=== PATIENT | male | born 1960 | race Caucasian/White ===

== ENCOUNTER 2017-04-27 16:38 | Inpatient (IN) | payer MEDICARE, OTHER ==
[2017-04-27] MEDS ORDERED: HYDROmorphone 1 MG/ML 1 ML SYRINGE IVP STA (17:58)
[2017-04-27] MEDS ORDERED: RX INFO: IV CONTRAST WAS GIVEN 1 EACH MISC MISCELLANE PRN (17:58)
[2017-04-27] MEDS ORDERED: ONDANSETRON 4 MG/2 ML VIAL IVP STA (17:58)
[2017-04-27] MEDS ORDERED: SODIUM CHLORIDE 0.9% 1,000 ML IV STA (17:58)
--- NOTE | 2017-04-27 18:13 | ED ---
General Adult HPI - General Source: patient, RN notes reviewed Mode of arrival: wheelchair Limitations: no limitations <Luis Miguel Mccracken - Last Filed: 04/27/17 19:49> <Praful Duron - Last Filed: 04/27/17 20:13> - General Chief complaint: Abdominal Pain Stated complaint: Abd Pain Time Seen by Provider: 04/27/17 17:41 - History of Present Illness Initial comments: Patient 57-year-old male who presents emergency room today with chief complaint of abdominal pain that started 3 days ago. He does admit to lower abdominal pain and lower abdomen. Patient admits to some nausea. Denies any diarrhea. States he was at [facility] yesterday. States that they do lab work. States was no imaging obtained other than for his right wrist. Patient states she's never had similar symptoms in the past. He denies any other complaints. Patient denies any recent fever, chills, shortness of breath, chest pain, back pain, numbness or tingling, dysuria or hematuria, constipation or diarrhea, headaches or visual changes, or any other complaints. (Luis Miguel Mccracken) - Related Data Home Medications Medication Instructions Recorded Confirmed Albuterol Inhaler [Ventolin Hfa 2 puff INHALATION RT-QID PRN 04/27/17 04/27/17 Inhaler] Budesonide-Formot 160-4.5 Mcg 1 puff INHALATION RT-DAILY 04/27/17 04/27/17 [Symbicort 160-4.5 Mcg Inhaler] Esomeprazole Magnesium [NexIUM] 20 mg PO BID 04/27/17 04/27/17 traZODone HCL 300 mg PO HS 04/27/17 04/27/17 Allergies Allergy/AdvReac Type Severity Reaction Status Date / Time No Known Allergies Allergy Verified 04/27/17 17:56 Review of Systems ROS Other: All systems not noted in ROS Statement are negative. <Luis Miguel Mccracken - Last Filed: 04/27/17 19:49> ROS Other: All systems not noted in ROS Statement are negative. <Praful Duron - Last Filed: 04/27/17 20:13> ROS Statement: Those systems with pertinent positive or pertinent negative responses have been documented in the HPI. Past Medical History Past Medical History: GERD/Reflux Additional Past Medical History / Comment(s): pinched nerve in neck History of Any Multi-Drug Resistant Organisms: None Reported Past Surgical History: Joint Replacement Past Psychological History: No Psychological Hx Reported Smoking Status: Current every day smoker Past Alcohol Use History: Occasional Past Drug Use History: None Reported <Luis Miguel Mccracken - Last Filed: 04/27/17 19:49> General Exam Limitations: no limitations <Luis Miguel Mccracken - Last Filed: 04/27/17 19:49> <Praful Duron - Last Filed: 04/27/17 20:13> - General Exam Comments Initial Comments: General: The patient is awake and alert, in no distress, and does not appear acutely ill. Eye: Pupils are equal, round and reactive to light, extra-ocular movements are intact. No nystagmus. There is normal conjunctiva bilaterally. No signs of icterus. Ears, nose, mouth and throat: There are moist mucous membranes and no oral lesions. Neck: The neck is supple, there is no tenderness or JVD. Cardiovascular: There is a regular rate and rhythm. No murmur, rub or gallop is appreciated. Respiratory: Lungs are clear to auscultation, respirations are non-labored, breath sounds are equal. No wheezes, stridor, rales, or rhonchi. Gastrointestinal: Patient does have normal appearance of the abdomen. Normal bowel sounds. Abdomen is soft on palpation. Does have increased tenderness to both right and left lower quadrants. No rebound tenderness. No guarding. No CVA tenderness. Musculoskeletal: Normal ROM, no tenderness. Strength 5/5. Sensation intact. Pulses equal bilaterally 2+. Neurological: A&O x 3. CN II-XII intact, There are no obvious motor or sensory deficits. Coordination appears grossly intact. Speech is normal. Skin: Skin is warm and dry and no rashes or lesions are noted. Psychiatric: Cooperative, appropriate mood & affect, normal judgment. (Luis Miguel Mccracken) Course <Luis Miguel Mccracken - Last Filed: 04/27/17 19:49> <Praful Duron - Last Filed: 04/27/17 20:13> Vital Signs 04/27/17 17:03 Temperature 98.6 F Pulse Rate 88 Respiratory 20 Rate Blood Pressure 136/81 O2 Sat by Pulse 97 Oximetry - Reevaluation(s) Reevaluation #1: 04/27/17 20:13 I did proceed a [id number] evaluation the patient did discuss findings with him. He did have a bowel movement pain for the past 3 days. The workup is consistent with diverticulitis. Patient will be admitted I did discuss case with hospitalist group. (Praful Duron) Medical Decision Making - Lab Data Result diagrams: 04/27/17 18:14 04/27/17 18:14 <Luis Miguel Mccracken - Last Filed: 04/27/17 19:49> - Lab Data Result diagrams: 04/27/17 18:14 04/27/17 18:14 <Praful Duron - Last Filed: 04/27/17 20:13> - Medical Decision Making Patient reexamined at this time states she is feeling better here in the emergency room still having some lower abdominal discomfort. Patient does have 12,[address] does show evidence of diverticulitis. (Luis Miguel Mccracken) - Lab Data Lab Results 04/27/17 04/27/17 04/27/17 Range/Units 18:14 18:14 18:14 WBC 12.4 H (3.8-10.6) k/uL RBC 4.99 (4.30-5.90) m/uL Hgb 15.3 (13.0-17.5) gm/dL Hct 46.8 (39.0-53.0) % MCV 93.8 (80.0-100.0) fL MCH 30.7 (25.0-35.0) pg MCHC 32.7 (31.0-37.0) g/dL RDW 14.8 (11.5-15.5) % Plt Count 286 (150-450) k/uL Neutrophils % 88 % Lymphocytes % 6 % Monocytes % 5 % Eosinophils % 1 % Basophils % 0 % Neutrophils # 10.8 H (1.3-7.7) k/uL Lymphocytes # 0.8 L (1.0-4.8) k/uL Monocytes # 0.6 (0-1.0) k/uL Eosinophils # 0.1 (0-0.7) k/uL Basophils # 0.0 (0-0.2) k/uL Sodium 144 (137-145) mmol/L Potassium 4.1 (3.5-5.1) mmol/L Chloride 107 (98-107) mmol/L Carbon Dioxide 24 (22-30) mmol/L Anion Gap 13 mmol/L BUN 14 (9-20) mg/dL Creatinine 0.90 (0.66-1.25) mg/dL Est GFR (MDRD) Af Amer >60 (>60 ml/min/1.73 sqM) Est GFR (MDRD) Non-Af >60 (>60 ml/min/1.73 sqM) Glucose 128 H (74-99) mg/dL Plasma Lactic Acid Kyle 1.3 (0.7-2.0) mmol/L Calcium 9.5 (8.4-10.2) mg/dL Total Bilirubin 0.3 (0.2-1.3) mg/dL AST 22 (17-59) U/L ALT 32 (21-72) U/L Alkaline Phosphatase 71 (38-126) U/L Total Protein 6.9 (6.3-8.2) g/dL Albumin 4.1 (3.5-5.0) g/dL Amylase 46 (30-110) U/L Lipase 62 (23-300) U/L Urine Color Urine Appearance (Clear) Urine pH (5.0-8.0) Ur Specific [place] (1.001-1.035) Urine Protein (Negative) Urine Glucose (UA) (Negative) Urine Ketones (Negative) Urine Blood (Negative) Urine Nitrite (Negative) Urine Bilirubin (Negative) Urine Urobilinogen (<2.0) mg/dL Ur Leukocyte Esterase (Negative) Urine RBC (0-5) /hpf Urine WBC (0-5) /hpf Ur Squamous Epith Cells (0-4) /hpf Urine Mucus (None) /hpf 04/27/17 Range/Units 18:25 WBC (3.8-10.6) k/uL RBC (4.30-5.90) m/uL Hgb (13.0-17.5) gm/dL Hct (39.0-53.0) % MCV (80.0-100.0) fL MCH (25.0-35.0) pg MCHC (31.0-37.0) g/dL RDW (11.5-15.5) % Plt Count (150-450) k/uL Neutrophils % % Lymphocytes % % Monocytes % % Eosinophils % % Basophils % % Neutrophils # (1.3-7.7) k/uL Lymphocytes # (1.0-4.8) k/uL Monocytes # (0-1.0) k/uL Eosinophils # (0-0.7) k/uL Basophils # (0-0.2) k/uL Sodium (137-145) mmol/L Potassium (3.5-5.1) mmol/L Chloride (98-107) mmol/L Carbon Dioxide (22-30) mmol/L Anion Gap mmol/L BUN (9-20) mg/dL Creatinine (0.66-1.25) mg/dL Est GFR (MDRD) Af Amer (>60 ml/min/1.73 sqM) Est GFR (MDRD) Non-Af (>60 ml/min/1.73 sqM) Glucose (74-99) mg/dL Plasma Lactic Acid Kyle (0.7-2.0) mmol/L Calcium (8.4-10.2) mg/dL Total Bilirubin (0.2-1.3) mg/dL AST (17-59) U/L ALT (21-72) U/L Alkaline Phosphatase (38-126) U/L Total Protein (6.3-8.2) g/dL Albumin (3.5-5.0) g/dL Amylase (30-110) U/L Lipase (23-300) U/L Urine Color Yellow Urine Appearance Cloudy (Clear) Urine pH 5.5 (5.0-8.0) Ur Specific [place] 1.028 (1.001-1.035) Urine Protein 1+ H (Negative) Urine Glucose (UA) Negative (Negative) Urine Ketones Negative (Negative) Urine Blood Negative (Negative) Urine Nitrite Negative (Negative) Urine Bilirubin Negative (Negative) Urine Urobilinogen <2.0 (<2.0) mg/dL Ur Leukocyte Esterase Negative (Negative) Urine RBC 1 (0-5) /hpf Urine WBC 2 (0-5) /hpf Ur Squamous Epith Cells <1 (0-4) /hpf Urine Mucus Many H (None) /hpf Disposition Time of Disposition: 19:51 <Luis Miguel Mccracken - Last Filed: 04/27/17 19:49> <Praful Duron - Last Filed: 04/27/17 20:13> Clinical Impression: Diverticulitis Disposition: ADMITTED IP TO THIS HOSP Condition: Good Referrals: Melina Denson MD [Primary Care Provider] - 1-2 days
[2017-04-27 18:27] LABS: Basophils % (A) 0 %; CH 31.7; Eosinophils # (A) 0.1 k/uL (0-0.7); Eosinophils % (A) 1 %; HCT 46.8 % (39.0-53.0); HDW 2.56; HGB 15.3 gm/dL (13.0-17.5); Luc # (Auto) 0.08; Luc % (Auto) 1; Lymphocytes # (A) 0.8 k/uL (1.0-4.8); Lymphocytes % (A) 6 %; MCH 30.7 pg (25.0-35.0); MCHC 32.7 g/dL (31.0-37.0); MCV 93.8 fL (80.0-100.0); Mean Platelet Volume 7.8; Monocytes # (A) 0.6 k/uL (0-1.0); Monocytes % (A) 5 %; Neutrophils # (A) 10.8 k/uL (1.3-7.7); Neutrophils % (A) 88 %; RBC 4.99 m/uL (4.30-5.90); RDW 14.8 % (11.5-15.5); WBC 12.4 k/uL (3.8-10.6); WBC (Perox) 11.41
[2017-04-27 18:34] LABS: ALT 32 U/L (21-72); AST 22 U/L (17-59); Alkaline Phosphatase 71 U/L (38-126); Amylase 46 U/L (30-110); Anion Gap 13 mmol/L; Blood Urea Nitrogen 14 mg/dL (9-20); Calcium 9.5 mg/dL (8.4-10.2); Carbon Dioxide 24 mmol/L (22-30); Chloride 107 mmol/L (98-107); Glucose 128 mg/dL (74-99); Non-African American GFR(MDRD) >60 (>60 ml/min/1.73 sqM); Potassium 4.1 mmol/L (3.5-5.1); Sodium 144 mmol/L (137-145); Total Bilirubin 0.3 mg/dL (0.2-1.3); Total Protein 6.9 g/dL (6.3-8.2)
[2017-04-27 18:49] LABS: Appearance,Urine Cloudy (Clear); Bilirubin,Urine Negative (Negative); Glucose,Urine (UA) Negative (Negative); Ketones,Urine Negative (Negative); Leukocyte Esterase,Urine Negative (Negative); Mucus,Urine Many /hpf; Nitrite,Urine Negative (Negative); PH, Urine 5.5 (5.0-8.0); Particle Count 18662; Protein,Urine 1+ (Negative); RBC,Urine 1 /hpf (0-5); Specific Gravity,Urine 1.028 (1.001-1.035); Squamous Epithelial Cell,Urine <1 /hpf (0-4); UA Billing (MACRO vs. MICRO) MICRO; Urobilinogen,Urine <2.0 mg/dL (<2.0); WBC,Urine 2 /hpf (0-5)
--- NOTE | 2017-04-27 19:24 | CT ---
EXAMINATION TYPE: CT abdomen pelvis w con DATE OF EXAM: 04/27/2017 COMPARISON: NONE HISTORY: Pelvic pain. CT DLP: 1472.00 mGycm Automated exposure control for dose reduction was used. TECHNIQUE: Helical acquisition of images was performed from the lung bases through the pelvis. CONTRAST: Performed without Oral Contrast and with IV Contrast, patient injected with 100 mL of Omnipaque 300. FINDINGS: Lung bases are clear. There is no pleural effusion. Heart size is normal. Liver spleen pancreas and gallbladder appear normal. Bile ducts are not dilated. There is no adrenal mass. Kidneys show satisfactory contrast opacification. There is no hydronephrosi s. There is no retroperitoneal adenopathy. Abdominal aorta is atheromatous. There are numerous divert icula in the sigmoid colon. Appendix appears normal. There is wall thickening and fat stranding aroun d the mid sigmoid colon. There is a loop of small bowel adjacent to the sigmoid colon with mild wall thickening and fluid level. The remainder of the small bowel appears fairly normal. I see no bony destructive process. There is narrowing at L5-S1 disc space. There is posterior disc he rniation at L1-2. IMPRESSION: SIGMOID DIVERTICULA WITH INFLAMMATORY CHANGES AROUND THE MID SIGMOID COLON CONSISTENT WITH DIVERTICUL ITIS. THERE IS LOCALIZED ILEUS INVOLVING THE ADJACENT LOOP OF DISTAL ILEUM. THIS IS PROBABLY INFLAMMA TORY REACTION. EXTENSIVE LEFT-SIDED COLONIC DIVERTICULOSIS.
[2017-04-27] MEDS ORDERED: LEVOFLOXACIN 750MG-D5W PMX 750 MG in DEXTROSE/WATER 1 150ML.BAG IVPB STA (19:50)
[2017-04-27] MEDS ORDERED: metroNIDAZOLE-NS PMX 500 MG in SALINE 1 100ML.BAG IVPB STA (19:50)
[2017-04-27] MEDS ORDERED: LEVOFLOXACIN 500MG-D5W PMX 500 MG in DEXTROSE/WATER 1 100ML.BAG IVPB STA (19:50)
[2017-04-27] MEDS ORDERED: ACETAMINOPHEN TAB 325 MG TAB PO PRN (20:22)
[2017-04-27] MEDS ORDERED: ONDANSETRON 4 MG/2 ML VIAL IVP PRN (20:22)
[2017-04-27] MEDS ORDERED: NALOXONE 0.4 MG/ML 1 ML VIAL IV PRN (20:22)
[2017-04-27] MEDS: HYDROmorphone 1 MG/ML 1 ML SYRINGE IV PRN (22:31)
[2017-04-28] MEDS: HYDROmorphone 1 MG/ML 1 ML SYRINGE IV PRN ×3 (01:58→12:56)
[2017-04-28] MEDS: metroNIDAZOLE-NS PMX 500 MG in SALINE 1 100ML.BAG IVPB SCH ×2 (03:53→12:56)
[2017-04-28 08:10] LABS: Basophils % (A) 0 %; CH 31.4; CHCM 34.1; Eosinophils % (A) 0 %; HCT 45.7 % (39.0-53.0); HDW 2.52; HGB 14.8 gm/dL (13.0-17.5); Luc % (Auto) 1; Lymphocytes # (A) 0.7 k/uL (1.0-4.8); Lymphocytes % (A) 4 %; MCHC 32.4 g/dL (31.0-37.0); MCV 92.6 fL (80.0-100.0); Mean Platelet Volume 7.6; Monocytes # (A) 0.8 k/uL (0-1.0); Monocytes % (A) 4 %; Neutrophils # (A) 17.5 k/uL (1.3-7.7); Neutrophils % (A) 92 %; RBC 4.94 m/uL (4.30-5.90); RDW 14.4 % (11.5-15.5); WBC 19.1 k/uL (3.8-10.6); WBC (Perox) 17.43
[2017-04-28 08:18] LABS: ALT 28 U/L (21-72); AST 17 U/L (17-59); Alkaline Phosphatase 64 U/L (38-126); Anion Gap 11 mmol/L; Blood Urea Nitrogen 9 mg/dL (9-20); Calcium 8.9 mg/dL (8.4-10.2); Carbon Dioxide 23 mmol/L (22-30); Chloride 103 mmol/L (98-107); Glucose 112 mg/dL (74-99); Non-African American GFR(MDRD) >60 (>60 ml/min/1.73 sqM); Potassium 3.8 mmol/L (3.5-5.1); Sodium 137 mmol/L (137-145); Total Bilirubin 0.6 mg/dL (0.2-1.3); Total Protein 6.4 g/dL (6.3-8.2)
[2017-04-28] MEDS ORDERED: HYDROcodone/APAP 5-325MG 1 EACH TAB PO PRN (14:04)
--- NOTE | 2017-04-28 14:28 | XR ---
EXAMINATION TYPE: XR chest 1V portable DATE OF EXAM: 04/28/2017 CLINICAL HISTORY: History of COPD, CHF, and asthma with difficulty in breathing. TECHNIQUE: Single AP portable frontal upright view of the chest is obtained. COMPARISON: Chest x-ray from October 27, 2011. FINDINGS: There is no focal air space opacity, pleural effusion, or pneumothorax seen. The cardiac silhouette size is within normal limits. The osseous structures are intact. IMPRESSION: No acute process identified currently.
[2017-04-28] MEDS: SODIUM CHLORIDE 0.9% 1,000 ML IV SCH (15:04)
--- NOTE | 2017-04-28 15:15 | HP ---
HISTORY AND PHYSICAL DATE OF SERVICE: 04/28/2017 This is a 57-year-old gentleman who with a past medical history of multiple medical problems of asthma, COPD, GERD, history of DJD, history of anxiety, bipolar depression, schizophrenia being followed by Dr. Denson in the outpatient setting is complaining of abdominal pain. The pain is mostly situated in the upper part of the abdomen as well as right lower quadrant and hypogastrium. The pain is off and on for the last several weeks, according to him. About 3 days ago the patient had exacerbation of pain. Patient went to [facility] and was evaluated. The patient also had right wrist pain and apparently there was no fracture. The patient came to [facility] yesterday and a CAT scan of the abdomen and pelvis was done which shows sigmoid diverticula with inflammatory changes around the mid-sigmoid colon consistent with acute diverticulitis, loculated ileus was also noted. The patient admitted for further evaluation and treatment. There is no history of fever or rigors. No history of headache, loss of consciousness. White count is elevated at 19.1. PAST MEDICAL HISTORY: History of asthma, COPD, GERD, DJD, history of pneumonia. MEDICATIONS: Prior to admission include: 1. Trazodone 300 mg q.h.s. 2. Nexium 20 mg p.o. b.i.d. 3. Symbicort 160/4.5 one puff daily. 4. Ventolin 2 puffs q.i.d. p.r.n. ALLERGIES: None. FAMILY HISTORY: History of cancer in the family. SOCIAL HISTORY: History of smoking, history of THC. REVIEW OF SYSTEMS: HEENT: No diminished hearing or vision. CARDIOVASCULAR: No angina or palpitation. RESPIRATORY: As mentioned earlier. GI: As mentioned earlier. : No dysuria. NERVOUS SYSTEM: No numbness or weakness. ALLERGY/IMMUNOLOGY: No asthma or hay fever. MUSCULOSKELETAL: As mentioned earlier. HEMATOLOGICAL: No history of anemia. ENDOCRINE: No history of diabetes or hypothyroidism. CONSTITUTIONAL: As mentioned earlier. DERMATOLOGY: Negative. RHEUMATOLOGY: Negative. PSYCHIATRY: As mentioned earlier. PHYSICAL EXAMINATION: The patient is alert and oriented x3. Pulse is 85, blood pressure 112/70, respiration 18, temperature is 98 degrees, pulse ox 96% on room air. HEENT: Conjunctivae are normal. Oral mucosa moist. Neck is no jugular venous distention. No lymph node enlargement. CARDIOVASCULAR SYSTEM: S1, S2, muffled. RESPIRATORY: Breath sounds diminished at the bases. Bilateral scattered rhonchi, no crackles. ABDOMEN: Soft, obese, diffuse distention and diffuse tenderness in the left lower quadrant and as well as the lower part of the abdomen present, bowel sounds present. Otherwise no ascites, no other mass palpable. LEGS: No edema. No swelling. NERVOUS SYSTEM: Higher functions as mentioned earlier. Moves all 4 limbs. No focal motor or sensory deficits. LYMPHATICS: No lymph node enlargement in the neck or axillae. SKIN: No ulcer, rash, bleeding. LABS: WBC is 19.1, hemoglobin is 14.8, sodium 139, potassium 3.8. ASSESSMENT: 1. Abdominal pain with possible acute diverticulitis. 2. Increased WBC. 3. Chronic obstructive pulmonary disease, asthma. 4. History of gastroesophageal reflux disease. 5. History of degenerative joint disease. 6. History pneumonia. 7. Anxiety, bipolar depression, schizophrenia. 8. History of nicotine dependence. 9. History of THC. 10.FULL CODE. RECOMMENDATION: In this 57-year-old gentleman who presented with multiple complex medical issues, will monitor the patient closely. Continue with the current management and symptomatic treatment. Otherwise at this time, I would recommend broad-spectrum IV antibiotics. I would also recommend a surgical consultation. Guarded prognosis because of multiple complex medical issues and further recommendations to follow. See orders for further details. Will optimize the bronchodilator treatments. Smoking cessation advised. DVT prophylaxis. Symptomatic treatment for the pain. See orders for further details. Further recommendations to follow. Discussed with the patient who understands and consents. MMODL / IJN: [id number] /
[2017-04-28] MEDS: LEVALBUTEROL NEB (CONC) 1.25 MG/0.5 ML AMP INHALATION SCH ×2 (15:47→19:33)
[2017-04-28] MEDS: IPRATROPIUM 0.5 MG/2.5 ML NEBU INHALATION SCH ×2 (15:47→19:33)
[2017-04-28] MEDS: PANTOPRAZOLE 40 MG/10 ML VIAL IVP SCH (15:58)
[2017-04-28] MEDS: PIPERACILLIN-TAZOBACTAM 3.375 GM in DEXTROSE/WATER 1 50ML.BAG IVPB SCH ×2 (15:58→23:57)
[2017-04-28] MEDS: HEPARIN SODIUM,PORCINE 5,000 UNIT/ML 1 ML VIAL SQ SCH ×2 (15:58→21:32)
[2017-04-28] MEDS: NICOTINE 14MG/24HR PATCH TRANSDERM SCH (15:59)
[2017-04-28] MEDS: HYDROmorphone 0.5 MG/0.5 ML SYRINGE IVP PRN ×3 (17:45→23:56)
[2017-04-28] MEDS: FORMOTEROL FUMARATE 20 MCG/2 ML NEBU INHALATION SCH (19:33)
[2017-04-28] MEDS: BUDESONIDE 1 MG/2 ML NEBU INHALATION SCH (19:34)
[2017-04-28] MEDS: LEVOFLOXACIN 500MG-D5W PMX 500 MG in DEXTROSE/WATER 1 100ML.BAG IVPB SCH (20:14)
[2017-04-29] MEDS: HYDROmorphone 0.5 MG/0.5 ML SYRINGE IVP PRN ×2 (02:51→06:09)
[2017-04-29] MEDS: FORMOTEROL FUMARATE 20 MCG/2 ML NEBU INHALATION SCH ×2 (07:28→20:01)
[2017-04-29] MEDS: IPRATROPIUM 0.5 MG/2.5 ML NEBU INHALATION SCH ×4 (07:28→20:00)
[2017-04-29] MEDS: LEVALBUTEROL NEB (CONC) 1.25 MG/0.5 ML AMP INHALATION SCH ×4 (07:28→20:01)
[2017-04-29] MEDS: BUDESONIDE 1 MG/2 ML NEBU INHALATION SCH ×2 (07:28→20:01)
[2017-04-29] MEDS: PANTOPRAZOLE 40 MG/10 ML VIAL IVP SCH (08:13)
[2017-04-29] MEDS: PIPERACILLIN-TAZOBACTAM 3.375 GM in DEXTROSE/WATER 1 50ML.BAG IVPB SCH ×3 (08:14→23:14)
[2017-04-29] MEDS: NICOTINE 14MG/24HR PATCH TRANSDERM SCH (08:14)
[2017-04-29] MEDS: HEPARIN SODIUM,PORCINE 5,000 UNIT/ML 1 ML VIAL SQ SCH ×3 (08:14→23:15)
[2017-04-29 08:18] LABS: Basophils % (A) 0 %; CH 30.9; CHCM 33.4; Eosinophils # (A) 0.1 k/uL (0-0.7); Eosinophils % (A) 1 %; HCT 44.8 % (39.0-53.0); HGB 14.6 gm/dL (13.0-17.5); Luc # (Auto) 0.23; Luc % (Auto) 1; Lymphocytes # (A) 0.8 k/uL (1.0-4.8); Lymphocytes % (A) 5 %; MCH 30.3 pg (25.0-35.0); MCHC 32.6 g/dL (31.0-37.0); MCV 93.1 fL (80.0-100.0); Mean Platelet Volume 7.2; Monocytes # (A) 0.8 k/uL (0-1.0); Monocytes % (A) 4 %; Neutrophils # (A) 15.9 k/uL (1.3-7.7); Neutrophils % (A) 89 %; RBC 4.81 m/uL (4.30-5.90); RDW 13.6 % (11.5-15.5); WBC 17.8 k/uL (3.8-10.6); WBC (Perox) 17.19
[2017-04-29] MEDS ORDERED: BENZOCAINE SPRAY 1 SPRAY CAN ONE (08:20)
[2017-04-29 08:44] LABS: Anion Gap 11 mmol/L; Blood Urea Nitrogen 9 mg/dL (9-20); Calcium 9.1 mg/dL (8.4-10.2); Carbon Dioxide 23 mmol/L (22-30); Chloride 101 mmol/L (98-107); Glucose 120 mg/dL (74-99); Non-African American GFR(MDRD) >60 (>60 ml/min/1.73 sqM); Potassium 4.1 mmol/L (3.5-5.1); Sodium 135 mmol/L (137-145)
[2017-04-29] MEDS ORDERED: RX INFO: IV CONTRAST WAS GIVEN 1 EACH MISC MISCELLANE PRN (08:58)
[2017-04-29] MEDS: IOHEXOL 350 MG/ML 25 ML BOTTLE (ORAL USE) PO PRN ×2 (09:10→10:07)
[2017-04-29] MEDS: SODIUM CHLORIDE 0.9% 1,000 ML IV SCH ×3 (09:11→16:24)
--- NOTE | 2017-04-29 09:11 | P.PN ---
Subjective 57-year-old male being seen on rounds noted to have a significant abdominal distention this morning. Patient states there's increased pain compared to yesterday. Abdomen is firm and distended few hypoactive bowel tones. Patient states sensation of nausea no active emesis. Patient states the abdominal pain is across the entire abdomen. Patient came into the emergency room the day before with a chief complaint of abdominal pain. A CAT scan of the abdomen pelvis was done at that time it did showed sigmoid diverticula with inflammatory changes around the mid sigmoid colon consistent with acute diverticulitis, loculated ileus also noted. Patient states he has not had pain like this before. According to the patient 3 days ago he did present to [facility] to be evaluated in the emergency room for abdominal pain and pain in the wrist area he stated he was seen in the emergency room discharged. He states the pain continued to persist came into the emergency room at [facility] on April 27 to be evaluated white count this morning 17.8. Admission white count 12.4. Afebrile temp 97.6. Objective - Vital Signs Vital signs: Vital Signs Temp 97.7 F 04/29/17 07:55 Pulse 64 04/29/17 07:55 Resp 18 04/29/17 07:55 BP 128/73 04/29/17 07:55 Pulse Ox 91 L 04/29/17 07:55 Intake & Output 04/28/17 04/29/17 04/29/17 18:59 06:59 18:59 Intake Total 600 590 Balance 600 590 Intake: Oral 600 590 Other: Voiding Method Toilet # Voids 3 2 - Exam GENERAL APPEARANCE: 57-year-old male patient is alert states having increased abdominal pain across the entire abdominal wall VITAL SIGNS: Reviewed afebrile HEENT: Head is normocephalic and atraumatic. Pupils are equal and reactive. The nares are patent. Oropharynx is clear without lesions. NECK: Supple without lymphadenopathy. Traches midline. HEART: S1, S2. Regular rate and rhythm. No murmur noted denying chest pain LUNGS: Posterior bilateral few scattered prolonged expiratory wheezing noted no cough noted sats on room air 91%. ABDOMEN: Soft, diffuse tenderness across the abdominal wall firm distended a few hypoactive bowel tones No peritoneal signs. No palpable organomegaly or masses. States had a bowel movement yesterday morning no stool since reports a sensation of nausea no active emesis EXTREMITIES: Normal skin color and turgor. No cyanosis, rash, ulceration, clubbing or edema. Radial pedal pulses are 2/4 bilaterally. NEUROLOGICAL: No focal deficits. Strength and sensation are grossly intact. - Labs CBC & Chem 7: 04/29/17 07:43 04/29/17 07:43 Labs: Abnormal Lab Results - Last 24 Hours (Table) 04/29/17 04/29/17 Range/Units 07:43 07:43 WBC 17.8 H (3.8-10.6) k/uL Neutrophils # 15.9 H (1.3-7.7) k/uL Lymphocytes # 0.8 L (1.0-4.8) k/uL Sodium 135 L (137-145) mmol/L Glucose 120 H (74-99) mg/dL Microbiology - Last 24 Hours (Table) 04/28/17 18:40 Urine Culture - Preliminary Urine,Clean Catch 04/27/17 18:14 Blood Culture - Preliminary Blood No Growth after 24 hours Assessment and Plan Plan: Impression Present on admission bilateral abdominal pain with a CAT scan abdomen pelvis showing sigmoid diverticula with inflammatory changes around the mid sigmoid colon consistent with acute diverticulitis, loculated ileus also noted Mood disorder bipolar schizoaffective Present on admission leukocytosis suspect due to acute diverticulitis History of right wrist pain Current every day smoker Plan Continue IV hydration Keep nothing by mouth Order urgent CAT scan abdomen and pelvis oral contrast will follow up on results Pain control DVT and GI prophylaxis IV antibiotic Levaquin and Zosyn Further surgical recommendations pending will follow clinical course closely Repeat labs in am The results of the CAT scan abdomen pelvis discuss with Dr meza finding show complicated perforated acute sigmoid diverticulitis with approximately 6.4 x 2.2 cm related fluid collection with a high-grade partial small bowel obstruction versus complete obstruction. Patient will be taken to the operating room urgently this was discussed with the patient and the patient's significant other patient her knowledge and understanding of the plan of care The above impression and plan of care have been discussed and directed by signing physician. Rosa M Swain nurse practitioner acting as scribe for signing physician.
--- NOTE | 2017-04-29 11:29 | CT ---
"EXAMINATION TYPE: CT abdomen pelvis w con DATE OF EXAM: 04/29/2017 COMPARISON: CT abdomen pelvis dated 04/27/2017 HISTORY: Abdominal pain with increased tenderness and distention CT DLP: 1762 mGycm Automated exposure control for dose reduction was used. TECHNIQUE: Helical acquisition of images was performed from the lung bases through the pelvis. CONTRAST: Performed with Oral Contrast and with IV Contrast, patient injected with 100 ml mL of Omnipaque 300. FINDINGS: LUNG BASES: Minimal subsegmental bibasilar atelectasis.. LIVER/GB: No significant abnormality is appreciated. Vicarious excretion of contrast is seen througho ut the gallbladder as this was not present on the prior examination of 04/27/2017 and therefore does n ot relate a high density sludge or stones. PANCREAS: No significant abnormality is seen. SPLEEN: No significant abnormality is seen. ADRENALS: No significant abnormality is seen. KIDNEYS: No significant abnormality is seen. FREE AIR: No free air is visualized. RETROPERITONEAL ADENOPATHY: None visualized REPRODUCTIVE ORGANS: No significant abnormality is seen URINARY BLADDER: No significant abnormality is seen. PELVIC ADENOPATHY: None visualized. OSSEOUS STRUCTURES: No significant abnormality is seen. Probable disc herniation at L1-L2 is again d emonstrated. Intervertebral disc space narrowing is present at L5-S1. BOWEL: Small bowel obstruction as developed in the interim. Dilated loops of small bowel with differ ential air-fluid levels measuring up to 3.3 cm. A single loop of abnormal small bowel with ACC config uration is seen within the right low hemipelvis with extensive mucosal hyperemia, fluid-filled lumen, and bowel wall thickening up to 8 mm. Adjacent to this, insinuating between the opposing surfaces of the small bowel loop there is an approximately 6.4 x 2.2 cm focal fluid collection with numerous foc i of free air. Extensive inflammatory fat stranding is seen around the adjacent sigmoid colon just in ferior to this with numerous sigmoid diverticula, small amount of layering free fluid within the pelv is, presacral edema, and fascial thickening. Engorgement of the vasa recta and perienteric fat stranding relate to mesenteric congestion. Small vo lume ascites is also seen within the inferior right lateral conal fascia. Trace perihepatic fluid is also present at the inferior margin of segment 6. Trace amount of left pericolonic fluid is also seen . Distal to the most inflamed loop of small bowel seen on series 3 image 78 there is decompression of t he terminal ileum with decreased caliber on series 3 image 68 through 70. No distinct transition poin t after the C-shaped loop of inflamed small bowel. IMPRESSION: 1. COMPLICATED, PERFORATED ACUTE SIGMOID DIVERTICULITIS WITH APPROXIMATELY 6.4 X 2.2 CM LOCULATED FLU ID COLLECTION CONTAINING FOCI OF FREE AIR INSINUATING BETWEEN A C-SHAPED LOOP OF SMALL BOWEL AND THER EFORE NOT AMENABLE TO PERCUTANEOUS DRAINAGE. THIS LOOP OF SMALL BOWEL DEMONSTRATE EXTENSIVE INFLAMMAT ORY CHANGE WITH MUCOSAL HYPEREMIA, MUCOSAL THICKENING, AND MUCOSAL EDEMA. 2. AT LEAST HIGH-GRADE PARTIAL SMALL BOWEL OBSTRUCTION VERSUS COMPLETE OBSTRUCTION AT THE TERMINAL IL EUM JUST DISTAL TO THE LARGELY INFLAMED RIGHT LOWER QUADRANT DISTAL ILEAL LOOP ADJACENT TO THE ABSCES S. 3. SMALL VOLUME LIKELY REACTIVE ASCITES AND MESENTERIC CONGESTION WELL PRESACRAL EDEMA. A message was left with the voicemail of the antiquer at 11:26 on as no one was able to an swer the phone. A Red message has been communicated to Keke Banks MD via the [employer] | Critical Result syst em on 04/29/2017 11:22 AM, Message ID [id number]."
--- NOTE | 2017-04-29 11:53 | P.GSCN ---
History of Present Illness Consult date: 04/28/17 Reason for Consult: Diverticulitis History of present illness: This a 57-year-old male referred from Dr. Flowers. Patient points of abdominal pain. He was worked up emergency room found evidence of diverticulitis. Review of Systems - Constitutional Reports as per HPI Past Medical History Past Medical History: Asthma, COPD, GERD/Reflux, Osteoarthritis (OA), Pneumonia Additional Past Medical History / Comment(s): pinched nerve in neck, herniated discs,bronchitis, rt arm "bone spurs" History of Any Multi-Drug Resistant Organisms: None Reported Past Surgical History: Joint Replacement Additional Past Surgical History / Comment(s): rt shoulder Past Anesthesia/Blood Transfusion Reactions: No Reported Reaction Past Psychological History: Anxiety, Bipolar, Depression, Schizophrenia Additional Psychological History / Comment(s): PT stated he has some depression but no thoughts of harming himself or anyone else. pt stopped taking his meds a year ago.pt lives with girlfriend mone and her daughter and grandson. 1 pet dog. live in 2 story home that has 5 steps. no home care services recieved. no medical equipment. Smoking Status: Current every day smoker Past Alcohol Use History: Heavy Additional Past Alcohol Use History / Comment(s): started smoking at age of 14, smokes 1.5-2 ppd. quit drinking almost 4 months ago Past Drug Use History: Marijuana - Past Family History Father Family Medical History: Cancer Mother Family Medical History: Cancer Medications and Allergies Home Medications Medication Instructions Recorded Confirmed Type Albuterol Inhaler [Ventolin Hfa 2 puff INHALATION RT-QID PRN 04/27/17 04/27/17 History Inhaler] Budesonide-Formot 160-4.5 Mcg 1 puff INHALATION RT-DAILY 04/27/17 04/27/17 History [Symbicort 160-4.5 Mcg Inhaler] Esomeprazole Magnesium [NexIUM] 20 mg PO BID 04/27/17 04/27/17 History traZODone HCL 300 mg PO HS 04/27/17 04/27/17 History Allergies Allergy/AdvReac Type Severity Reaction Status Date / Time No Known Allergies Allergy Verified 04/27/17 17:56 Surgical - Exam Vital Signs Temp Pulse Resp BP Pulse Ox 98.6 F 88 20 136/81 97 04/27/17 17:03 04/27/17 17:03 04/27/17 17:03 04/27/17 17:03 04/27/17 17:03 - General well developed, no distress - Eyes PERRL - ENT normal pinna - Neck no masses - Respiratory normal expansion - Cardiovascular Rhythm: regular - Abdomen Tender left lower quadrant. There is some minimal guarding there is no rebound tenderness Abdomen: soft Results - Labs 04/29/17 07:43 04/29/17 07:43 Abnormal Lab Results - Last 24 Hours (Table) 04/29/17 04/29/17 Range/Units 07:43 07:43 WBC 17.8 H (3.8-10.6) k/uL Neutrophils # 15.9 H (1.3-7.7) k/uL Lymphocytes # 0.8 L (1.0-4.8) k/uL Sodium 135 L (137-145) mmol/L Glucose 120 H (74-99) mg/dL Microbiology - Last 24 Hours (Table) 04/28/17 18:40 Urine Culture - Preliminary Urine,Clean Catch 04/27/17 18:14 Blood Culture - Preliminary Blood No Growth after 24 hours Diabetes panel 04/29/17 Range/Units 07:43 Sodium 135 L (137-145) mmol/L Potassium 4.1 (3.5-5.1) mmol/L Chloride 101 (98-107) mmol/L Carbon Dioxide 23 (22-30) mmol/L BUN 9 (9-20) mg/dL Creatinine 0.75 (0.66-1.25) mg/dL Glucose 120 H (74-99) mg/dL Calcium 9.1 (8.4-10.2) mg/dL Calcium panel 04/29/17 Range/Units 07:43 Calcium 9.1 (8.4-10.2) mg/dL Pituitary panel 04/29/17 Range/Units 07:43 Sodium 135 L (137-145) mmol/L Potassium 4.1 (3.5-5.1) mmol/L Chloride 101 (98-107) mmol/L Carbon Dioxide 23 (22-30) mmol/L BUN 9 (9-20) mg/dL Creatinine 0.75 (0.66-1.25) mg/dL Glucose 120 H (74-99) mg/dL Calcium 9.1 (8.4-10.2) mg/dL Adrenal panel 04/29/17 Range/Units 07:43 Sodium 135 L (137-145) mmol/L Potassium 4.1 (3.5-5.1) mmol/L Chloride 101 (98-107) mmol/L Carbon Dioxide 23 (22-30) mmol/L BUN 9 (9-20) mg/dL Creatinine 0.75 (0.66-1.25) mg/dL Glucose 120 H (74-99) mg/dL Calcium 9.1 (8.4-10.2) mg/dL Assessment and Plan Plan: Diverticulosis. Patient will continue receive IV antibiotics. He'll remain nothing by mouth.
[2017-04-29] MEDS ORDERED: IV FLUID CONTINUATION 1,000 ML IV ONE (12:29)
[2017-04-29] MEDS ORDERED: DEXAMETHASONE SOD PHOSPHATE 10 MG/ML 1 ML VIAL IV ONE (12:35)
[2017-04-29] MEDS: ONDANSETRON 4 MG/2 ML VIAL IVP PRN (12:35)
--- NOTE | 2017-04-29 12:36 | P.PN ---
Progress Note - Text The patient had increased pain this morning. His stat CAT scan shows evidence of colonic perforation with free air and fluid. The patient will undergo exposure laparotomy with sigmoid colectomy and colostomy today.
[2017-04-29] MEDS ORDERED: SUCCINYLCHOLINE CHLORIDE VIAL 200 MG/10 ML VIAL IV ONE (12:43)
[2017-04-29] MEDS ORDERED: NEOSTIGMINE 1 MG/ML 10 ML VIAL ONE (12:43)
[2017-04-29] MEDS ORDERED: ROCURONIUM BROMIDE 10 MG/ML 10 ML VIAL IV ONE (12:43)
[2017-04-29] MEDS ORDERED: GLYCOPYRROLATE 0.2 MG/ML 2 ML VIAL ONE (12:43)
[2017-04-29] MEDS ORDERED: PROPOFOL 10 MG/ML 20 ML VIAL IV ONE (12:43)
[2017-04-29] MEDS ORDERED: fentaNYL (PF) 50 MCG/ML 2 ML AMP ONE (12:43)
[2017-04-29] MEDS ORDERED: LIDOCAINE 1% INJ 10MG/ML (20 ML MDV) ONE (12:43)
[2017-04-29] MEDS ORDERED: MIDAZOLAM 2 MG/2 ML VIAL ONE (12:43)
[2017-04-29] MEDS ORDERED: ONDANSETRON 4 MG/2 ML VIAL ONE (12:43)
[2017-04-29] MEDS ORDERED: LACTATED RINGERS 1,000 ML IV ONE (13:35)
[2017-04-29] MEDS ORDERED: BENZOCAINE/MENTHOL LOZENG 1 EACH LOZENGE MUCOUS MEM PRN (14:01)
[2017-04-29] MEDS ORDERED: METOCLOPRAMIDE 5 MG/ML 2 ML VIAL IVP PRN (14:01)
--- NOTE | 2017-04-29 14:01 | P.OP ---
Date of Procedure: 04/29/17 Preoperative Diagnosis: Perforated diverticulitis with small bowel obstruction Postoperative Diagnosis: Perforated diverticulitis with abscess Small bowel obstruction Procedure(s) Performed: Sigmoid colectomy with end colostomy Drains a pelvic abscess Decompression of small bowel Anesthesia: LILO Surgeon: Sanchez Pathak Estimated Blood Loss (ml): 50 Pathology: other (Sigmoid colon) Condition: stable Disposition: PACU Description of Procedure: The patient's placed on the operative table in the supine position. He received general anesthesia. His abdomen was prepped and draped usual sterile fashion. The patient's abdomen was quite protuberant. The abdomen was entered through midline incision. There was dilated loops of small bowel noted. The bowel was very dilated. A Bookwalter tract placed a wound. And then the sigmoid colon was palpated. There appeared to be an inflammatory mass sigmoid colon. The small bowel was adherent to the sigmoid colon there was a large abscess cavity the pelvis with small bowel adherent to the abscess causing a small bowel obstruction. The distal left colon was then transected with the GI stapler and then using the LigaSure device the mesentery of the sigmoid colon was divided. The mesentery is very inflamed. There is a lot of inflammatory reaction in the pelvis. Several attempts were made to find the ureter however it could not be seen due to the inflammation. At this point the proximal rectum was transected with the contour stapler. And then the specimen was removed. The abdomen was irrigated. There is no bleeding seen. The small bowel was very dilated. An enterotomy was made in the jejunum and small bowel is decompressed with suction. The enterotomy was closed using the TX 60 stapler. The abdomen was irrigated again. A suitable spot for the colostomy was found was brought out through the left lower quadrant. The fascia is closed loop #1 PDS suture. The skin was closed with bjorn. An opening of the superior and inferior portion of the wound was left open and packed with Telfa due to the case being contaminated. The colostomy then matured with 3-0 Vicryl suture. Patient top procedure well and was sent to recovery room in stable condition.
[2017-04-29] MEDS ORDERED: HYDROmorphone 1 MG/ML 1 ML SYRINGE IVP ONE (14:30)
[2017-04-29] MEDS: HYDROmorphone 1 MG/ML 1 ML SYRINGE IVP ONE ×2 (14:42→14:47)
--- NOTE | 2017-04-29 15:03 | XR ---
EXAMINATION TYPE: XR chest 1V confirm line [facility] DATE OF EXAM: 04/29/2017 COMPARISON: 04/28/2017 HISTORY: 57-year-old male Central line insertion TECHNIQUE: Single frontal view of the chest is obtained. FINDINGS: Right CVC tip is in the lower right atrium. NG tube courses below the diaphragm. Heart is upper limit s of normal in size. Diffuse interstitial prominence. No consolidation, pneumothorax, or significant pleural effusion. IMPRESSION: 1. Right IJ CVC tip in the right atrium. 2. Borderline heart size and worsened interstitial changes. Correlate for possible pulmonary vascular congestion.
[2017-04-29] MEDS: MEPERIDINE 50 MG/ML SYRINGE IVP ONE ×2 (15:04→15:09)
[2017-04-29] MEDS ORDERED: FUROSEMIDE 10 MG/ML 4 ML VIAL IV STA (15:36)
[2017-04-29] MEDS ORDERED: PIPERACILLIN-TAZOBACTAM 3.375 GM in DEXTROSE/WATER 1 50ML.BAG IVPB SCH (16:00)
[2017-04-29] MEDS: D5-0.45% NACL WITH KCL 20MEQ/L 1,000 ML IV SCH (16:25)
[2017-04-29] MEDS: LEVOFLOXACIN 500MG-D5W PMX 500 MG in DEXTROSE/WATER 1 100ML.BAG IVPB SCH (16:26)
[2017-04-29 16:37] LABS: Basophils % (A) 0 %; CH 31.5; CHCM 33.8; Eosinophils # (A) 0.1 k/uL (0-0.7); Eosinophils % (A) 1 %; HCT 49.8 % (39.0-53.0); HDW 2.55; HGB 16.3 gm/dL (13.0-17.5); Luc # (Auto) 0.06; Luc % (Auto) 1; Lymphocytes # (A) 0.4 k/uL (1.0-4.8); Lymphocytes % (A) 3 %; MCH 30.6 pg (25.0-35.0); MCHC 32.7 g/dL (31.0-37.0); MCV 93.5 fL (80.0-100.0); Mean Platelet Volume 7.9; Monocytes # (A) 0.4 k/uL (0-1.0); Monocytes % (A) 3 %; Neutrophils % (A) 93 %; RBC 5.32 m/uL (4.30-5.90); RDW 14.5 % (11.5-15.5); WBC (Perox) 13.65
[2017-04-29 17:04] LABS: Anion Gap 12 mmol/L; Blood Urea Nitrogen 9 mg/dL (9-20); Calcium 8.8 mg/dL (8.4-10.2); Carbon Dioxide 22 mmol/L (22-30); Chloride 100 mmol/L (98-107); Glucose 165 mg/dL (74-99); Non-African American GFR(MDRD) >60 (>60 ml/min/1.73 sqM); Potassium 3.9 mmol/L (3.5-5.1); Sodium 134 mmol/L (137-145)
[2017-04-29] MEDS: HYDROmorphone 1 MG/ML 1 ML SYRINGE IVP PRN ×2 (18:00→23:14)
[2017-04-29] MEDS: KETOROLAC 30 MG/ML 1 ML VIAL IVP PRN (19:21)
--- NOTE | 2017-04-29 21:46 | PN ---
PROGRESS NOTE DATE OF SERVICE: 04/29/2017 This 57-year-old gentleman who was admitted with abdominal pain had features of acute diverticulitis. The patient developed features of perforation and after a CAT scan, patient underwent surgery with a colostomy by Dr. Pathak, who performed sigmoid colectomy with end-colostomy as well as draining of the pelvic abscess and decompression of the small-bowel. There is no history of any fever, rigors, chills at this time. Patient is sedated at this time. PAST MEDICAL HISTORY: Reviewed. REVIEW OF SYSTEM: Could not be taken as the patient is sedated. CURRENT MEDICATIONS: 1. Tylenol 650 every 6 hours p.r.n. 2. [place] 5 mg. 3. Pulmicort/Perforomist 20 mg daily. 4. Heparin 5 subcu b.i.d. 5. Dilaudid 1 mg IV q.3 p.r.n. 6. Toradol. 7. Xopenex. 8. Levaquin daily. 9. Habitrol 14 daily. 10.Zosyn 3.375 IV every 6 hours. PHYSICAL EXAM: Patient is alert, oriented x3, arousable. Pulse 100, blood pressure 134/84, respirations 20, temperature normal, pulse ox 98% on 2L. HEENT: Conjunctivae normal. Oral mucosa moist. NECK: No jugular venous distention. No carotid bruits. No lymph node enlargement. CARDIOVASCULAR: S1, S2 muffled. No S3. No S4. RESPIRATORY: Breath sounds diminished in the bases. A few scattered rhonchi and crackles. ABDOMEN: Soft, status post surgery. LEGS: No edema. No swelling. NERVOUS SYSTEM: No focal deficits. Bowel sounds absent. LABS: At this time show WBC 13 and sodium 134. ASSESSMENT: 1. Acute sigmoid diverticulitis with perforation, status post sigmoid colectomy and end-colostomy and drainage of pelvic abscess and decompression of small-bowel. 2. Increased WBC. 3. Possible sepsis secondary to above. 4. Chronic obstructive pulmonary disease, asthma history. 5. History of gastroesophageal reflux disease. 6. History of degenerative joint disease. 7. History pneumonia. 8. Bipolar depression and schizophrenia. 9. Nicotine dependence. 10.History of THC. 11.FULL CODE. RECOMMENDATIONS AND DISCUSSION: Recommend to continue current management and continue symptomatic treatment. Otherwise, I would recommend a course of a dose of Lasix. Continue with rest of the medications. I would also recommend a course of bronchodilators as well. Other than that, broad-spectrum IV antibiotics, infectious disease evaluation. surgical evaluation. Guarded prognosis because of multiple complex medical issues. Discussed with the family and discussed with Dr. Pathak, who is following the patient closely. Further recommendations to follow. MMODL / IJN: [id number] /
[2017-04-29] MEDS ORDERED: BENZOCAINE SPRAY 1 SPRAY CAN MUCOUS MEM PRN (21:54)
[2017-04-30] MEDS: D5-0.45% NACL WITH KCL 20MEQ/L 1,000 ML IV SCH ×5 (00:54→17:32)
[2017-04-30] MEDS: KETOROLAC 30 MG/ML 1 ML VIAL IVP PRN ×2 (04:42→11:26)
[2017-04-30 04:50] LABS: Basophils % (A) 0 %; CH 30.4; CHCM 32.2; Eosinophils # (A) 0.1 k/uL (0-0.7); Eosinophils % (A) 1 %; HCT 46.9 % (39.0-53.0); HDW 2.54; HGB 15.8 gm/dL (13.0-17.5); Luc # (Auto) 0.18; Luc % (Auto) 1; Lymphocytes # (A) 0.7 k/uL (1.0-4.8); Lymphocytes % (A) 6 %; MCH 31.9 pg (25.0-35.0); MCHC 33.8 g/dL (31.0-37.0); MCV 94.6 fL (80.0-100.0); Monocytes # (A) 0.7 k/uL (0-1.0); Monocytes % (A) 5 %; Neutrophils # (A) 10.7 k/uL (1.3-7.7); Neutrophils % (A) 86 %; RBC 4.96 m/uL (4.30-5.90); RDW 13.6 % (11.5-15.5); WBC 12.4 k/uL (3.8-10.6); WBC (Perox) 12.82
[2017-04-30 04:51] LABS: Anion Gap 11 mmol/L; Blood Urea Nitrogen 12 mg/dL (9-20); Calcium 8.3 mg/dL (8.4-10.2); Carbon Dioxide 22 mmol/L (22-30); Chloride 101 mmol/L (98-107); Glucose 141 mg/dL (74-99); Non-African American GFR(MDRD) >60 (>60 ml/min/1.73 sqM); Potassium 4.3 mmol/L (3.5-5.1); Sodium 134 mmol/L (137-145)
[2017-04-30] MEDS: LEVALBUTEROL NEB (CONC) 1.25 MG/0.5 ML AMP INHALATION SCH ×3 (07:58→11:34)
[2017-04-30] MEDS: IPRATROPIUM 0.5 MG/2.5 ML NEBU INHALATION SCH ×5 (07:58→19:43)
[2017-04-30] MEDS: FORMOTEROL FUMARATE 20 MCG/2 ML NEBU INHALATION SCH ×2 (07:58→19:43)
[2017-04-30] MEDS: BUDESONIDE 1 MG/2 ML NEBU INHALATION SCH ×2 (07:58→19:43)
[2017-04-30] MEDS: PIPERACILLIN-TAZOBACTAM 3.375 GM in DEXTROSE/WATER 1 50ML.BAG IVPB SCH ×2 (09:03→15:30)
[2017-04-30] MEDS: PANTOPRAZOLE 40 MG/10 ML VIAL IVP SCH (10:08)
--- NOTE | 2017-04-30 10:08 | P.PN ---
Subjective Pleasant 57-year-old gentleman being seen on rounds this morning respiratory treatment in progress. Nasal gastric tube connected to suction 150 out since 7 AM last 3 hours surgical dressing dry ostomy left lower quadrant scant amount of brown liquid drainage noted MARKO drain in the right patient states pain medication effective for pain control. Reportedly urinating no difficult Postop 29 of April sigmoid colectomy with end colostomy for perforated diverticulitis with small bowel obstruction with abscess Objective - Vital Signs Vital signs: Vital Signs Temp 97.7 F 04/30/17 07:40 Pulse 80 04/30/17 08:45 Resp 16 04/30/17 07:40 BP 121/69 04/30/17 07:40 Pulse Ox 95 04/30/17 07:40 Intake & Output 04/29/17 04/30/17 04/30/17 18:59 06:59 18:59 Intake Total 900 675 Output Total 565 475 375 Balance 335 200 -375 Intake: IV 900 675 D5-0.45% NaCl with KCl 625 20Meq/l 1,000 ml @ 125 mls/hr IV .Q8H AG Rx#: [id number] Piperacillin-Tazobactam 3 50 .375 gm In Dextrose/Water 1 50ml.bag @ 12.5 mls/hr IVPB Q8HR AG Rx#: [id number] Output: Gastric Drainage 250 Drainage 200 50 375 Abdomen 200 50 Left 375 Urine 325 175 Estimated Blood Loss 40 Other: Voiding Method Toilet Urinal # Voids 1 # Bowel Movements 1 - Exam GENERAL APPEARANCE: 57-year-old male patient is alert pleasant cooperative sitting up in bed receiving and respiratory treatment VITAL SIGNS: Reviewed afebrile HEENT: Head is normocephalic and atraumatic. Pupils are equal and reactive. The nares are patent. Oropharynx is clear without lesions. NECK: Supple without lymphadenopathy. Traches midline. HEART: S1, S2. Regular rate and rhythm. No murmur noted denying chest pain LUNGS: Posterior diminished at the bases nasal cannula 3 L no audible wheezing noted this morning ABDOMEN: Abdominal binder in place surgical dressing to surgical site dry MARKO drain left lower quadrant bloody drainage noted in bulb, nasal gastric tube connected to suction 150 over the last 3 hours urinating no difficulty soft surgical tenderness appropriate a few hypoactive bowel tones reports no nausea sensation EXTREMITIES: Normal skin color and turgor. No cyanosis, rash, ulceration, clubbing or edema. Radial pedal pulses are 2/4 bilaterally. NEUROLOGICAL: No focal deficits. Strength and sensation are grossly intact. - Labs CBC & Chem 7: 04/30/17 03:52 04/30/17 03:52 Labs: Abnormal Lab Results - Last 24 Hours (Table) 04/29/17 04/29/17 04/30/17 Range/Units 16:22 16:22 03:52 WBC 13.0 H 12.4 H (3.8-10.6) k/uL Neutrophils # 12.0 H 10.7 H (1.3-7.7) k/uL Lymphocytes # 0.4 L 0.7 L (1.0-4.8) k/uL Sodium 134 L (137-145) mmol/L Glucose 165 H (74-99) mg/dL Calcium (8.4-10.2) mg/dL 04/30/17 Range/Units 03:52 WBC (3.8-10.6) k/uL Neutrophils # (1.3-7.7) k/uL Lymphocytes # (1.0-4.8) k/uL Sodium 134 L (137-145) mmol/L Glucose 141 H (74-99) mg/dL Calcium 8.3 L (8.4-10.2) mg/dL Microbiology - Last 24 Hours (Table) 04/28/17 18:40 Urine Culture - Final Urine,Clean Catch 04/27/17 18:14 Blood Culture - Preliminary Blood No Growth after 48 hours Assessment and Plan Plan: Impression Present on admission bilateral abdominal pain with a CAT scan abdomen pelvis showing sigmoid diverticula with inflammatory changes around the mid sigmoid colon consistent with acute diverticulitis, loculated ileus also noted Mood disorder bipolar schizoaffective Present on admission leukocytosis suspect due to acute diverticulitis History of right wrist pain Current every day smoker Plan Consult dietitian We'll start TPN for nutritional support per central line Continue postop surgical care Pain control Increase activity Continue IV hydration Keep nothing by mouth DVT and GI prophylaxis Continue IV antibiotic Levaquin and Zosyn day 2 Repeat labs in am Resume home meds as appropriate The above impression and plan of care have been discussed and directed by signing physician. Rosa M Swain nurse practitioner acting as scribe for signing physician.
[2017-04-30] MEDS: HEPARIN SODIUM,PORCINE 5,000 UNIT/ML 1 ML VIAL SQ SCH ×2 (10:09→15:18)
[2017-04-30] MEDS: LORazepam 2 MG/ML INJ IV PRN (10:46)
[2017-04-30] MEDS: NICOTINE 14MG/24HR PATCH TRANSDERM SCH (10:46)
[2017-04-30] MEDS: ALBUTEROL NEBULIZED 2.5 MG/3 ML INHALATION SCH ×2 (15:50→19:43)
--- NOTE | 2017-04-30 16:17 | CONS ---
CONSULTATION DATE OF SERVICE: 04/30/2017 REASON FOR CONSULTATION: Sepsis. HISTORY OF PRESENT ILLNESS: The patient is a 57-year-old male who presented to the ER at [facility] on 04/27/2017 with the chief complaint of abdominal pain in the lower abdominal area. It was going on for about 3 days prior to presentation to the hospital. The pain was described as colicky with some dull aching, almost 6 to 7 out of 10, and no radiation. He has been nauseated, but no vomiting. No diarrhea or constipation. With these symptoms, the patient was evaluated by the ER physician. The patient did have elevated white count of 19.1. A CT of the abdomen and pelvis was suggestive of acute diverticulitis. The patient was admitted to hospital and was treated with Levaquin and Zosyn. Subsequently the patient had worsening of abdominal pain. Repeat CT scan on 04/29 in the morning showed worsening diverticulitis with perforation and development of a 6.4 x 2.2 cm localized fluid collection. Dr. Pathak was consulted, who took the patient to the OR, and the patient is status post sigmoid colectomy with end- colostomy and drainage of the pelvic abscess, decompression of small bowel for the ileus. Post surgery, ID was consulted for further recommendations regarding antibiotic therapy. The patient at the time of evaluation was sleepy, under the influence of the pain medication, though the pain is currently controlled. He did have an NG. No further nausea or vomiting and no output in the colostomy bag. Pain controlled with pain medication. He was unable to provide any further information. REVIEW OF SYSTEMS: Review of systems could not be reliably obtained. The positive points have been mentioned in the HPI. PAST MEDICAL HISTORY: 1. COPD. 2. Gastroesophageal reflux disease. 3. Osteoarthritis. 4. Pneumonia. 5. Asthma. 6. Herniated disc. 7. Bronchitis. PAST SURGICAL HISTORY: Right shoulder surgery. SOCIAL HISTORY: Positive for smoking; has been smoking since the age of 14, about 1-1/2 to 2 packs per day. Quit drinking about 4 months ago. Did have a history of marijuana use. FAMILY HISTORY: Both parents with a history of cancer, though unknown type. ALLERGIES: NO KNOWN DRUG ALLERGIES. CURRENT MEDICATIONS: Current medications include: 1. Tylenol. 2. [place]. 3. Cepacol lozenges. 4. Pulmicort. 5. Heparin. 6. Dilaudid. 7. Toradol. 8. Levofloxacin. 9. Reglan. 10.Narcan. 11.Piperacillin tazobactam 3.375 grams q.8 hours. PHYSICAL EXAMINATION: Blood pressure is 121/69 with a pulse of 80, temperature 97.7. He is 95% 3 L nasal cannula. General description is a middle-aged male lying in bed in no distress. No tachypnea or accessory muscle of respiration use. HEENT examination shows pallor. No scleral icterus. Oral mucosa membrane is dry. NECK: Trachea is central. No thyromegaly. LUNGS: Unlabored breathing. Clear to auscultation anteriorly. No wheeze or crackle. HEART: S1, S2. Regular rate and rhythm. ABDOMEN: Soft. Slightly distended. No guarding or rigidity. No organomegaly. MARKO drain with some serosanguineous secretion. EXTREMITIES: No edema of feet. SKIN EXAMINATION: No rash or mass palpable. Neurologically the patient is sleepy though did respond to his name. Mood and affect normal. LABS: Hemoglobin is 15.8, white count of 12.4. Admission white count was 19.1. BUN of 12 with a creatinine 0.91. Urine is negative. The patient did have blood cultures. Those are negative so far. CT reports as mentioned above. DIAGNOSTIC IMPRESSION AND PLAN: Patient with acute sigmoid diverticulitis with perforation and development of a pelvic abscess, status post sigmoid colectomy and diverting colostomy. The likely organism that need to be covered will enteric Gram-negative, both aerobes and anaerobes in a patient who has not been on antibiotic in the recent past. Could have been a sensitive Gram- negative such as an E coli or related nidhi. PLAN: 1. The patient be kept on Zosyn 3.375 grams IV q.8. That should provide adequate coverage for the aerobic and anaerobes. Discontinue Levaquin. 2. Will continue to monitor him closely as well as the culture and adjust antibiotic further if needed. Family was present at the bedside. Their questions were answered. MMODL / IJN: [id number] / MTDD
[2017-04-30] MEDS: HYDROmorphone 1 MG/ML 1 ML SYRINGE IVP PRN ×2 (16:54→22:02)
[2017-04-30] MEDS: LEVOFLOXACIN 500MG-D5W PMX 500 MG in DEXTROSE/WATER 1 100ML.BAG IVPB SCH (16:56)
[2017-04-30] MEDS ORDERED: MVI, ADULT NO.4 WITH VIT K 10 ML, TRACE (CONC-1ML/DOSE) 1 ML in AMINO ACID 5%-D25W+LYTE... IV ONE ×3 (17:00)
--- NOTE | 2017-04-30 17:32 | PN ---
PROGRESS NOTE DATE OF SERVICE: 04/30/2017 This 57-year-old gentleman who was admitted with acute sigmoid diverticulitis with perforation status post sigmoid colectomy and colostomy, had significant respiratory difficulty. The patient also had features of sepsis. Also Infectious Disease is following the patient closely after surgery. The patient is on IV Zosyn. Cultures are negative so far. White count 12.4. Patient has significant anxiety also. The patient also fluid overload yesterday; however, the troponins and NT proBNP are negative. PAST MEDICAL HISTORY: Reviewed. REVIEW OF SYSTEMS: CARDIOVASCULAR: No angina. RESPIRATORY: As mentioned earlier. GI: As mentioned. : No dysuria. NERVOUS SYSTEM: No numbness or weakness. MEDICATIONS: 1. Tylenol 650 q.6. 2. [place] 5 mg. 4. Lidocaine. 5. Cepacol. 6. Pulmicort 1 mg b.i.d. 7. Perforomist. 8. Heparin 5000 subcu q.8. 9. Dilaudid. 10.Ativan. 11.Toradol. 12.Levaquin 500 mg q.24h. 13.Ativan. 14.Narcan. 15.Zofran. 16.Protonix. 17.TPN. 18.Zosyn 3.375 IV q.8h. PHYSICAL EXAM: Patient is alert, oriented x3. Pulse is 80, blood pressure is 130/83, respiration 18, temperature 98 degrees, pulse ox 97% on 4 L. HEENT: Conjunctivae normal. NECK: No jugular venous distention. CARDIOVASCULAR: S1, S2 RESPIRATORY: Breath sounds diminished on the bases. A few scattered rhonchi and crackles. Expiratory wheezing also present. ABDOMEN: Soft, otherwise status post surgery. Minimal distention. LEGS: No edema. NERVOUS SYSTEM: No focal deficits. LABS: WBC 5.8, hemoglobin 15.8. ASSESSMENT: 1. Acute sigmoid diverticulitis with perforation status post sigmoid colectomy and colostomy with a drainage of pelvic abscess and decompression of small bowel with sepsis, present on admission. 2. Increased WBC. 3. Chronic obstructive pulmonary disease, asthma history. 4. History of gastroesophageal reflux disease. 5. History of degenerative joint disease. 6. History of pneumonia. 7. Bipolar, depression. 9. History of nicotine dependence. 10.History of THC. 11.FULL CODE. RECOMMENDATIONS AND DISCUSSION: I recommend to continue the current medications, continue symptomatic treatment. Otherwise at this time monitor fluid and electrolyte balance closely. Otherwise continue to monitor. Continue with incentive spirometer and bronchodilators. Otherwise we will continue to monitor. Will cutdown the IV fluids slightly and monitor lytes closely. Further recommendations to follow. Prognosis guarded. PAMELA / PATRIC: [id number] / MTDD
[2017-04-30] MEDS: FAT EMULSION 20% 250 ML in EMPTY BAG 1 BAG IV SCH (18:21)
[2017-04-30 23:42] LABS: Hemoglobin A1C 5.6 % (4.2-6.1)
[2017-05-01] MEDS: PIPERACILLIN-TAZOBACTAM 3.375 GM in DEXTROSE/WATER 1 50ML.BAG IVPB SCH ×3 (00:23→15:57)
[2017-05-01] MEDS: HEPARIN SODIUM,PORCINE 5,000 UNIT/ML 1 ML VIAL SQ SCH ×3 (00:24→15:57)
[2017-05-01] MEDS: INSULIN LISPRO (humaLOG) 300 UNIT/3 ML VIAL SQ SCH ×4 (00:25→18:27)
[2017-05-01 00:48] LABS: Glucose,Whole Blood 137 mg/dL (75-99)
[2017-05-01] MEDS: HYDROmorphone 1 MG/ML 1 ML SYRINGE IVP PRN ×5 (01:37→22:51)
[2017-05-01] MEDS ORDERED: IPRATROPIUM-ALBUTEROL 3 ML NEB INHALATION PRN (02:09)
[2017-05-01 06:10] LABS: Glucose,Whole Blood 166 mg/dL (75-99)
[2017-05-01] MEDS: D5-0.45% NACL WITH KCL 20MEQ/L 1,000 ML IV SCH ×2 (06:14→17:28)
[2017-05-01 07:26] LABS: Basophils % (A) 0 %; CH 30.2; CHCM 32.2; Eosinophils # (A) 0.3 k/uL (0-0.7); Eosinophils % (A) 3 %; HCT 41.1 % (39.0-53.0); HDW 2.52; HGB 13.3 gm/dL (13.0-17.5); Luc # (Auto) 0.15; Luc % (Auto) 1; Lymphocytes # (A) 0.8 k/uL (1.0-4.8); Lymphocytes % (A) 8 %; MCH 30.5 pg (25.0-35.0); MCHC 32.4 g/dL (31.0-37.0); MCV 94.2 fL (80.0-100.0); Mean Platelet Volume 6.8; Monocytes # (A) 0.5 k/uL (0-1.0); Monocytes % (A) 5 %; Neutrophils # (A) 8.6 k/uL (1.3-7.7); Neutrophils % (A) 83 %; RBC 4.36 m/uL (4.30-5.90); RDW 13.5 % (11.5-15.5); WBC 10.3 k/uL (3.8-10.6); WBC (Perox) 10.52
[2017-05-01 07:43] LABS: Ionized Calcium 4.7 mg/dL (4.5-5.3)
[2017-05-01] MEDS: IPRATROPIUM-ALBUTEROL 3 ML NEB INHALATION SCH ×4 (07:45→19:16)
[2017-05-01] MEDS: FORMOTEROL FUMARATE 20 MCG/2 ML NEBU INHALATION SCH ×2 (07:45→19:16)
[2017-05-01] MEDS: BUDESONIDE 1 MG/2 ML NEBU INHALATION SCH ×2 (07:45→19:16)
[2017-05-01 07:49] LABS: Anion Gap 8 mmol/L; Blood Urea Nitrogen 7 mg/dL (9-20); Calcium 8.3 mg/dL (8.4-10.2); Carbon Dioxide 25 mmol/L (22-30); Chloride 101 mmol/L (98-107); Glucose 142 mg/dL (74-99); Non-African American GFR(MDRD) >60 (>60 ml/min/1.73 sqM); Phosphorus 2.3 mg/dL (2.5-4.5); Potassium 3.9 mmol/L (3.5-5.1); Sodium 134 mmol/L (137-145)
[2017-05-01] MEDS: NICOTINE 14MG/24HR PATCH TRANSDERM SCH (09:15)
[2017-05-01] MEDS: PANTOPRAZOLE 40 MG/10 ML VIAL IVP SCH (09:16)
--- NOTE | 2017-05-01 10:35 | P.PN ---
Subjective Principal diagnosis: Status post exploratory laparotomy with Kaur's Patient seen and examined at bedside. He states that his abdomen is sore since surgery. Overall he is comfortable. He denies any fevers, chills, chest pain or shortness of breath. He denies any nausea and vomiting. NG tube is in place. MARKO drain is in place. He has not had significant output from his ostomy. Objective - Vital Signs Vital signs: Vital Signs Temp 97.8 F 05/01/17 07:00 Pulse 85 05/01/17 08:07 Resp 16 05/01/17 00:11 BP 120/75 05/01/17 07:00 Pulse Ox 98 05/01/17 07:00 Intake & Output 04/30/17 05/01/17 05/01/17 18:59 06:59 18:59 Output Total 806 1540 Balance -806 -1540 Weight 95.254 kg Output: Gastric Drainage 650 Drainage 406 20 Abdomen 20 20 Left 386 Urine 400 850 Other 20 Other: Voiding Method Urinal Urinal # Voids 1 1 - Constitutional General appearance: Present: cooperative, no acute distress - EENT Eyes: Present: EOMI, PERRLA ENT: Present: hearing grossly normal - Neck Neck: Present: normal ROM. Absent: lymphadenopathy, stridor - Respiratory Details: No difficulty with respiration - Cardiovascular Rhythm: regular Heart sounds: normal: S1, S2 - Gastrointestinal Gastrointestinal Comment(s): Soft, appropriate tenderness, nondistended, incision site clean dry and intact, MARKO drain in place with serosanguineous output, NG tube is in place with 650 mL output over the last 24 hours, ostomy pink and patent with no significant output. - Integumentary Integumentary: Present: normal turgor - Psychiatric Psychiatric: Present: A&O x's 3, appropriate affect, intact judgment & insight - Labs CBC & Chem 7: 05/01/17 07:05 05/01/17 07:05 Labs: Abnormal Lab Results - Last 24 Hours (Table) 05/01/17 05/01/17 05/01/17 Range/Units 00:24 05:58 07:05 Neutrophils # 8.6 H (1.3-7.7) k/uL Lymphocytes # 0.8 L (1.0-4.8) k/uL Sodium (137-145) mmol/L BUN (9-20) mg/dL Glucose (74-99) mg/dL POC Glucose (mg/dL) 137 H 166 H (75-99) mg/dL Calcium (8.4-10.2) mg/dL Phosphorus (2.5-4.5) mg/dL 05/01/17 Range/Units 07:05 Neutrophils # (1.3-7.7) k/uL Lymphocytes # (1.0-4.8) k/uL Sodium 134 L (137-145) mmol/L BUN 7 L (9-20) mg/dL Glucose 142 H (74-99) mg/dL POC Glucose (mg/dL) (75-99) mg/dL Calcium 8.3 L (8.4-10.2) mg/dL Phosphorus 2.3 L (2.5-4.5) mg/dL Microbiology - Last 24 Hours (Table) 04/27/17 18:14 Blood Culture - Preliminary Blood No Growth after 72 hours Assessment and Plan (1) Diverticulitis Status: Acute Plan: TPN for nutritional support per central line Continue postop surgical care Pain control Increase activity Continue IV hydration Continue to follow MARKO drain output Continue NG tube and nothing by mouth status DVT and GI prophylaxis Continue IV antibiotic Levaquin and Zosyn Repeat labs in am
[2017-05-01] MEDS ORDERED: NACL IV ONE (12:00)
[2017-05-01] MEDS ORDERED: SODIUM PHOSPH IV ONE (12:00)
[2017-05-01 12:22] LABS: Glucose,Whole Blood 145 mg/dL (75-99)
[2017-05-01] MEDS: LORazepam 2 MG/ML INJ IV PRN (12:41)
[2017-05-01] MEDS: KETOROLAC 30 MG/ML 1 ML VIAL IVP PRN (12:51)
[2017-05-01] MEDS: 1: MVI, ADULT NO.4 WITH VIT K 10 ML, TRACE (CONC-1ML/DOSE) 1 ML in AMINO ACID 5%-D25W+LY IV SCH ×3 (17:32)
[2017-05-01] MEDS: LEVOFLOXACIN 500MG-D5W PMX 500 MG in DEXTROSE/WATER 1 100ML.BAG IVPB SCH (17:32)
--- NOTE | 2017-05-01 18:03 | PN ---
PROGRESS NOTE DATE OF SERVICE: 05/01/2017 HISTORY: This 57-year-old gentleman was admitted with acute sigmoid diverticulitis with perforation, still has NG tube in situ. The patient had possibly sepsis present. Patient is on broad IV antibiotics. Patient has significant anxiety also. Multiple consultants are following the patient including Infectious Disease as well as Surgery. PAST MEDICAL HISTORY: Reviewed. REVIEW OF SYSTEMS: Cardiovascular system: No angina. GI: As mentioned. : As mentioned. NERVOUS SYSTEM: As mentioned. CURRENT MEDICATIONS: 1. Tylenol 650 every 6 hours p.r.n. 2. [place] 5 mg every 6 hours p.r.n. 3. DuoNeb q.i.d. and p.r.n. 4. Hurricaine spray. 5. Cepacol lozenges. 6. Pulmicort 1 mg b.i.d. 7. Fat emulsion TPN. 8. Perforomist. 9. Dilaudid 1 mg every 3 hours p.r.n. 10.Levaquin 500 mg every 24. 11.Ativan. 12.Reglan 10 mg every 6 hours p.r.n. 13.Habitrol 14. 14.Protonix. 15.Multivitamins. 16.Zosyn IV every 6 hours. 17.Potassium supplementation. PHYSICAL EXAMINATION: GENERAL: Alert, oriented x3. VITAL SIGNS: Pulse is 105, blood pressure 127, respirations 20, temperature 97.8, pulse ox 98% on 2 L. HEENT: Conjunctivae normal. Oral mucosa moist. NG tube. NECK: Neck is no jugular venous distention. No carotid bruit. No lymph node enlargement. CARDIOVASCULAR: S1 and S2 muffled. Scattered rhonchi. LUNGS: Breath sounds diminished. ABDOMEN: Soft, status post surgery. EXTREMITIES: Legs no edema. NERVOUS SYSTEM: No focal deficits. LABS: CBC within normal limits. Glucose 142. Phosphorus 2.3. pulse is 2.3. ASSESSMENT: 1. Acute sigmoid diverticulitis with perforation, status post hemicolectomy and colostomy with drainage of pelvic abscess decompression of small bowel with sepsis, present on admission. 2. Increased WBC. 3. Chronic obstructive pulmonary disease and asthma history. 4. History of gastroesophageal reflux disease. 5. History of degenerative joint disease. 6. History pneumonia. 7. Bipolar depression. 8. History of nicotine dependence. 9. History of THC. 10.History of anxiety. 11.FULL CODE. DISCUSSION AND RECOMMENDATIONS: Continue current medications, continue with monitoring and symptomatic treatment. Use Ativan on a p.r.n. basis. Incentive spirometry. DVT prophylaxis. Proton pump inhibitors. See orders for further details. Empiric antibiotics. Cultures are negative so far. Prognosis guarded because of multiple complex medical issues. Further recommendations to follow. MMODL / IJN: [id number] /
[2017-05-01 18:28] LABS: Glucose,Whole Blood 132 mg/dL (75-99)
--- NOTE | 2017-05-01 21:42 | PN ---
PROGRESS NOTE DATE OF SERVICE: 05/01/2017. REASON FOR FOLLOWUP VISIT: Secondary peritonitis, perforated diverticulitis. INTERVAL HISTORY: The patient is afebrile. He is hemodynamically stable. He has been breathing comfortably. No nausea, vomiting has been noticed or any bowel movement output in the colostomy bag. The patient remained to be lethargic and unable to provide any history. EXAMINATION: Blood pressure 127/77 with a pulse of 80, temperature of 98.8. He is 98% on 2.5 L nasal cannula. General description is a middle aged male, lying in bed, in no distress. RESPIRATORY SYSTEM: Unlabored breathing. Clear to auscultation anteriorly. HEART: S1, S2. Regular rate and rhythm. ABDOMEN: Soft. No guarding or rigidity. LABS: Hemoglobin 13.2, white count 10.3 with a BUN of 7, creatinine 0.76. Blood culture has been negative. DIAGNOSTIC IMPRESSION AND PLAN: Patient with a secondary peritonitis from perforated diverticulitis status post diverting colostomy. The patient responded to Zosyn. His white count has normalized. Blood culture remains to be negative. We will keep the patient on Zosyn. was present at bedside. Her questions and concerns were answered. MMODL / IJN: [id number] /
[2017-05-02 00:11] LABS: Glucose,Whole Blood 123 mg/dL (75-99)
[2017-05-02] MEDS: PIPERACILLIN-TAZOBACTAM 3.375 GM in DEXTROSE/WATER 1 50ML.BAG IVPB SCH ×3 (00:19→16:15)
[2017-05-02] MEDS: INSULIN LISPRO (humaLOG) 300 UNIT/3 ML VIAL SQ SCH ×4 (00:20→18:26)
[2017-05-02] MEDS: HEPARIN SODIUM,PORCINE 5,000 UNIT/ML 1 ML VIAL SQ SCH ×3 (00:22→16:57)
[2017-05-02] MEDS: HYDROmorphone 1 MG/ML 1 ML SYRINGE IVP PRN ×7 (01:26→22:25)
[2017-05-02 06:02] LABS: Glucose,Whole Blood 134 mg/dL (75-99)
[2017-05-02 06:32] LABS: Basophils % (A) 0 %; CH 31.4; CHCM 33.1; Eosinophils # (A) 0.4 k/uL (0-0.7); Eosinophils % (A) 4 %; HCT 40.1 % (39.0-53.0); HDW 2.49; HGB 12.8 gm/dL (13.0-17.5); Luc % (Auto) 1; Lymphocytes # (A) 0.8 k/uL (1.0-4.8); Lymphocytes % (A) 10 %; MCH 30.5 pg (25.0-35.0); MCV 95.2 fL (80.0-100.0); Mean Platelet Volume 7.3; Monocytes # (A) 0.6 k/uL (0-1.0); Monocytes % (A) 7 %; Neutrophils # (A) 6.7 k/uL (1.3-7.7); Neutrophils % (A) 78 %; RBC 4.21 m/uL (4.30-5.90); RDW 14.4 % (11.5-15.5); WBC 8.5 k/uL (3.8-10.6); WBC (Perox) 9.15
[2017-05-02 06:47] LABS: Anion Gap 10 mmol/L; Blood Urea Nitrogen 11 mg/dL (9-20); Calcium 8.4 mg/dL (8.4-10.2); Carbon Dioxide 29 mmol/L (22-30); Chloride 99 mmol/L (98-107); Glucose 121 mg/dL (74-99); Magnesium 2.1 mg/dL (1.6-2.3); Non-African American GFR(MDRD) >60 (>60 ml/min/1.73 sqM); Phosphorus 3.9 mg/dL (2.5-4.5); Potassium 3.8 mmol/L (3.5-5.1); Sodium 138 mmol/L (137-145)
[2017-05-02 06:53] LABS: Ionized Calcium 4.8 mg/dL (4.5-5.3)
[2017-05-02] MEDS: IPRATROPIUM-ALBUTEROL 3 ML NEB INHALATION SCH ×4 (07:14→21:03)
[2017-05-02] MEDS: BUDESONIDE 1 MG/2 ML NEBU INHALATION SCH ×2 (07:14→21:03)
[2017-05-02] MEDS: FORMOTEROL FUMARATE 20 MCG/2 ML NEBU INHALATION SCH ×2 (07:14→21:03)
[2017-05-02] MEDS: NICOTINE 14MG/24HR PATCH TRANSDERM SCH (08:03)
[2017-05-02] MEDS: PANTOPRAZOLE 40 MG/10 ML VIAL IVP SCH (08:03)
[2017-05-02] MEDS: 1: MVI, ADULT NO.4 WITH VIT K 10 ML, TRACE (CONC-1ML/DOSE) 1 ML in AMINO ACID 5%-D25W+LY IV SCH ×6 (08:30→09:29)
[2017-05-02] MEDS: D5-0.45% NACL WITH KCL 20MEQ/L 1,000 ML IV SCH ×3 (09:28→14:37)
--- NOTE | 2017-05-02 10:23 | P.PN ---
Subjective Principal diagnosis: Status post exploratory laparotomy with Kaur's Patient seen and examined at bedside. He states that his abdomen is sore since surgery but he is feeling better. He denies any fevers, chills, chest pain or shortness of breath. He denies any nausea and vomiting. NG tube is in place with bilious output compared to brown output from previous day. MARKO drain is in place with 10 mL serous drainage overnight. He has not had significant output from his ostomy. Objective - Vital Signs Vital signs: Vital Signs Temp 97.6 F 05/02/17 07:00 Pulse 88 05/02/17 07:38 Resp 16 05/02/17 07:05 BP 122/80 05/02/17 07:00 Pulse Ox 99 05/02/17 07:00 Intake & Output 05/01/17 05/02/17 05/02/17 18:59 06:59 18:59 Intake Total 960 Output Total 1115 805 0 Balance -1115 155 0 Weight 93 kg Intake: IV 960 D5-0.45% NaCl with KCl 350 20Meq/l 1,000 ml @ 75 mls /hr IV .[id number] AG Rx#: [id number] Mvi, Adult No.4 with Vit 560 K 10 ml Trace (Conc-1Ml/ Dose) 1 ml In Amino Acid 5%-D25w+Lytes*E* 1,000 ml @ 70 mls/hr IV .BY DURATION AG Rx#: [id number] Piperacillin-Tazobactam 3 50 .375 gm In Dextrose/Water 1 50ml.bag @ 12.5 mls/hr IVPB Q8HR AG Rx#: [id number] Output: Gastric Drainage 700 200 Drainage 15 5 0 Abdomen 0 Left 15 5 Urine 400 600 Other: Voiding Method Urinal Urinal Urinal - Constitutional General appearance: Present: cooperative, no acute distress - EENT Eyes: Present: EOMI, PERRLA ENT: Present: hearing grossly normal - Neck Neck: Present: normal ROM. Absent: lymphadenopathy, stridor - Respiratory Details: No difficulty with respiration - Cardiovascular Rhythm: regular Heart sounds: normal: S1, S2 - Gastrointestinal Gastrointestinal Comment(s): Soft, appropriate tenderness, nondistended, no rebound, no guarding, incision site clean dry and intact, ostomy pink and patent - Integumentary Integumentary: Present: normal turgor - Psychiatric Psychiatric: Present: A&O x's 3, appropriate affect, intact judgment & insight - Labs CBC & Chem 7: 05/02/17 06:25 05/02/17 06:25 Labs: Abnormal Lab Results - Last 24 Hours (Table) 05/01/17 05/01/17 05/02/17 Range/Units 12:13 18:24 00:08 RBC (4.30-5.90) m/uL Hgb (13.0-17.5) gm/dL Lymphocytes # (1.0-4.8) k/uL Glucose (74-99) mg/dL POC Glucose (mg/dL) 145 H 132 H 123 H (75-99) mg/dL 05/02/17 05/02/17 05/02/17 Range/Units 05:59 06:25 06:25 RBC 4.21 L (4.30-5.90) m/uL Hgb 12.8 L (13.0-17.5) gm/dL Lymphocytes # 0.8 L (1.0-4.8) k/uL Glucose 121 H (74-99) mg/dL POC Glucose (mg/dL) 134 H (75-99) mg/dL Microbiology - Last 24 Hours (Table) 04/27/17 18:14 Blood Culture - Preliminary Blood No Growth after 96 hours Assessment and Plan (1) Diverticulitis Status: Acute Plan: TPN for nutritional support per central line Continue postop surgical care Pain control Increase activity Continue IV hydration Continue to follow MARKO drain output Continue NG tube and nothing by mouth status DVT and GI prophylaxis Continue IV antibiotic Levaquin and Zosyn Repeat labs in am
[2017-05-02] MEDS: LORazepam 2 MG/ML INJ IV PRN ×2 (11:29→16:15)
[2017-05-02 11:42] LABS: Glucose,Whole Blood 121 mg/dL (75-99)
--- NOTE | 2017-05-02 15:27 | XR ---
EXAMINATION TYPE: XR chest 1V portable DATE OF EXAM: 05/02/2017 COMPARISON: 04/29/2017 HISTORY: Shortness of breath TECHNIQUE: Single frontal view of the chest is obtained. FINDINGS: Right internal jugular central venous catheter and enteric tube are unchanged in position from the prior exam. There is improved aeration of the lungs from the prior exam. No focal consolidat ion, pleural effusion or pneumothorax. Cardiomediastinal silhouette is within normal limits. IMPRESSION: 1. Improved aeration of the lungs with no current acute cardiopulmonary process. 2. Unchanged placement of a right internal jugular central venous catheter and enteric tube.
[2017-05-02 18:12] LABS: Glucose,Whole Blood 128 mg/dL (75-99)
[2017-05-03] MEDS: PIPERACILLIN-TAZOBACTAM 3.375 GM in DEXTROSE/WATER 1 50ML.BAG IVPB SCH ×3 (00:26→15:38)
[2017-05-03 00:27] LABS: Glucose,Whole Blood 133 mg/dL (75-99)
[2017-05-03] MEDS: INSULIN LISPRO (humaLOG) 300 UNIT/3 ML VIAL SQ SCH ×4 (00:29→18:24)
[2017-05-03] MEDS: HEPARIN SODIUM,PORCINE 5,000 UNIT/ML 1 ML VIAL SQ SCH ×3 (00:30→17:05)
[2017-05-03] MEDS: 1: MVI, ADULT NO.4 WITH VIT K 10 ML, TRACE (CONC-1ML/DOSE) 1 ML in AMINO ACID 5%-D25W+LY IV SCH ×9 (01:06→17:04)
[2017-05-03] MEDS: HYDROmorphone 1 MG/ML 1 ML SYRINGE IVP PRN ×6 (01:50→21:12)
[2017-05-03 06:16] LABS: Glucose,Whole Blood 118 mg/dL (75-99)
--- NOTE | 2017-05-03 06:38 | PN ---
PROGRESS NOTE DATE OF SERVICE: 05/02/2017 REASON FOR FOLLOWUP: Secondary peritonitis from perforated sigmoid diverticulitis. INTERVAL HISTORY: The patient is afebrile. He is more awake and alert today. He has been breathing comfortably. Abdominal pain is currently controlled. NG tube is still in. Did have minimal output in the colostomy bag. PHYSICAL EXAMINATION: On examination, blood pressure 141/83 with a pulse of 90. Temperature is 97.5. He is 98% on 3 L nasal cannula. General description is a middle-aged male, lying in bed, in no distress. RESPIRATORY SYSTEM: Unlabored breathing. Clear to auscultation anteriorly. HEART: S1, S2. Regular rate and rhythm. ABDOMEN: Soft. The incision is currently dressed, no sign of surrounding swelling or redness. LABS: Hemoglobin is 12.8 with white count of 8.5. BUN of 11, creatinine 0.76. DIAGNOSTIC IMPRESSION AND PLAN: Patient with sigmoid diverticulitis with perforation, status post colectomy and diverting colostomy. The patient will continue on Zosyn at this point. Waiting for his condition to stabilize. Continue supportive care. MMODL / IJN: [id number] / MTDD
[2017-05-03 07:07] LABS: Ionized Calcium 4.9 mg/dL (4.5-5.3)
[2017-05-03] MEDS: FORMOTEROL FUMARATE 20 MCG/2 ML NEBU INHALATION SCH ×2 (07:26→20:28)
[2017-05-03] MEDS: BUDESONIDE 1 MG/2 ML NEBU INHALATION SCH ×2 (07:26→20:28)
[2017-05-03] MEDS: IPRATROPIUM-ALBUTEROL 3 ML NEB INHALATION SCH ×4 (07:26→20:28)
[2017-05-03 07:39] LABS: Anion Gap 10 mmol/L; Blood Urea Nitrogen 13 mg/dL (9-20); Calcium 8.8 mg/dL (8.4-10.2); Carbon Dioxide 30 mmol/L (22-30); Chloride 96 mmol/L (98-107); Glucose 120 mg/dL (74-99); Magnesium 2.1 mg/dL (1.6-2.3); Non-African American GFR(MDRD) >60 (>60 ml/min/1.73 sqM); Phosphorus 4.2 mg/dL (2.5-4.5); Potassium 4.3 mmol/L (3.5-5.1); Sodium 136 mmol/L (137-145)
[2017-05-03] MEDS: PANTOPRAZOLE 40 MG/10 ML VIAL IVP SCH (08:30)
[2017-05-03] MEDS: NICOTINE 14MG/24HR PATCH TRANSDERM SCH (08:30)
--- NOTE | 2017-05-03 10:29 | P.PN ---
Subjective 57-year-old being seen and examined at bedside. Pleasant awake operative. Nasal gastric tube connected to suction TPN in progress MARKO drain in place. Left lower quadrant ostomy scant amount of liquid stool noted. Patient states pain medication effective for pain control. Denies any dizziness lightheadedness chest pain or shortness of breath Postop 29 of April sigmoid colectomy with end colostomy for perforated diverticulitis with small bowel obstruction with abscess Objective - Vital Signs Vital signs: Vital Signs Temp 97.5 F L 05/03/17 08:06 Pulse 74 05/03/17 08:06 Resp 18 05/03/17 08:06 BP 134/73 05/03/17 08:06 Pulse Ox 99 05/03/17 08:06 Intake & Output 05/02/17 05/03/17 05/03/17 18:59 06:59 18:59 Intake Total 2061 Output Total 810 1100 275 Balance -810 961 -275 Weight 94.5 kg Intake: IV 1050 D5-0.45% NaCl with KCl 160 20Meq/l 1,000 ml @ 20 mls /hr IV .Q24H AG Rx#: [id number] Mvi, Adult No.4 with Vit 840 K 10 ml Trace (Conc-1Ml/ Dose) 1 ml In Amino Acid 5%-D25w+Lytes*E* 1,000 ml @ 70 mls/hr IV .BY DURATION AG Rx#: [id number] Piperacillin-Tazobactam 3 50 .375 gm In Dextrose/Water 1 50ml.bag @ 12.5 mls/hr IVPB Q8HR AG Rx#: [id number] Intake, IV Titration 1011 Amount Mvi, Adult No.4 with Vit 1011 K 10 ml Trace (Conc-1Ml/ Dose) 1 ml In Amino Acid 5%-D25w+Lytes*E* 1,000 ml @ 70 mls/hr IV .BY DURATION AG Rx#: [id number] Oral 0 Output: Gastric Drainage 200 400 Drainage 10 0 Abdomen 10 0 Urine 600 700 275 Other: Voiding Method Urinal Urinal Urinal # Voids 1 - Exam Physical exam 57-year-old male sitting up in bed pleasant cooperative oriented 3 Lungs diminished at the bases otherwise adequate air movement bilaterally sats are 99% on room air Heart S1-S2 audible regular denying chest pain no murmur Abdomen left lower quadrant ostomy liquid scant amount stool noted in the bag. Hypoactive bowel tones bilateral lower quadrant MARKO drain in place serous drainage surgical tenderness appropriate not distended nasal gastric tube connected to suction a moderate amount out reports no nausea vomiting. Reports no difficulty in urinating surgical dressing dry Extremities Venodyne's on to the bilateral lower extremities a trace pedal edema bilaterally - Labs CBC & Chem 7: 05/02/17 06:25 05/03/17 06:18 Labs: Abnormal Lab Results - Last 24 Hours (Table) 05/02/17 05/02/17 05/03/17 Range/Units 11:40 18:09 00:25 Sodium (137-145) mmol/L Chloride (98-107) mmol/L Glucose (74-99) mg/dL POC Glucose (mg/dL) 121 H 128 H 133 H (75-99) mg/dL Albumin (3.5-5.0) g/dL 05/03/17 05/03/17 Range/Units 06:09 06:18 Sodium 136 L (137-145) mmol/L Chloride 96 L (98-107) mmol/L Glucose 120 H (74-99) mg/dL POC Glucose (mg/dL) 118 H (75-99) mg/dL Albumin 2.9 L (3.5-5.0) g/dL Microbiology - Last 24 Hours (Table) 04/27/17 18:14 Blood Culture - Preliminary Blood No Growth after 120 hours Assessment and Plan Plan: Impression Present on admission bilateral abdominal pain with a CAT scan abdomen pelvis showing sigmoid diverticula with inflammatory changes around the mid sigmoid colon consistent with acute diverticulitis, loculated ileus also noted Mood disorder bipolar schizoaffective Present on admission leukocytosis suspect due to acute diverticulitis History of right wrist pain Current every day smoker Status post April 29 sigmoid colectomy with end colostomy for perforated diverticulitis with small bowel obstruction with abscess Plan Increase activity PT OT eval Continue with TPN for nutritional support per central line Continue postop surgical care Pain control Continue IV hydration DVT and GI prophylaxis Continue IV antibiotic Levaquin and Zosyn Repeat labs in am Resume home meds as appropriate Ostomy teaching to be initiated today people managerfreelance digital project manager worker to pursue the discharge plan patient may benefit from subacute rehab versus home with home care lives with a significant other The above impression and plan of care have been discussed and directed by signing physician. Rosa M Swain nurse practitioner acting as scribe for signing physician.
[2017-05-03 12:17] LABS: Glucose,Whole Blood 131 mg/dL (75-99)
[2017-05-03] MEDS: D5-0.45% NACL WITH KCL 20MEQ/L 1,000 ML IV SCH (14:56)
[2017-05-03 18:03] LABS: Glucose,Whole Blood 142 mg/dL (75-99)
[2017-05-03] MEDS: FAT EMULSION 20% 250 ML in EMPTY BAG 1 BAG IV SCH ×2 (18:23→18:40)
--- NOTE | 2017-05-03 21:17 | PN ---
PROGRESS NOTE DATE OF SERVICE: 05/02/2017 This 57-year-old gentleman who was admitted with acute sigmoid diverticulitis, perforation had surgery. The patient had COPD also. Patient being closely monitored. Patient still has NG tube. No chest pain. No palpitations. No fever. EXAM: Alert, oriented x3. The pulse is 87, blood pressure 139/77, respiration 17, temperature 97.9, pulse ox 97% on 4 L. HEENT: Conjunctivae normal. Neck: No jugular venous distention. Cardiovascular: S1, S2 muffled. Respiratory: Breath sounds diminished at the bases. A few scattered rhonchi and crackles. ABDOMEN: Soft, status post surgery. Legs are no edema, no swelling. Central nervous system: No focal deficits. LABS: WBC 8.3, hemoglobin is 12.8, glucose 121. ASSESSMENT: 1. Acute sigmoid diverticulitis perforation status post hemicolectomy, colostomy with the drainage of pelvic abscess, decompression small bowel, sepsis present on admission. 2. Increased WBC. 3. Chronic obstructive pulmonary disease, asthma. 4. History of gastroesophageal reflux disease. 5. Degenerative joint disease. RECOMMENDATIONS AND DISCUSSION: Continue current management. Continue monitoring. Symptomatic treatment. Continue medications. Otherwise at this time I recommend close followup with surgery, DVT prophylaxis and rest of the medications. Monitor fluid and electrolytes balance closely. I would also perform a chest x-ray, to ensure normalcy. Guarded prognosis. Further recommendations to follow. MMJOSEL / BHUMIKAN: [id number] /
--- NOTE | 2017-05-03 21:23 | PN ---
PROGRESS NOTE DATE OF SERVICE: 05/03/2017 This 57-year-old gentleman was admitted with sigmoid diverticulitis, perforation, had surgery. Patient has COPD also. The patient being closely monitored. No chest pain. No palpitations. No fever. EXAM: Alert, and oriented times three. Pulse is 93, blood pressure 131/82, respiration 18, temperature 97.8, pulse ox 94% on room air. HEENT is conjunctivae normal. Neck: No jugular venous distention. CARDIOVASCULAR: S1, S2 muffled. Respiration: Breath sounds diminished in the bases. Scattered rhonchi and crackles. Abdomen is soft, nontender. Legs are no swelling. No edema. Central nervous system: No focal deficits. LABORATORY DATA: At this time shows WBC 8.6, sodium 136, potassium 4.3. ASSESSMENT: 1. Acute sigmoid diverticulitis with perforation status post hemicolectomy, colostomy with drainage of pelvic abscess, decompression small-bowel with sepsis present on admission. 2. Increased WBC. 3. Chronic obstructive pulmonary disease. 4. Gastroesophageal reflux disease. RECOMMENDATIONS AND DISCUSSION: 1. Recommend to continue current medications. 2. Continue symptomatic treatment. 3. Continue the bronchodilators. 4. Repeat chest x-ray. 5. Further recommendations to follow. 6. Closely follow with surgery. 7. Prognosis guarded. MMODL / IJN: [id number] /
[2017-05-04 00:04] LABS: Glucose,Whole Blood 131 mg/dL (75-99)
[2017-05-04] MEDS: INSULIN LISPRO (humaLOG) 300 UNIT/3 ML VIAL SQ SCH ×4 (00:10→17:54)
[2017-05-04] MEDS: HEPARIN SODIUM,PORCINE 5,000 UNIT/ML 1 ML VIAL SQ SCH ×4 (00:10→23:31)
[2017-05-04] MEDS: PIPERACILLIN-TAZOBACTAM 3.375 GM in DEXTROSE/WATER 1 50ML.BAG IVPB SCH ×4 (00:10→23:31)
[2017-05-04] MEDS: HYDROmorphone 1 MG/ML 1 ML SYRINGE IVP PRN ×7 (00:15→21:49)
--- NOTE | 2017-05-04 06:30 | PN ---
PROGRESS NOTE DATE OF SERVICE: 05/03/2017 REASON FOR FOLLOWUP: Secondary peritonitis from ruptured diverticulitis. INTERVAL HISTORY: The patient is afebrile. He is breathing comfortably. His abdominal pain has improved. No nausea, no vomiting. Still has NG. EXAMINATION: Blood pressure 131/82 with a pulse of 80. Temperature is 96.9. He is 94% on room air. General description is a middle aged male up in the room in no distress. RESPIRATORY: Unlabored breathing. Clear to auscultation. HEART: S1, S2. Regular rate and rhythm. ABDOMEN: Soft, no tenderness. LABS: BUN of 13, creatinine 0.76. Blood culture has been negative. DIAGNOSTIC IMPRESSION AND PLAN: Patient with secondary peritonitis from a perforated diverticulitis, status post laparotomy, diverting colostomy. The patient is currently covered with Zosyn and that will be continued. Once his clinical condition improves, hopefully finish therapy with oral antibiotics. Continue supportive care. MMODL / IJN: [id number] /
[2017-05-04 06:38] LABS: Glucose,Whole Blood 128 mg/dL (75-99)
[2017-05-04] MEDS: BUDESONIDE 1 MG/2 ML NEBU INHALATION SCH ×2 (07:27→19:34)
[2017-05-04] MEDS: IPRATROPIUM-ALBUTEROL 3 ML NEB INHALATION SCH ×4 (07:27→19:34)
[2017-05-04] MEDS: FORMOTEROL FUMARATE 20 MCG/2 ML NEBU INHALATION SCH ×2 (07:27→19:41)
[2017-05-04] MEDS: NICOTINE 14MG/24HR PATCH TRANSDERM SCH (07:42)
[2017-05-04 08:03] LABS: Anion Gap 9 mmol/L; Blood Urea Nitrogen 13 mg/dL (9-20); Carbon Dioxide 30 mmol/L (22-30); Chloride 98 mmol/L (98-107); Glucose 133 mg/dL (74-99); Magnesium 2.1 mg/dL (1.6-2.3); Non-African American GFR(MDRD) >60 (>60 ml/min/1.73 sqM); Phosphorus 4.7 mg/dL (2.5-4.5); Potassium 4.3 mmol/L (3.5-5.1); Sodium 137 mmol/L (137-145)
[2017-05-04 08:30] LABS: Basophils # (A) 0.1 k/uL (0-0.2); Basophils % (A) 1 %; CHCM 31.8; Eosinophils # (A) 0.5 k/uL (0-0.7); Eosinophils % (A) 5 %; HCT 43.5 % (39.0-53.0); HDW 2.41; Luc # (Auto) 0.41; Luc % (Auto) 4; Lymphocytes # (A) 1.2 k/uL (1.0-4.8); Lymphocytes % (A) 13 %; MCH 30.6 pg (25.0-35.0); MCHC 32.2 g/dL (31.0-37.0); MCV 94.8 fL (80.0-100.0); Monocytes # (A) 0.9 k/uL (0-1.0); Monocytes % (A) 9 %; Neutrophils # (A) 6.4 k/uL (1.3-7.7); Neutrophils % (A) 68 %; RBC 4.59 m/uL (4.30-5.90); RDW 13.9 % (11.5-15.5); WBC 9.5 k/uL (3.8-10.6); WBC (Perox) 8.82
[2017-05-04 08:56] LABS: Ionized Calcium 4.9 mg/dL (4.5-5.3)
[2017-05-04] MEDS: PANTOPRAZOLE 40 MG/10 ML VIAL IVP SCH (09:26)
[2017-05-04] MEDS: 1: MVI, ADULT NO.4 WITH VIT K 10 ML, TRACE (CONC-1ML/DOSE) 1 ML in AMINO ACID 5%-D25W+LY IV SCH ×6 (10:00→23:30)
--- NOTE | 2017-05-04 13:59 | P.PN ---
Subjective 57-year-old being seen and examined at the bedside. Patient states he has been up ambulating in the hallway. No stool or gas from the ostomy. Ostomy teaching has been initiated. Hemoglobin stable at 14. Has remained afebrile. PPN infusing currently NPL. Patient states pain medication effective for pain control patient currently is being followed by infectious disease as well as medicine service. Blood cultures have been negative to date. Patient currently is on IV Zosyn per infectious diseases recommendations Postop 29 of April sigmoid colectomy with end colostomy for perforated diverticulitis with small bowel obstruction with abscess Objective - Vital Signs Vital signs: Vital Signs Temp 97.7 F 05/04/17 08:06 Pulse 80 05/04/17 08:06 Resp 15 05/04/17 08:06 BP 149/62 05/04/17 08:06 Pulse Ox 94 L 05/04/17 08:06 Intake & Output 05/03/17 05/04/17 05/04/17 18:59 06:59 18:59 Intake Total 1011 0 Output Total 285 315 Balance 726 0 -315 Weight 94.5 kg 91.5 kg Intake: Intake, IV Titration 1011 Amount Mvi, Adult No.4 with Vit 1011 K 10 ml Trace (Conc-1Ml/ Dose) 1 ml In Amino Acid 5%-D25w+Lytes*E* 1,000 ml @ 70 mls/hr IV .BY DURATION AG Rx#: [id number] Oral 0 Output: Drainage 10 Abdomen 10 Urine 275 315 Other: Voiding Method Urinal Urinal # Voids 1 - Exam Physical exam 57-year-old up ambulating in the [place] states not passing gas pain medication effective for pain control no dizziness no lightheadedness Lungs essentially clear with adequate air movement on room air Heart S1-S2 audible regular denying chest pain Abdomen bjorn to the surgical incision site dry well approximated ostomy left lower quadrant stoma greenish drainage noted no stool from ostomy bag few hypoactive bowel tones states not passing any gas rectally states urinating no difficulty Extremities no edema noted - Labs CBC & Chem 7: 05/04/17 07:24 05/04/17 07:24 Labs: Abnormal Lab Results - Last 24 Hours (Table) 05/03/17 05/04/17 05/04/17 Range/Units 18:00 00:01 06:16 Glucose (74-99) mg/dL POC Glucose (mg/dL) 142 H 131 H 128 H (75-99) mg/dL Phosphorus (2.5-4.5) mg/dL 05/04/17 Range/Units 07:24 Glucose 133 H (74-99) mg/dL POC Glucose (mg/dL) (75-99) mg/dL Phosphorus 4.7 H (2.5-4.5) mg/dL Microbiology - Last 24 Hours (Table) 04/27/17 18:14 Blood Culture - Final Blood No Growth after 144 hours Assessment and Plan Plan: Impression Present on admission bilateral abdominal pain with a CAT scan abdomen pelvis showing sigmoid diverticula with inflammatory changes around the mid sigmoid colon consistent with acute diverticulitis, loculated ileus also noted Mood disorder bipolar schizoaffective Present on admission leukocytosis suspect due to acute diverticulitis History of right wrist pain Current every day smoker Status post April 29 sigmoid colectomy with end colostomy for perforated diverticulitis with small bowel obstruction with abscess Secondary peritonitis from ruptured diverticulitis Plan Increase activity PT OT eval Continue with TPN for nutritional support per central line Continue postop surgical care Pain control Continue IV hydration DVT and GI prophylaxis Continue IV antibiotic Zosyn per recommendations infectious disease Repeat labs in am Resume home meds as appropriate Continue Ostomy teaching post office managerdemand planning manager worker to pursue the discharge plan patient may benefit from subacute rehab versus home with home care lives with a significant other The above impression and plan of care have been discussed and directed by signing physician. Rosa M Swain nurse practitioner acting as scribe for signing physician.
[2017-05-04] MEDS: D5-0.45% NACL WITH KCL 20MEQ/L 1,000 ML IV SCH (15:27)
[2017-05-04 16:50] LABS: Glucose,Whole Blood 105 mg/dL (75-99)
--- NOTE | 2017-05-04 18:33 | PN ---
PROGRESS NOTE DATE OF SERVICE: 05/04/2017 INTERVAL HISTORY: This 57-year-old gentleman who was admitted with acute sigmoid diverticulitis and perforation had surgery. The patient is improving significantly. Patient is able to ambulate. NG tube is out. Surgery and infectious disease is following the patient closely. PHYSICAL EXAM: Alert, oriented times three. Pulse is 80, blood pressure 149/60, respiration 15, temperature 97.7, pulse ox 94% on 2 L. HEENT conjunctivae normal. Neck no jugular venous distention. Cardiovascular: S1, S2 muffled. Respiratory: Breath sounds diminished in the bases. A few scattered rhonchi and crackles. Expiratory wheezing also present. Abdomen is soft, nontender. Legs are no edema, no swelling. LABS: CBC within normal limits. Glucose 133. ASSESSMENT: 1. Acute sigmoid diverticulitis with perforation status post hemicolectomy and colostomy and drainage of pelvic abscess, decompression of small bowel and sepsis present on admission. 2. Increased WBC. 3. Chronic obstructive pulmonary disease. 4. Gastroesophageal reflux disease. RECOMMENDATIONS AND DISCUSSION: Continue current medications. Continue symptomatic treatment. Otherwise at this time we will monitor the patient closely. Increase ambulation. Incentive spirometry. DVT prophylaxis. Further recommendations to follow. MMODL / IJN: [id number] /
--- NOTE | 2017-05-04 22:57 | PN ---
PROGRESS NOTE DATE OF SERVICE: 05/04/2017 REASON FOR FOLLOWUP VISIT: Secondary peritonitis from ruptured diverticulitis. INTERVAL HISTORY: The patient is afebrile. He has been breathing comfortably. Abdominal pain is currently controlled. No chest pain, shortness of breath or cough. No nausea or vomiting. He did not have any output in his colostomy bag yet. EXAMINATION: Blood pressure 129/71 with a pulse of 81, temperature 98. He is 94% on room air. GENERAL DESCRIPTION: A middle-aged male lying in bed in no distress. RESPIRATORY SYSTEM: Unlabored breathing. Clear to auscultation anteriorly. HEART: S1, S2. Regular rate and rhythm. ABDOMEN: Soft. No guarding or rigidity. No output in the colostomy bag. LABS: Hemoglobin is 14, white count 9.5 with a BUN of 13, creatinine 0.90. DIAGNOSTIC IMPRESSION AND PLAN: Patient with secondary peritonitis from ruptured diverticulitis, status post diverting colostomy. Patient is currently on IV Zosyn. Will continue waiting for his oral intake to improve, decision for antibiotic. Continue supportive care. MMODL / IJN: [id number] /
[2017-05-05] MEDS: HYDROmorphone 1 MG/ML 1 ML SYRINGE IVP PRN ×4 (01:22→12:43)
[2017-05-05] MEDS: INSULIN LISPRO (humaLOG) 300 UNIT/3 ML VIAL SQ SCH ×4 (03:37→18:09)
[2017-05-05 05:59] LABS: Glucose,Whole Blood 138 mg/dL (75-99)
[2017-05-05] MEDS: IPRATROPIUM-ALBUTEROL 3 ML NEB INHALATION SCH ×4 (07:10→19:21)
[2017-05-05] MEDS: BUDESONIDE 1 MG/2 ML NEBU INHALATION SCH ×2 (07:10→19:21)
[2017-05-05] MEDS: FORMOTEROL FUMARATE 20 MCG/2 ML NEBU INHALATION SCH ×2 (07:10→19:21)
[2017-05-05 07:34] LABS: Anion Gap 10 mmol/L; Blood Urea Nitrogen 17 mg/dL (9-20); Carbon Dioxide 26 mmol/L (22-30); Chloride 101 mmol/L (98-107); Glucose 136 mg/dL (74-99); Magnesium 2.2 mg/dL (1.6-2.3); Non-African American GFR(MDRD) >60 (>60 ml/min/1.73 sqM); Phosphorus 4.4 mg/dL (2.5-4.5); Potassium 4.4 mmol/L (3.5-5.1); Sodium 137 mmol/L (137-145)
[2017-05-05 07:44] LABS: Ionized Calcium 4.8 mg/dL (4.5-5.3)
--- NOTE | 2017-05-05 08:17 | P.PN ---
Subjective Progress Note Date: 05/05/17 57-year-old being seen and examined at the bedside. Patient is teary-eyed crying this morning states that he feels depressed and overwhelmed. Patient states he has a history of a depressive disorder in the past is seen by [facility]. Did note the patient is on trazodone at home due to patient's clinical course meds have been held patient currently is nothing by mouth except for ice chips. Patient is recuperating from a sigmoid colectomy with an ostomy for perforated diverticulitis with a small bowel obstruction with an abscess. Patient has been up ambulating in the hallway yesterday. Patient states no nausea no vomiting. Patient states abdominal discomfort is improving. States is not passing any gas. No stool in the ostomy but bowel tones are present Objective - Vital Signs Vital signs: Vital Signs Temp 97.3 F L 05/05/17 07:45 Pulse 77 05/05/17 07:45 Resp 18 05/05/17 07:45 BP 113/74 05/05/17 07:45 Pulse Ox 94 L 05/05/17 07:45 Intake & Output 05/04/17 05/05/17 05/05/17 18:59 06:59 18:59 Output Total 315 510 Balance -315 -510 Weight 92 kg Output: Drainage 10 Abdomen 10 Urine 315 500 Other: Voiding Method Urinal Urinal # Voids 1 150 - Exam Physical exam 57-year-old male teary-eyed crying states he feels overwhelmed by medical issues and the recent surgery Lungs essentially clear adequate air movement on room air no cough noted heart S1-S2 audible and regular denying chest pain Abdomen stoma left lower quadrant pink no stool in ostomy bag surgical incision well approximated no redness bilateral lower quadrants hypoactive bowel tones present states urinating no difficulty no nausea currently nothing by mouth except ice chips scant amount of serous straw-colored drainage from the MARKO drain Extremities no edema noted - Labs CBC & Chem 7: 05/04/17 07:24 05/05/17 07:00 Labs: Abnormal Lab Results - Last 24 Hours (Table) 05/04/17 05/05/17 05/05/17 Range/Units 16:48 05:56 07:00 Glucose 136 H (74-99) mg/dL POC Glucose (mg/dL) 105 H 138 H (75-99) mg/dL Assessment and Plan Plan: Impression Present on admission bilateral abdominal pain with a CAT scan abdomen pelvis showing sigmoid diverticula with inflammatory changes around the mid sigmoid colon consistent with acute diverticulitis, loculated ileus also noted Mood disorder bipolar schizoaffective Present on admission leukocytosis suspect due to acute diverticulitis History of right wrist pain Current every day smoker Status post April 29 sigmoid colectomy with end colostomy for perforated diverticulitis with small bowel obstruction with abscess Secondary peritonitis from ruptured diverticulitis Depressive anxiety disorder Plan Psych consultation for recommendations depression anxiety Increase activity PT OT eval Continue with TPN for nutritional support per central line Continue postop surgical care Pain control Continue IV hydration DVT and GI prophylaxis Continue IV antibiotic Zosyn per recommendations infectious disease Repeat labs in am Resume home meds as appropriate Continue Ostomy teaching manager signmanager contracting worker to pursue the discharge plan patient may benefit from subacute rehab versus home with home care lives with a significant other The above impression and plan of care have been discussed and directed by signing physician. Rosa M Swain nurse practitioner acting as scribe for signing physician.
[2017-05-05] MEDS: PIPERACILLIN-TAZOBACTAM 3.375 GM in DEXTROSE/WATER 1 50ML.BAG IVPB SCH ×2 (08:37→15:30)
[2017-05-05] MEDS: PANTOPRAZOLE 40 MG/10 ML VIAL IVP SCH (08:38)
[2017-05-05] MEDS: NICOTINE 14MG/24HR PATCH TRANSDERM SCH (08:54)
[2017-05-05] MEDS: HEPARIN SODIUM,PORCINE 5,000 UNIT/ML 1 ML VIAL SQ SCH ×2 (08:59→15:31)
[2017-05-05 11:28] LABS: Basophils # (A) 0.1 k/uL (0-0.2); Basophils % (A) 1 %; CH 29.8; CHCM 31.2; Eosinophils # (A) 0.4 k/uL (0-0.7); Eosinophils % (A) 4 %; HCT 44.2 % (39.0-53.0); HDW 2.41; HGB 14.1 gm/dL (13.0-17.5); Hypochromasia Slight; Luc # (Auto) 0.36; Luc % (Auto) 4; Lymphocytes # (A) 1.6 k/uL (1.0-4.8); Lymphocytes % (A) 17 %; MCH 30.6 pg (25.0-35.0); MCV 95.8 fL (80.0-100.0); Mean Platelet Volume 7.7; Monocytes # (A) 0.9 k/uL (0-1.0); Monocytes % (A) 9 %; Neutrophils # (A) 6.5 k/uL (1.3-7.7); Neutrophils % (A) 66 %; RBC 4.61 m/uL (4.30-5.90); RDW 13.9 % (11.5-15.5); WBC 9.9 k/uL (3.8-10.6); WBC (Perox) 9.53
[2017-05-05 12:25] LABS: Glucose,Whole Blood 108 mg/dL (75-99)
[2017-05-05] MEDS ORDERED: MAGNESIUM CITRATE 296 ML BOTTLE PO ONE (14:23)
[2017-05-05] MEDS: 1: MVI, ADULT NO.4 WITH VIT K 10 ML, TRACE (CONC-1ML/DOSE) 1 ML in AMINO ACID 5%-D25W+LY IV SCH ×3 (15:30)
[2017-05-05] MEDS: FAT EMULSION 20% 250 ML in EMPTY BAG 1 BAG IV SCH (17:58)
[2017-05-05 18:04] LABS: Glucose,Whole Blood 132 mg/dL (75-99)
[2017-05-05] MEDS: HYDROcodone/APAP 5-325MG 1 EACH TAB PO PRN ×2 (18:08→22:52)
--- NOTE | 2017-05-05 18:43 | PN ---
PROGRESS NOTE DATE OF SERVICE: 05/05/2017 INTERVAL HISTORY: This 57-year-old gentleman who was admitted with sigmoid diverticulitis and perforation had surgery. No chest pain. No palpitations. No fever. EXAM: Alert and oriented x3. Pulse is 77, blood pressure 130/75, respirations 18, temperature 97.3, pulse ox 94% on room air. HEENT: Conjunctivae normal. NECK: No jugular venous distention. CARDIOVASCULAR: S1, S2 muffled. RESPIRATORY: Breath sounds diminished in the bases. No rhonchi. No crackles. ABDOMEN: Soft, status post surgery. LEGS: No edema. NERVOUS SYSTEM: No focal deficits. LABS: CBC within normal limits. BMP shows glucose 136. ASSESSMENT: 1. Acute sigmoid diverticulitis with perforation, status post hemicolectomy and colostomy with drainage of pelvic abscess, decompression of small-bowel as well as sepsis present on admission. 2. Increased WBC. 3. Chronic obstructive pulmonary disease. 4. Gastroesophageal reflux disease. RECOMMENDATION AND DISCUSSION: Recommend to continue current medications. Continue with monitoring and symptomatic treatment. Otherwise at this time, will monitor the patient closely. Continue incentive spirometry. Further diet advancement per Surgery. Prognosis guarded. Further recommendations to follow. MMODL / IJN: [id number] /
[2017-05-05] MEDS ORDERED: HYDROmorphone 1 MG/ML 1 ML SYRINGE IVP STA (20:24)
--- NOTE | 2017-05-05 20:40 | PN ---
PROGRESS NOTE DATE OF SERVICE: 05/05/2017 REASON FOR FOLLOWUP: Secondary peritonitis, ruptured diverticulitis. INTERVAL HISTORY: The patient is afebrile. He is breathing comfortably. Seemed to be slightly upset. Did mention he is feeling very weak and tired, no energy. Denies any chest pain , shortness of breath or cough. No significant abdominal pain. EXAMINATION: Blood pressure 119/73 with a pulse of 80, temperature of 98. He is 94% on room air. General description is a middle-aged male lying in bed, in no distress. Respiratory system unlabored breathing. Clear to auscultation anteriorly. Heart S1, S2. Regular rate and rhythm. ABDOMEN: Soft. No significant output in the colostomy bag. LABORATORY DATA: Hemoglobin is 14.1, white count 9.9 with a BUN of 17, creatinine 0.90. DIAGNOSTIC IMPRESSION AND PLAN: Patient with secondary peritonitis from ruptured diverticulitis. The patient seems to be responding to Zosyn. Which will be continued waiting for resumption of his GI activity, if continue to improve to finish therapy with oral antibiotics. Continue supportive care. MMODL / IJN: [id number] / ALEX
[2017-05-05] MEDS: D5-0.45% NACL WITH KCL 20MEQ/L 1,000 ML IV SCH (22:57)
[2017-05-06] MEDS: PIPERACILLIN-TAZOBACTAM 3.375 GM in DEXTROSE/WATER 1 50ML.BAG IVPB SCH ×3 (00:04→16:11)
[2017-05-06] MEDS: HEPARIN SODIUM,PORCINE 5,000 UNIT/ML 1 ML VIAL SQ SCH ×3 (00:08→16:12)
[2017-05-06 00:40] LABS: Glucose,Whole Blood 125 mg/dL (75-99)
[2017-05-06] MEDS: HYDROmorphone 1 MG/ML 1 ML SYRINGE IVP PRN ×4 (01:27→20:08)
[2017-05-06] MEDS: INSULIN LISPRO (humaLOG) 300 UNIT/3 ML VIAL SQ SCH ×4 (01:33→18:23)
[2017-05-06] MEDS: 1: MVI, ADULT NO.4 WITH VIT K 10 ML, TRACE (CONC-1ML/DOSE) 1 ML in AMINO ACID 5%-D25W+LY IV SCH ×6 (05:47→16:11)
[2017-05-06 06:23] LABS: Glucose,Whole Blood 136 mg/dL (75-99)
[2017-05-06] MEDS: BUDESONIDE 1 MG/2 ML NEBU INHALATION SCH ×2 (07:21→19:12)
[2017-05-06] MEDS: FORMOTEROL FUMARATE 20 MCG/2 ML NEBU INHALATION SCH ×2 (07:21→19:12)
[2017-05-06] MEDS: IPRATROPIUM-ALBUTEROL 3 ML NEB INHALATION SCH ×4 (07:21→19:12)
[2017-05-06 07:43] LABS: CH 31.1; CHCM 32.8; HCT 46.9 % (39.0-53.0); HDW 2.44; HGB 14.8 gm/dL (13.0-17.5); Immature Gran Flag Slight; MCHC 31.5 g/dL (31.0-37.0); MCV 95.3 fL (80.0-100.0); Mean Platelet Volume 7.5; RBC 4.93 m/uL (4.30-5.90); WBC 8.7 k/uL (3.8-10.6); WBC (Perox) 8.19
[2017-05-06 07:56] LABS: Anion Gap 13 mmol/L; Blood Urea Nitrogen 16 mg/dL (9-20); Calcium 9.3 mg/dL (8.4-10.2); Carbon Dioxide 24 mmol/L (22-30); Chloride 100 mmol/L (98-107); Glucose 166 mg/dL (74-99); Non-African American GFR(MDRD) >60 (>60 ml/min/1.73 sqM); Potassium 4.4 mmol/L (3.5-5.1); Sodium 137 mmol/L (137-145)
[2017-05-06 08:18] LABS: Add Differential Manual Differential
[2017-05-06 08:21] LABS: Nucleated Red Blood Cells 0 /100 WBC (0-0)
[2017-05-06 08:23] LABS: Band Neutrophils % 1 %; Metamyelocytes % 1 %; Total Cells Counted 200
[2017-05-06 08:24] LABS: Magnesium 2.1 mg/dL (1.6-2.3); Phosphorus 4.6 mg/dL (2.5-4.5); RBC Morphology Normal
[2017-05-06] MEDS: PANTOPRAZOLE 40 MG/10 ML VIAL IVP SCH (08:41)
[2017-05-06] MEDS: NICOTINE 14MG/24HR PATCH TRANSDERM SCH (08:59)
--- NOTE | 2017-05-06 09:53 | P.PN ---
Subjective Progress Note Date: 05/06/17 57-year-old seen and examined at the bedside this morning. Patient states he did ambulate in the hallway yesterday did pass gas through the stoma but no stool patient states he took a few sips of the citrat mag yesterday felt nauseated had abdominal cramping and then would not drink anymore abdomen slightly distended this morning. There is a firm palpable area noted right mid abdomen between the stoma and the dressing. A few hypoactive bowel tones. Reports no nausea no vomiting. Temp 97.5 white count 8.7 patient is less emotional this morning Postop 29 of April sigmoid colectomy with end colostomy for perforated diverticulitis with small bowel obstruction with abscess Objective - Vital Signs Vital signs: Vital Signs Temp 97.5 F L 05/06/17 07:55 Pulse 75 05/06/17 07:55 Resp 18 05/06/17 07:55 BP 129/80 05/06/17 07:55 Pulse Ox 95 05/06/17 07:55 Intake & Output 05/05/17 05/06/17 05/06/17 18:59 06:59 18:59 Intake Total 1000 500 Output Total 50 350 250 Balance 950 150 -250 Weight 92 kg 91.5 kg Intake: IV 500 D5-0.45% NaCl with KCl 100 20Meq/l 1,000 ml @ 20 mls /hr IV .Q24H AG Rx#: [id number] Mvi, Adult No.4 with Vit 350 K 10 ml Trace (Conc-1Ml/ Dose) 1 ml In Amino Acid 5%-D25w+Lytes*E* 1,000 ml @ 70 mls/hr IV .BY DURATION AG Rx#: [id number] Piperacillin-Tazobactam 3 50 .375 gm In Dextrose/Water 1 50ml.bag @ 12.5 mls/hr IVPB Q8HR AG Rx#: [id number] Intake, IV Titration 1000 Amount Amino Acid 5%-D25w+Lytes* 1000 E* 1,000 ml @ 70 mls/hr IV .BY DURATION AG Rx#: [id number] Output: Drainage 0 Abdomen 0 Urine 350 250 Stool 50 Other: Voiding Method Urinal Urinal Urinal - Exam Physical exam 57-year-old male resting in bed states no nausea no vomiting abdominal cramping persist pleasant cooperative less emotional oriented 3 appears in no acute distress Lungs essentially clear with adequate air movement on room air no cough Heart S1-S2 audible regular no murmur Abdomen stoma unchanged from prior assessment no stool noted in the ostomy bag scant amount of brown liquid firmness to the abdominal wall on the right upper abdomen dressing dry MARKO drain in place scant amount of serous drainage noted a few hypoactive bowel tones bjorn to the surgical site suture 2 open areas upper and distal packing in place scant amount of drainage noted Extremities Venodyne's on to the bilateral lower extremities no edema - Labs CBC & Chem 7: 05/06/17 07:04 05/06/17 07:04 Labs: Abnormal Lab Results - Last 24 Hours (Table) 05/05/17 05/05/17 05/06/17 Range/Units 12:23 17:52 00:32 Metamyelocytes # (Man) (0) k/uL Glucose (74-99) mg/dL POC Glucose (mg/dL) 108 H 132 H 125 H (75-99) mg/dL Phosphorus (2.5-4.5) mg/dL 05/06/17 05/06/17 05/06/17 Range/Units 06:04 07:04 07:04 Metamyelocytes # (Man) 0.09 H (0) k/uL Glucose 166 H (74-99) mg/dL POC Glucose (mg/dL) 136 H (75-99) mg/dL Phosphorus (2.5-4.5) mg/dL 05/06/17 Range/Units 07:04 Metamyelocytes # (Man) (0) k/uL Glucose (74-99) mg/dL POC Glucose (mg/dL) (75-99) mg/dL Phosphorus 4.6 H (2.5-4.5) mg/dL Assessment and Plan Plan: Impression Present on admission bilateral abdominal pain with a CAT scan abdomen pelvis showing sigmoid diverticula with inflammatory changes around the mid sigmoid colon consistent with acute diverticulitis, loculated ileus also noted Mood disorder bipolar schizoaffective Present on admission leukocytosis suspect due to acute diverticulitis History of right wrist pain Current every day smoker Status post April 29 sigmoid colectomy with end colostomy for perforated diverticulitis with small bowel obstruction with abscess Secondary peritonitis from ruptured diverticulitis Depressive anxiety disorder Plan Psych consultation for recommendations depression anxiety Increase activity PT OT eval Continue with TPN for nutritional support per central line Continue postop surgical care Pain control Continue IV hydration DVT and GI prophylaxis Continue IV antibiotic Zosyn per recommendations infectious disease Repeat labs in am Resume home meds as appropriate Continue Ostomy teaching hospital managerexhibitions and collections manager worker to pursue the discharge plan patient may benefit from subacute rehab versus home with home care lives with a significant other Start clear liquid diet monitor the response The above impression and plan of care have been discussed and directed by signing physician. Rosa M Swain nurse practitioner acting as scribe for signing physician.
--- NOTE | 2017-05-06 11:40 | P.PN ---
Progress Note - Text Progress Note Date: 05/06/17 the patient has developed some abdominal distention. He has had crampy pain overnight. The colostomy site was taken down. There is evidence of cellulitis of the abdominal wall next a colostomy. The colostomy itself is quite edematous. Digital exam of the colostomy reveals a very edematous stoma. A escamilla of air was released when the colostomy was dilated. Edema of colostomy. Patient will have daily digital dilation. If his stoma remains a problem we'll consider revision of next week
[2017-05-06 12:06] LABS: Glucose,Whole Blood 142 mg/dL (75-99)
--- NOTE | 2017-05-06 16:38 | PN ---
PROGRESS NOTE DATE OF SERVICE: 05/06/2017 This 57-year-old gentleman who was admitted with acute sigmoid diverticulitis and perforation had surgery. The patient is being closely monitored. Patient has some cellulitis around the area of colostomy. Dr. Pathak is following the patient closely. No chest pain. No palpitations. No fever. PHYSICAL EXAMINATION: Alert, oriented x3. Pulse is 75, blood pressure 129/80, respiration 18, temperature 97.4, pulse ox 94% on room air. HEENT: Conjunctivae normal. NECK: No jugular venous distention. CARDIOVASCULAR SYSTEM: S1, S2 muffled. RESPIRATORY SYSTEM: Breath sounds diminished at the bases. No rhonchi. No crackles. ABDOMEN: Soft, obese. Left-sided stoma present. NERVOUS SYSTEM: No focal deficit. LABS: CBC within normal limits. Otherwise, glucose is 166. ASSESSMENT: 1. Acute sigmoid diverticulitis with perforation, status post hemicolectomy and colostomy with drainage of pelvic abscess and decompression of small bowel as well as sepsis, present on admission. 2. Increased white count. 3. Chronic obstructive pulmonary disease. 4. Gastroesophageal reflux disease. RECOMMENDATIONS AND DISCUSSION: I recommend to continue current medication, continue symptomatic treatment. Otherwise, we will monitor the patient closely. Guarded prognosis. Further recommendations to follow. MMODL / IJN: [id number] /
--- NOTE | 2017-05-06 17:29 | PN ---
PROGRESS NOTE DATE OF SERVICE: 05/06/2017. REASON FOR FOLLOWUP: Secondary peritonitis from ruptured diverticulitis. INTERVAL HISTORY: The patient is afebrile. He is feeling slightly better, breathing comfortably, still has no output in his colostomy. Denies any chest pain, shortness of breath or cough. EXAMINATION: His blood pressure is 139/88 with a pulse of 75, temperature 97.4. He is 94% on room air. GENERAL DESCRIPTION: A middle-aged male lying in bed in no distress. RESPIRATORY SYSTEM: Unlabored breathing. Clear to auscultation anteriorly. HEART: S1, S2. Regular rate and rhythm. ABDOMEN: Soft. No tenderness. LABS: Hemoglobin is 14.8, white count of 8.7 with a BUN of 16, creatinine 0.91. DIAGNOSTIC IMPRESSION AND PLAN: Patient with secondary peritonitis from a perforated diverticulitis, status post laparotomy and diverting colostomy. Still waiting for resumption of the bowel activity. He will be continued on Zosyn and will hopefully finish therapy with oral antibiotics once his oral intake has improved. Continue supportive care. MMODL / IJN: [id number] /
[2017-05-06] MEDS: D5-0.45% NACL WITH KCL 20MEQ/L 1,000 ML IV SCH (17:33)
[2017-05-06 17:54] LABS: Glucose,Whole Blood 125 mg/dL (75-99)
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
[2017-05-07] MEDS: PIPERACILLIN-TAZOBACTAM 3.375 GM in DEXTROSE/WATER 1 50ML.BAG IVPB SCH ×3 (00:02→17:42)
[2017-05-07] MEDS: INSULIN LISPRO (humaLOG) 300 UNIT/3 ML VIAL SQ SCH ×4 (00:02→18:25)
[2017-05-07] MEDS: HEPARIN SODIUM,PORCINE 5,000 UNIT/ML 1 ML VIAL SQ SCH ×3 (00:02→17:42)
[2017-05-07] MEDS: HYDROmorphone 1 MG/ML 1 ML SYRINGE IVP PRN ×3 (00:02→22:26)
[2017-05-07 00:21] LABS: Glucose,Whole Blood 117 mg/dL (75-99)
[2017-05-07 06:01] LABS: Glucose,Whole Blood 131 mg/dL (75-99)
[2017-05-07] MEDS: 1: MVI, ADULT NO.4 WITH VIT K 10 ML, TRACE (CONC-1ML/DOSE) 1 ML in AMINO ACID 5%-D25W+LY IV SCH ×6 (06:28→18:44)
[2017-05-07] MEDS: BUDESONIDE 1 MG/2 ML NEBU INHALATION SCH ×2 (07:13→21:04)
[2017-05-07] MEDS: IPRATROPIUM-ALBUTEROL 3 ML NEB INHALATION SCH ×4 (07:13→21:04)
[2017-05-07] MEDS: FORMOTEROL FUMARATE 20 MCG/2 ML NEBU INHALATION SCH ×2 (07:13→21:04)
[2017-05-07 07:51] LABS: Basophils # (A) 0.1 k/uL (0-0.2); Basophils % (A) 1 %; CH 30.3; Eosinophils # (A) 0.4 k/uL (0-0.7); Eosinophils % (A) 4 %; HCT 43.1 % (39.0-53.0); HDW 2.42; HGB 13.7 gm/dL (13.0-17.5); Luc # (Auto) 0.35; Luc % (Auto) 4; Lymphocytes # (A) 1.6 k/uL (1.0-4.8); Lymphocytes % (A) 16 %; MCH 30.2 pg (25.0-35.0); MCHC 31.8 g/dL (31.0-37.0); MCV 94.9 fL (80.0-100.0); Monocytes # (A) 0.6 k/uL (0-1.0); Monocytes % (A) 6 %; Neutrophils % (A) 70 %; RBC 4.54 m/uL (4.30-5.90); RDW 14.1 % (11.5-15.5); WBC (Perox) 9.44
[2017-05-07 08:13] LABS: Anion Gap 12 mmol/L; Blood Urea Nitrogen 15 mg/dL (9-20); Calcium 8.9 mg/dL (8.4-10.2); Carbon Dioxide 23 mmol/L (22-30); Chloride 102 mmol/L (98-107); Glucose 148 mg/dL (74-99); Non-African American GFR(MDRD) >60 (>60 ml/min/1.73 sqM); Potassium 4.7 mmol/L (3.5-5.1); Sodium 137 mmol/L (137-145)
[2017-05-07] MEDS: NICOTINE 14MG/24HR PATCH TRANSDERM SCH (09:48)
[2017-05-07] MEDS: ESCITALOPRAM 10 MG TAB PO SCH (09:52)
[2017-05-07] MEDS: PANTOPRAZOLE 40 MG/10 ML VIAL IVP SCH (09:59)
--- NOTE | 2017-05-07 11:20 | P.PN ---
Subjective Progress Note Date: 05/07/17 57-year-old male seen and examined at bedside. Patient reports continues to have abdominal pain states it's unchanged from prior assessment states has been up ambulating has passed gas no stool urinating no difficulty patient describes this discomfort as a cramping sensation. Nursing did get the patient up and the patient did ambulate in the davis noted a moderate amount of gas in the ostomy. Patient states with activity does have cramping. Stoma remains edematous. White count this morning 10 hemoglobin 13.7. Patient is being followed by infectious disease currently on IV Zosyn. Patient is afebrile Did note psych service eval and recommendations outpatient treatment for depression follow-up with [facility] Postop 29 of April sigmoid colectomy with end colostomy for perforated diverticulitis with small bowel obstruction with abscess Objective - Vital Signs Vital signs: Vital Signs Temp 97.2 F L 05/07/17 07:51 Pulse 77 05/07/17 08:00 Resp 18 05/07/17 08:00 BP 120/84 05/07/17 07:51 Pulse Ox 95 05/07/17 07:51 Intake & Output 05/06/17 05/07/17 05/07/17 18:59 06:59 18:59 Intake Total 1000 Output Total 635 385 9 Balance -635 615 -9 Weight 92.5 kg 92.5 kg Intake: Intake, IV Titration 1000 Amount Amino Acid 5%-D25w+Lytes* 1000 E* 1,000 ml @ 70 mls/hr IV .BY DURATION [facility] Rx#: [id number] Output: Gastric Drainage 5 Drainage 10 10 4 Abdomen 10 10 4 Urine 600 375 Stool 25 Other: Voiding Method Urinal Urinal Urinal - Exam Physical exam 57-year-old male resting in bed states no nausea no vomiting abdominal cramping persist pleasant cooperative less emotional oriented 3 appears in no acute distress patient states did ambulate in the davis had a moderate amount of gas from the ostomy Lungs essentially clear with adequate air movement on room air no cough Heart S1-S2 audible regular no murmur Abdomen edematous stoma unchanged from prior assessment no stool noted in the ostomy bag scant amount of brown liquid noted less firmness to the abdominal wall on the right upper abdomen dressing dry MARKO drain in place scant amount of serous drainage noted a few hypoactive bowel tones bjorn to the surgical site suture 2 open areas upper and distal packing in place scant amount of drainage noted Extremities Venodyne's on to the bilateral lower extremities no edema - Labs CBC & Chem 7: 05/07/17 07:09 05/07/17 07:09 Labs: Abnormal Lab Results - Last 24 Hours (Table) 05/06/17 05/06/17 05/06/17 Range/Units 12:01 17:52 23:58 Glucose (74-99) mg/dL POC Glucose (mg/dL) 142 H 125 H 117 H (75-99) mg/dL 05/07/17 05/07/17 Range/Units 06:00 07:09 Glucose 148 H (74-99) mg/dL POC Glucose (mg/dL) 131 H (75-99) mg/dL Assessment and Plan Plan: Impression Present on admission bilateral abdominal pain with a CAT scan abdomen pelvis showing sigmoid diverticula with inflammatory changes around the mid sigmoid colon consistent with acute diverticulitis, loculated ileus also noted Mood disorder bipolar schizoaffective Present on admission leukocytosis suspect due to acute diverticulitis History of right wrist pain Current every day smoker Status post April 29 sigmoid colectomy with end colostomy for perforated diverticulitis with small bowel obstruction with abscess Secondary peritonitis from ruptured diverticulitis Depressive anxiety disorder Major depressive disorder recurrent severe without psychotic features Posttraumatic stress disorder Plan Per psych's recommendations start patient on Lexapro 10 mg every morning when able Increase activity PT OT eval Continue with TPN for nutritional support per central line Continue postop surgical care Pain control Continue IV hydration DVT and GI prophylaxis Continue IV antibiotic Zosyn per recommendations infectious disease Repeat labs in am Resume home meds as appropriate Continue Ostomy teaching clinical documentation managerpmp certified project manager worker to pursue the discharge plan patient may benefit from subacute rehab versus home with home care lives with a significant other Start clear liquid diet monitor the response The above impression and plan of care have been discussed and directed by signing physician. Rosa M Swain nurse practitioner acting as scribe for signing physician.
[2017-05-07] MEDS: HYDROcodone/APAP 5-325MG 1 EACH TAB PO PRN ×2 (12:04→17:13)
[2017-05-07 12:08] LABS: Glucose,Whole Blood 131 mg/dL (75-99)
[2017-05-07] MEDS ORDERED: LORazepam 0.5 MG TAB PO PRN (15:49)
--- NOTE | 2017-05-07 16:29 | P.PN ---
Progress Note - Text Progress Note Date: 05/07/17 The patient had his colostomy bag empty twice today. There was a large amount of air and some stool in the bag. The patient is sleeping currently in his room. He denies any significant pain. Patient's abdomen was soft. There is some mild cellulitis around his colostomy site. His incision site is clean and dry. The wounds at the superior portion of the incision have healthy granulation tissue within it. The abdomen was soft there is no rebound or guarding. Patient's ostomy was digitally examined. The plan is for your was placed into the ostomy. There is some edema of the ostomy with some superficial sloughing of the mucosa. Some air liquid was removed with digital exam the ostomy. The patient will require TPN. His diet will not be advanced until his stoma output increases. We have recommended a PICC line for TPN.
--- NOTE | 2017-05-07 17:12 | PN ---
PROGRESS NOTE DATE OF SERVICE: 05/07/2017 This 57-year-old gentleman who was admitted with acute sigmoid diverticulitis with perforation also had a hemicolectomy and colostomy. The patient also had drainage of a pelvic abscess and decompression of small bowel. Some erythema and cellulitis around the colostomy site is noted. White count is normal. Patient has no fever, no chest pain, no palpitations, no shortness of breath. PHYSICAL EXAMINATION: Alert and oriented x3. Pulse 77, blood pressure 129/70, respiration 18, temperature 97.7, pulse ox 93% on room air. HEENT: Conjunctivae normal. NECK: No jugular venous distention. CARDIOVASCULAR SYSTEM: S1, S2 muffled. RESPIRATORY SYSTEM: Breath sounds diminished at the bases. A few scattered rhonchi. No crackles. ABDOMEN: Soft. Mild diffuse distention present. LEGS: No edema. No swelling. NERVOUS SYSTEM: No focal deficit. LABS AT THIS TIME: WBC 10, hemoglobin 13.7, sodium 137, potassium 4.7. ASSESSMENT: 1. Acute sigmoid diverticulitis and perforation, status post hemicolectomy and colostomy with drainage of pelvic abscess and decompression of small bowel as well as sepsis, present on admission. 2. Increased white count. 3. Chronic obstructive pulmonary disease. 4. Gastroesophageal reflux disease. 5. Cellulitis, abdominal wall around colostomy. RECOMMENDATIONS AND DISCUSSION: I recommend to continue current medication, continue symptomatic treatment. Otherwise, closely follow with Surgery and Infectious Disease. Guarded prognosis. Further recommendations to follow. MMODL / IJN: [id number] /
[2017-05-07] MEDS: ONDANSETRON 4 MG/2 ML VIAL IVP PRN (17:42)
[2017-05-07] MEDS: D5-0.45% NACL WITH KCL 20MEQ/L 1,000 ML IV SCH (18:43)
[2017-05-07] MEDS: FAT EMULSION 20% 250 ML in EMPTY BAG 1 BAG IV SCH (18:45)
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
[2017-05-07] MEDS: LORazepam 2 MG/ML INJ IV PRN (19:44)
--- NOTE | 2017-05-07 23:33 | PN ---
PROGRESS NOTE DATE OF SERVICE: 05/07/2017 REASON FOR FOLLOWUP: Secondary peritonitis from ruptured colitis. INTERVAL HISTORY: The patient is afebrile, has been breathing comfortably. He denies significant chest pain or shortness of breath. No cough. No abdominal pain. He did have very minimal output in his colostomy bag. EXAMINATION: Blood pressure 129/79 with a pulse of 77, temperature 97.7, he is 93% on room air. General description is a middle-aged male lying in bed, in no distress. Respiratory system unlabored breathing. Clear to auscultation anteriorly. Heart S1, S2. Regular rate and rhythm. Abdomen soft, no tenderness. The midline incision with two wounds but the looks clean with no slough tissue. LABS: Hemoglobin is 13.6, white count of 10 with a BUN of 15, creatinine 0.86. DIAGNOSTIC IMPRESSION AND PLAN: Patient with secondary peritonitis from ruptured diverticulitis. The patient slowly clinically improving. He will continue Zosyn.and if continue to improve, hopefully finish therapy with oral antibiotics. The central line should be discontinued to decrease risk of line infection. This was communicated to the RN. We tried to get a peripheral IV. MMODL / IJN: [id number] / MTDCem
[2017-05-08 00:14] LABS: Glucose,Whole Blood 135 mg/dL (75-99)
[2017-05-08] MEDS: PIPERACILLIN-TAZOBACTAM 3.375 GM in DEXTROSE/WATER 1 50ML.BAG IVPB SCH ×4 (00:59→23:38)
[2017-05-08] MEDS: HEPARIN SODIUM,PORCINE 5,000 UNIT/ML 1 ML VIAL SQ SCH ×4 (00:59→23:26)
[2017-05-08] MEDS: INSULIN LISPRO (humaLOG) 300 UNIT/3 ML VIAL SQ SCH ×5 (01:00→23:38)
[2017-05-08 06:14] LABS: Glucose,Whole Blood 129 mg/dL (75-99)
[2017-05-08 07:01] LABS: Basophils # (A) 0.1 k/uL (0-0.2); Basophils % (A) 1 %; CH 31.4; CHCM 33.1; Eosinophils # (A) 0.4 k/uL (0-0.7); Eosinophils % (A) 3 %; HCT 44.6 % (39.0-53.0); HGB 13.8 gm/dL (13.0-17.5); Luc # (Auto) 0.27; Luc % (Auto) 2; Lymphocytes # (A) 1.8 k/uL (1.0-4.8); Lymphocytes % (A) 15 %; MCH 29.4 pg (25.0-35.0); MCHC 30.9 g/dL (31.0-37.0); MCV 95.1 fL (80.0-100.0); Mean Platelet Volume 7.3; Monocytes # (A) 0.9 k/uL (0-1.0); Monocytes % (A) 7 %; Neutrophils % (A) 72 %; RBC 4.69 m/uL (4.30-5.90); WBC 12.5 k/uL (3.8-10.6)
[2017-05-08] MEDS: HYDROmorphone 1 MG/ML 1 ML SYRINGE IVP PRN ×5 (07:32→22:25)
[2017-05-08 07:52] LABS: Anion Gap 11 mmol/L; Blood Urea Nitrogen 14 mg/dL (9-20); Calcium 9.1 mg/dL (8.4-10.2); Carbon Dioxide 26 mmol/L (22-30); Chloride 100 mmol/L (98-107); Glucose 117 mg/dL (74-99); Non-African American GFR(MDRD) >60 (>60 ml/min/1.73 sqM); Potassium 4.3 mmol/L (3.5-5.1); Sodium 137 mmol/L (137-145)
[2017-05-08] MEDS: ESCITALOPRAM 10 MG TAB PO SCH (08:19)
[2017-05-08] MEDS: NICOTINE 14MG/24HR PATCH TRANSDERM SCH ×2 (08:19→08:30)
[2017-05-08] MEDS: PANTOPRAZOLE 40 MG/10 ML VIAL IVP SCH (08:19)
[2017-05-08] MEDS: 1: MVI, ADULT NO.4 WITH VIT K 10 ML, TRACE (CONC-1ML/DOSE) 1 ML in AMINO ACID 5%-D25W+LY IV SCH ×6 (08:21→23:20)
[2017-05-08] MEDS: BUDESONIDE 1 MG/2 ML NEBU INHALATION SCH (09:02)
[2017-05-08] MEDS: IPRATROPIUM-ALBUTEROL 3 ML NEB INHALATION SCH ×3 (09:02→16:33)
[2017-05-08] MEDS: FORMOTEROL FUMARATE 20 MCG/2 ML NEBU INHALATION SCH (09:02)
[2017-05-08 12:09] LABS: Glucose,Whole Blood 102 mg/dL (75-99)
[2017-05-08] MEDS: LORazepam 2 MG/ML INJ IV PRN ×2 (14:00→23:20)
--- NOTE | 2017-05-08 14:28 | P.PN ---
Subjective Progress Note Date: 05/08/17 Principal diagnosis: Status post Kaur's Patient had 1 episode of emesis overnight. Passing gas through his ostomy but no stool. Complaining of abdominal pain and distention. He is up ambulating. Objective - Vital Signs Vital signs: Vital Signs Temp 98.3 F 05/08/17 07:00 Pulse 73 05/08/17 08:00 Resp 16 05/08/17 08:00 BP 129/85 05/08/17 07:00 Pulse Ox 95 05/08/17 07:00 Intake & Output 05/07/17 05/08/17 05/08/17 18:59 06:59 18:59 Intake Total 40 Output Total 250 40 Balance -210 -40 Weight 92.5 kg 92.5 kg Intake: Oral 40 Output: Gastric Drainage 5 Drainage 10 Abdomen 10 Urine 175 Stool 60 40 Other: Voiding Method Urinal Urinal Urinal # Voids 3 - Constitutional General appearance: Present: cooperative - Cardiovascular Rhythm: regular - Gastrointestinal Gastrointestinal Comment(s): Distended mild tenderness to palpation. Ostomy is patent swollen with mucosal sloughing. Gas in bag. - Psychiatric Psychiatric: Present: A&O x's 3 - Labs CBC & Chem 7: 05/08/17 06:20 05/08/17 06:20 Labs: Abnormal Lab Results - Last 24 Hours (Table) 05/08/17 05/08/17 05/08/17 Range/Units 00:13 06:13 06:20 WBC 12.5 H (3.8-10.6) k/uL MCHC 30.9 L (31.0-37.0) g/dL Neutrophils # 9.0 H (1.3-7.7) k/uL Glucose (74-99) mg/dL POC Glucose (mg/dL) 135 H 129 H (75-99) mg/dL Triglycerides (<150) mg/dL 05/08/17 05/08/17 Range/Units 06:20 12:06 WBC (3.8-10.6) k/uL MCHC (31.0-37.0) g/dL Neutrophils # (1.3-7.7) k/uL Glucose 117 H (74-99) mg/dL POC Glucose (mg/dL) 102 H (75-99) mg/dL Triglycerides 181 H (<150) mg/dL Assessment and Plan (1) Diverticulitis Status: Acute Plan: Continuing nothing by mouth TPN antibiotics. Patient to continue to ambulate. The patient continues to have multiple episodes of emesis we'll consider NG tube.
[2017-05-08] MEDS ORDERED: FORMOTEROL FUMARATE 20 MCG/2 ML NEBU INHALATION PRN (16:38)
[2017-05-08] MEDS ORDERED: IPRATROPIUM-ALBUTEROL 3 ML NEB INHALATION PRN (16:38)
[2017-05-08] MEDS ORDERED: BUDESONIDE 1 MG/2 ML NEBU INHALATION PRN (16:38)
[2017-05-08] MEDS: D5-0.45% NACL WITH KCL 20MEQ/L 1,000 ML IV SCH (17:33)
--- NOTE | 2017-05-08 17:37 | PN ---
PROGRESS NOTE DATE OF SERVICE: 05/08/2017 INTERVAL HISTORY: This 57-year-old gentleman who was admitted after sigmoid diverticula and colostomy, also had abdominal distention. The patient is thought to have ileus at this time. Surgery, Dr. Munoz, is following the patient closely. The patient also had apparently had vomiting also overnight. No chest pain. No palpitations. No fever. No shortness of breath. EXAM: Alert, oriented, pulse 73, blood pressure 110/85, respirations 16, temperature 98.2, pulse ox 94% room air. HEENT: Conjunctivae normal. NECK: No jugular venous distention. CARDIOVASCULAR: S1, S2 RESPIRATORY: Breath sounds diminished in the bases. A few scattered rhonchi. ABDOMEN: Soft. Mild diffuse distention. Nontender. No guarding. No rigidity. No mass. Bowel sounds diminished. EXTREMITIES: No edema. NERVOUS SYSTEM: No focal deficits. LABS: WBC 12.5. ASSESSMENT: 1. Acute right diverticulitis and perforation, status post hemicolectomy and colostomy with a drainage of pelvic abscess and decompression as well as decompression of small bowel as well as sepsis present on admission. 2. Increased WBC. 3. Chronic obstructive pulmonary disease. 4. Gastroesophageal reflux disease. 5. Cellulitis abdominal wall around colostomy. RECOMMENDATIONS AND DISCUSSION: I recommend to continue current management and symptomatic treatment, otherwise at this time I recommend to continue with broad-spectrum IV antibiotics. The patient is followed by multiple consultants including Surgery and as well as Infectious Disease. Guarded prognosis because of multiple complex medical issues. Further recommendations to follow. MMODL / IJN: [id number] /
[2017-05-08 18:23] LABS: Glucose,Whole Blood 97 mg/dL (75-99)
[2017-05-08 23:42] LABS: Glucose,Whole Blood 86 mg/dL (75-99)
[2017-05-09 05:57] LABS: Glucose,Whole Blood 138 mg/dL (75-99)
[2017-05-09] MEDS: INSULIN LISPRO (humaLOG) 300 UNIT/3 ML VIAL SQ SCH ×3 (05:58→18:01)
[2017-05-09 06:51] LABS: Basophils # (A) 0.1 k/uL (0-0.2); Basophils % (A) 1 %; CH 30.7; Eosinophils # (A) 0.3 k/uL (0-0.7); Eosinophils % (A) 3 %; HCT 39.4 % (39.0-53.0); HDW 2.42; HGB 12.8 gm/dL (13.0-17.5); Luc # (Auto) 0.17; Luc % (Auto) 2; Lymphocytes # (A) 1.6 k/uL (1.0-4.8); Lymphocytes % (A) 14 %; MCH 30.4 pg (25.0-35.0); MCHC 32.6 g/dL (31.0-37.0); MCV 93.4 fL (80.0-100.0); Mean Platelet Volume 7.5; Monocytes # (A) 0.8 k/uL (0-1.0); Monocytes % (A) 7 %; Neutrophils # (A) 8.3 k/uL (1.3-7.7); Neutrophils % (A) 73 %; RBC 4.22 m/uL (4.30-5.90); RDW 14.7 % (11.5-15.5); WBC 11.3 k/uL (3.8-10.6); WBC (Perox) 11.29
[2017-05-09 07:03] LABS: Anion Gap 9 mmol/L; Blood Urea Nitrogen 17 mg/dL (9-20); Calcium 8.9 mg/dL (8.4-10.2); Carbon Dioxide 25 mmol/L (22-30); Chloride 101 mmol/L (98-107); Glucose 160 mg/dL (74-99); Magnesium 2.1 mg/dL (1.6-2.3); Non-African American GFR(MDRD) >60 (>60 ml/min/1.73 sqM); Phosphorus 4.5 mg/dL (2.5-4.5); Potassium 4.6 mmol/L (3.5-5.1); Sodium 135 mmol/L (137-145)
[2017-05-09] MEDS: PANTOPRAZOLE 40 MG/10 ML VIAL IVP SCH ×2 (07:59→08:26)
[2017-05-09] MEDS: HEPARIN SODIUM,PORCINE 5,000 UNIT/ML 1 ML VIAL SQ SCH ×2 (07:59→18:08)
[2017-05-09] MEDS: ESCITALOPRAM 10 MG TAB PO SCH (07:59)
[2017-05-09] MEDS: NICOTINE 14MG/24HR PATCH TRANSDERM SCH (07:59)
[2017-05-09] MEDS: HYDROmorphone 1 MG/ML 1 ML SYRINGE IVP PRN ×3 (08:00→18:12)
[2017-05-09] MEDS: PIPERACILLIN-TAZOBACTAM 3.375 GM in DEXTROSE/WATER 1 50ML.BAG IVPB SCH ×2 (08:27→18:08)
[2017-05-09] MEDS: LORazepam 2 MG/ML INJ IV PRN ×4 (09:01→23:11)
[2017-05-09 12:03] LABS: Glucose,Whole Blood 134 mg/dL (75-99)
[2017-05-09] MEDS: 1: MVI, ADULT NO.4 WITH VIT K 10 ML, TRACE (CONC-1ML/DOSE) 1 ML in AMINO ACID 5%-D25W+LY IV SCH ×6 (13:00→17:59)
--- NOTE | 2017-05-09 13:37 | P.PN ---
Subjective Principal diagnosis: Status post Kaur's Patient is resting comfortably in bed today. He feels much better. He had more gas and some stool out of his ostomy. Objective - Vital Signs Vital signs: Vital Signs Temp 98.4 F 05/09/17 07:56 Pulse 72 05/09/17 08:00 Resp 14 05/09/17 08:00 BP 125/78 05/09/17 07:56 Pulse Ox 94 L 05/08/17 21:33 Intake & Output 05/08/17 05/09/17 05/09/17 18:59 06:59 18:59 Intake Total 1011 Output Total 80 30 40 Balance 931 -30 -40 Weight 92 kg Intake: Intake, IV Titration 1011 Amount Mvi, Adult No.4 with Vit 1011 K 10 ml Trace (Conc-1Ml/ Dose) 1 ml In Amino Acid 5%-D25w+Lytes*E* 1,000 ml @ 70 mls/hr IV .BY DURATION AG Rx#: [id number] Output: Drainage 40 30 Abdomen 40 30 Stool 40 40 Other: Voiding Method Urinal Urinal Urinal - Constitutional General appearance: Present: cooperative - Respiratory Details: Nonlabored breathing - Cardiovascular Rhythm: regular - Gastrointestinal Gastrointestinal Comment(s): Soft mildly distended nontender to palpation. Ostomy patent with some mucosal sloughing. Gas and liquid stool in bag - Psychiatric Psychiatric: Present: A&O x's 3 - Labs CBC & Chem 7: 05/09/17 06:29 05/09/17 06:29 Labs: Abnormal Lab Results - Last 24 Hours (Table) 05/09/17 05/09/17 05/09/17 Range/Units 05:55 06:29 06:29 WBC 11.3 H (3.8-10.6) k/uL RBC 4.22 L (4.30-5.90) m/uL Hgb 12.8 L (13.0-17.5) gm/dL Neutrophils # 8.3 H (1.3-7.7) k/uL Sodium 135 L (137-145) mmol/L Glucose 160 H (74-99) mg/dL POC Glucose (mg/dL) 138 H (75-99) mg/dL 05/09/17 Range/Units 12:01 WBC (3.8-10.6) k/uL RBC (4.30-5.90) m/uL Hgb (13.0-17.5) gm/dL Neutrophils # (1.3-7.7) k/uL Sodium (137-145) mmol/L Glucose (74-99) mg/dL POC Glucose (mg/dL) 134 H (75-99) mg/dL Assessment and Plan (1) Diverticulitis Status: Acute Plan: Continuing nothing by mouth TPN antibiotics. Patient to continue to ambulate. Overall patient is improved and appears to be opening up.
[2017-05-09] MEDS: D5-0.45% NACL WITH KCL 20MEQ/L 1,000 ML IV SCH (18:01)
[2017-05-09 18:02] LABS: Glucose,Whole Blood 89 mg/dL (75-99)
--- NOTE | 2017-05-09 19:32 | PN ---
PROGRESS NOTE DATE OF SERVICE: 05/09/2017 INTERVAL HISTORY: This 57-year-old gentleman who was admitted with acute diverticulitis and perforation had surgery. The patient is being closely monitored. No chest pain. No palpitations. No fever. PHYSICAL EXAM: Alert, oriented times three. Pulse 102, blood pressure 120/70, respiratory 14, temperature 98.4, pulse ox 94% on room air. HEENT: Conjunctivae normal. NECK: No jugular venous distention. Cardiovascular: S1, S2 muffled. Respirations: Breath sounds diminished at the bases. A few scattered rhonchi. No crackles. ABDOMEN: Soft, status post surgery. Legs no edema. No swelling. NERVOUS SYSTEM: No focal deficits. LABS: At this time WBC 11.2, hemoglobin 12.2, sodium 135. ASSESSMENT: 1. Acute diverticulitis as well as perforation status post hemicolectomy and colostomy with a drainage of pelvic abscess and decompression as well decompression of small bowel as well as with sepsis present on admission. 2. Increased WBC. 3. Cellulitis of the abdominal wall. 4. Chronic obstructive pulmonary disease. 5. Gastroesophageal reflux disease. RECOMMENDATIONS AND DISCUSSION: Recommend to continue current medications, management and symptomatic treatment, continue with empiric antibiotics. Closely monitor. Follow closely with Infectious Disease as well as surgery. Prognosis guarded. Further recommendations to follow. MMODL / IJN: [id number] /
[2017-05-10] MEDS: PIPERACILLIN-TAZOBACTAM 3.375 GM in DEXTROSE/WATER 1 50ML.BAG IVPB SCH ×3 (00:06→17:29)
[2017-05-10] MEDS: INSULIN LISPRO (humaLOG) 300 UNIT/3 ML VIAL SQ SCH ×4 (00:12→18:16)
[2017-05-10] MEDS: HEPARIN SODIUM,PORCINE 5,000 UNIT/ML 1 ML VIAL SQ SCH ×3 (00:13→17:36)
[2017-05-10 00:33] LABS: Glucose,Whole Blood 121 mg/dL (75-99)
[2017-05-10] MEDS: LORazepam 2 MG/ML INJ IV PRN (02:31)
[2017-05-10 06:05] LABS: Glucose,Whole Blood 143 mg/dL (75-99)
[2017-05-10 06:33] LABS: Basophils # (A) 0.1 k/uL (0-0.2); Basophils % (A) 1 %; CH 30.3; CHCM 31.9; Eosinophils # (A) 0.3 k/uL (0-0.7); Eosinophils % (A) 3 %; HCT 41.7 % (39.0-53.0); HDW 2.37; HGB 13.1 gm/dL (13.0-17.5); Luc # (Auto) 0.28; Luc % (Auto) 2; Lymphocytes # (A) 1.5 k/uL (1.0-4.8); Lymphocytes % (A) 13 %; MCHC 31.4 g/dL (31.0-37.0); MCV 95.4 fL (80.0-100.0); Mean Platelet Volume 6.9; Monocytes # (A) 0.8 k/uL (0-1.0); Monocytes % (A) 7 %; Neutrophils # (A) 8.8 k/uL (1.3-7.7); Neutrophils % (A) 75 %; RBC 4.37 m/uL (4.30-5.90); WBC 11.8 k/uL (3.8-10.6); WBC (Perox) 11.95
[2017-05-10 06:36] LABS: Anion Gap 9 mmol/L; Blood Urea Nitrogen 15 mg/dL (9-20); Calcium 8.9 mg/dL (8.4-10.2); Carbon Dioxide 25 mmol/L (22-30); Chloride 101 mmol/L (98-107); Glucose 221 mg/dL (74-99); Non-African American GFR(MDRD) >60 (>60 ml/min/1.73 sqM); Potassium 4.5 mmol/L (3.5-5.1); Sodium 135 mmol/L (137-145)
[2017-05-10 06:52] LABS: Glucose,Whole Blood 147 mg/dL (75-99)
--- NOTE | 2017-05-10 07:00 | PN ---
PROGRESS NOTE DATE OF SERVICE: 05/09/2017 REASON FOR FOLLOWUP: Secondary to peritonitis. INTERVAL HISTORY: The patient is afebrile. He has been on clear liquid diet: He wanted his diet to be advanced. No chest pain, shortness of breath or cough. No worsening abdominal pain. PHYSICAL EXAMINATION: On examination, blood pressure is 111/72 with a pulse of 83, temperature of 96.7. He is 94% on room air. General description is a middle-aged male, lying in bed, in no distress. RESPIRATORY SYSTEM: Unlabored breathing. Clear to auscultation anteriorly. HEART: S1, S2. Regular rate and rhythm. ABDOMEN: Soft, no tenderness. LABS: Hemoglobin is 10.8, white count 11.3. BUN of 17, creatinine 0.96. DIAGNOSTIC IMPRESSION AND PLAN: Patient with secondary peritonitis from a perforated diverticulitis, status post laparotomy and diverting colostomy with very slow resumption of his bowel activity. He is currently on Zosyn that will be continued. The central line should be discontinued to decrease risk of line infection. Continue supportive care. MMODL / IJN: [id number] /
[2017-05-10] MEDS: HYDROmorphone 1 MG/ML 1 ML SYRINGE IVP PRN ×2 (10:15→13:40)
--- NOTE | 2017-05-10 10:38 | P.PN ---
Subjective Progress Note Date: 05/10/17 57-year-old male seen and examined at bedside. Did note the patient is passing gas per the stoma air in the ostomy bag noted. Bowel tones noted this morning Patient is overly anxious this morning teary-eyed patient is making comments that he is going to leave the hospital AGAINST MEDICAL ADVICE "I'd rather be than have to go through this again. Patient has been seen by the mental health service will defer to currently patient is being followed by infectious disease TPN in progress patient's tolerating a clear liquid diet Objective - Vital Signs Vital signs: Vital Signs Temp 96.7 F L 05/09/17 22:13 Pulse 83 05/09/17 22:13 Resp 16 05/09/17 22:13 BP 111/72 05/09/17 22:13 Pulse Ox 94 L 05/09/17 22:13 Intake & Output 05/09/17 05/10/17 05/10/17 18:59 06:59 18:59 Intake Total 1011 Output Total 80 370 Balance 931 -370 Weight 92 kg Intake: Intake, IV Titration 1011 Amount Mvi, Adult No.4 with Vit 1011 K 10 ml Trace (Conc-1Ml/ Dose) 1 ml In Amino Acid 5%-D25w+Lytes*E* 1,000 ml @ 70 mls/hr IV .BY DURATION AG Rx#: [id number] Output: Drainage 70 Abdomen 70 Urine 300 Stool 80 Other: Voiding Method Urinal Urinal # Voids 1 - Exam Physical exam 57-year-old male resting in bed anxious crying reports feeling overwhelmed months to go home now Lungs essentially clear with adequate air movement on room air no shortness of breath Heart S1-S2 audible regular Abdomen stoma left lower quadrant scant amount of brown stool in the ostomy bag air noted in the ostomy bag bowel tones present MARKO drain to the right lower quadrant dressing dry slight surgical tenderness slightly distended urinating no difficulty no reports of nausea vomiting Extremities no edema noted - Labs CBC & Chem 7: 05/10/17 06:10 05/10/17 06:10 Labs: Abnormal Lab Results - Last 24 Hours (Table) 05/09/17 05/10/17 05/10/17 Range/Units 12:01 00:11 06:03 WBC (3.8-10.6) k/uL Plt Count (150-450) k/uL Neutrophils # (1.3-7.7) k/uL Sodium (137-145) mmol/L Glucose (74-99) mg/dL POC Glucose (mg/dL) 134 H 121 H 143 H (75-99) mg/dL 05/10/17 05/10/17 05/10/17 Range/Units 06:10 06:10 06:50 WBC 11.8 H (3.8-10.6) k/uL Plt Count 481 H (150-450) k/uL Neutrophils # 8.8 H (1.3-7.7) k/uL Sodium 135 L (137-145) mmol/L Glucose 221 H (74-99) mg/dL POC Glucose (mg/dL) 147 H (75-99) mg/dL Assessment and Plan Plan: Impression Present on admission bilateral abdominal pain with a CAT scan abdomen pelvis showing sigmoid diverticula with inflammatory changes around the mid sigmoid colon consistent with acute diverticulitis, loculated ileus also noted Mood disorder bipolar schizoaffective Present on admission leukocytosis suspect due to acute diverticulitis History of right wrist pain Current every day smoker Status post April 29 sigmoid colectomy with end colostomy for perforated diverticulitis with small bowel obstruction with abscess Secondary peritonitis from ruptured diverticulitis Depressive anxiety disorder Major depressive disorder recurrent severe without psychotic features Posttraumatic stress disorder Cellulitis abdominal wall Plan Per psych's recommendations start patient on Lexapro 10 mg every morning when able Increase activity PT OT eval Continue with TPN for nutritional support per central line Continue postop surgical care Pain control Continue IV hydration DVT and GI prophylaxis Continue IV antibiotic Zosyn per recommendations infectious disease Repeat labs in am Resume home meds as appropriate 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 Rosa M Swain nurse practitioner acting as scribe for signing physician.
[2017-05-10 10:55] VITALS: BMI 30.8
--- NOTE | 2017-05-10 12:51 | PN ---
PROGRESS NOTE DATE OF SERVICE: 05/10/2017 This 57-year-old gentleman admitted with acute diverticulitis, had a perforation and as well as surgery. Currently the patient has some abdominal distention and some redness around the colostomy site. The patient also had some suicidal ideations. Surgery, Dr. Pathak, is following the patient closely and as well as Infectious Disease, Dr. Frank. PAST MEDICAL HISTORY: Reviewed. PHYSICAL EXAM: Patient is alert, oriented x3. Pulse 83, blood pressure 111/72, respirations 16, temperature 96.7, pulse ox 94% on room air. HEENT: Conjunctivae normal. NECK: No jugular venous distention. CARDIOVASCULAR: S1 and S2 muffled. RESPIRATORY: Breath sounds diminished at the bases. A few scattered rhonchi. ABDOMEN: Soft. Diffuse distention present. Minimal redness around the colostomy site. Mild diffuse discomfort. No guarding. No rigidity. Bowel sounds diminished. LEGS: No edema, no swelling. NERVOUS SYSTEM: No focal deficits. LABS: WBC 11.8. ASSESSMENT: 1. Acute diverticulitis as well as perforation and hemicolectomy and colostomy with drainage of pelvic abscess and decompression with small bowel with possible sepsis present on admission. 2. Increased WBC. 3. Cellulitis of the abdominal wall possibly. 4. Chronic obstructive pulmonary disease. 5. Gastroesophageal reflux disease. RECOMMENDATIONS AND DISCUSSION: Recommend to continue current medications, continue symptomatic treatment. Patient is on broad-spectrum IV antibiotics. Discussed with surgical team, Rosa M, the nurse practitioner, who will be evaluating the patient regarding the abdominal distention and other surgical issues. Otherwise continue the rest of the medications and white count is 11.8 today and we will follow the patient closely with Infectious Disease. The prognosis guarded because of multiple complex medical issues. Further recommendations to follow. MMODL / IJN: [id number] /
[2017-05-10 12:56] LABS: Glucose,Whole Blood 125 mg/dL (75-99)
[2017-05-10] MEDS ORDERED: PANTOPRAZOLE SODIUM 40 MG GRANULE PKT PO STA (13:45)
[2017-05-10] MEDS ORDERED: HYDROmorphone 1 MG/ML 1 ML SYRINGE IVP PRN (13:46)
[2017-05-10] MEDS ORDERED: ONDANSETRON 4 MG TAB PO PRN (13:46)
[2017-05-10] MEDS: NICOTINE 14MG/24HR PATCH TRANSDERM SCH (14:16)
[2017-05-10] MEDS: ESCITALOPRAM 10 MG TAB PO SCH (14:18)
[2017-05-10] MEDS: D5-0.45% NACL WITH KCL 20MEQ/L 1,000 ML IV SCH (14:19)
[2017-05-10] MEDS: FAT EMULSION 20% 250 ML in EMPTY BAG 1 BAG IV SCH (18:14)
[2017-05-10] MEDS: 1: MVI, ADULT NO.4 WITH VIT K 10 ML, TRACE (CONC-1ML/DOSE) 1 ML in AMINO ACID 5%-D25W+LY IV SCH ×3 (20:26)
[2017-05-10] MEDS ORDERED: FAMOTIDINE 20 MG TAB PO SCH (21:00)
--- NOTE | 2017-05-10 21:49 | P.PN ---
Progress Note - Text Progress Note Date: 05/10/17 Vital Signs Temp 97.9 F 05/10/17 15:00 Pulse 82 05/10/17 16:00 Resp 16 05/10/17 16:00 BP 122/74 05/10/17 15:00 Pulse Ox 96 05/10/17 15:00 Interval History: Patient interviewed twice today, the first time patient was somewhat irritable, during second interview patient was relaxed and quite improved from previous exams. He reports his colostomy is functioning now, and he is happy. He feels a great burden has been lifted knowing he will not need to have a new surgery and his eager to get home and move on with his life. He reports that his outburst the other night was out of frustration for this whole event and the lack of progress and apologizes for his behaviors. Patient plans to follow up outpatient with [facility] for outpatient behavioral health for both psychiatry and counseling. At this time, patient denies SI/HI/AVH. Mental Status Exam: Appearance: alert, well groomed, appears stated age Behavior: no psychomotor agitation or psychomotor retardation, no abnormal movements, fair eye contact Attitude: cooperative Speech: normal rate, rhythm, fluency, articulation; volume; and prosody; primary language: Congolese Mood: "a lot better than I have been these last few days" Affect: more reactive than previous exams Thought processes: linear Thought content: patient does not appear to be responding to internal stimuli; patient denies auditory and visual hallucinations, no delusions appreciated. Insight: limited but overall fair Judgment: fair Recommendations: Discontinue suicide precautions Patient does not meet criteria for inpatient mental psychiatric admission; there are no psychiatric contraindications for discharge Discussed outpatient treatment options with patient and depression for depression and PTSD Patient was previous active in [facility] and would like to return for OP psychiatric follow up and counseling; discussed process of walk-in clinic at [facility] with patient Psychiatry will follow
[2017-05-11] MEDS: PIPERACILLIN-TAZOBACTAM 3.375 GM in DEXTROSE/WATER 1 50ML.BAG IVPB SCH ×2 (00:09→07:57)
[2017-05-11] MEDS: HEPARIN SODIUM,PORCINE 5,000 UNIT/ML 1 ML VIAL SQ SCH ×2 (00:09→07:56)
[2017-05-11 00:36] LABS: Glucose,Whole Blood 88 mg/dL (75-99)
[2017-05-11] MEDS: INSULIN LISPRO (humaLOG) 300 UNIT/3 ML VIAL SQ SCH ×3 (00:41→13:22)
--- NOTE | 2017-05-11 06:03 | PN ---
PROGRESS NOTE DATE OF SERVICE: 05/10/2017 REASON FOR FOLLOWUP: Secondary peritonitis from perforated diverticulitis. INTERVAL HISTORY: The patient is afebrile. Has been breathing comfortably. Denies significant chest pain or shortness of breath or cough. No worsening abdominal pain. Still did not have good output from his colostomy and tolerating a clear liquid diet. Still on the TPN. EXAMINATION: On examination, blood pressure 122/74 with a pulse of 82, temperature 97.9. He is 96% on room air. General description is a middle-aged male lying in bed in no distress. RESPIRATORY SYSTEM: Unlabored breathing. Clear to auscultation anteriorly. HEART: S1, S2. Regular rate and rhythm. ABDOMEN: Soft, no tenderness. Incision is currently dressed, no obvious drainage on the dressing. LABS: Hemoglobin 13.1, white count 11.8 with a BUN of 15, creatinine 1.0. DIAGNOSTIC IMPRESSION AND PLAN: Patient with secondary peritonitis from ruptured diverticulitis, status post diverting colostomy. The colostomy stoma is discolored and may need revision. Surgery is following the patient closely, yet the patient needs to be on TPN for longer time. The PICC line should be placed and the central line should be discontinued to decrease the risk of line-related infection. Keep the patient on Zosyn at this point, hopefully switch him to oral once his oral intake is improved. MMODL / IJN: [id number] / MTDD
[2017-05-11 06:43] LABS: Glucose,Whole Blood 76 mg/dL (75-99)
[2017-05-11] MEDS: ESCITALOPRAM 10 MG TAB PO SCH (07:58)
[2017-05-11 08:02] LABS: Anion Gap 11 mmol/L; Blood Urea Nitrogen 17 mg/dL (9-20); Calcium 8.5 mg/dL (8.4-10.2); Carbon Dioxide 22 mmol/L (22-30); Chloride 105 mmol/L (98-107); Glucose 82 mg/dL (74-99); Non-African American GFR(MDRD) >60 (>60 ml/min/1.73 sqM); Phosphorus 4.1 mg/dL (2.5-4.5); Potassium 4.5 mmol/L (3.5-5.1); Sodium 138 mmol/L (137-145)
[2017-05-11 08:16] VITALS: RESP 21; TEMP 97.9
[2017-05-11 08:30] VITALS: BP 131/74
--- NOTE | 2017-05-11 08:46 | P.PN ---
Subjective Progress Note Date: 05/11/17 57-year-old seen and examined at bedside currently is up to the bathroom participating in ostomy care scant amount of movement from the ostomy. Patient states less abdominal pain. Patient states passing gas rectally been up ambulating in the hallway. Patient reportedly is tolerating a diet. Did note the psychiatrist recommends patient does not qualify for inpatient psych admission there are no contraindications for not discharging patient patient can follow-up with [facility] in an outpatient setting patient has been followed by infectious disease defer to for antibiotics TPN has been weaned off and patient' s tolerating a diet. Patient is anxious to be discharged home with home care followed Postop 29 of April sigmoid colectomy with end colostomy for perforated diverticulitis with small bowel obstruction with abscess Objective - Vital Signs Vital signs: Vital Signs Temp 97.9 F 05/11/17 08:15 Pulse 69 05/11/17 08:15 Resp 21 05/11/17 08:15 BP 127/78 05/11/17 00:30 Pulse Ox 95 05/11/17 08:15 Intake & Output 05/10/17 05/11/17 05/11/17 18:59 06:59 18:59 Output Total 430 70 Balance -430 -70 Weight 92 kg 91 kg Output: Drainage 280 70 Abdomen 280 70 Stool 150 Other: Voiding Method Urinal Urinal # Voids 1 - Exam Physical exam 57-year-old male up to the bathroom emptying ostomy day scant amount liquid drainage pleasant cooperative Lungs essentially clear adequate air movement on room air Heart S1-S2 audible regular Abdomen ostomy stoma less edematous scant amount of liquid stool in ostomy bag soft not distended less tender urinating no difficulty tolerating diet no nausea no vomiting bowel tones present MARKO drain in place scant amount of drainage serous in the bulb surgical dressing dry bjorn to the surgical site Extremities no edema noted bilateral lower extremities - Labs CBC & Chem 7: 05/10/17 06:10 05/11/17 07:13 Labs: Abnormal Lab Results - Last 24 Hours (Table) 05/10/17 05/11/17 Range/Units 12:42 07:13 POC Glucose (mg/dL) 125 H (75-99) mg/dL Albumin 3.2 L (3.5-5.0) g/dL Assessment and Plan Plan: Impression Present on admission bilateral abdominal pain with a CAT scan abdomen pelvis showing sigmoid diverticula with inflammatory changes around the mid sigmoid colon consistent with acute diverticulitis, loculated ileus also noted Mood disorder bipolar schizoaffective Present on admission leukocytosis suspect due to acute diverticulitis History of right wrist pain Current every day smoker Status post April 29 sigmoid colectomy with end colostomy for perforated diverticulitis with small bowel obstruction with abscess Secondary peritonitis from ruptured diverticulitis Depressive anxiety disorder Major depressive disorder recurrent severe without psychotic features Posttraumatic stress disorder Cellulitis abdominal wall Plan Per psych's recommendations start patient on Lexapro 10 mg every morning when able Increase activity PT OT eval For probable discharge soon with home care TPN has been weaned tolerating diet central line to be pulled Continue postop surgical care Pain control Diet advanced to regular DVT and GI prophylaxis Repeat labs in am Continue Ostomy teaching The above impression and plan of care have been discussed and directed by signing physician. Rosa M Swain nurse practitioner acting as scribe for signing physician.
[2017-05-11 09:00] VITALS: PULSE 68
[2017-05-11] MEDS: NICOTINE 14MG/24HR PATCH TRANSDERM SCH (10:17)
--- NOTE | 2017-05-11 11:37 | P.DS ---
Providers Date of admission: 04/27/17 20:12 Attending physician: Keke Banks Consults: 04/28/17 10:58 Consult Physician Routine Consulting Provider: Sanchez Pathak Consult Reason/Comments: diverticulitis Do you want consulting provider notified?: Yes 04/29/17 19:55 Consult Physician Routine Consulting Provider: Stacy Frank Consult Reason/Comments: sepsis Do you want consulting provider notified?: Yes 05/05/17 08:09 Consult Physician Urgent Consulting Provider: Antonino Feng Consult Reason/Comments: depression Do you want consulting provider notified?: Yes 05/07/17 16:29 Consult Physician Routine Consulting Provider: Clifford Che Consult Reason/Comments: PICC line Do you want consulting provider notified?: Yes 05/10/17 02:36 Consult Physician Urgent Consulting Provider: Antonino Feng Consult Reason/Comments: suicidal ideation Do you want consulting provider notified?: Yes, Notify in am Primary care physician: Jarett Nicole [facility] Course: 55-year-old admitted with a for diverticulitis and perforation and the patient underwent surgical 3 and colectomy patient has a colostomy bag and a drain in place. Patient is tolerating oral diet well. Patient will be discharged today on Augmentin. PHYSICAL EXAMINATION: GENERAL: The patient is alert and oriented x3, not in any acute distress. Well developed, well nourished. HEENT: Pupils are round and equally reacting to light. EOMI. No scleral icterus. No conjunctival pallor. Normocephalic, atraumatic. No pharyngeal erythema. No thyromegaly. CARDIOVASCULAR: S1 and S2 present. No murmurs, rubs, or gallops. PULMONARY: Chest is clear to auscultation, no wheezing or crackles. ABDOMEN: Soft, nontender, nondistended, normoactive bowel sounds. No palpable organomegaly. MUSCULOSKELETAL: No joint swelling or deformity. EXTREMITIES: No cyanosis, clubbing, or pedal edema. NEUROLOGICAL: Gross neurological examination did not reveal any focal deficits. SKIN: No rashes. #1 acute aortic colitis and sepsis secondary to that and patient is status post colectomy for perforated diverticuli #2 COPD without any acute exacerbation gastroesophageal reflux disease Patient Condition at Discharge: Good Plan - Discharge Summary New Discharge Prescriptions: New Escitalopram [Lexapro] 10 mg PO DAILY #30 tab HYDROcodone/APAP 5-325MG [Savery 5-325] 1 each PO Q4H PRN #30 tab PRN Reason: Moderate Pain Continue Esomeprazole Magnesium [NexIUM] 20 mg PO BID Budesonide-Formot 160-4.5 Mcg [Symbicort 160-4.5 Mcg Inhaler] 1 puff INHALATION RT-DAILY Albuterol Inhaler [Ventolin Hfa Inhaler] 2 puff INHALATION RT-QID PRN PRN Reason: Shortness Of Breath Discontinued traZODone HCL 300 mg PO HS Discharge Medication List Albuterol Inhaler [Ventolin Hfa Inhaler] 2 puff INHALATION RT-QID PRN 04/27/17 [ History] Budesonide-Formot 160-4.5 Mcg [Symbicort 160-4.5 Mcg Inhaler] 1 puff INHALATION RT-DAILY 04/27/17 [History] Esomeprazole Magnesium [NexIUM] 20 mg PO BID 04/27/17 [History] Escitalopram [Lexapro] 10 mg PO DAILY #30 tab 05/11/17 [Rx] HYDROcodone/APAP 5-325MG [Savery 5-325] 1 each PO Q4H PRN #30 tab 05/11/17 [Rx] Follow up Appointment(s)/Referral(s): Melina Denson MD [Primary Care Provider] - 3 Days Patient Instructions/Handouts: Colostomy Care (GEN) Activity/Diet/Wound Care/Special Instructions: Colostomy Care Instructions for transition of care: Last appliance Change:05.10.2017 Home/Rehab Ostomy Supplies sent to Rehab for transition of care as follows: Mr Rosas will have three pouches for Rehab use Three pouches: [facility] #[id number] One Piece cut to fit with filter present Ostomy Powder (1) Skin prep pads (10) Mr Rosas is to empty the colostomy pouch when it is 1/2 to 1/3 full of stool. The pouch should be changes every 3 - 5 days Rehab please have Mr Rosas set up for disposable pouching system priro to discharging from service for home use. Discharge Disposition: HOME SELF-CARE
[2017-05-11] MEDS: D5-0.45% NACL WITH KCL 20MEQ/L 1,000 ML IV SCH (13:58)
[2017-05-11] MEDS: HYDROcodone/APAP 5-325MG 1 EACH TAB PO PRN (13:59)
--- NOTE | 2017-05-11 15:28 | PN ---
PROGRESS NOTE DATE OF SERVICE: 05/11/2017. REASON FOR FOLLOW UP: Secondary peritonitis from perforated diverticulitis. INTERVAL HISTORY: The patient is afebrile. The patient diet has been increased and he has been tolerating it so far. The patient denies having any nausea, vomiting. Denies any chest pain or shortness of breath or cough. EXAMINATION: Blood pressure is 131/74 with a pulse of 69, temperature 97.9. He is 95% on room air. General description is a middle aged male, lying in bed, in no distress. Respiratory system: Unlabored breathing. Clear to auscultation anteriorly. Heart S1, S2. Regular rate and rhythm. Abdomen soft, no tenderness. LABS: BUN of 17, the creatinine 1.07. DIAGNOSTIC IMPRESSION AND PLAN: Patient with secondary peritonitis from perforated diverticulitis. Patient blood culture has been negative and has received about 2 weeks of IV antibiotic therapy. He will receive a short course of oral Augmentin with close outpatient followup. Plan of care was discussed with the patient's admitting physician. ALISHAL / BHUMIKAN: [id number] /
== END 2017-05-11 15:29 | disposition home or self-care (01) | DRG 854 ==
LOC: EC 16:38 → 5MS5E 20:12
PROVIDERS: ADMIT Hospitalist; ATTEND Hospitalist
PROC: 0D1N0Z4 Bypass Sigmoid Colon to Cutaneous, Open Approach (ICD-10-PCS; 2017-04-29)
PROC: 0J9C0ZZ Drainage of Pelvic Region Subcutaneous Tissue and Fascia, Open Approach (ICD-10-PCS; 2017-04-29)
PROC: 0DTN0ZZ Resection of Sigmoid Colon, Open Approach (ICD-10-PCS; principal; 2017-04-29 07:30)
PROC: 3E0336Z Introduction of Nutritional Substance into Peripheral Vein, Percutaneous Approach (ICD-10-PCS; 2017-04-30)
DX: A41.9 Sepsis, unspecified organism (principal); F33.2 Major depressive disorder, recurrent severe without psychotic features; R45.851 Suicidal ideations; K57.20 Diverticulitis of large intestine with perforation and abscess without bleeding; E87.70 Fluid overload, unspecified; K56.7 Ileus, unspecified; L03.311 Cellulitis of abdominal wall; F25.0 Schizoaffective disorder, bipolar type; F17.200 Nicotine dependence, unspecified, uncomplicated; K52.9 Noninfective gastroenteritis and colitis, unspecified; F43.10 Post-traumatic stress disorder, unspecified; J44.9 Chronic obstructive pulmonary disease, unspecified; M19.90 Unspecified osteoarthritis, unspecified site; K21.9 Gastro-esophageal reflux disease without esophagitis; Z79.51 Long term (current) use of inhaled steroids; Z71.6 Tobacco abuse counseling; Z87.01 Personal history of pneumonia (recurrent); Z80.9 Family history of malignant neoplasm, unspecified
CPT/HCPCS: 36415; 71010; 74177; 80048; 80053; 81001; 82040; 82150; 82330; 83036; 83605; 83690; 83735; 83880; 84100; 84478; 84484; 85025; 87040; 87086; 88307; 94640; 94760; 96361; 96365; 96375; 99285

== ENCOUNTER → 2017-08-03 | Outpatient (CLI) | payer MEDICARE, OTHER ==
[2017-08-03 16:30] LABS: HCT 47.6 % (39.0-53.0); HGB 15.3 gm/dL (13.0-17.5); MCH 29.2 pg (25.0-35.0); MCHC 32.1 g/dL (31.0-37.0); MCV 90.7 fL (80.0-100.0); Mean Platelet Volume 7.2; Platelet Count 260 k/uL (150-450); RBC 5.25 m/uL (4.30-5.90); RDW 15.7 % (11.5-15.5); WBC 7.9 k/uL (3.8-10.6)
[2017-08-03 16:42] LABS: Potassium 4.8 mmol/L (3.5-5.1)
== END | disposition home or self-care (01) ==
LOC: LABPAT 15:24
PROVIDERS: ATTEND Surgery
DX: Z01.812 Encounter for preprocedural laboratory examination (principal); K57.32 Diverticulitis of large intestine without perforation or abscess without bleeding
CPT/HCPCS: 36415; 80051; 85027; 86850; 86900; 86901; 93005

== ENCOUNTER 2017-08-11 09:32 | Day surgery (SDC) | payer MEDICARE, OTHER ==
[2017-08-05 16:38] VITALS: BMI 31.9
[~2017-08-11 09:32] MED LIST: LACTATED RINGERS 1,000 ML IV SCH
[2017-08-11 10:00] VITALS: RESP 16; TEMP 97.5
[2017-08-11] MEDS ORDERED: LIDOCAINE 1% 20 ML VIAL (10MG/ML) FOR IV START INTRADERMA ONE (10:00)
[2017-08-11] MEDS ORDERED: PROPOFOL 10 MG/ML 20 ML VIAL IV ONE (10:04)
[2017-08-11] MEDS ORDERED: LIDOCAINE 1% INJ 10MG/ML (20 ML MDV) ONE (10:04)
--- NOTE | 2017-08-11 10:10 | P.GSHP ---
History of Present Illness H&P Date: 08/11/17 Chief Complaint: Perforated diverticulitis 's is a 57-year-old male who presents today for colonoscopy. Patient history of perforated diverticulitis with Arias procedure. Patient is being worked up for reversal of colostomy. Past Medical History Past Medical History: Asthma, COPD, GERD/Reflux, Osteoarthritis (OA), Pneumonia Additional Past Medical History / Comment(s): pinched nerve in neck, herniated discs,bronchitis, rt arm "bone spurs" History of Any Multi-Drug Resistant Organisms: None Reported Past Surgical History: Bowel Resection, Joint Replacement Additional Past Surgical History / Comment(s): rt shoulder, 04/29/17 sigmoid resection with colostomy by Dr. Pathak Past Anesthesia/Blood Transfusion Reactions: No Reported Reaction Additional Past Alcohol Use History / Comment(s): started smoking at age of 14, smokes 1.5-2 ppd. quit drinking almost 4 months ago - Past Family History Father Family Medical History: Cancer Mother Family Medical History: Cancer Medications and Allergies Home Medications Medication Instructions Recorded Confirmed Type Albuterol Inhaler [Ventolin Hfa 2 puff INHALATION QID 04/27/17 08/05/17 History Inhaler] Budesonide-Formot 160-4.5 Mcg 1 puff INHALATION DAILY PRN 04/27/17 08/05/17 History [Symbicort 160-4.5 Mcg Inhaler] Dayquil 1 tab PO BID PRN 08/05/17 08/11/17 History Omeprazole [PriLOSEC] 20 mg PO AC-BID 08/05/17 08/05/17 History Sertraline [Zoloft] 100 mg PO DAILY 08/05/17 08/05/17 History traZODone HCL 150 mg PO HS 08/05/17 08/05/17 History Allergies Allergy/AdvReac Type Severity Reaction Status Date / Time No Known Allergies Allergy Verified 08/11/17 09:45 Surgical - Exam Vital Signs Temp Pulse Resp BP Pulse Ox 97.5 F L 66 16 115/71 97 08/11/17 09:58 08/11/17 09:58 08/11/17 09:58 08/11/17 09:58 08/11/17 09:58 - General well developed, no distress - Eyes PERRL - ENT normal pinna, normal nares - Neck no masses - Respiratory normal expansion - Cardiovascular Rhythm: regular - Abdomen Abdomen: soft, non tender Assessment and Plan Assessment: History of perforated diverticulitis with colostomy. Patient will undergo colonoscopy.
--- NOTE | 2017-08-11 10:35 | P.OP ---
Date of Procedure: 08/11/17 Preoperative Diagnosis: History of perforated diverticulitis Postoperative Diagnosis: Perforated diverticula Procedure(s) Performed: Colonoscopy Anesthesia: LILO Surgeon: Sanchez Pathak Pathology: none sent Condition: stable Disposition: PACU Description of Procedure: Patient's placed on the endoscopy table in the lateral position. Received IV sedation. Digital rectal exam was performed which revealed a few external hemorrhoids. The prostate was symmetric without nodules. The colonoscope was then placed patient anus and passed into the rectal. Rectal stump measured 1417 years. There is known to any inflammation rectal stump. The scope was then withdrawn. The patient then placed supine in bed. And then the colonoscope was placed in patient's colostomy. The scope was placed in the colon passed throughout the entire colon. The ileocecal valve was visualized. Cecum, ascending and transverse colon appeared normal. In the descending colon was a few scattered diverticula. There is no is diverticulitis. Scope was then withdrawn through the colostomy and withdrawn for patient.
[2017-08-11 10:55] VITALS: BP 104/64; PULSE 61
== END 2017-08-11 11:17 | disposition home or self-care (01) ==
LOC: ORWHC2ENDO 09:32
PROVIDERS: ATTEND Surgery
DX: K57.30 Diverticulosis of large intestine without perforation or abscess without bleeding (principal); K64.4 Residual hemorrhoidal skin tags; Z93.3 Colostomy status; Z90.49 Acquired absence of other specified parts of digestive tract; K21.9 Gastro-esophageal reflux disease without esophagitis; J44.9 Chronic obstructive pulmonary disease, unspecified; M19.90 Unspecified osteoarthritis, unspecified site; Z79.51 Long term (current) use of inhaled steroids; Z79.899 Other long term (current) drug therapy; Z87.891 Personal history of nicotine dependence
CPT/HCPCS: 44388; 46600; J2001; J2704

== ENCOUNTER 2017-08-12 09:30 | Inpatient (IN) | payer MEDICARE, OTHER ==
[2017-08-05 16:37] VITALS: BMI 31.9
[~2017-08-12 09:30] MED LIST changes: +DEXAMETHASONE SOD PHOSPHATE 10 MG/ML 1 ML VIAL IV ONE; +HEPARIN SODIUM,PORCINE 5,000 UNIT/ML 1 ML VIAL SQ ONE; +HYDROmorphone 0.5 MG/0.5 ML SYRINGE IVP PRN; +LIDOCAINE 1% 20 ML VIAL (10MG/ML) FOR IV START INTRADERMA PRN; +ONDANSETRON 4 MG/2 ML VIAL IVP ONE; +SCOPOLAMINE 1.5MG/72HR PATCH TRANSDERM ONE; +ceFAZolin IN SWFI 2 GM/20 ML SYRINGE IVP ONE; +metroNIDAZOLE-NS PMX 500 MG in SALINE 1 100ML.BAG IVPB ONE
[2017-08-12] MEDS: MIDAZOLAM 2 MG/2 ML VIAL IV PRN ×2 (11:05→11:10)
--- NOTE | 2017-08-12 11:29 | P.GSHP ---
History of Present Illness H&P Date: 08/12/17 Chief Complaint: History of perforated diverticulitis This a 57-year-old male referred from Dr. Moreno. Patient presents today for reversal colostomy. He has a previous history of perforated diverticulitis with Arias procedure. Past Medical History Past Medical History: Asthma, COPD, GERD/Reflux, Osteoarthritis (OA), Pneumonia Additional Past Medical History / Comment(s): pinched nerve in neck, herniated discs,bronchitis, rt arm "bone spurs" History of Any Multi-Drug Resistant Organisms: None Reported Past Surgical History: Bowel Resection, Joint Replacement Additional Past Surgical History / Comment(s): rt shoulder, 04/29/17 sigmoid resection with colostomy by Dr. Pathak Past Anesthesia/Blood Transfusion Reactions: No Reported Reaction Additional Past Alcohol Use History / Comment(s): started smoking at age of 14, smokes 1.5-2 ppd. quit drinking almost 4 months ago - Past Family History Father Family Medical History: Cancer Mother Family Medical History: Cancer Medications and Allergies Home Medications Medication Instructions Recorded Confirmed Type Albuterol Inhaler [Ventolin Hfa 2 puff INHALATION QID 04/27/17 08/12/17 History Inhaler] Budesonide-Formot 160-4.5 Mcg 1 puff INHALATION DAILY PRN 04/27/17 08/12/17 History [Symbicort 160-4.5 Mcg Inhaler] Dayquil 1 tab PO BID PRN 08/05/17 08/12/17 History Omeprazole [PriLOSEC] 20 mg PO AC-BID 08/05/17 08/12/17 History Sertraline [Zoloft] 100 mg PO DAILY 08/05/17 08/12/17 History traZODone HCL 150 mg PO HS 08/05/17 08/12/17 History Allergies Allergy/AdvReac Type Severity Reaction Status Date / Time No Known Allergies Allergy Verified 08/12/17 10:39 Surgical - Exam Vital Signs Temp Pulse Resp BP Pulse Ox 97.8 F 63 16 122/69 96 08/12/17 10:52 08/12/17 10:52 08/12/17 10:52 08/12/17 10:52 08/12/17 10:52 - General well developed, no distress - Eyes PERRL - ENT normal pinna - Neck no masses - Respiratory normal expansion - Cardiovascular Rhythm: regular - Abdomen Colostomy left lower quadrant Abdomen: soft, non tender Results - Labs 08/12/17 10:49 Diabetes panel 08/12/17 Range/Units 10:49 Potassium 3.7 (3.5-5.1) mmol/L Pituitary panel 08/12/17 Range/Units 10:49 Potassium 3.7 (3.5-5.1) mmol/L Adrenal panel 08/12/17 Range/Units 10:49 Potassium 3.7 (3.5-5.1) mmol/L Assessment and Plan Assessment: History of perforated diverticulitis. Patient will undergo reversal clots. Patient's rhythm risks of surgery including bleeding, infection and possible inability to reverse the colostomy.
[2017-08-12] MEDS ORDERED: SUCCINYLCHOLINE CHLORIDE 100 MG/5 ML SYR IV ONE (11:57)
[2017-08-12] MEDS ORDERED: GLYCOPYRROLATE 0.2 MG/ML 2 ML VIAL ONE (11:57)
[2017-08-12] MEDS ORDERED: LIDOCAINE 1% INJ 10MG/ML (20 ML MDV) ONE (11:57)
[2017-08-12] MEDS ORDERED: MIDAZOLAM 2 MG/2 ML VIAL ONE (11:57)
[2017-08-12] MEDS ORDERED: ROCURONIUM BROMIDE 10 MG/ML 10 ML VIAL IV ONE (11:57)
[2017-08-12] MEDS ORDERED: PROPOFOL 10 MG/ML 20 ML VIAL IV ONE (11:57)
[2017-08-12] MEDS ORDERED: NEOSTIGMINE 1 MG/ML 10 ML VIAL ONE (11:57)
[2017-08-12] MEDS ORDERED: fentaNYL (PF) 50 MCG/ML 2 ML AMP ONE (11:57)
[2017-08-12] MEDS ORDERED: HYDROmorphone (PF) 1 MG/ML ONE (11:57)
[2017-08-12] MEDS ORDERED: KETAMINE 10 MG/ML 20 ML VIAL ONE (11:57)
[2017-08-12] MEDS ORDERED: NALOXONE 0.4 MG/ML 1 ML VIAL IV PRN (12:07)
[2017-08-12] MEDS ORDERED: ONDANSETRON 4 MG/2 ML VIAL IVP PRN (13:41)
[2017-08-12] MEDS ORDERED: BENZOCAINE/MENTHOL LOZENG 1 EACH LOZENGE MUCOUS MEM PRN (13:41)
[2017-08-12] MEDS ORDERED: HYDROmorphone 2 MG/ML 1 ML SYRINGE IVP PRN (13:41)
[2017-08-12] MEDS ORDERED: KETOROLAC 30 MG/ML 1 ML VIAL IVP ONE (14:05)
[2017-08-12] MEDS ORDERED: diphenhydrAMINE 50 MG/ML 1 ML VIAL IVP ONE (14:05)
[2017-08-12] MEDS ORDERED: fentaNYL (PF) 50 MCG/ML 2 ML AMP INTRATHECA ONE (14:10)
[2017-08-12] MEDS ORDERED: LACTATED RINGERS 1,000 ML IV ONE (14:56)
[2017-08-12 16:12] LABS: Basophils % (A) 0 %; Eosinophils % (A) 0 %; HCT 40.3 % (39.0-53.0); HGB 13.4 gm/dL (13.0-17.5); Lymphocytes # (A) 0.6 k/uL (1.0-4.8); Lymphocytes % (A) 5 %; MCH 29.4 pg (25.0-35.0); MCHC 33.3 g/dL (31.0-37.0); MCV 88.3 fL (80.0-100.0); Mean Platelet Volume 6.8; Monocytes # (A) 0.3 k/uL (0-1.0); Monocytes % (A) 3 %; Neutrophils # (A) 11.3 k/uL (1.3-7.7); Neutrophils % (A) 92 %; Platelet Count 238 k/uL (150-450); RBC 4.56 m/uL (4.30-5.90); RDW 14.2 % (11.5-15.5); WBC 12.3 k/uL (3.8-10.6)
[2017-08-12 16:17] LABS: Anion Gap 9 mmol/L; Blood Urea Nitrogen 9 mg/dL (9-20); Calcium 8.7 mg/dL (8.4-10.2); Carbon Dioxide 25 mmol/L (22-30); Chloride 107 mmol/L (98-107); Glucose 123 mg/dL (74-99); Potassium 3.8 mmol/L (3.5-5.1); Sodium 141 mmol/L (137-145)
[2017-08-12] MEDS: HEPARIN SODIUM,PORCINE 5,000 UNIT/ML 1 ML VIAL SQ SCH (18:01)
[2017-08-12] MEDS: FAMOTIDINE 20 MG/2 ML VIAL IV SCH (20:14)
[2017-08-12] MEDS: D5-0.45% NACL WITH KCL 20MEQ/L 1,000 ML IV SCH ×2 (20:17)
[2017-08-13] MEDS: HEPARIN SODIUM,PORCINE 5,000 UNIT/ML 1 ML VIAL SQ SCH ×4 (03:21→23:18)
[2017-08-13] MEDS: D5-0.45% NACL WITH KCL 20MEQ/L 1,000 ML IV SCH ×3 (03:21→20:21)
[2017-08-13] MEDS: FAMOTIDINE 20 MG/2 ML VIAL IV SCH ×3 (07:54→20:21)
[2017-08-13] MEDS: ALVIMOPAN 12 MG CAPSULE PO SCH ×2 (07:54→20:21)
--- NOTE | 2017-08-13 08:27 | P.PN ---
Progress Note - Text 08/13 654am 57-year-old male status post colostomy reversal. Patient seen and evaluated for pain control today, solution running at 8 mL an hour. VAS of 0, no motor or sensory deficits. Plan to continue epidural infusion
--- NOTE | 2017-08-13 08:56 | P.PN ---
<Rosa M Swain - Last Filed: 08/13/17 08:44> Subjective Progress Note Date: 08/13/17 57-year-old male seen and examined resting in bed no new events. Patient states pain medication has been effective for pain control. Denies any nausea vomiting dizziness or lightheadedness afebrile epidural in place per anesthesia for pain control abdominal binder in place dressings surgically dry patient has a history of a perforated diverticulum with abscess underwent on sigmoid colectomy with end colostomy Patient is status post reversal of colostomy Objective - Vital Signs Vital signs: Vital Signs Temp 97.3 F L 08/13/17 01:30 Pulse 69 08/13/17 01:30 Resp 16 08/13/17 01:30 BP 117/74 08/13/17 01:30 Pulse Ox 95 08/13/17 01:30 Intake & Output 08/12/17 08/13/17 08/13/17 18:59 06:59 18:59 Intake Total 1100 1500 100 Output Total 550 450 Balance 550 1050 100 Intake: IV 1100 Intake, IV Titration 1500 Amount D5-0.45% NaCl with KCl 1500 20Meq/l 1,000 ml @ 125 mls/hr IV .Q8H [facility] Rx#: [id number] Oral 100 Output: Urine 400 450 Estimated Blood Loss 150 Other: Voiding Method Indwelling Catheter Indwelling Catheter - Exam Physical exam 57-year-old male sitting up in bed talkative oriented 3 Lungs adequate air movement bilaterally on room air Heart S1-S2 audible regular denying chest pain Abdomen abdominal binder in place few hypoactive bowel tones no nausea and surgical dressing dry indwelling Mathews catheter in place soft surgical tenderness appropriate Extremities Venodyne's on to the bilateral lower extremities - Labs CBC & Chem 7: 08/12/17 15:47 08/12/17 15:47 Labs: Abnormal Lab Results - Last 24 Hours (Table) 08/12/17 08/12/17 Range/Units 15:47 15:47 WBC 12.3 H (3.8-10.6) k/uL Neutrophils # 11.3 H (1.3-7.7) k/uL Lymphocytes # 0.6 L (1.0-4.8) k/uL Glucose 123 H (74-99) mg/dL Assessment and Plan Assessment: Impression History of a perforated diverticulitis with small bowel obstruction with pelvic abscess April 2017 Sigmoid colectomy with end colostomy done April 2017 Postop August 12 reversal colostomy Status post August 11 colonoscopy no evidence of diverticulitis Plan Continue postop surgical care pain management per anesthesia Encourage use of the incentive spirometer DVT and GI prophylaxis Keep indwelling Mathews catheter in until epidural removed Clear liquid diet The above impression and plan of care have been discussed and directed by signing physician. Rosa M Swain nurse practitioner acting as scribe for signing physician. <Sanchez Pathak - Last Filed: 08/13/17 14:39> Objective - Vital Signs Vital signs: Vital Signs Temp 97.7 F 08/13/17 14:28 Pulse 73 08/13/17 14:28 Resp 16 08/13/17 14:28 BP 125/66 08/13/17 14:28 Pulse Ox 95 08/13/17 14:28 Intake & Output 08/12/17 08/13/17 08/13/17 18:59 06:59 18:59 Intake Total 1100 1500 600 Output Total 550 450 Balance 550 1050 600 Intake: IV 1100 Intake, IV Titration 1500 Amount D5-0.45% NaCl with KCl 1500 20Meq/l 1,000 ml @ 125 mls/hr IV .Q8H [facility] Rx#: [id number] Oral 600 Output: Urine 400 450 Estimated Blood Loss 150 Other: Voiding Method Indwelling Catheter Indwelling Catheter - Labs CBC & Chem 7: 08/12/17 15:47 08/12/17 15:47 Labs: Abnormal Lab Results - Last 24 Hours (Table) 08/12/17 08/12/17 Range/Units 15:47 15:47 WBC 12.3 H (3.8-10.6) k/uL Neutrophils # 11.3 H (1.3-7.7) k/uL Lymphocytes # 0.6 L (1.0-4.8) k/uL Glucose 123 H (74-99) mg/dL
[2017-08-13] MEDS ORDERED: NON-FORMULARY DRUG (D-Methorphan/Pe/Acetaminophen [Vicks Dayquil Liquicaps] 1 CAP) PO PRN (12:41)
--- NOTE | 2017-08-13 14:06 | P.CONS ---
History of Present Illness - Reason for Consult Management of COPD - History of Present Illness 57-year-old gentleman was admitted for reversal of colostomy patient had colectomy with colostomy in month of April 2017. Patient is clinically doing well did pass gas denied any shortness of breath is comparing of cough without any sputum production is decreasing on exam denied any fever chills denied abdominal pain was well-controlled. Review of Systems REVIEW OF SYSTEMS: CONSTITUTIONAL: No fever, no malaise, no fatigue. HEENT: No recent visual problems or hearing problems. Denied any sore throat. CARDIOVASCULAR: No chest pain, orthopnea, PND, no palpitations, no syncope. PULMONARY: No shortness of breath, no cough, no hemoptysis. GASTROINTESTINAL: No diarrhea, no nausea, no vomiting, no abdominal pain. Normoactive bowel sounds. NEUROLOGICAL: No headaches, no weakness, no numbness. HEMATOLOGICAL: Denies any bleeding or petechiae. GENITOURINARY: Denies any burning micturition, frequency, or urgency. MUSCULOSKELETAL/RHEUMATOLOGICAL: Denies any joint pain, swelling, or any muscle pain. ENDOCRINE: Denies any polyuria or polydipsia. The rest of the 14-point review of systems is negative. Past Medical History Past Medical History: Asthma, COPD, GERD/Reflux, Osteoarthritis (OA), Pneumonia Additional Past Medical History / Comment(s): pinched nerve in neck, herniated discs,bronchitis, rt arm "bone spurs" History of Any Multi-Drug Resistant Organisms: None Reported Past Surgical History: Bowel Resection, Joint Replacement Additional Past Surgical History / Comment(s): rt shoulder, 04/29/17 sigmoid resection with colostomy by Dr. Pathak Past Anesthesia/Blood Transfusion Reactions: No Reported Reaction Past Psychological History: Anxiety, Bipolar, Depression, Schizophrenia Additional Psychological History / Comment(s): PT stated he has some depression but no thoughts of harming himself or anyone else. pt stopped taking his meds a year ago.pt lives with girlfriend Jena and her daughter and grandson. 1 pet dog. live in 2 story home that has 5 steps. no home care services recieved. no medical equipment. Smoking Status: Current every day smoker Past Alcohol Use History: Heavy Additional Past Alcohol Use History / Comment(s): started smoking at age of 14, smokes 1.5-2 ppd. quit drinking almost 4 months ago Past Drug Use History: Marijuana Additional Drug Use History / Comment(s): daily use - Past Family History Father Family Medical History: Cancer Mother Family Medical History: Cancer Medications and Allergies Home Medications Medication Instructions Recorded Confirmed Type Albuterol Inhaler [Ventolin Hfa 2 puff INHALATION RT-QID 04/27/17 08/12/17 History Inhaler] Budesonide-Formot 160-4.5 Mcg 1 puff INHALATION RT-DAILY PRN 04/27/17 08/12/17 History [Symbicort 160-4.5 Mcg Inhaler] Omeprazole [PriLOSEC] 20 mg PO AC-BID 08/05/17 08/12/17 History Sertraline [Zoloft] 100 mg PO DAILY 08/05/17 08/12/17 History traZODone HCL 150 mg PO HS 08/05/17 08/12/17 History D-Methorphan/PE/Acetaminophen 1 cap PO BID PRN 08/12/17 08/12/17 History [Vicks Dayquil Liquicaps] Allergies Allergy/AdvReac Type Severity Reaction Status Date / Time No Known Allergies Allergy Verified 08/12/17 14:29 Physical Exam Vitals: Vital Signs Temp Pulse Pulse Resp BP Pulse Ox 08/13/17 07:00 97.8 F 73 17 114/71 94 L 08/13/17 01:30 97.3 F L 69 16 117/74 95 08/12/17 20:13 16 08/12/17 20:00 98 F 73 116/74 95 08/12/17 17:21 72 135/85 08/12/17 17:00 62 123/81 08/12/17 16:00 53 L 120/71 08/12/17 15:45 62 123/81 08/12/17 15:30 61 118/79 08/12/17 15:15 98.2 F 72 16 118/78 93 L 08/12/17 14:45 53 L 18 124/70 95 08/12/17 14:31 79 18 123/65 96 08/12/17 14:16 68 18 127/74 96 Intake and Output 08/12/17 08/13/17 08/13/17 22:59 06:59 14:59 Intake Total 1500 600 Output Total 450 Balance -450 1500 600 Intake: Intake, IV Titration 1500 Amount D5-0.45% NaCl with KCl 1500 20Meq/l 1,000 ml @ 125 mls/hr IV .Q8H [facility] Rx#: [id number] Oral 600 Output: Urine 450 Other: Voiding Method Indwelling Catheter Indwelling Catheter PHYSICAL EXAMINATION: GENERAL: The patient is alert and oriented x3, not in any acute distress. Well developed, well nourished. HEENT: Pupils are round and equally reacting to light. EOMI. No scleral icterus. No conjunctival pallor. Normocephalic, atraumatic. No pharyngeal erythema. No thyromegaly. CARDIOVASCULAR: S1 and S2 present. No murmurs, rubs, or gallops. PULMONARY: Minimal expiratory wheezing was appreciated rhonchus breath sounds fairly good air entry into lung moody ABDOMEN: Soft, nontender, nondistended, normoactive bowel sounds. No palpable organomegaly. MUSCULOSKELETAL: No joint swelling or deformity. EXTREMITIES: No cyanosis, clubbing, or pedal edema. NEUROLOGICAL: Gross neurological examination did not reveal any focal deficits. SKIN: No rashes. Results CBC & Chem 7: 08/12/17 15:47 08/12/17 15:47 Labs: Abnormal Lab Results - Last 24 Hours (Table) 08/12/17 08/12/17 Range/Units 15:47 15:47 WBC 12.3 H (3.8-10.6) k/uL Neutrophils # 11.3 H (1.3-7.7) k/uL Lymphocytes # 0.6 L (1.0-4.8) k/uL Glucose 123 H (74-99) mg/dL Assessment and Plan Plan: -Postoperative day 1 reversal of colostomy: Pain management and due to prophylaxis as per primary service -COPD minimally acute exacerbation because of which patient will be restarted back on Symbicort and continue with his inhalers reassess tomorrow this point of time for not to give him oral steroids. -Gastroesophageal reflux disease: Continue with Pepcid or Prilosec -Obesity: Counseling was provided -Osteoarthritis
[2017-08-13] MEDS: BUPIVACAINE (PF) 0.5% 37.5 ML, HYDROMORPHONE (PF) 5 MG in SODIUM CHLORIDE 0.9% 212 ML EPIDURAL PRN (14:12)
[2017-08-13] MEDS: ALBUTEROL NEBULIZED 2.5 MG/3 ML INHALATION SCH ×2 (17:28→21:03)
[2017-08-13] MEDS: SYMBICORT 160-4.5 MCG INHALER INHALATION SCH (21:03)
[2017-08-14] MEDS: D5-0.45% NACL WITH KCL 20MEQ/L 1,000 ML IV SCH ×3 (03:52→19:33)
[2017-08-14] MEDS: HEPARIN SODIUM,PORCINE 5,000 UNIT/ML 1 ML VIAL SQ SCH ×2 (07:42→15:59)
[2017-08-14] MEDS: SERTRALINE 100 MG TAB PO SCH (07:42)
[2017-08-14] MEDS: FAMOTIDINE 20 MG/2 ML VIAL IV SCH ×2 (07:42→22:38)
[2017-08-14] MEDS: ALVIMOPAN 12 MG CAPSULE PO SCH ×2 (07:42→22:38)
[2017-08-14] MEDS: SYMBICORT 160-4.5 MCG INHALER INHALATION SCH ×2 (08:48→21:07)
[2017-08-14] MEDS: ALBUTEROL NEBULIZED 2.5 MG/3 ML INHALATION SCH ×4 (08:48→21:06)
[2017-08-14] MEDS ORDERED: diphenhydrAMINE 50 MG/ML 1 ML VIAL IVP PRN (11:57)
--- NOTE | 2017-08-14 11:58 | P.PN ---
Subjective Progress Note Date: 08/14/17 Principal diagnosis: Colostomy reversal Patient doing well today. Complaining of some itching. Pain is well controlled with epidural. Small amount of flatus. Asking for more to eat. No labs from this morning. Objective - Vital Signs Vital signs: Vital Signs Temp 97.8 F 08/14/17 08:00 Pulse 60 08/14/17 09:00 Resp 17 08/14/17 08:00 BP 151/87 08/14/17 08:00 Pulse Ox 95 08/14/17 08:51 Intake & Output 08/13/17 08/14/17 08/14/17 18:59 06:59 18:59 Intake Total 700 1000 Output Total 1400 Balance 700 -400 Intake: Intake, IV Titration 1000 Amount D5-0.45% NaCl with KCl 1000 20Meq/l 1,000 ml @ 125 mls/hr IV .Q8H [facility] Rx#: [id number] Oral 700 Output: Urine 1400 Uretheral (Mathews) 400 Other: Voiding Method Indwelling Catheter - Exam Abdomen: Soft, nondistended, incision clean with minimal serosanguineous drainage, mild tenderness - Labs CBC & Chem 7: 08/12/17 15:47 08/12/17 15:47 Assessment and Plan (1) Diverticulitis Narrative/Plan: Advance diet to full liquids. Add Benadryl for itching. Recheck labs tomorrow. Ambulate Current Visit: No Status: Acute Code(s): K57.92 - DVTRCLI OF INTEST, PART UNSP, W/O PERF OR ABSCESS W/O BLEED SNOMED Code(s): 272388594
--- NOTE | 2017-08-14 12:11 | P.PN ---
Progress Note - Text Date: 08/14/2017 Time: 1154 The patient is status post colostomy reversal, postoperative day number 2 The patient has no complaints of nausea vomiting or headache. The patient does not complain of any lower extremity numbness or weakness. The epidural is running at 8 mL per hour. The epidural will be maintained and adjusted as needed.
--- NOTE | 2017-08-14 14:11 | P.PN ---
Subjective Patient is later doing well is passing gas wheezing completely resolved today. Constitutional: Denied any fatigue denied any fever. Cardio vascular: denied any chest pain, palpitations Gastrointestinal denied any nausea vomiting Pulmonary: Denied any shortness of breath cough Neurologic denied any new focal deficits Objective - Vital Signs Vital signs: Vital Signs Temp 97.8 F 08/14/17 08:00 Pulse 52 L 08/14/17 12:40 Resp 17 08/14/17 08:00 BP 151/87 08/14/17 08:00 Pulse Ox 95 08/14/17 08:51 Intake & Output 08/13/17 08/14/17 08/14/17 18:59 06:59 18:59 Intake Total 700 1000 Output Total 1400 Balance 700 -400 Intake: Intake, IV Titration 1000 Amount D5-0.45% NaCl with KCl 1000 20Meq/l 1,000 ml @ 125 mls/hr IV .Q8H [facility] Rx#: [id number] Oral 700 Output: Urine 1400 Uretheral (Mathews) 400 Other: Voiding Method Indwelling Catheter - Exam PHYSICAL EXAMINATION: GENERAL: The patient is alert and oriented x3, not in any acute distress. Well developed, well nourished. HEENT: Pupils are round and equally reacting to light. EOMI. No scleral icterus. No conjunctival pallor. Normocephalic, atraumatic. No pharyngeal erythema. No thyromegaly. CARDIOVASCULAR: S1 and S2 present. No murmurs, rubs, or gallops. PULMONARY: Chest is clear to auscultation, no wheezing or crackles. ABDOMEN: Soft, nontender, nondistended, normoactive bowel sounds. No palpable organomegaly. MUSCULOSKELETAL: No joint swelling or deformity. EXTREMITIES: No cyanosis, clubbing, or pedal edema. NEUROLOGICAL: Gross neurological examination did not reveal any focal deficits. SKIN: No rashes. - Labs CBC & Chem 7: 08/12/17 15:47 08/12/17 15:47 Assessment and Plan Plan: -Postoperative day 1 reversal of colostomy: Pain management and due to prophylaxis as per primary service -COPD minimally acute exacerbation improved now after he was started on Symbicort continue with inhalational treatments as well no need for systemic steroids at this time. -Gastroesophageal reflux disease: Continue with Pepcid or Prilosec -Obesity: Counseling was provided -Osteoarthritis
[2017-08-14] MEDS: BUPIVACAINE (PF) 0.5% 37.5 ML, HYDROMORPHONE (PF) 5 MG in SODIUM CHLORIDE 0.9% 212 ML EPIDURAL PRN (15:45)
[2017-08-14] MEDS: PANTOPRAZOLE 40 MG TABLET PO SCH (22:38)
[2017-08-15] MEDS: HEPARIN SODIUM,PORCINE 5,000 UNIT/ML 1 ML VIAL SQ SCH ×4 (02:32→23:19)
[2017-08-15] MEDS: D5-0.45% NACL WITH KCL 20MEQ/L 1,000 ML IV SCH ×4 (04:59→23:24)
[2017-08-15] MEDS: SYMBICORT 160-4.5 MCG INHALER INHALATION SCH ×2 (07:20→19:55)
[2017-08-15] MEDS: ALBUTEROL NEBULIZED 2.5 MG/3 ML INHALATION SCH ×4 (07:20→19:55)
[2017-08-15] MEDS: PANTOPRAZOLE 40 MG TABLET PO SCH (07:36)
[2017-08-15] MEDS: FAMOTIDINE 20 MG/2 ML VIAL IV SCH ×2 (07:36→20:54)
[2017-08-15] MEDS: SERTRALINE 100 MG TAB PO SCH (07:37)
[2017-08-15] MEDS: ALVIMOPAN 12 MG CAPSULE PO SCH ×2 (07:37→21:07)
[2017-08-15 07:57] LABS: ALT 34 U/L (21-72); AST 38 U/L (17-59); Albumin 3.5 g/dL (3.5-5.0); Alkaline Phosphatase 66 U/L (38-126); Anion Gap 10 mmol/L; Blood Urea Nitrogen 6 mg/dL (9-20); Calcium 9.5 mg/dL (8.4-10.2); Carbon Dioxide 31 mmol/L (22-30); Chloride 96 mmol/L (98-107); Glucose 106 mg/dL (74-99); Potassium 4.3 mmol/L (3.5-5.1); Sodium 137 mmol/L (137-145); Total Bilirubin 0.5 mg/dL (0.2-1.3); Total Protein 6.1 g/dL (6.3-8.2)
[2017-08-15 07:59] LABS: Basophils % (A) 0 %; Eosinophils # (A) 0.1 k/uL (0-0.7); Eosinophils % (A) 1 %; HCT 37.6 % (39.0-53.0); HGB 12.7 gm/dL (13.0-17.5); Lymphocytes # (A) 0.8 k/uL (1.0-4.8); Lymphocytes % (A) 8 %; MCH 29.8 pg (25.0-35.0); MCHC 33.7 g/dL (31.0-37.0); MCV 88.4 fL (80.0-100.0); Mean Platelet Volume 7.2; Monocytes # (A) 0.7 k/uL (0-1.0); Monocytes % (A) 7 %; Neutrophils # (A) 8.4 k/uL (1.3-7.7); Neutrophils % (A) 83 %; Platelet Count 251 k/uL (150-450); RBC 4.26 m/uL (4.30-5.90); RDW 14.1 % (11.5-15.5); WBC 10.2 k/uL (3.8-10.6)
--- NOTE | 2017-08-15 09:03 | P.PN ---
Progress Note - Text Date: 08/15/2017 Time: 0758 The patient is status post, colostomy reversal, postoperative day number[ 3 ] The patient has no complaints of nausea vomiting or headache. The patient does not complain of any lower extremity numbness or weakness. The epidural is running at[6] mL per hour. The epidural will be discontinued this morning. Pain medicines will be provided to the patient by the service.
--- NOTE | 2017-08-15 12:20 | P.PN ---
Subjective Progress Note Date: 08/15/17 Principal diagnosis: Colostomy reversal Patient complaining of some heartburn and belching this morning. Mild nausea. No further bowel function. Denies abdominal pain. White blood cell count 10.2. Hemoglobin 12.7. Objective - Vital Signs Vital signs: Vital Signs Temp 97.6 F 08/15/17 00:22 Pulse 60 08/15/17 11:38 Resp 16 08/15/17 11:28 BP 155/91 08/15/17 00:22 Pulse Ox 93 L 08/15/17 00:22 Intake & Output 08/14/17 08/15/17 08/15/17 18:59 06:59 18:59 Intake Total 204.4 Output Total 600 1600 Balance -395.6 -1600 Intake: Intake, IV Titration 204.4 Amount Bupivacaine (Pf) 0.5% 37. 204.4 5 ml Hydromorphone (Pf) 5 mg In Sodium Chloride 0. 9% 212 ml @ Per Protocol EPIDURAL .Q0M PRN Rx#: [id number] Output: Urine 600 1600 Uretheral (Mathews) 400 Other: Voiding Method Indwelling Catheter - Exam Abdomen: Soft, mild distention, incision clean and dry, minimal tenderness - Labs CBC & Chem 7: 08/15/17 06:23 08/15/17 06:23 Labs: Abnormal Lab Results - Last 24 Hours (Table) 08/15/17 08/15/17 Range/Units 06:23 06:23 RBC 4.26 L (4.30-5.90) m/uL Hgb 12.7 L (13.0-17.5) gm/dL Hct 37.6 L (39.0-53.0) % Neutrophils # 8.4 H (1.3-7.7) k/uL Lymphocytes # 0.8 L (1.0-4.8) k/uL Chloride 96 L (98-107) mmol/L Carbon Dioxide 31 H (22-30) mmol/L BUN 6 L (9-20) mg/dL Glucose 106 H (74-99) mg/dL Total Protein 6.1 L (6.3-8.2) g/dL Assessment and Plan (1) Diverticulitis Narrative/Plan: Continue full liquids only. Ambulate. Remove epidural and Mathews catheter today. Current Visit: No Status: Acute Code(s): K57.92 - DVTRCLI OF INTEST, PART UNSP, W/O PERF OR ABSCESS W/O BLEED SNOMED Code(s): 567007053
[2017-08-15] MEDS ORDERED: FUROSEMIDE 10 MG/ML 2 ML VIAL IV ONE (18:39)
[2017-08-15] MEDS ORDERED: ALBUTEROL NEBULIZED 2.5 MG/3 ML INHALATION PRN (18:41)
[2017-08-15] MEDS: LORazepam 2 MG/ML INJ IV PRN (19:24)
[2017-08-15] MEDS: ONDANSETRON 4 MG/2 ML VIAL IVP PRN (22:53)
[2017-08-16] MEDS: ONDANSETRON 4 MG/2 ML VIAL IVP PRN (01:45)
[2017-08-16] MEDS: ALBUTEROL NEBULIZED 2.5 MG/3 ML INHALATION SCH ×4 (07:17→19:57)
[2017-08-16] MEDS: SYMBICORT 160-4.5 MCG INHALER INHALATION SCH ×2 (07:17→19:57)
[2017-08-16] MEDS: METOCLOPRAMIDE 5 MG/ML 2 ML VIAL IVP PRN ×3 (08:16→22:01)
[2017-08-16] MEDS: HEPARIN SODIUM,PORCINE 5,000 UNIT/ML 1 ML VIAL SQ SCH ×2 (08:19→15:25)
[2017-08-16] MEDS: SERTRALINE 100 MG TAB PO SCH (08:19)
[2017-08-16] MEDS: FAMOTIDINE 20 MG/2 ML VIAL IV SCH ×2 (08:19→19:57)
[2017-08-16] MEDS: PANTOPRAZOLE 40 MG TABLET PO SCH (08:19)
[2017-08-16] MEDS: ALVIMOPAN 12 MG CAPSULE PO SCH ×2 (08:19→19:57)
--- NOTE | 2017-08-16 09:49 | XR ---
EXAMINATION TYPE: XR chest 2V DATE OF EXAM: 08/16/2017 COMPARISON: 08/05/2017 HISTORY: 57 year-old male shortness of breath TECHNIQUE: Frontal and lateral views FINDINGS: Heart is normal size. Aorta and pulmonary vasculature are within normal limits. Strandy atelectasis a t the lung bases with low lung volumes. A significant pleural effusion. There is a nodular density at the peripheral right base which may relate to nipple shadow. No consolidation or pleural effusion. IMPRESSION: 1. Low lung volumes and bibasilar atelectasis. No acute process seen. 2. Nodular density at the peripheral right base may relate to nipple shadow. Short interval follow-up in 4-6 weeks with the use of nipple markers is recommended to reassess.
--- NOTE | 2017-08-16 10:49 | P.PN ---
<Anuradha Swainkristian Barron - Last Filed: 08/16/17 10:44> Subjective Progress Note Date: 08/16/17 Pleasant 57-year-old male seen and examined at bedside just returned from having an x-ray of the chest no acute process noted no labs pending this morning. Patient reports having developed an episode of nausea vomiting and inability to keep fluids down states passing gas and belching but no stool. Patient states no abdominal pain is taking nothing for pain medication. Patient states feeling frustrated not getting better " status post reversal of colostomy August 12 Objective - Vital Signs Vital signs: Vital Signs Temp 98.7 F 08/16/17 07:00 Pulse 88 08/16/17 07:27 Resp 15 08/16/17 07:00 BP 150/76 08/16/17 07:00 Pulse Ox 93 L 08/16/17 07:00 Intake & Output 08/15/17 08/16/17 08/16/17 18:59 06:59 18:59 Intake Total 600 Output Total 1500 800 Balance -1500 -200 Intake: Intake, IV Titration 600 Amount D5-0.45% NaCl with KCl 200 20Meq/l 1,000 ml @ 125 mls/hr IV .Q8H [facility] Rx#: [id number] D5-0.45% NaCl with KCl 400 20Meq/l 1,000 ml @ 50 mls /hr IV .Q20H [facility] Rx#: [id number] Output: Urine 1250 800 Uretheral (Mathews) 1250 Emesis 250 Other: Voiding Method Urinal # Voids 1 3 - Exam Physical exam 57-year-old sitting up in bed reports a nausea sensation no emesis Lungs adequate air movement bilaterally clear on room air Heart S1-S2 audible regular Abdomen abdominal binder removed slight tenderness slightly distended few hypoactive bowel tones surgical dressing dry reports a nausea sensation no active emesis states feels bloated Extremities no edema noted - Labs CBC & Chem 7: 08/15/17 06:23 08/15/17 06:23 Assessment and Plan Assessment: Impression History of a perforated diverticulitis with small bowel obstruction with pelvic abscess April 2017 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 Rosa M Swain nurse practitioner acting as scribe for signing physician. <Sanchez Pathak - Last Filed: 08/16/17 15:33> Objective - Vital Signs Vital signs: Vital Signs Temp 98.7 F 08/16/17 07:00 Pulse 88 08/16/17 07:27 Resp 15 08/16/17 07:00 BP 150/76 08/16/17 07:00 Pulse Ox 93 L 08/16/17 07:00 Intake & Output 08/15/17 08/16/17 08/16/17 18:59 06:59 18:59 Intake Total 600 Output Total 1500 800 Balance -1500 -200 Intake: Intake, IV Titration 600 Amount D5-0.45% NaCl with KCl 200 20Meq/l 1,000 ml @ 125 mls/hr IV .Q8H [facility] Rx#: [id number] D5-0.45% NaCl with KCl 400 20Meq/l 1,000 ml @ 50 mls /hr IV .Q20H [facility] Rx#: [id number] Output: Urine 1250 800 Uretheral (Mathews) 1250 Emesis 250 Other: Voiding Method Urinal # Voids 1 3 1 - Labs CBC & Chem 7: 08/15/17 06:23 08/15/17 06:23 Assessment and Plan Plan: Patient's x-ray was examined. He has a postoperative ileus. There is multiple air-fluid levels in the small bowel. Patient will have a nasogastric tube attempted today. He'll remain nothing by mouth.
[2017-08-16] MEDS ORDERED: BISACODYL 10 MG SUPP RECTAL STA (10:50)
[2017-08-16] MEDS ORDERED: traMADol 50 MG TAB PO PRN (10:51)
--- NOTE | 2017-08-16 11:08 | P.PN ---
Subjective Patient is later doing well is passing gas wheezing completely resolved today. 08/16/2017 Patient was nauseous was vomiting yesterday, better today still with nauseous does have bowel sounds did not move his bowels did pass gas Constitutional: Denied any fatigue denied any fever. Cardio vascular: denied any chest pain, palpitations Gastrointestinal mentioned in HPI Pulmonary: Denied any shortness of breath cough Neurologic denied any new focal deficits Objective - Vital Signs Vital signs: Vital Signs Temp 98.7 F 08/16/17 07:00 Pulse 88 08/16/17 07:27 Resp 15 08/16/17 07:00 BP 150/76 08/16/17 07:00 Pulse Ox 93 L 08/16/17 07:00 Intake & Output 08/15/17 08/16/17 08/16/17 18:59 06:59 18:59 Intake Total 600 Output Total 1500 800 Balance -1500 -200 Intake: Intake, IV Titration 600 Amount D5-0.45% NaCl with KCl 200 20Meq/l 1,000 ml @ 125 mls/hr IV .Q8H [facility] Rx#: [id number] D5-0.45% NaCl with KCl 400 20Meq/l 1,000 ml @ 50 mls /hr IV .Q20H [facility] Rx#: [id number] Output: Urine 1250 800 Uretheral (Mathews) 1250 Emesis 250 Other: Voiding Method Urinal # Voids 1 3 - Exam PHYSICAL EXAMINATION: GENERAL: The patient is alert and oriented x3, not in any acute distress. Well developed, well nourished. HEENT: Pupils are round and equally reacting to light. EOMI. No scleral icterus. No conjunctival pallor. Normocephalic, atraumatic. No pharyngeal erythema. No thyromegaly. CARDIOVASCULAR: S1 and S2 present. No murmurs, rubs, or gallops. PULMONARY: Chest is clear to auscultation, no wheezing or crackles. ABDOMEN: Soft, nontender, nondistended, normoactive bowel sounds. No palpable organomegaly. MUSCULOSKELETAL: No joint swelling or deformity. EXTREMITIES: No cyanosis, clubbing, or pedal edema. NEUROLOGICAL: Gross neurological examination did not reveal any focal deficits. SKIN: No rashes. - Labs CBC & Chem 7: 08/15/17 06:23 08/15/17 06:23 Assessment and Plan Plan: -Postoperative reversal of colostomy: Pain management and due to prophylaxis as per primary service -COPD minimally acute exacerbation improved now after he was started on Symbicort continue with inhalational treatments as well no need for systemic steroids at this time. Patient lungs are clear to auscultation chest x-ray did not show any pneumonic process -Gastroesophageal reflux disease: Continue with Pepcid or Prilosec -Obesity: Counseling was provided -Osteoarthritis
--- NOTE | 2017-08-16 14:08 | XR ---
EXAMINATION TYPE: XR abdomen 2V DATE OF EXAM: 08/16/2017 CLINICAL DATA: 57-year-old male with abdominal bloating and pain, PHH COMPARISON: None FINDINGS: Lung bases are clear. No evidence for free intraperitoneal air. Small bowel loops are dilated up to 4.4 cm. There are air-fluid levels throughout both small bowel an d colonic air. Skin bjorn vertically down the midabdomen and also along the left lower quadrant. A staple line is present in the pelvis. IMPRESSION: Small bowel dilatation with air-fluid levels throughout both the small and large bowel. A generalized ileus is favored over a mechanical obstruction, especially if there has been recent surgery.
[2017-08-16] MEDS: D5-0.45% NACL WITH KCL 20MEQ/L 1,000 ML IV SCH (19:55)
[2017-08-17] MEDS: HEPARIN SODIUM,PORCINE 5,000 UNIT/ML 1 ML VIAL SQ SCH ×4 (01:21→23:24)
[2017-08-17] MEDS: METOCLOPRAMIDE 5 MG/ML 2 ML VIAL IVP PRN ×2 (04:29→16:39)
[2017-08-17 06:36] LABS: Basophils % (A) 0 %; Eosinophils # (A) 0.1 k/uL (0-0.7); Eosinophils % (A) 2 %; HCT 39.5 % (39.0-53.0); HGB 12.8 gm/dL (13.0-17.5); Lymphocytes # (A) 1.5 k/uL (1.0-4.8); Lymphocytes % (A) 17 %; MCH 28.4 pg (25.0-35.0); MCHC 32.4 g/dL (31.0-37.0); MCV 87.8 fL (80.0-100.0); Mean Platelet Volume 7.6; Monocytes # (A) 0.9 k/uL (0-1.0); Monocytes % (A) 10 %; Neutrophils # (A) 5.8 k/uL (1.3-7.7); Neutrophils % (A) 68 %; Platelet Count 325 k/uL (150-450); RDW 15.6 % (11.5-15.5); WBC 8.5 k/uL (3.8-10.6)
[2017-08-17 06:47] LABS: ALT 41 U/L (21-72); AST 26 U/L (17-59); Albumin 3.5 g/dL (3.5-5.0); Alkaline Phosphatase 71 U/L (38-126); Anion Gap 9 mmol/L; Blood Urea Nitrogen 8 mg/dL (9-20); Calcium 9.6 mg/dL (8.4-10.2); Carbon Dioxide 29 mmol/L (22-30); Chloride 99 mmol/L (98-107); Glucose 115 mg/dL (74-99); Potassium 3.9 mmol/L (3.5-5.1); Sodium 137 mmol/L (137-145); Total Bilirubin 0.5 mg/dL (0.2-1.3); Total Protein 6.2 g/dL (6.3-8.2)
[2017-08-17] MEDS: ALBUTEROL NEBULIZED 2.5 MG/3 ML INHALATION SCH ×4 (07:15→19:56)
[2017-08-17] MEDS: SYMBICORT 160-4.5 MCG INHALER INHALATION SCH ×2 (07:16→19:55)
[2017-08-17] MEDS: SERTRALINE 100 MG TAB PO SCH (08:42)
[2017-08-17] MEDS: ALVIMOPAN 12 MG CAPSULE PO SCH ×2 (08:42→20:53)
[2017-08-17] MEDS: PANTOPRAZOLE 40 MG TABLET PO SCH (08:42)
[2017-08-17] MEDS: FAMOTIDINE 20 MG/2 ML VIAL IV SCH (08:42)
--- NOTE | 2017-08-17 08:49 | P.PN ---
Subjective Progress Note Date: 08/17/17 57-year-old seen and examined. Patient states he woke up at 4 AM this morning had a small stool blood noted. Patient reports passing gas. Abdomen remains distended with a few hypoactive bowel tones. Nursing attempted to put a nasal gastric tube and yesterday unsuccessful reports no nausea vomiting. Labs reviewed. Afebrile Status post reversal of colostomy. Objective - Vital Signs Vital signs: Vital Signs Temp 98.2 F 08/17/17 07:00 Pulse 76 08/17/17 07:31 Resp 16 08/17/17 07:00 BP 123/65 08/17/17 07:00 Pulse Ox 95 08/17/17 07:16 Intake & Output 08/16/17 08/17/17 08/17/17 18:59 06:59 18:59 Intake Total 400 Balance 400 Intake: Intake, IV Titration 400 Amount D5-0.45% NaCl with KCl 400 20Meq/l 1,000 ml @ 50 mls /hr IV .Q20H [facility] Rx#: [id number] Other: Voiding Method Urinal # Voids 1 3 # Bowel Movements 1 - Labs CBC & Chem 7: 08/17/17 06:08 08/17/17 06:08 Labs: Abnormal Lab Results - Last 24 Hours (Table) 08/17/17 08/17/17 Range/Units 06:08 06:08 Hgb 12.8 L (13.0-17.5) gm/dL RDW 15.6 H (11.5-15.5) % BUN 8 L (9-20) mg/dL Glucose 115 H (74-99) mg/dL Total Protein 6.2 L (6.3-8.2) g/dL Assessment and Plan Assessment: Impression History of a perforated diverticulitis with small bowel obstruction with pelvic abscess April 2017 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 Rosa M Swain nurse practitioner acting as scribe for signing physician.
--- NOTE | 2017-08-17 12:16 | P.PN ---
Subjective Patient is later doing well is passing gas wheezing completely resolved today. 08/16/2017 Patient was nauseous was vomiting yesterday, better today still with nauseous does have bowel sounds did not move his bowels did pass gas 08/17/2017 Patient did move his bowel feeling much better today. Constitutional: Denied any fatigue denied any fever. Cardio vascular: denied any chest pain, palpitations Gastrointestinal mentioned in HPI Pulmonary: Denied any shortness of breath cough Neurologic denied any new focal deficits Objective - Vital Signs Vital signs: Vital Signs Temp 98.2 F 08/17/17 07:00 Pulse 80 08/17/17 11:14 Resp 16 08/17/17 07:00 BP 123/65 08/17/17 07:00 Pulse Ox 95 08/17/17 07:16 Intake & Output 08/16/17 08/17/17 08/17/17 18:59 06:59 18:59 Intake Total 400 Balance 400 Intake: Intake, IV Titration 400 Amount D5-0.45% NaCl with KCl 400 20Meq/l 1,000 ml @ 50 mls /hr IV .Q20H [facility] Rx#: [id number] Other: Voiding Method Urinal Toilet Urinal # Voids 1 3 # Bowel Movements 1 - Exam PHYSICAL EXAMINATION: GENERAL: The patient is alert and oriented x3, not in any acute distress. Well developed, well nourished. HEENT: Pupils are round and equally reacting to light. EOMI. No scleral icterus. No conjunctival pallor. Normocephalic, atraumatic. No pharyngeal erythema. No thyromegaly. CARDIOVASCULAR: S1 and S2 present. No murmurs, rubs, or gallops. PULMONARY: Chest is clear to auscultation, no wheezing or crackles. ABDOMEN: Soft, nontender, nondistended, normoactive bowel sounds. No palpable organomegaly. MUSCULOSKELETAL: No joint swelling or deformity. EXTREMITIES: No cyanosis, clubbing, or pedal edema. NEUROLOGICAL: Gross neurological examination did not reveal any focal deficits. SKIN: No rashes. - Labs CBC & Chem 7: 08/17/17 06:08 08/17/17 06:08 Labs: Abnormal Lab Results - Last 24 Hours (Table) 08/17/17 08/17/17 Range/Units 06:08 06:08 Hgb 12.8 L (13.0-17.5) gm/dL RDW 15.6 H (11.5-15.5) % BUN 8 L (9-20) mg/dL Glucose 115 H (74-99) mg/dL Total Protein 6.2 L (6.3-8.2) g/dL Assessment and Plan Plan: -Postoperative reversal of colostomy: Pain management and due to prophylaxis as per primary service -COPD minimally acute exacerbation improved now after he was started on Symbicort continue with inhalational treatments as well no need for systemic steroids at this time. Patient lungs are clear to auscultation chest x-ray did not show any pneumonic process -Gastroesophageal reflux disease: Continue with Pepcid or Prilosec -Obesity: Counseling was provided -Osteoarthritis
[2017-08-17] MEDS: D5-0.45% NACL WITH KCL 20MEQ/L 1,000 ML IV SCH ×2 (16:35→23:44)
[2017-08-17] MEDS: LORazepam 2 MG/ML INJ IV PRN (23:53)
[2017-08-18] MEDS: ALBUTEROL NEBULIZED 2.5 MG/3 ML INHALATION SCH ×4 (08:03→19:16)
[2017-08-18] MEDS: SYMBICORT 160-4.5 MCG INHALER INHALATION SCH ×2 (08:03→19:16)
[2017-08-18] MEDS: PANTOPRAZOLE 40 MG TABLET PO SCH (08:38)
[2017-08-18] MEDS: HEPARIN SODIUM,PORCINE 5,000 UNIT/ML 1 ML VIAL SQ SCH ×4 (08:38→23:52)
[2017-08-18] MEDS: SERTRALINE 100 MG TAB PO SCH (08:38)
[2017-08-18] MEDS: ALVIMOPAN 12 MG CAPSULE PO SCH ×2 (08:39→19:42)
--- NOTE | 2017-08-18 11:47 | P.PN ---
Subjective Patient is later doing well is passing gas wheezing completely resolved today. 08/16/2017 Patient was nauseous was vomiting yesterday, better today still with nauseous does have bowel sounds did not move his bowels did pass gas 08/17/2017 Patient did move his bowel feeling much better today. 08/18/2017 Patient had diarrhea will obtain C. diff testing patient is being started on clear liquid diet. Constitutional: Denied any fatigue denied any fever. Cardio vascular: denied any chest pain, palpitations Gastrointestinal mentioned in HPI Pulmonary: Denied any shortness of breath cough Neurologic denied any new focal deficits Objective - Vital Signs Vital signs: Vital Signs Temp 98.6 F 08/18/17 11:21 Pulse 68 08/18/17 11:27 Resp 20 08/18/17 08:09 BP 162/90 08/18/17 08:11 Pulse Ox 95 08/18/17 08:09 Intake & Output 08/17/17 08/18/17 08/18/17 18:59 06:59 18:59 Intake Total 550 Output Total 200 Balance 350 Intake: Intake, IV Titration 550 Amount D5-0.45% NaCl with KCl 550 20Meq/l 1,000 ml @ 50 mls /hr IV .Q20H [facility] Rx#: [id number] Output: Urine 200 Other: Voiding Method Toilet Toilet Toilet Urinal Urinal Urinal # Voids 3 1 # Bowel Movements 1 2 - Labs CBC & Chem 7: 08/17/17 06:08 08/17/17 06:08
--- NOTE | 2017-08-18 11:52 | P.PN ---
Subjective Patient is later doing well is passing gas wheezing completely resolved today. 08/16/2017 Patient was nauseous was vomiting yesterday, better today still with nauseous does have bowel sounds did not move his bowels did pass gas 08/17/2017 Patient did move his bowel feeling much better today. 08/18/2017 Patient had diarrhea will obtain C. diff testing patient is being started on clear liquid diet. Constitutional: Denied any fatigue denied any fever. Cardio vascular: denied any chest pain, palpitations Gastrointestinal mentioned in HPI Pulmonary: Denied any shortness of breath cough Neurologic denied any new focal deficits Objective - Vital Signs Vital signs: Vital Signs Temp 98.6 F 08/18/17 11:21 Pulse 68 08/18/17 11:27 Resp 20 08/18/17 08:09 BP 162/90 08/18/17 08:11 Pulse Ox 95 08/18/17 08:09 Intake & Output 08/17/17 08/18/17 08/18/17 18:59 06:59 18:59 Intake Total 550 Output Total 200 Balance 350 Intake: Intake, IV Titration 550 Amount D5-0.45% NaCl with KCl 550 20Meq/l 1,000 ml @ 50 mls /hr IV .Q20H [facility] Rx#: [id number] Output: Urine 200 Other: Voiding Method Toilet Toilet Toilet Urinal Urinal Urinal # Voids 3 1 # Bowel Movements 1 2 - Exam PHYSICAL EXAMINATION: GENERAL: The patient is alert and oriented x3, not in any acute distress. Well developed, well nourished. HEENT: Pupils are round and equally reacting to light. EOMI. No scleral icterus. No conjunctival pallor. Normocephalic, atraumatic. No pharyngeal erythema. No thyromegaly. CARDIOVASCULAR: S1 and S2 present. No murmurs, rubs, or gallops. PULMONARY: Chest is clear to auscultation, no wheezing or crackles. ABDOMEN: Soft, nontender, nondistended, normoactive bowel sounds. No palpable organomegaly. MUSCULOSKELETAL: No joint swelling or deformity. EXTREMITIES: No cyanosis, clubbing, or pedal edema. NEUROLOGICAL: Gross neurological examination did not reveal any focal deficits. SKIN: No rashes. - Labs CBC & Chem 7: 08/17/17 06:08 08/17/17 06:08 Assessment and Plan Plan: -Postoperative reversal of colostomy: Pain management and due to prophylaxis as per primary service -COPD minimally acute exacerbation improved now after he was started on Symbicort continue with inhalational treatments as well no need for systemic steroids at this time. Patient lungs are clear to auscultation chest x-ray did not show any pneumonic process -Gastroesophageal reflux disease: Continue with Pepcid or Prilosec -Obesity: Counseling was provided -Osteoarthritis - diarrhea rule out C. diff
--- NOTE | 2017-08-18 12:38 | P.PN ---
Subjective Progress Note Date: 08/18/17 57-year-old male seen and examined. Patient states had 2 loose incontinent stools this morning. Less abdominal distention noted. Patient's tolerating ice chips and popsicles with no nausea no vomiting. Patient states passing gas rectally. Status post August 12 reversal of colostomy Objective - Vital Signs Vital signs: Vital Signs Temp 98.6 F 08/18/17 11:21 Pulse 68 08/18/17 11:27 Resp 20 08/18/17 08:09 BP 162/90 08/18/17 08:11 Pulse Ox 95 08/18/17 08:09 Intake & Output 08/17/17 08/18/17 08/18/17 18:59 06:59 18:59 Intake Total 550 Output Total 200 Balance 350 Intake: Intake, IV Titration 550 Amount D5-0.45% NaCl with KCl 550 20Meq/l 1,000 ml @ 50 mls /hr IV .Q20H [facility] Rx#: [id number] Output: Urine 200 Other: Voiding Method Toilet Toilet Toilet Urinal Urinal Urinal # Voids 3 1 # Bowel Movements 1 2 - Exam Physical exam 57-year-old sitting up in bed states he was incontinent a 2 large liquid stools this morning Lungs adequate air movement bilaterally clear on room air denies a cough Heart S1-S2 audible regular denying chest pain Abdomen abdominal binder removed slight tenderness few hypoactive bowel tones surgical dressing removed inspected surgical site no redness bjorn in place well approximated reports no nausea vomiting tolerating popsicles and ice chips asking for diet to be advanced Extremities no edema noted - Labs CBC & Chem 7: 08/17/17 06:08 08/17/17 06:08 Assessment and Plan Assessment: Impression History of a perforated diverticulitis with small bowel obstruction with pelvic abscess April 2017 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 diff Start clear liquid diet advanced as tolerated Prepped for probable discharge in the next 24-48 hours Continue postop surgical care pain control Encourage use of the incentive spirometer DVT and GI prophylaxis Nothing by mouth Increase activity Repeat labs in am Progress note being dictated for Dr. meza The above impression and plan of care have been discussed and directed by signing physician. Rosa M Swain nurse practitioner acting as scribe for signing physician.
[2017-08-18] MEDS: D5-0.45% NACL WITH KCL 20MEQ/L 1,000 ML IV SCH ×2 (15:39→22:31)
[2017-08-19 06:45] LABS: Basophils # (A) 0.1 k/uL (0-0.2); Basophils % (A) 1 %; Eosinophils # (A) 0.4 k/uL (0-0.7); Eosinophils % (A) 4 %; HCT 40.4 % (39.0-53.0); HGB 13.6 gm/dL (13.0-17.5); Lymphocytes # (A) 1.8 k/uL (1.0-4.8); Lymphocytes % (A) 19 %; MCH 29.6 pg (25.0-35.0); MCHC 33.7 g/dL (31.0-37.0); MCV 87.7 fL (80.0-100.0); Mean Platelet Volume 6.9; Monocytes # (A) 0.8 k/uL (0-1.0); Monocytes % (A) 9 %; Neutrophils % (A) 64 %; Platelet Count 353 k/uL (150-450); RDW 14.4 % (11.5-15.5); WBC 9.3 k/uL (3.8-10.6)
[2017-08-19 06:55] LABS: ALT 38 U/L (21-72); AST 25 U/L (17-59); Albumin 3.6 g/dL (3.5-5.0); Alkaline Phosphatase 73 U/L (38-126); Anion Gap 12 mmol/L; Blood Urea Nitrogen 12 mg/dL (9-20); Calcium 9.4 mg/dL (8.4-10.2); Carbon Dioxide 24 mmol/L (22-30); Chloride 101 mmol/L (98-107); Glucose 97 mg/dL (74-99); Sodium 137 mmol/L (137-145); Total Bilirubin 0.4 mg/dL (0.2-1.3); Total Protein 6.6 g/dL (6.3-8.2)
[2017-08-19 07:22] VITALS: BP 145/83; RESP 14; TEMP 97.5
[2017-08-19] MEDS: HEPARIN SODIUM,PORCINE 5,000 UNIT/ML 1 ML VIAL SQ SCH (07:24)
[2017-08-19] MEDS: SERTRALINE 100 MG TAB PO SCH (07:25)
[2017-08-19] MEDS: D5-0.45% NACL WITH KCL 20MEQ/L 1,000 ML IV SCH (07:25)
[2017-08-19] MEDS: ALBUTEROL NEBULIZED 2.5 MG/3 ML INHALATION SCH (07:25)
[2017-08-19] MEDS: ALVIMOPAN 12 MG CAPSULE PO SCH (07:25)
[2017-08-19] MEDS: PANTOPRAZOLE 40 MG TABLET PO SCH (07:25)
[2017-08-19] MEDS: SYMBICORT 160-4.5 MCG INHALER INHALATION SCH (07:26)
[2017-08-19 08:10] VITALS: PULSE 74
--- NOTE | 2017-08-19 09:42 | P.DS ---
Providers Date of admission: 08/12/17 10:32 Expected date of discharge: 08/19/17 Attending physician: Sanchez Pathak Consults: 08/12/17 13:41 Consult Physician Routine Consulting Provider: Keke Banks Consult Reason/Comments: med manage Do you want consulting provider notified?: Yes Primary care physician: Jarett Nicole [facility] Course: 57-year-old who presented on the day of admission to undergo a reversal of colostomy. Patient has a previous history of a perforated diverticulitis with a Arias procedure with abscess done on 04/27/2017. Patient underwent procedure on August 12 reversal of colostomy postop developed an ileus placed on bowel rest. The ileus resolved on the day of discharge patient was tolerating a full liquid diet having bowel movements stool was negative for C. diff urinating no difficulty surgical sites no redness was felt to be appropriate to be discharged home Impression discharge diagnosis History of a perforated diverticulitis with small bowel obstruction with pelvic abscess April 2017 Sigmoid colectomy with end colostomy done April 2017 Postop August 12 reversal colostomy Status post August 11 colonoscopy no evidence of diverticulitis Postop ileus resolved The above impression and plan of care have been discussed and directed by signing physician. Rosa M Swain nurse practitioner acting as scribe for signing physician. Plan - Discharge Summary Discharge Rx Participant: Yes New Discharge Prescriptions: Continue Budesonide-Formot 160-4.5 Mcg [Symbicort 160-4.5 Mcg Inhaler] 1 puff INHALATION RT-DAILY PRN PRN Reason: Dyspnea Albuterol Inhaler [Ventolin Hfa Inhaler] 2 puff INHALATION RT-QID Sertraline [Zoloft] 100 mg PO DAILY Omeprazole [PriLOSEC] 20 mg PO AC-BID traZODone HCL 150 mg PO HS D-Methorphan/PE/Acetaminophen [Vicks Dayquil Liquicaps] 1 cap PO BID PRN PRN Reason: Cold Symptoms Discharge Medication List Albuterol Inhaler [Ventolin Hfa Inhaler] 2 puff INHALATION RT-QID 04/27/17 [ History] Budesonide-Formot 160-4.5 Mcg [Symbicort 160-4.5 Mcg Inhaler] 1 puff INHALATION RT-DAILY PRN 04/27/17 [History] Omeprazole [PriLOSEC] 20 mg PO AC-BID 08/05/17 [History] Sertraline [Zoloft] 100 mg PO DAILY 08/05/17 [History] traZODone HCL 150 mg PO HS 08/05/17 [History] D-Methorphan/PE/Acetaminophen [Vicks Dayquil Liquicaps] 1 cap PO BID PRN [History] Follow up Appointment(s)/Referral(s): [facility] [Outside] - As Needed (Follow up with therapist Caryl Zuleta) [facility], [NON-STAFF] - Sanchez Pathak MD [STAFF PHYSICIAN] - 08/26/17 1:40 pm Patient Instructions/Handouts: Open Colostomy Reversal (DC) Activity/Diet/Wound Care/Special Instructions: No tub bath for six weeks. Shower daily. No lifting over 4 pounds for the next 6 weeks.. May use ice packs to surgical site. No driving while taking narcotic for pain. Full liquid diet until seen in follow-up visit To wear Abdominal binder when up with activity Discharge Disposition: HOME WITH HOME HEALTH SERVICES
--- NOTE | 2017-08-20 11:41 | P.PN ---
Subjective Progress Note Date: 08/19/17 Progress note being dictated for Dr. Farris Interval history: This is a 57-year-old gentleman status post reversal of colostomy. Continues to do well. Pain controlled. Tolerating diet with no nausea vomiting. Negative for C. difficile colitis. Positive flatus, positive bowel movement. Ambulating, tolerating increase in exertion well. Denies any lightheadedness dizziness, focal deficits. Denies chest pain, palpitations or shortness of breath. Afebrile. Scheduled for discharge home today as per surgery. Objective - Vital Signs Vital signs: Vital Signs Temp 97.5 F L 08/19/17 07:00 Pulse 74 08/19/17 07:36 Resp 14 08/19/17 08:00 BP 145/83 08/19/17 07:00 Pulse Ox 95 08/19/17 07:00 Intake & Output 08/18/17 08/19/17 08/19/17 18:59 06:59 18:59 Intake Total 1250 Output Total 450 Balance 1250 -450 Weight 95.254 kg Intake: IV 400 D5-0.45% NaCl with KCl 400 20Meq/l 1,000 ml @ 50 mls /hr IV .Q20H AG Rx#: [id number] Oral 850 Output: Urine 450 Other: Voiding Method Toilet Toilet Urinal Urinal # Voids 1 2 # Bowel Movements 2 - Exam GENERAL: The patient is alert and oriented x3, not in any acute distress. Well developed, well nourished. HEENT: Pupils are round and equally reacting to light. EOMI. No scleral icterus. No conjunctival pallor. Normocephalic, atraumatic. No pharyngeal erythema. No thyromegaly. CARDIOVASCULAR: S1 and S2 present. No murmurs, rubs, or gallops. PULMONARY: Chest is clear to auscultation, no wheezing or crackles. ABDOMEN: Soft,s/p surgery, nondistended, normoactive bowel sounds. MUSCULOSKELETAL: No joint swelling or deformity. EXTREMITIES: No cyanosis, clubbing, or pedal edema. NEUROLOGICAL: Gross neurological examination did not reveal any focal deficits. SKIN: No rashes. - Labs CBC & Chem 7: 08/19/17 06:08 08/19/17 06:08 Assessment and Plan Assessment: -Postoperative reversal of colostomy: Pain management and due to prophylaxis as per primary service -COPD minimally acute exacerbation. chest x-ray did not show any pneumonic process -Gastroesophageal reflux disease -Obesity: Counseling was provided -Osteoarthritis - diarrhea rule out C. diff Plan: Continue on current medication regime ,monitoring and symptomatic treatment. Discharge planning in progress as per surgery for today. Follow-up with PCP in 1 week. Aggressive pulmonary toileting. Further recommendations to follow. The impression and plan of care has been dictated as directed. : I performed a history and examination of this patient, discussed the same with the dictator. I agree with the dictator's note ,documented as a scribe. Any additional findings or plans will be noted.
--- NOTE | 2017-08-23 16:51 | P.OP ---
Date of Procedure: 08/12/17 Preoperative Diagnosis: History of perforated diverticulitis Postoperative Diagnosis: History of perforated diverticulitis Adhesions Procedure(s) Performed: Reversal of colostomy Lysis of adhesions Colectomy Anesthesia: LILO Surgeon: Sanchez Pathak Estimated Blood Loss (ml): 100 Pathology: other (colon) Disposition: PACU Description of Procedure: The patient's placed in the operative table in the supine position. He received general anesthesia. He was then placed in dorsal lithotomy position. His abdomen was prepped and draped in usual sterile fashion. The patient a colostomy in the left lower quadrant. The abdomen was entered through midline incision. There were adhesions on its anterior abdominal wall. An Richard wound retractor was used. Approximately 20 minutes of operative time used to lyse adhesions. At this point the area of the colostomy was visualized. And then the colon was transected at the level of fascia using a ANTON stapler. At this point more adhesions were lysed. And then the colon was mobilized by dividing the white line of Toldt. The pursestring device was placed onto the colon. The colon was then opened and then the anvil for the 25 mm EEA stapler was placed in the colon and then the pursestring was secured. The EEA stapler was then placed the patient's anus and then the spike was driven through the anterior rectal wall. The anvil was connected to the EEA stapler and then the stapler was closed and fired. The stapler was then withdrawn into intact tissue rings were withdrawn from stapler. Next a hydro-x ray service technician was placed on the colon proximal to the anastomosis. Using the rigid sigmoidoscope the rectum was insufflated. There is no evidence of any extravasation of air from the staple line. There is known to any leak. At this point the abdomen was irrigated. The fascia was closed with looped #1 PDS suture. The skin was closed bjorn. The colostomy site was excised by dividing the cutaneous junction with electrocautery. The colostomy was freed and sent to pathology. The fascial defect was closed with 0 Ethibond suture. A MARKO drain was placed in the colostomy site and brought out through separate stab incision. The patient was sent to recovery room stable condition.
--- NOTE | 2017-08-30 09:44 | CDI ---
Last Revision, July 2017 Documentation Clarification Form Date: 08/30/2017 9:03:00 AM From: SANTOSH Caballero-Labor And Delivery Nurse Phone: Please contact Arianna Ferrer Client Leader at [phone] if you have any questions. Patient Name: Go Rosas Visit Number: [id number] Admit Date: 08/12/2017 Discharge Date: 08/19/2017 ATTENTION: The Clinical Documentation Specialists (CDI) and [facility] Coding Staff appreciate your assistance in clarifying documentation. Please respond to the clarification below the line at the bottom and electronically sign. The CDI & [facility] Coding staff will review the response and follow-up if needed. Please note: Queries are made part of the Legal Health Record. If you have any questions, please contact the author of this message at phone number above. Dr. Sanchez Pathak Clarification is needed related to the lysis of adhesions & colectomy that were performed during the reversal of colostomy procedure performed on 08/12/2017 in order to assign the appropriate procedure codes Can you please clarify which of the following involved the lysis of adhesion portion of procedure? Greater omentum Mesentery Peritoneum small intestine duodenum jejunum ileum large intestine cecum appendix Please clarify which of the following was involved in the colectomy portion of the procedure: Ascending colon cecum Descending colon Ileocecal valve Ileum Rectum Sigmoid colon Transverse colon Large intestine _ MTDD
--- NOTE | 2017-09-28 09:35 | CDI ---
Documentation Clarification Form Date: 08/30/2017 9:03:00 AM From: SANTOSH Caballero; Arianna Ferrer, Blast Furnace Supervisor Admit Date: 08/12/2017 10:32:00 AM Patient Name: Go Rosas Visit Number: [id number] Discharge Date: ATTENTION: The Clinical Documentation Specialists (CDI) and [facility] Coding Staff appreciate your assistance in clarifying documentation. Please respond to the clarification below the line at the bottom and electronically sign. The CDI & [facility] Coding staff will review the response and follow-up if needed. Please note: Queries are made part of the Legal Health Record. If you have any questions, please contact the author of this message via ITS. Dr. Sanchez Pathak Clarification is needed in order to assign the appropriate procedure codes for reversal of colostomy performed on 08/12/2017. Lysis of adhesions was performed , along with colectomy. In your professional opinion, can you please clarify the lysis of adhesion portion of procedure? Greater omentum Mesentery Peritoneum small intestine duodenum jejunum ileum large intestine cecum appendix Please clarify the colectomy portion of the procedure: Ascending colon Cecum Descending colon Ileocecal valve Ileum Rectum Sigmoid colon Transverse colon Large intenstine Other, please specify Unable to determine Please document below or addend the operative note The lysis of adhesions were the small bowel. The colectomy was the descending colon. If you have a question about this query, please contact Arianna Ferrer Blast Furnace Supervisor at [phone] between 8am and 5pm. ALEX
== END 2017-08-19 11:30 | disposition home health service (06) | DRG 330 ==
LOC: 2ORWHC 10:32 → 3SUR 13:58
PROVIDERS: ADMIT Surgery; ATTEND Surgery
PROC: 0DN80ZZ Release Small Intestine, Open Approach (ICD-10-PCS; principal; 2017-08-12 11:55)
PROC: 0DBM0ZZ Excision of Descending Colon, Open Approach (ICD-10-PCS; principal; 2017-08-12 11:55)
DX: Z43.3 Encounter for attention to colostomy (principal); J44.1 Chronic obstructive pulmonary disease with (acute) exacerbation; F20.9 Schizophrenia, unspecified; K56.7 Ileus, unspecified; E66.9 Obesity, unspecified; Z71.3 Dietary counseling and surveillance; F17.200 Nicotine dependence, unspecified, uncomplicated; K21.9 Gastro-esophageal reflux disease without esophagitis; M19.90 Unspecified osteoarthritis, unspecified site; Z79.51 Long term (current) use of inhaled steroids; Z79.899 Other long term (current) drug therapy
CPT/HCPCS: 44388; 71046; 74019; 80048; 80053; 84132; 85025; 86850; 86900; 86901; 87324; 88304; 88305; 94640; 94760

== ENCOUNTER → 2017-09-22 | Outpatient (CLI) | payer MEDICARE, OTHER ==
[2017-09-22 14:31] LABS: Blood Urea Nitrogen 20 mg/dL (9-20); Lithium 0.2 mmol/L
[2017-09-22 14:48] LABS: T4, Free (Free Thyroxine) 0.79 ng/dL (0.78-2.19)
== END | disposition home or self-care (01) ==
LOC: LABWHC1 13:44
PROVIDERS: ATTEND Psychiatry & Neurology Psychiatry
DX: Z51.81 Encounter for therapeutic drug level monitoring (principal); Z79.899 Other long term (current) drug therapy
CPT/HCPCS: 36415; 80178; 82565; 84439; 84443; 84520

== ENCOUNTER → 2017-10-21 | Outpatient (CLI) | payer MEDICARE, OTHER ==
--- NOTE | 2017-10-21 18:54 | MR ---
EXAMINATION TYPE: MR dodd/valentin wo con DATE OF EXAM: 10/21/2017 6:40 PM COMPARISON: 10/21/2017 HISTORY: Neck/lower back pain, LUE weakness Multiplanar MultiSpin echo imaging of the cervical spine was performed. C2-C3: No evidence for degenerative disc disease. No disc bulge/herniation or protrusion. No Canal stenosis. Foramina are patent bilaterally. C3-C4: Mild disc desiccation. Mild posterior disc bulge. Uncovertebral hypertrophy resulting in left foraminal encroachment. C4-C5: Moderate disc desiccation noted. Broad-based posterior disc bulge with small protrusion. Mild effacement ventral thecal sac. Constriction of the thecal sac felt to reflect borderline to mild cent ral stenosis. Mild right foraminal encroachment. C5-C6: Moderate disc desiccation. Circumferential disc bulge greatest posteriorly. Effacement of the ventral thecal sac with mild central stenosis. Patient motion limits evaluation of the cervical spina l cord. Bilateral foraminal encroachment. C6-C7: Mild disc desiccation. Mild posterior disc bulge. Uncovertebral hypertrophy resulting in mild foraminal encroachment. C7-T1: No evidence for degenerative disc disease. No disc bulge/herniation or protrusion. No Canal stenosis. Foramina are patent bilaterally. Cervical segments are intact. There is normal alignment. Cervical spinal cord is of normal signal. Craniovertebral junction relationships are within normal limits. IMPRESSION: 1. Degenerative disc disease. 2. Borderline to mild central stenosis unchanged from prior study at C4-5 and C5-6. 3. Foraminal encroachment as noted. EXAMINATION TYPE: MR borjas wo con DATE OF EXAM: 10/21/2017 6:40 PM COMPARISON: NONE HISTORY: Neck/lower back pain, LUE weakness Multiplanar, MultiSpin echo imaging of the lumbar spine was performed. L1-L2: Moderate to severe disc desiccation. Left paracentral subligamentous disc herniation. Small am ount of disc material is noted posterior to the L2 segment. There is resultant moderate central steno sis. L2-L3: Normal disc appearance without desiccation. No herniation, protrusion or disc bulging. No ca nal stenosis is present. Foramina are patent bilaterally. L3-L4: Normal disc appearance without desiccation. No herniation, protrusion or disc bulging. No ca nal stenosis is present. Foramina are patent bilaterally. L4-L5: Normal disc appearance without desiccation. No herniation, protrusion or disc bulging. No ca nal stenosis is present. Foramina are patent bilaterally. L5-S1: Grade 1 retrolisthesis measuring 5.6 mm. Severe disc desiccation. Posterior disc bulge. Left l ateral recess stenosis. No evidence for central stenosis. Bilateral foraminal encroachment. Lumbar segments are intact. No paraspinal masses are identified. Conus medullaris has a normal appe arance. IMPRESSION: 1. Disc disease as noted. 2. Disc herniation at L1-2 as discussed above with moderate central stenosis. 3. Retrolisthesis L5 on S1 with associated degenerative disc disease as noted.
== END | disposition home or self-care (01) ==
LOC: RADMRIMAIN 17:37
PROVIDERS: ATTEND Nurse Practitioner Acute Care
DX: M48.02 Spinal stenosis, cervical region (principal); M48.07 Spinal stenosis, lumbosacral region; M51.26 Other intervertebral disc displacement, lumbar region; M43.17 Spondylolisthesis, lumbosacral region; M50.30 Other cervical disc degeneration, unspecified cervical region
CPT/HCPCS: 72141; 72148

== ENCOUNTER → 2018-06-27 | Outpatient (CLI) | payer MEDICARE, OTHER ==
[2018-06-27 17:20] LABS: Cholesterol 219 mg/dL (0-200); Glucose 119 mg/dL (70-110); LDL Cholesterol,Calculated 118.8 mg/dL (0.0-131.0); Lithium <0.1 mmol/L (1.0-1.2)
== END | disposition home or self-care (01) ==
LOC: LABWHC1 10:54
PROVIDERS: ATTEND Psychiatry & Neurology Psychiatry
DX: Z51.81 Encounter for therapeutic drug level monitoring (principal); Z79.899 Other long term (current) drug therapy
CPT/HCPCS: 36415; 80061; 80178; 82565; 82947; 83036; 84439; 84443; 84520

== ENCOUNTER 2018-07-17 13:35 | Emergency (ER) | payer MEDICARE, OTHER ==
[2018-07-17 13:45] VITALS: RESP 18; TEMP 97.4
[2018-07-17] MEDS ORDERED: SODIUM CHLORIDE 0.9% 1,000 ML IV STA (14:41)
[2018-07-17] MEDS ORDERED: IPRATROPIUM-ALBUTEROL 3 ML NEB INHALATION STA (14:41)
[2018-07-17] MEDS ORDERED: MORPHINE SULFATE 2 MG/ML SYRINGE IVP STA (14:42)
--- NOTE | 2018-07-17 14:45 | ED ---
General Adult HPI - General Chief complaint: Back Pain/Injury Stated complaint: Back pain Time Seen by Provider: 07/17/18 14:31 Source: patient, RN notes reviewed Mode of arrival: ambulatory Limitations: no limitations - History of Present Illness Initial comments: Patient is a pleasant 58-year-old male presenting to the emergency Department with complaints of left thoracic back discomfort. Onset of symptoms was when he woke yesterday morning. Symptoms were mild at that point. Symptoms were much worse today. Discomfort is worse with deep breaths and movements. Patient denies any dyspnea however states it does hurt to take a deep breath. No cough. Patient does have history of wheezing associated with smoking history. Patient denies any chest pain. No fevers. No history of similar symptoms previously. No leg pain or leg swelling. - Related Data Home Medications Medication Instructions Recorded Confirmed Albuterol Inhaler [Ventolin Hfa 2 puff INHALATION RT-QID 04/27/17 07/17/18 Inhaler] Budesonide-Formot 160-4.5 Mcg 1 puff INHALATION RT-DAILY PRN 04/27/17 07/17/18 [Symbicort 160-4.5 Mcg Inhaler] Omeprazole [PriLOSEC] 20 mg PO AC-BID 08/05/17 07/17/18 traZODone HCL 150 mg PO HS 08/05/17 07/17/18 Albuterol Nebulized [Ventolin 2.5 mg INHALATION RT-Q6H PRN 07/17/18 07/17/18 Nebulized] Ranitidine HCl 150 mg PO HS 07/17/18 07/17/18 Previous Rx's Medication Instructions Recorded Cyclobenzaprine [Flexeril] 10 mg PO TID PRN #12 tablet 07/17/18 Allergies Allergy/AdvReac Type Severity Reaction Status Date / Time No Known Allergies Allergy Verified 07/17/18 14:28 Review of Systems ROS Statement: Those systems with pertinent positive or pertinent negative responses have been documented in the HPI. ROS Other: All systems not noted in ROS Statement are negative. Constitutional: Denies: fever Eyes: Denies: eye pain ENT: Denies: ear pain Respiratory: Denies: dyspnea Cardiovascular: Denies: chest pain Endocrine: Denies: fatigue Gastrointestinal: Denies: abdominal pain Genitourinary: Denies: dysuria Musculoskeletal: Reports: as per HPI, back pain Skin: Denies: rash Neurological: Denies: weakness Past Medical History Past Medical History: Asthma, COPD, GERD/Reflux, Osteoarthritis (OA), Pneumonia Additional Past Medical History / Comment(s): pinched nerve in neck, herniated discs,bronchitis, rt arm "bone spurs" History of Any Multi-Drug Resistant Organisms: None Reported Past Surgical History: Bowel Resection, Joint Replacement Additional Past Surgical History / Comment(s): rt shoulder, 04/29/17 sigmoid resection with colostomy by Dr. Pathak Past Anesthesia/Blood Transfusion Reactions: No Reported Reaction Past Psychological History: Anxiety, Bipolar, Depression, Schizophrenia Smoking Status: Current every day smoker Past Alcohol Use History: Heavy Past Drug Use History: Marijuana - Past Family History Father Family Medical History: Cancer Mother Family Medical History: Cancer General Exam Limitations: no limitations General appearance: alert, in no apparent distress Head exam: Present: atraumatic Eye exam: Present: normal appearance, PERRL ENT exam: Present: normal oropharynx Neck exam: Present: normal inspection Respiratory exam: Present: normal lung sounds bilaterally. Absent: chest wall tenderness Cardiovascular Exam: Present: regular rate, normal rhythm Expanded Peripheral pulses: 2+: Radial (R), Radial (L), Posterior Tibialis (R), Posterior Tibialis (L) GI/Abdominal exam: Present: soft. Absent: distended, tenderness Extremities exam: Present: normal inspection. Absent: pedal edema, calf tenderness Back exam: Present: tenderness (Patient does have tenderness to palpation left paraspinal region below the scapula.) Neurological exam: Present: alert Psychiatric exam: Present: normal affect, normal mood Skin exam: Present: normal color Course Vital Signs 07/17/18 07/17/18 07/17/18 13:42 15:04 15:14 Temperature 97.4 F L Pulse Rate 92 74 77 Respiratory 18 Rate Blood Pressure 138/82 O2 Sat by Pulse 96 Oximetry 07/17/18 07/17/18 15:32 16:14 Temperature Pulse Rate 75 70 Respiratory 18 18 Rate Blood Pressure 110/71 119/62 O2 Sat by Pulse 97 98 Oximetry EKG Findings - EKG Comments: EKG Findings:: Normal sinus rhythm 75. CO 162. QRS 100. QT 404. QTC 451. Normal axis. Normal QRS. No acute ST change. Medical Decision Making - Medical Decision Making Patient reevaluated and significantly improved. Patient updated on results. Patient feels much better at this time does not feel he needs any further medication. Patient is comfortable with discharge home and receptive to prescription for muscle relaxers. - Lab Data Result diagrams: 07/17/18 14:45 07/17/18 14:45 Lab Results 07/17/18 07/17/18 07/17/18 Range/Units 14:45 14:45 14:45 WBC 6.8 (3.8-10.6) k/uL RBC 4.91 (4.30-5.90) m/uL Hgb 15.2 (13.0-17.5) gm/dL Hct 44.3 (39.0-53.0) % MCV 90.2 (80.0-100.0) fL MCH 30.9 (25.0-35.0) pg MCHC 34.3 (31.0-37.0) g/dL RDW 14.0 (11.5-15.5) % Plt Count 212 (150-450) k/uL Neutrophils % 62 % Lymphocytes % 26 % Monocytes % 6 % Eosinophils % 3 % Basophils % 1 % Neutrophils # 4.2 (1.3-7.7) k/uL Lymphocytes # 1.8 (1.0-4.8) k/uL Monocytes # 0.4 (0-1.0) k/uL Eosinophils # 0.2 (0-0.7) k/uL Basophils # 0.1 (0-0.2) k/uL PT (9.0-12.0) sec INR (<1.2) APTT (22.0-30.0) sec D-Dimer (<0.60) mg/L FEU Sodium 141 (137-145) mmol/L Potassium 4.7 (3.5-5.1) mmol/L Chloride 109 H (98-107) mmol/L Carbon Dioxide 22 (22-30) mmol/L Anion Gap 10 mmol/L BUN 17 (9-20) mg/dL Creatinine 0.97 (0.66-1.25) mg/dL Est GFR (CKD-EPI)AfAm >90 (>60 ml/min/1.73 sqM) Est GFR (CKD-EPI)NonAf 88 (>60 ml/min/1.73 sqM) Glucose 131 H (74-99) mg/dL Calcium 9.4 (8.4-10.2) mg/dL Total Bilirubin 0.5 (0.2-1.3) mg/dL AST 36 (17-59) U/L ALT 45 (21-72) U/L Alkaline Phosphatase 64 (38-126) U/L Total Creatine Kinase 251 H (55-170) U/L CK-MB (CK-2) 1.6 (0.0-2.4) ng/mL CK-MB (CK-2) Rel Index 0.6 Troponin I <0.012 (0.000-0.034) ng/mL Total Protein 7.2 (6.3-8.2) g/dL Albumin 4.1 (3.5-5.0) g/dL 07/17/18 Range/Units 14:45 WBC (3.8-10.6) k/uL RBC (4.30-5.90) m/uL Hgb (13.0-17.5) gm/dL Hct (39.0-53.0) % MCV (80.0-100.0) fL MCH (25.0-35.0) pg MCHC (31.0-37.0) g/dL RDW (11.5-15.5) % Plt Count (150-450) k/uL Neutrophils % % Lymphocytes % % Monocytes % % Eosinophils % % Basophils % % Neutrophils # (1.3-7.7) k/uL Lymphocytes # (1.0-4.8) k/uL Monocytes # (0-1.0) k/uL Eosinophils # (0-0.7) k/uL Basophils # (0-0.2) k/uL PT 10.3 (9.0-12.0) sec INR 1.0 (<1.2) APTT 25.4 (22.0-30.0) sec D-Dimer 0.44 (<0.60) mg/L FEU Sodium (137-145) mmol/L Potassium (3.5-5.1) mmol/L Chloride (98-107) mmol/L Carbon Dioxide (22-30) mmol/L Anion Gap mmol/L BUN (9-20) mg/dL Creatinine (0.66-1.25) mg/dL Est GFR (CKD-EPI)AfAm (>60 ml/min/1.73 sqM) Est GFR (CKD-EPI)NonAf (>60 ml/min/1.73 sqM) Glucose (74-99) mg/dL Calcium (8.4-10.2) mg/dL Total Bilirubin (0.2-1.3) mg/dL AST (17-59) U/L ALT (21-72) U/L Alkaline Phosphatase (38-126) U/L Total Creatine Kinase (55-170) U/L CK-MB (CK-2) (0.0-2.4) ng/mL CK-MB (CK-2) Rel Index Troponin I (0.000-0.034) ng/mL Total Protein (6.3-8.2) g/dL Albumin (3.5-5.0) g/dL - Radiology Data Radiology results: image reviewed (Chest x-ray shows no acute process) Disposition Clinical Impression: Thoracic back pain Disposition: HOME SELF-CARE Condition: Stable Instructions: Back Pain (ED) Additional Instructions: Please follow-up with primary care physician in the next day or 2 for recheck. [id number] Motrin as needed. Return for increased pain, difficulty breathing, fevers, chest pain, worsening symptoms or other concerns. Prescriptions: Cyclobenzaprine [Flexeril] 10 mg PO TID PRN #12 tablet PRN Reason: Pain Is patient prescribed a controlled substance at d/c from ED?: No Referrals: Melina Denson MD [Primary Care Provider] - 1-2 days Time of Disposition: 16:30
[2018-07-17 14:56] LABS: Basophils # (A) 0.1 k/uL (0-0.2); Basophils % (A) 1 %; Eosinophils # (A) 0.2 k/uL (0-0.7); Eosinophils % (A) 3 %; HCT 44.3 % (39.0-53.0); HGB 15.2 gm/dL (13.0-17.5); Lymphocytes # (A) 1.8 k/uL (1.0-4.8); Lymphocytes % (A) 26 %; MCH 30.9 pg (25.0-35.0); MCHC 34.3 g/dL (31.0-37.0); MCV 90.2 fL (80.0-100.0); Monocytes # (A) 0.4 k/uL (0-1.0); Monocytes % (A) 6 %; Neutrophils # (A) 4.2 k/uL (1.3-7.7); Neutrophils % (A) 62 %; Platelet Count 212 k/uL (150-450); RBC 4.91 m/uL (4.30-5.90); WBC 6.8 k/uL (3.8-10.6)
[2018-07-17 15:07] LABS: ALT 45 U/L (21-72); AST 36 U/L (17-59); Albumin 4.1 g/dL (3.5-5.0); Alkaline Phosphatase 64 U/L (38-126); Anion Gap 10 mmol/L; Blood Urea Nitrogen 17 mg/dL (9-20); Calcium 9.4 mg/dL (8.4-10.2); Carbon Dioxide 22 mmol/L (22-30); Chloride 109 mmol/L (98-107); Glucose 131 mg/dL (74-99); Potassium 4.7 mmol/L (3.5-5.1); Sodium 141 mmol/L (137-145); Total Bilirubin 0.5 mg/dL (0.2-1.3); Total Protein 7.2 g/dL (6.3-8.2)
[2018-07-17 15:12] LABS: D-Dimer 0.44 mg/L FEU (<0.60); Partial Thromboplastin Time 25.4 sec (22.0-30.0); Prothrombin Time 10.3 sec (9.0-12.0)
[2018-07-17 15:16] LABS: Creatine Kinase 251 U/L (55-170)
--- NOTE | 2018-07-17 15:18 | XR ---
EXAMINATION TYPE: XR chest 2V DATE OF EXAM: 07/17/2018 COMPARISON: Chest x-ray August 16, 2017 HISTORY: Congestion with left-sided pain. TECHNIQUE: Frontal and lateral views of the chest are obtained. FINDINGS: There is chronic parenchymal change without suspicious focal air space opacity, pleural ef fusion, or pneumothorax seen. The cardiac silhouette size remains within normal limits. The osseou s structures are intact. IMPRESSION: Chronic changes without acute pulmonary process.
[2018-07-17] MEDS ORDERED: MORPHINE SULFATE 4 MG/ML SYRINGE IV STA (15:24)
[2018-07-17] MEDS ORDERED: ORPHENADRINE 30 MG/ML 2 ML VIAL IVP STA (15:24)
[2018-07-17 15:30] LABS: Creatine Kinase MB 1.6 ng/mL (0.0-2.4); Troponin I <0.012 ng/mL (0.000-0.034)
[2018-07-17 16:15] VITALS: BP 119/62; PULSE 70
== END 2018-07-17 16:37 | disposition home or self-care (01) ==
LOC: EC 13:35
DX: M54.6 Pain in thoracic spine (principal); J44.9 Chronic obstructive pulmonary disease, unspecified; K21.9 Gastro-esophageal reflux disease without esophagitis; F41.9 Anxiety disorder, unspecified; F32.9 Major depressive disorder, single episode, unspecified; M19.90 Unspecified osteoarthritis, unspecified site; F17.200 Nicotine dependence, unspecified, uncomplicated; Z79.899 Other long term (current) drug therapy; Z98.890 Other specified postprocedural states
CPT/HCPCS: 99284; 96374; 96375; 96376; 96361 ×2; 36415; 94640; 93005; 85379; 80053; 82550; 82553; 84484; 85025; 85610; 85730; 71046; J2270 ×2; J2360

== ENCOUNTER 2019-03-08 09:51 | Observation (INO) | payer MEDICARE, OTHER ==
[2019-03-08] MEDS ORDERED: SODIUM CHLORIDE 0.9% 500 ML 500 ML IV STA (10:34)
--- NOTE | 2019-03-08 10:34 | ED ---
General Adult HPI - General Chief complaint: Shortness of Breath Stated complaint: back pain Time Seen by Provider: 03/08/19 09:55 Source: patient, family, RN notes reviewed Mode of arrival: wheelchair Limitations: no limitations - History of Present Illness Initial comments: This is a 58-year-old male who presents emergency Department with in bed cough ing or when he gets up out of bed in the middle the night to go to the bathroom and he starts coughing. Patient states he coughs so hard the next thing he knows he passes out wakes up on the floor. Patient states he's every time incontinent of urine and occasionally incontinent of stool. Patient states the last time he passed out was couple days ago. Patient decided today with the lower back pain it was time to come in and be evaluated. Patient states after he wakes up on the ground he has no symptoms whatsoever. Patient denies any palpitations at any time patient denies any chest pain. Patient states he is short of breath but is secondary to the significant coughing. Patient denies feeling lightheaded prior to passing out he just passes out. Patient denies any headache patient denies numbness weakness. Patient states she's been having syncopal episodes for the last 4-5 months. Patient states it always occurs at night he wakes up. Patient states she's never had a syncopal episode during the day. Patient states he has no symptoms today. Patient does state he has a smoker. - Related Data Home Medications Medication Instructions Recorded Confirmed Albuterol Inhaler [Ventolin Hfa 2 puff INHALATION RT-QID 04/27/17 03/08/19 Inhaler] Budesonide-Formot 160-4.5 Mcg 1 puff INHALATION RT-DAILY PRN 04/27/17 03/08/19 [Symbicort 160-4.5 Mcg Inhaler] Omeprazole [PriLOSEC] 20 mg PO AC-BID 08/05/17 03/08/19 traZODone HCL 150 mg PO HS 08/05/17 03/08/19 Albuterol Nebulized [Ventolin 2.5 mg INHALATION RT-Q6H PRN 07/17/18 03/08/19 Nebulized] [place] Carbonate 900 mg PO HS 10/23/18 03/08/19 risperiDONE [RisperDAL] 2 mg PO HS 10/23/18 03/08/19 Allergies Allergy/AdvReac Type Severity Reaction Status Date / Time No Known Allergies Allergy Verified 03/08/19 10:09 Review of Systems ROS Statement: Those systems with pertinent positive or pertinent negative responses have been documented in the HPI. ROS Other: All systems not noted in ROS Statement are negative. Past Medical History Past Medical History: Asthma, COPD, GERD/Reflux, Osteoarthritis (OA), Pneumonia Additional Past Medical History / Comment(s): pinched nerve in neck, herniated discs,bronchitis, rt arm "bone spurs" History of Any Multi-Drug Resistant Organisms: None Reported Past Surgical History: Bowel Resection, Joint Replacement Additional Past Surgical History / Comment(s): rt shoulder, 04/29/17 sigmoid resection with colostomy with reversal in 08/[address] Pathak Past Anesthesia/Blood Transfusion Reactions: No Reported Reaction Past Psychological History: Anxiety, Bipolar, Depression, Schizophrenia Smoking Status: Current every day smoker Past Alcohol Use History: Heavy Past Drug Use History: Marijuana - Past Family History Father Family Medical History: Cancer Mother Family Medical History: Cancer General Exam - General Exam Comments Initial Comments: GENERAL: Patient is well-developed and well-nourished. Patient is nontoxic and well- hydrated and is in no acute distress. ENT: Neck is soft and supple. No significant lymphadenopathy is noted. Oropharynx is clear. Moist mucous membranes. Neck has full range of motion without eliciting any pain. EYES: The sclera were anicteric and conjunctiva were pink and moist. Extraocular movements were intact and pupils were equal round and reactive to light. Eyelids were unremarkable. PULMONARY: Unlabored respirations. Good breath sounds bilaterally. No audible rales rhonchi or wheezing was noted. CARDIOVASCULAR: There is a regular rate and rhythm without any murmurs gallops or rubs. ABDOMEN: Soft and nontender with normal bowel sounds. No palpable organomegaly was noted. There is no palpable pulsatile mass. SKIN: Skin is clear with no lesions or rashes and otherwise unremarkable. NEUROLOGIC: Patient is alert and oriented x3. Cranial nerves II through XII are grossly intact. Motor and sensory are also intact. Normal speech, volume and content. Symmetrical smile. MUSCULOSKELETAL: Normal extremities with adequate strength and full range of motion. No lower extremity swelling or edema. No calf tenderness. Patient has some lumbar tenderness paraspinous muscles. LYMPHATICS: No significant lymphadenopathy is noted PSYCHIATRIC: Normal psychiatric evaluation. Limitations: no limitations Course Vital Signs 03/08/19 03/08/19 09:52 12:52 Temperature 97.8 F 98.7 F Pulse Rate 71 76 Respiratory 22 19 Rate Blood Pressure 143/87 124/80 O2 Sat by Pulse 96 98 Oximetry Medical Decision Making - Medical Decision Making EKG shows a normal sinus rhythm at 69 bpm IA interval 288 QRSs 86 QT interval 426 QTC is 456. Patient's EKG shows no ST segment elevation or depression or T wave abnormalities are seen CT of the chest showed no acute abnormality. - Lab Data Result diagrams: 03/08/19 10:52 03/08/19 10:52 Lab Results 03/08/19 03/08/19 03/08/19 Range/Units 10:52 10:52 10:52 WBC 7.2 (3.8-10.6) k/uL RBC 5.29 (4.30-5.90) m/uL Hgb 16.4 (13.0-17.5) gm/dL Hct 48.3 (39.0-53.0) % MCV 91.2 (80.0-100.0) fL MCH 31.0 (25.0-35.0) pg MCHC 34.0 (31.0-37.0) g/dL RDW 13.9 (11.5-15.5) % Plt Count 259 (150-450) k/uL Neutrophils % 68 % Lymphocytes % 21 % Monocytes % 6 % Eosinophils % 3 % Basophils % 1 % Neutrophils # 4.9 (1.3-7.7) k/uL Lymphocytes # 1.5 (1.0-4.8) k/uL Monocytes # 0.5 (0-1.0) k/uL Eosinophils # 0.2 (0-0.7) k/uL Basophils # 0.0 (0-0.2) k/uL PT 10.3 (9.0-12.0) sec INR 1.0 (<1.2) APTT 23.4 (22.0-30.0) sec D-Dimer 0.98 H (<0.60) mg/L FEU Sodium 141 (137-145) mmol/L Potassium 4.6 (3.5-5.1) mmol/L Chloride 106 (98-107) mmol/L Carbon Dioxide 28 (22-30) mmol/L Anion Gap 7 mmol/L BUN 13 (9-20) mg/dL Creatinine 0.93 (0.66-1.25) mg/dL Est GFR (CKD-EPI)AfAm >90 (>60 ml/min/1.73 sqM) Est GFR (CKD-EPI)NonAf >90 (>60 ml/min/1.73 sqM) Glucose 109 H (74-99) mg/dL Calcium 8.9 (8.4-10.2) mg/dL Magnesium 2.2 (1.6-2.3) mg/dL Total Bilirubin 0.3 (0.2-1.3) mg/dL AST 44 (17-59) U/L ALT 51 (21-72) U/L Alkaline Phosphatase 76 (38-126) U/L Troponin I (0.000-0.034) ng/mL NT-Pro-B Natriuret Pep pg/mL Total Protein 6.9 (6.3-8.2) g/dL Albumin 4.0 (3.5-5.0) g/dL 03/08/19 03/08/19 Range/Units 10:52 10:52 WBC (3.8-10.6) k/uL RBC (4.30-5.90) m/uL Hgb (13.0-17.5) gm/dL Hct (39.0-53.0) % MCV (80.0-100.0) fL MCH (25.0-35.0) pg MCHC (31.0-37.0) g/dL RDW (11.5-15.5) % Plt Count (150-450) k/uL Neutrophils % % Lymphocytes % % Monocytes % % Eosinophils % % Basophils % % Neutrophils # (1.3-7.7) k/uL Lymphocytes # (1.0-4.8) k/uL Monocytes # (0-1.0) k/uL Eosinophils # (0-0.7) k/uL Basophils # (0-0.2) k/uL PT (9.0-12.0) sec INR (<1.2) APTT (22.0-30.0) sec D-Dimer (<0.60) mg/L FEU Sodium (137-145) mmol/L Potassium (3.5-5.1) mmol/L Chloride (98-107) mmol/L Carbon Dioxide (22-30) mmol/L Anion Gap mmol/L BUN (9-20) mg/dL Creatinine (0.66-1.25) mg/dL Est GFR (CKD-EPI)AfAm (>60 ml/min/1.73 sqM) Est GFR (CKD-EPI)NonAf (>60 ml/min/1.73 sqM) Glucose (74-99) mg/dL Calcium (8.4-10.2) mg/dL Magnesium (1.6-2.3) mg/dL Total Bilirubin (0.2-1.3) mg/dL AST (17-59) U/L ALT (21-72) U/L Alkaline Phosphatase (38-126) U/L Troponin I <0.012 (0.000-0.034) ng/mL NT-Pro-B Natriuret Pep 46 pg/mL Total Protein (6.3-8.2) g/dL Albumin (3.5-5.0) g/dL Disposition Clinical Impression: Cough syncope, Lower back pain Disposition: ADMITTED IP TO THIS HOSP Referrals: Melina Denson MD [Primary Care Provider] - 1-2 days Time of Disposition: 14:07
[2019-03-08 11:16] LABS: Basophils % (A) 1 %; Eosinophils # (A) 0.2 k/uL (0-0.7); Eosinophils % (A) 3 %; HCT 48.3 % (39.0-53.0); HGB 16.4 gm/dL (13.0-17.5); Lymphocytes # (A) 1.5 k/uL (1.0-4.8); Lymphocytes % (A) 21 %; MCV 91.2 fL (80.0-100.0); Mean Platelet Volume 6.9; Monocytes # (A) 0.5 k/uL (0-1.0); Monocytes % (A) 6 %; Neutrophils # (A) 4.9 k/uL (1.3-7.7); Neutrophils % (A) 68 %; Platelet Count 259 k/uL (150-450); RBC 5.29 m/uL (4.30-5.90); RDW 13.9 % (11.5-15.5); WBC 7.2 k/uL (3.8-10.6)
[2019-03-08 11:28] LABS: ALT 51 U/L (21-72); AST 44 U/L (17-59); African American GFR (CKD) >90 (>60 ml/min/1.73 sqM); Alkaline Phosphatase 76 U/L (38-126); Anion Gap 7 mmol/L; Blood Urea Nitrogen 13 mg/dL (9-20); Calcium 8.9 mg/dL (8.4-10.2); Carbon Dioxide 28 mmol/L (22-30); Chloride 106 mmol/L (98-107); Glucose 109 mg/dL (74-99); Magnesium 2.2 mg/dL (1.6-2.3); Non-African American GFR(CKD) >90 (>60 ml/min/1.73 sqM); Potassium 4.6 mmol/L (3.5-5.1); Sodium 141 mmol/L (137-145); Total Bilirubin 0.3 mg/dL (0.2-1.3); Total Protein 6.9 g/dL (6.3-8.2)
--- NOTE | 2019-03-08 11:30 | XR ---
EXAMINATION TYPE: XR lumbosacral spine min 4V DATE OF EXAM: 03/08/2019 CLINICAL HISTORY: Low back pain today with no stated injury. TECHNIQUE: Frontal, lateral, and oblique images of the lumbar spine are obtained. COMPARISON: Lumbar spine MRI dated 10/21/2017 FINDINGS: There are 5 lumbar type vertebral bodies identified. The lumbar spine shows satisfactory vertebral body heights without acute fracture. Multilevel vertebral body disc space narrowing is seen with endplate sclerosis suggestive of L4-L5 and L5-S1. Very minimal retrolisthesis of L4 on L5 and L 5 on S1. Multilevel anterior osteophytes and facet arthropathy. The oblique images appear within no rmal limits. The overlying soft tissue appears unremarkable. IMPRESSION: No acute fracture in the lumbar spine. Minimal retrolisthesis of L4 on L5 and L5 on S1, likely on a degenerative basis. [id number] multilevel degenerative disc disease of the lumbar s pine. The known herniation known at L1-L2 seen on the prior MRI cannot be seen on x-ray.
[2019-03-08 11:37] LABS: Partial Thromboplastin Time 23.4 sec (22.0-30.0); Prothrombin Time 10.3 sec (9.0-12.0)
--- NOTE | 2019-03-08 11:43 | XR ---
EXAMINATION TYPE: XR chest 2V DATE OF EXAM: 03/08/2019 COMPARISON: Prior chest x-ray 10/23/2018 HISTORY: Difficulty breathing and shortness of breath TECHNIQUE: Frontal and lateral views of the chest are obtained. FINDINGS: There is no focal air space opacity, pleural effusion, or pneumothorax seen. The cardiac silhouette size is within normal limits. The osseous structures are remarkable for postop change to the distal right clavicle, anchor suture present within the right humerus head. There are overlying cardiac leads. IMPRESSION: No acute cardiopulmonary process. Postop changes.
[2019-03-08 11:49] LABS: D-Dimer 0.98 mg/L FEU (<0.60)
--- NOTE | 2019-03-08 13:20 | CT ---
EXAMINATION TYPE: CT chest angio for PE DATE OF EXAM: 03/08/2019 COMPARISON: Chest x-ray same date HISTORY: Low back pain CT DLP: 455.3 mGycm Automated exposure control for dose reduction was used. CONTRAST: CT Chest for pulmonary embolism performed with with IV Contrast, patient injected with 100 mL of Isov ue 370. FINDINGS: LUNGS: The lungs are grossly clear, there is no concerning parenchymal mass or nodule identified. Di ffuse paraseptal emphysematous changes are present especially at the lung apices. Calcified nodule ad jacent to the aorta on axial image 71 measures 12 mm in size, calcified granuloma right upper lobe ax ial image 29 posteriorly, left upper lobe axial image 42 posteriorly right upper lobe axial image 40 posteriorly. There is no pleural effusion or pneumothorax seen. The tracheobronchial tree is patent. MEDIASTINUM: There is satisfactory enhancement of the pulmonary artery and its branches, there is no CT evidence for pulmonary embolism. There are no greater than 1 cm hilar or mediastinal lymph nodes. There are calcified mediastinal and left hilar nodes. No pericardial effusion is seen. AORTA: No additional significant abnormality is seen. OTHER: Liver shows low attenuation likely due to hepatic steatosis. IMPRESSION: No pulmonary embolism. Old granulomatous disease. Emphysema. Hepatic steatosis.
[2019-03-08] MEDS ORDERED: SODIUM CHLORIDE 0.9% 1,000 ML IV ONE (14:07)
[2019-03-08] MEDS ORDERED: SYMBICORT 160-4.5 MCG INHALER INHALATION PRN (18:14)
[2019-03-08] MEDS ORDERED: ALBUTEROL NEBULIZED 2.5 MG/3 ML INHALATION PRN (18:14)
[2019-03-08] MEDS ORDERED: ALPRAZolam 0.25 MG TAB PO PRN (18:15)
[2019-03-08] MEDS ORDERED: HYDROcodone/APAP 5-325MG 1 EACH TAB PO PRN (18:15)
[2019-03-08] MEDS ORDERED: TEMAZEPAM 15 MG CAP PO PRN (18:15)
[2019-03-08] MEDS: ALBUTEROL NEBULIZED 2.5 MG/3 ML INHALATION SCH (19:40)
[2019-03-08] MEDS: HEPARIN SODIUM,PORCINE 5,000 UNIT/ML 1 ML VIAL SQ SCH (20:21)
[2019-03-08] MEDS ORDERED: risperiDONE 2 MG TAB PO SCH (21:00)
[2019-03-08] MEDS ORDERED: LITHIUM CARBONATE 300 MG CAP PO SCH (21:00)
[2019-03-08] MEDS ORDERED: traZODone HCL 50 MG TAB PO SCH (21:00)
--- NOTE | 2019-03-08 23:38 | HP ---
HISTORY AND PHYSICAL CHIEF COMPLAINTS: Syncope history. HISTORY OF PRESENT ILLNESS: This 58-year-old gentleman with a past medical history of multiple medical problems including history of recent pneumonia, history of asthma, COPD, GERD, DJD being followed by Dr. Denson in the outpatient setting, was complaining of multiple episodes of syncope. Mostly the syncope occurs when the patient coughs so 10-12 times continuously, especially on waking at night and patient apparently fell down and month. After the pneumonia, the patient continues to smoke at least a pack of cigarettes per day. There is no history of fever, rigors or chills. No history of headache, loss of consciousness or seizures. PAST MEDICAL HISTORY: History of asthma, COPD, GERD, DJD, pneumonia, history of bowel resection, anxiety, bipolar depression, schizophrenia. MEDICATIONS: 1. Trazodone 50 mg q.h.s. 2. Risperdal 2 mg q.h.s. 3. Prilosec 20 mg a.c. b.i.d. 4. [place] 900 mg q.h.s. 5. Symbicort 160/4.5 two puffs b.i.d. 6. Ventolin 2.5 q.6h p.r.n. 7. Ventolin inhaler 2 puffs q.i.d. ALLERGIES: None. FAMILY HISTORY: History of cancer in the family. SOCIAL HISTORY: History of alcohol, THC, history of nicotine dependence. REVIEW OF SYSTEMS: ENT: No diminished vision. No diminished hearing. CARDIOVASCULAR as mentioned earlier. RESPIRATION as mentioned earlier. GI no nausea and vomiting. no dysuria. CENTRAL NERVOUS SYSTEM: No numbness or weakness. ALLERGY/IMMUNOLOGY: As mentioned earlier. HEMATOLOGY/ONCOLOGY: No history of anemia. ENDOCRINE: No history of diabetes hypertension conscious mentioned earlier. DERMATOLOGY: Negative. RHEUMATOLOGY negative. PSYCHIATRY as mentioned earlier. PHYSICAL EXAMINATION: Alert and oriented times three. Pulse is 66. Blood pressure 149/81, respirations 16, temperature 97.2, pulse ox 98% on room air. HEENT: Conjunctivae normal. Oral mucosa moist. NECK is no jugular venous distention. No carotid bruit. No lymph node enlargement. CARDIOVASCULAR: S1, S2 muffled. No S3, no S4. RESPIRATORY: Breath sounds diminished in the bases. Bilateral scattered rhonchi and crackles. Expiratory wheezing also present. Few crackles also heard. ABDOMEN: Soft, nontender. No mass palpable. LEGS: No edema. No swelling. NERVOUS SYSTEM: Higher functions as mentioned earlier. Moves all 4 limbs. No focal motor or sensory deficits. LYMPHATICS: No lymph nodes palpable in the neck, axillae or groin. cancer joints no active arthropathy skin no ulcer rash. LAB STUDIES: And CBC within normal size. INR is and PT is 10.3 sodium 141, potassium 4.6. Glucose 109. ASSESSMENT: 1. Syncope, possibly related to cough/syncope. 2. COPD asthma. 3. History of pneumonia. 4. History of gastroesophageal reflux disease. 5. Continued ongoing nicotine dependence. 6. History of degenerative joint disease. 7. History of bowel resection. 8. History of joint replacement. 9. Anxiety bipolar depression schizophrenia. RECOMMENDATIONS AND DISCUSSION: 1. This 58-year-old gentleman who presented with multiple complex medical issues, we will monitor the patient closely continue the current management and will continue the telemetry. We will order a 2D echo with Doppler to complete the workup. Otherwise pulmonary evaluation the patient was seen by seen by Dr. Miller in the outpatient setting and we will continue to monitor. Further recommendations to follow. Possibility of cough/syncope is considered at this time. We will continue to monitor. Prognosis guarded. Further recommendations were copied for Dr. Denson who is the primary. MMODL / IJN: [id number] / MTDD
[2019-03-09 07:15] LABS: Basophils % (A) 1 %; Eosinophils # (A) 0.3 k/uL (0-0.7); Eosinophils % (A) 4 %; HCT 43.7 % (39.0-53.0); HGB 14.8 gm/dL (13.0-17.5); Lymphocytes # (A) 1.7 k/uL (1.0-4.8); Lymphocytes % (A) 24 %; MCH 31.1 pg (25.0-35.0); MCHC 33.8 g/dL (31.0-37.0); MCV 91.9 fL (80.0-100.0); Mean Platelet Volume 7.3; Monocytes # (A) 0.5 k/uL (0-1.0); Monocytes % (A) 7 %; Neutrophils # (A) 4.4 k/uL (1.3-7.7); Neutrophils % (A) 62 %; Platelet Count 211 k/uL (150-450); RBC 4.76 m/uL (4.30-5.90); RDW 13.9 % (11.5-15.5); WBC 7.1 k/uL (3.8-10.6)
[2019-03-09] MEDS: ALBUTEROL NEBULIZED 2.5 MG/3 ML INHALATION SCH ×2 (07:17→11:45)
[2019-03-09 07:24] LABS: African American GFR (CKD) >90 (>60 ml/min/1.73 sqM); Anion Gap 5 mmol/L; Blood Urea Nitrogen 13 mg/dL (9-20); Calcium 8.9 mg/dL (8.4-10.2); Carbon Dioxide 27 mmol/L (22-30); Chloride 108 mmol/L (98-107); Glucose 102 mg/dL (74-99); Non-African American GFR(CKD) 88 (>60 ml/min/1.73 sqM); Potassium 4.3 mmol/L (3.5-5.1); Sodium 140 mmol/L (137-145)
[2019-03-09] MEDS ORDERED: PANTOPRAZOLE 40 MG TABLET PO SCH (07:30)
[2019-03-09 12:46] VITALS: RESP 18
[2019-03-09] MEDS: HEPARIN SODIUM,PORCINE 5,000 UNIT/ML 1 ML VIAL SQ SCH (12:59)
--- NOTE | 2019-03-09 13:24 | ECHOF ---
Referral Reason:syncope MEASUREMENTS -------- HEIGHT: 172.7 cm WEIGHT: 117.9 kg BP: IVSd: 1.0 cm (0.6 - 1.1) LVIDd: 4.9 cm (3.9 - 5.3) LVPWd: 1.2 cm (0.6 - 1.1) IVSs: 1.3 cm LVIDs: 3.7 cm LVPWs: 1.6 cm LA Diam: 4.3 cm (2.7 - 3.8) LAESV Index (A-L): 25.94 ml/m Ao Diam: 3.1 cm (2.0 - 3.7) LA Diam: 3.9 cm (2.7 - 3.8) AV Cusp: 2.3 cm (1.5 - 2.6) EPSS: 1.1 cm MV E Natan: 0.76 m/s MV DecT: 167 ms MV A Natan: 0.70 m/s MV E/A Ratio: 1.08 RAP: 5.00 mmHg RVSP: 10.17 mmHg MV EF SLOPE: 68.39 mm/s (70 - 150) MV EXCURSION: 11.80 mm (> 18.000) FINDINGS -------- Sinus rhythm. This was a techncally difficult study with suboptimal views, , [place] utilized for enhancement of im ages. LV size, wall thickness and systolic function are normal, with an EF greater than 55%. The right ventricle is normal in size and function. The left atrium is mildly dilated. Normal LA size by volume 22+/-6 ml/m2. The right atrial size is normal. 5.0mg OF [place] UTLIZED: 2 OR MORE WALL SEGMENTS NOT VISUALIZED. The aortic valve is trileaflet, and appears structurally normal. No aortic stenosis or regurgitation. Mild mitral regurgitation is present. Mild tricuspid regurgitation present. There is no evidence of pulmonary hypertension. The right v entricular systolic pressure, as measured by Doppler, is 10.17mmHg. The pulmonic valve was not well visualized. The aortic root size is normal. There is no pericardial effusion. CONCLUSIONS -------- 1. Sinus rhythm. 2. This was a techncally difficult study with suboptimal views, , Lumason utilized for enhancement of images. 3. LV size, wall thickness and systolic function are normal, with an EF greater than 55%. 4. The right ventricle is normal in size and function. 5. The left atrium is mildly dilated. 6. Normal LA size by volume 22+/-6 ml/m2. 7. The right atrial size is normal. 8. 5.0mg OF [place] UTLIZED: 2 OR MORE WALL SEGMENTS NOT VISUALIZED. 9. The aortic valve is trileaflet, and appears structurally normal. No aortic stenosis or regurgitati on. 10. Mild mitral regurgitation is present. 11. Mild tricuspid regurgitation present. 12. There is no evidence of pulmonary hypertension. 13. The right ventricular systolic pressure, as measured by Doppler, is 10.17mmHg. 14. The pulmonic valve was not well visualized. 15. The aortic root size is normal. 16. There is no pericardial effusion. PIPE LINE GAUGER: Kathya Goldstein RDCS
[2019-03-09 16:37] VITALS: BP 145/80; PULSE 70; TEMP 97.3
--- NOTE | 2019-03-10 00:48 | DS ---
DISCHARGE SUMMARY DATE OF SERVICE: 03/09/2019. FINAL DIAGNOSES: 1. Syncope, possibly cough syncope. 2. Chronic obstructive pulmonary disease/asthma history. 3. History of pneumonia. 4. History of gastroesophageal reflux disease. 5. Continued ongoing nicotine dependence. 6. History of degenerative joint disease. 7. History of bowel resection. 8. History of joint replacement. 9. Anxiety/bipolar depression/schizophrenia. DISCHARGE DISPOSITION: The patient discharged in stable condition with guarded prognosis. HISTORY OF PRESENT ILLNESS: This 58-year-old gentleman with a past medical history of multiple medical problems, had syncope. After repeated coughing the patient has history of COPD, asthma, treated symptomatically. Neurology was consulted. The patient being followed by Dr. Denson in the outpatient setting. The patient improved significantly. The patient was discharged in stable condition. Guarded prognosis. CTA of the chest was also done which showed no pulmonary embolism. Old granulomatous disease was noted. PHYSICAL EXAMINATION: On exam, vitals are stable. Cardiovascular: S1, S2. RESPIRATION: Breath sounds diminished in the bases. A few scattered rhonchi and crackles. ABDOMEN is soft. NERVOUS SYSTEM: No focal deficits. DISCHARGE ADVICE AND MEDICATIONS: 1. Patient is recommended to stop smoking also. 2. Follow up with Dr. Denson in 1-2 days. 3. Follow with Neurology as recommended. 4. Outpatient evaluation per Neurology. 5. [place] carbonate 900 mg p.o. q.h.s. 6. Prilosec 20 mg a.c. b.i.d. 7. Risperdal 2 mg p.o. q.h.s. 8. Symbicort 160/4.5 one puff daily p.r.n. 9. Trazodone 50 mg q.h.s. 10.Ventolin 2 puffs q.i.d. 11.Ventolin 2.5 q.6h p.r.n. 12.Habitrol 14 daily. The patient will be discharged in stable condition with guarded prognosis. MMODL / IJN: [id number] /
== END 2019-03-09 16:56 | disposition home or self-care (01) ==
LOC: EC 09:51 → 1SOBS 14:08
PROVIDERS: ADMIT Hospitalist; ATTEND Hospitalist
DX: R55 Syncope and collapse (principal); J43.9 Emphysema, unspecified; K21.9 Gastro-esophageal reflux disease without esophagitis; M19.90 Unspecified osteoarthritis, unspecified site; M51.36 Other intervertebral disc degeneration, lumbar region; M51.26 Other intervertebral disc displacement, lumbar region; F17.210 Nicotine dependence, cigarettes, uncomplicated; F41.9 Anxiety disorder, unspecified; F20.9 Schizophrenia, unspecified; F31.30 Bipolar disorder, current episode depressed, mild or moderate severity, unspecified; G58.9 Mononeuropathy, unspecified; R32 Unspecified urinary incontinence; R15.9 Full incontinence of feces; Z79.51 Long term (current) use of inhaled steroids; Z79.899 Other long term (current) drug therapy; Z87.01 Personal history of pneumonia (recurrent); Z90.49 Acquired absence of other specified parts of digestive tract; Z96.611 Presence of right artificial shoulder joint; Z80.9 Family history of malignant neoplasm, unspecified
CPT/HCPCS: 96372 ×2; 96360; 99285; 36415; 94640 ×3; 93005; 85379; 83880; 80053; 80048; 83735; 84484; 85025 ×2; 85610; 85730; 72110; 71046; 71275; G0378 ×2; C8929; J1644 ×2; Q9950; Q9967; 93306

== ENCOUNTER 2019-04-20 08:18 | Emergency (ER) | payer MEDICARE, OTHER ==
[2019-04-20 08:22] VITALS: TEMP 97.9
[2019-04-20] MEDS ORDERED: MORPHINE SULFATE 4 MG/ML SYRINGE IV STA (08:58)
[2019-04-20] MEDS ORDERED: ONDANSETRON ODT 4 MG TAB PO STA (08:58)
[2019-04-20] MEDS ORDERED: SODIUM CHLORIDE 0.9% 1,000 ML IV STA ×2 (08:58)
[2019-04-20] MEDS ORDERED: IPRATROPIUM-ALBUTEROL 3 ML NEB INHALATION STA (08:59)
[2019-04-20] MEDS ORDERED: methylPREDNISolone SOD SUCCI 125 MG/2 ML VIAL IV STA (09:00)
[2019-04-20] MEDS ORDERED: PANTOPRAZOLE 40 MG/10 ML VIAL IVP STA (09:00)
--- NOTE | 2019-04-20 09:05 | ED ---
General Adult HPI - General Chief complaint: Back Pain/Injury Stated complaint: back pain Time Seen by Provider: 04/20/19 08:43 Source: patient, RN notes reviewed, old records reviewed Mode of arrival: ambulatory Limitations: no limitations - History of Present Illness Initial comments: Patient is a 38-year-old male presents emergency room today with chief of lower thoracic back pain. Patient reports that he started to have this pain this morning. He also had symptoms of emesis, that was bloody. Patient reports she's had history of bowel resection from diverticulitis. Patient has a have a history history of all use and is a smoker marijuana. Patient is a daily smoker. Patient reports that he has had no recent fevers or chills. Denies any changes in urination or bowel habits. - Related Data Home Medications Medication Instructions Recorded Confirmed Albuterol Inhaler [Ventolin Hfa 2 puff INHALATION RT-QID 04/27/17 04/20/19 Inhaler] Budesonide-Formot 160-4.5 Mcg 1 puff INHALATION RT-DAILY PRN 04/27/17 04/20/19 [Symbicort 160-4.5 Mcg Inhaler] Omeprazole [PriLOSEC] 20 mg PO AC-BID 08/05/17 04/20/19 traZODone HCL 150 mg PO HS 08/05/17 04/20/19 Albuterol Nebulized [Ventolin 2.5 mg INHALATION RT-Q6H PRN 07/17/18 04/20/19 Nebulized] [place] Carbonate 900 mg PO HS 10/23/18 04/20/19 risperiDONE [RisperDAL] 2 mg PO HS 10/23/18 04/20/19 Previous Rx's Medication Instructions Recorded Acetaminophen with Codeine 1 tab PO Q6H PRN 3 Days #12 tab 04/20/19 [Tylenol w/codeine #3] Cyclobenzaprine [Flexeril] 10 mg PO TID #15 tab 04/20/19 Lidocaine 5% Patch [Lidoderm] 1 patch TOPICAL DAILY #30 patch 04/20/19 Pantoprazole [Protonix] 40 mg PO DAILY #30 tablet. 04/20/19 Allergies Allergy/AdvReac Type Severity Reaction Status Date / Time No Known Allergies Allergy Verified 04/20/19 08:29 Review of Systems ROS Statement: Those systems with pertinent positive or pertinent negative responses have been documented in the HPI. ROS Other: All systems not noted in ROS Statement are negative. Past Medical History Past Medical History: Asthma, COPD, GERD/Reflux, Osteoarthritis (OA), Pneumonia Additional Past Medical History / Comment(s): pinched nerve in neck, herniated discs,bronchitis, rt arm "bone spurs" History of Any Multi-Drug Resistant Organisms: None Reported Past Surgical History: Bowel Resection, Joint Replacement Additional Past Surgical History / Comment(s): rt shoulder, 04/29/17 sigmoid resection with colostomy with reversal in 08/[address] Pathak Past Anesthesia/Blood Transfusion Reactions: No Reported Reaction Past Psychological History: Anxiety, Bipolar, Depression, Schizophrenia Smoking Status: Current every day smoker Past Alcohol Use History: Heavy Past Drug Use History: Marijuana - Past Family History Father Family Medical History: Cancer Mother Family Medical History: Cancer General Exam - General Exam Comments Initial Comments: 58-year-old male. Alert and oriented 3. Limitations: no limitations General appearance: alert, in no apparent distress Head exam: Present: atraumatic Eye exam: Present: normal appearance, PERRL, EOMI. Absent: scleral icterus, conjunctival injection, periorbital swelling ENT exam: Present: normal exam, mucous membranes moist Neck exam: Present: normal inspection. Absent: tenderness, meningismus, lymphadenopathy Respiratory exam: Present: wheezes. Absent: normal lung sounds bilaterally, respiratory distress, rales, rhonchi, stridor Cardiovascular Exam: Present: regular rate, normal rhythm, normal heart sounds. Absent: systolic murmur, diastolic murmur, rubs, gallop, clicks GI/Abdominal exam: Present: soft, normal bowel sounds. Absent: distended, tenderness, guarding, rebound, rigid Extremities exam: Present: normal inspection, full ROM, normal capillary refill. Absent: tenderness, pedal edema, joint swelling, calf tenderness Back exam: Present: normal inspection, tenderness (Has tenderness over the thoracic and lumbar spine.) Neurological exam: Present: alert, oriented X3, CN II-XII intact Psychiatric exam: Present: normal affect Skin exam: Present: warm, dry, intact, normal color. Absent: rash Course Vital Signs 04/20/19 04/20/19 04/20/19 08:19 09:30 09:37 Temperature 97.9 F Pulse Rate 101 H 70 76 Respiratory 18 Rate Blood Pressure 164/80 O2 Sat by Pulse 96 Oximetry Medical Decision Making - Lab Data Result diagrams: 04/20/19 09:18 04/20/19 09:18 Lab Results 04/20/19 04/20/19 04/20/19 Range/Units 09:18 09:18 09:18 WBC 6.4 (3.8-10.6) k/uL RBC 5.24 (4.30-5.90) m/uL Hgb 16.0 (13.0-17.5) gm/dL Hct 47.0 (39.0-53.0) % MCV 89.8 (80.0-100.0) fL MCH 30.6 (25.0-35.0) pg MCHC 34.1 (31.0-37.0) g/dL RDW 13.9 (11.5-15.5) % Plt Count 259 (150-450) k/uL Neutrophils % 61 % Lymphocytes % 24 % Monocytes % 7 % Eosinophils % 3 % Basophils % 1 % Neutrophils # 4.0 (1.3-7.7) k/uL Lymphocytes # 1.6 (1.0-4.8) k/uL Monocytes # 0.5 (0-1.0) k/uL Eosinophils # 0.2 (0-0.7) k/uL Basophils # 0.1 (0-0.2) k/uL PT 10.3 (9.0-12.0) sec INR 1.0 (<1.2) APTT 25.8 (22.0-30.0) sec Sodium 139 (137-145) mmol/L Potassium 4.6 (3.5-5.1) mmol/L Chloride 104 (98-107) mmol/L Carbon Dioxide 25 (22-30) mmol/L Anion Gap 10 mmol/L BUN 15 (9-20) mg/dL Creatinine 0.85 (0.66-1.25) mg/dL Est GFR (CKD-EPI)AfAm >90 (>60 ml/min/1.73 sqM) Est GFR (CKD-EPI)NonAf >90 (>60 ml/min/1.73 sqM) Glucose 110 H (74-99) mg/dL Calcium 9.4 (8.4-10.2) mg/dL Total Bilirubin 0.3 (0.2-1.3) mg/dL AST 47 (17-59) U/L ALT 64 (21-72) U/L Alkaline Phosphatase 73 (38-126) U/L Troponin I (0.000-0.034) ng/mL Total Protein 7.3 (6.3-8.2) g/dL Albumin 4.2 (3.5-5.0) g/dL Lipase (23-300) U/L Urine Color Urine Appearance (Clear) Urine pH (5.0-8.0) Ur Specific [place] (1.001-1.035) Urine Protein (Negative) Urine Glucose (UA) (Negative) Urine Ketones (Negative) Urine Blood (Negative) Urine Nitrite (Negative) Urine Bilirubin (Negative) Urine Urobilinogen (<2.0) mg/dL Ur Leukocyte Esterase (Negative) 04/20/19 04/20/19 04/20/19 Range/Units 09:18 09:18 09:18 WBC (3.8-10.6) k/uL RBC (4.30-5.90) m/uL Hgb (13.0-17.5) gm/dL Hct (39.0-53.0) % MCV (80.0-100.0) fL MCH (25.0-35.0) pg MCHC (31.0-37.0) g/dL RDW (11.5-15.5) % Plt Count (150-450) k/uL Neutrophils % % Lymphocytes % % Monocytes % % Eosinophils % % Basophils % % Neutrophils # (1.3-7.7) k/uL Lymphocytes # (1.0-4.8) k/uL Monocytes # (0-1.0) k/uL Eosinophils # (0-0.7) k/uL Basophils # (0-0.2) k/uL PT (9.0-12.0) sec INR (<1.2) APTT (22.0-30.0) sec Sodium (137-145) mmol/L Potassium (3.5-5.1) mmol/L Chloride (98-107) mmol/L Carbon Dioxide (22-30) mmol/L Anion Gap mmol/L BUN (9-20) mg/dL Creatinine (0.66-1.25) mg/dL Est GFR (CKD-EPI)AfAm (>60 ml/min/1.73 sqM) Est GFR (CKD-EPI)NonAf (>60 ml/min/1.73 sqM) Glucose (74-99) mg/dL Calcium (8.4-10.2) mg/dL Total Bilirubin (0.2-1.3) mg/dL AST (17-59) U/L ALT (21-72) U/L Alkaline Phosphatase (38-126) U/L Troponin I <0.012 (0.000-0.034) ng/mL Total Protein (6.3-8.2) g/dL Albumin (3.5-5.0) g/dL Lipase 100 (23-300) U/L Urine Color Yellow Urine Appearance Clear (Clear) Urine pH 7.0 (5.0-8.0) Ur Specific [place] 1.019 (1.001-1.035) Urine Protein Negative (Negative) Urine Glucose (UA) Negative (Negative) Urine Ketones Negative (Negative) Urine Blood Negative (Negative) Urine Nitrite Negative (Negative) Urine Bilirubin Negative (Negative) Urine Urobilinogen <2.0 (<2.0) mg/dL Ur Leukocyte Esterase Negative (Negative) Disposition Clinical Impression: Lower back pain, DDD (degenerative disc disease), lumbar, Abdominal wall hernia, Hematemesis Disposition: HOME SELF-CARE Condition: Good Instructions (If sedation given, give patient instructions): Acute Low Back Pain (ED) Additional Instructions: Please use medication as discussed. Please follow up with family doctor if symptoms have not improved over the next two days. Please return to the emergency room if your symptoms increase or worsen or for any other concerns. Prescriptions: Cyclobenzaprine [Flexeril] 10 mg PO TID #15 tab Lidocaine 5% Patch [Lidoderm] 1 patch TOPICAL DAILY #30 patch Pantoprazole [Protonix] 40 mg PO DAILY #30 tablet.dr Acetaminophen with Codeine [Tylenol w/codeine #3] 1 tab PO Q6H PRN 3 Days #12 tab PRN Reason: Pain Is patient prescribed a controlled substance at d/c from ED?: Yes Referrals: Melina Denson MD [Primary Care Provider] - 1-2 days Ashley Pickering MD [STAFF PHYSICIAN] - 1-2 days Silvio Portillo DO [Doctor of Osteopathic Medicine] - 1-2 days Luis Miguel Robb MD [Medical Doctor] - 1-2 days Time of Disposition: 11:55
[2019-04-20 09:34] LABS: Basophils # (A) 0.1 k/uL (0-0.2); Basophils % (A) 1 %; Eosinophils # (A) 0.2 k/uL (0-0.7); Eosinophils % (A) 3 %; Lymphocytes # (A) 1.6 k/uL (1.0-4.8); Lymphocytes % (A) 24 %; MCH 30.6 pg (25.0-35.0); MCHC 34.1 g/dL (31.0-37.0); MCV 89.8 fL (80.0-100.0); Mean Platelet Volume 6.7; Monocytes # (A) 0.5 k/uL (0-1.0); Monocytes % (A) 7 %; Neutrophils % (A) 61 %; Platelet Count 259 k/uL (150-450); RBC 5.24 m/uL (4.30-5.90); RDW 13.9 % (11.5-15.5); WBC 6.4 k/uL (3.8-10.6)
[2019-04-20 09:45] LABS: Partial Thromboplastin Time 25.8 sec (22.0-30.0); Prothrombin Time 10.3 sec (9.0-12.0)
[2019-04-20 09:48] LABS: ALT 64 U/L (21-72); AST 47 U/L (17-59); African American GFR (CKD) >90 (>60 ml/min/1.73 sqM); Albumin 4.2 g/dL (3.5-5.0); Alkaline Phosphatase 73 U/L (38-126); Anion Gap 10 mmol/L; Blood Urea Nitrogen 15 mg/dL (9-20); Calcium 9.4 mg/dL (8.4-10.2); Carbon Dioxide 25 mmol/L (22-30); Chloride 104 mmol/L (98-107); Glucose 110 mg/dL (74-99); Potassium 4.6 mmol/L (3.5-5.1); Sodium 139 mmol/L (137-145); Total Bilirubin 0.3 mg/dL (0.2-1.3); Total Protein 7.3 g/dL (6.3-8.2)
--- NOTE | 2019-04-20 10:10 | XR ---
EXAMINATION TYPE: XR chest 2V DATE OF EXAM: 04/20/2019 COMPARISON: March 08, 2019 HISTORY: Shortness of breath TECHNIQUE: Frontal and lateral views of the chest are obtained. FINDINGS: Scattered senescent parenchymal changes noted. Hyperinflation compatible with COPD. No evidence for infiltrate. No evidence for atelectasis. Heart size is stable. Mediastinal structures are stable and grossly unremarkable. No evidence for hilar prominence. Degenerative changes dorsal spine. IMPRESSION: 1. No evidence for acute pulmonary disease.
[2019-04-20 10:34] LABS: Appearance,Urine Clear (Clear); Bilirubin,Urine Negative (Negative); Blood,Urine Negative (Negative); Color,Urine Yellow; Glucose,Urine (UA) Negative (Negative); Ketones,Urine Negative (Negative); Leukocyte Esterase,Urine Negative (Negative); Nitrite,Urine Negative (Negative); Protein,Urine Negative (Negative); Specific Gravity,Urine 1.019 (1.001-1.035); Urobilinogen,Urine <2.0 mg/dL (<2.0)
--- NOTE | 2019-04-20 11:17 | CT ---
EXAMINATION TYPE: CT abdomen pelvis w con DATE OF EXAM: 04/20/2019 COMPARISON: 04/29/2017 HISTORY: 58-year-old male Generalized pelvic/low back pain, nausea, vomiting TECHNIQUE: Contiguous axial scanning of the abdomen and pelvis following administration of 100 ml Omn ipaque 300 IV contrast. Delayed images through the kidneys and coronal/sagittal reconstructions perf ormed. CT DLP: 1720.1 mGycm Automated exposure control for dose reduction was used. FINDINGS: Heart normal size without pericardial effusion. Lung bases clear without pleural effusion. Liver enlarged measuring 19.3 cm with marked low attenuation. Some fatty sparing along the gallbladde r fossa. There is no biliary ductal dilatation. Portal venous system is patent. Gallbladder, adrenal glands, right kidney, spleen, and pancreas appear within normal limits. Tiny cortical subcentimeter hypodensity lateral lower pole left kidney too small for accurate CT ever acterization, likely a cyst. Prominent but nonenlarged 1 cm portacaval lymph node is unchanged. No dilated small bowel, free fluid, or free air. Normal appendix. Scattered mild stool. Staple line rectosigmoid junction from prior resection and sheila nastomosis. Sigmoid diverticulosis without pericolonic inflammatory change. Interval laparotomy is compared to 04/29/2017. Numerous. Fat-containing incisional hernias are present along the ventral midline spanning from the epigastrium to the umbilicus, 14.9 cm craniocaudal with fatty hernias measuring up to 4.1 cm wide. Multiple small abdominal wall defects are demonstrated. So me of the hernias have associated mild fat stranding, for example, refer to axial image 50 and 51. A larger fat-containing left-sided ventral abdominal wall hernia measures 6.2 x 4.2 cm with the abdom inal wall defect measuring 1.7 cm wide just below level of the umbilicus. Bladder partially distended. No abnormal fluid collection in the pelvis or pelvic lymphadenopathy. Bones: Facet arthropathy lower lumbar spine. Advanced degenerative disc disease L5-S1. Changes result in mod erate bilateral neural foraminal stenosis at L5-S1. There is focal posterior disc extrusion at L1-L2 causing at least mild spinal canal stenosis and mode rate left neural foraminal stenosis. Bulging disc at L4-L5 and contributes to moderate left neuroforaminal stenosis. IMPRESSION: 1. HEPATOMEGALY (19.3 CM) WITH MARKED HEPATIC STEATOSIS. CORRELATE WITH LFT's, LIPID PROFILE, AND PAT IENT RISK FACTORS. 2. SIGMOID DIVERTICULOSIS WITHOUT EVIDENCE FOR ACUTE DIVERTICULITIS. PRIOR RESECTION AND REANASTOMOSI S AT THE RECTOSIGMOID JUNCTION. 3. NUMEROUS FAT-CONTAINING INCISIONAL HERNIAS ALONG THE VENTRAL MIDLINE SPANNING 14.9 CM CRANIOCAUDAL FROM THE EPIGASTRIC LEVEL DOWN TO THE UMBILICUS. HERNIAS MEASURING UP TO 4.1 CM WIDE AND THERE ARE N UMEROUS SMALL ABDOMINAL WALL DEFECTS. A COUPLE OF THE HERNIAS HAVE ASSOCIATED MILD FAT STRANDING THAT COULD REPRESENT INFLAMMATION. 4. LARGER LEFT-SIDED VENTRAL ABDOMINAL WALL HERNIA ALSO CONTAINS FAT MEASURING 6.2 X 4.2 CM THROUGH A BDOMINAL WALL DEFECT MEASURING 1.7 CM WIDE. 5. BROAD-BASED POSTERIOR DISC PROTRUSION AT L1-L2 CAUSES AT LEAST MILD SPINAL CANAL STENOSIS AND A MO DERATE LEFT NEUROFORAMINAL STENOSIS. 6. ADVANCED DEGENERATIVE DISC DISEASE L5-S1. AT LEAST MODERATE BILATERAL NEURAL FORAMINAL STENOSIS AT THIS LEVEL.
[2019-04-20 12:22] VITALS: BP 113/78; PULSE 88; RESP 16
== END 2019-04-20 12:15 | disposition home or self-care (01) ==
LOC: EC 08:18
DX: M51.37 Other intervertebral disc degeneration, lumbosacral region (principal); K43.9 Ventral hernia without obstruction or gangrene; K92.0 Hematemesis; J44.9 Chronic obstructive pulmonary disease, unspecified; K21.9 Gastro-esophageal reflux disease without esophagitis; F31.9 Bipolar disorder, unspecified; F20.9 Schizophrenia, unspecified; F41.9 Anxiety disorder, unspecified; M19.90 Unspecified osteoarthritis, unspecified site; F17.200 Nicotine dependence, unspecified, uncomplicated; Z79.51 Long term (current) use of inhaled steroids; Z79.899 Other long term (current) drug therapy
CPT/HCPCS: 36415; 94640; 93005; 80053; 83690; 84484; 85025; 85610; 85730; 81003; 71046; 74177; 99285; 96374; 96375 ×2; 96361 ×3; J2270; J2930; C9113; Q9967

== ENCOUNTER 2020-01-24 13:34 | Emergency (ER) | payer MEDICARE, OTHER ==
[2020-01-24 14:01] VITALS: TEMP 97.6
[2020-01-24] MEDS ORDERED: methylPREDNISolone SOD SUCCI 125 MG/2 ML VIAL IV STA (14:12)
[2020-01-24] MEDS ORDERED: SODIUM CHLORIDE 0.9% 1,000 ML IV STA (14:12)
[2020-01-24] MEDS ORDERED: IPRATROPIUM-ALBUTEROL 3 ML NEB INHALATION STA (14:12)
--- NOTE | 2020-01-24 14:16 | ED ---
SOB HPI - General Chief Complaint: Shortness of Breath Stated Complaint: SOB Time Seen by Provider: 01/24/20 14:08 Source: patient, RN notes reviewed Mode of arrival: wheelchair Limitations: physical limitation - History of Present Illness Initial Comments: This is a 59-year-old male with a history of COPD who states he had the onset this morning of shortness of breath which became progressively worse and is refractory to his home medication. He denies any fevers chills nausea vomiting sweats cough or other symptoms. No chest pain reported. MD Complaint: shortness of breath - Related Data Home Medications Medication Instructions Recorded Confirmed Budesonide-Formot 160-4.5 Mcg 2 puff INHALATION RT-BID 04/27/17 01/24/20 [Symbicort 160-4.5 Mcg Inhaler] Omeprazole [PriLOSEC] 20 mg PO AC-BID 08/05/17 01/24/20 traZODone HCL 300 mg PO HS 08/05/17 01/24/20 ARIPiprazole [Abilify] 5 mg PO DAILY 01/24/20 01/24/20 Albuterol Inhaler [Ventolin Hfa 1 - 2 puff INHALATION RT-Q4H PRN 01/24/20 01/24/20 Inhaler] Previous Rx's Medication Instructions Recorded predniSONE [Deltasone] 20 mg PO BID #10 tab 01/24/20 Allergies Allergy/AdvReac Type Severity Reaction Status Date / Time No Known Allergies Allergy Verified 01/24/20 15:01 Review of Systems ROS Statement: Those systems with pertinent positive or pertinent negative responses have been documented in the HPI. ROS Other: All systems not noted in ROS Statement are negative. Past Medical History Past Medical History: Asthma, COPD, GERD/Reflux, Osteoarthritis (OA), Pneumonia Additional Past Medical History / Comment(s): pinched nerve in neck, herniated discs,bronchitis, rt arm "bone spurs" History of Any Multi-Drug Resistant Organisms: None Reported Past Surgical History: Bowel Resection, Joint Replacement Additional Past Surgical History / Comment(s): rt shoulder, 04/29/17 sigmoid resection with colostomy with reversal in 08/[address] Pathak Past Anesthesia/Blood Transfusion Reactions: No Reported Reaction Past Psychological History: Anxiety, Bipolar, Depression, Schizophrenia Smoking Status: Current every day smoker Past Alcohol Use History: Occasional Past Drug Use History: Marijuana - Past Family History Father Family Medical History: Cancer Mother Family Medical History: Cancer General Exam - General Exam Comments Initial Comments: This is a well-developed well-nourished awake alert oriented 3 male Limitations: physical limitation General appearance: alert, anxious, in distress Head exam: Present: atraumatic, normocephalic, normal inspection Eye exam: Present: normal appearance, PERRL, EOMI. Absent: scleral icterus, conjunctival injection, periorbital swelling ENT exam: Present: normal exam, mucous membranes moist Neck exam: Present: normal inspection. Absent: tenderness, meningismus, lymphadenopathy Respiratory exam: Present: wheezes, accessory muscle use, decreased breath sounds. Absent: respiratory distress, rales, rhonchi, stridor Cardiovascular Exam: Present: regular rate, normal rhythm, normal heart sounds. Absent: systolic murmur, diastolic murmur, rubs, gallop, clicks GI/Abdominal exam: Present: soft, normal bowel sounds. Absent: distended, tenderness, guarding, rebound, rigid Extremities exam: Present: normal inspection, full ROM, normal capillary refill. Absent: tenderness, pedal edema, joint swelling, calf tenderness Back exam: Present: normal inspection Neurological exam: Present: alert, oriented X3, CN II-XII intact Psychiatric exam: Present: normal affect, normal mood Skin exam: Present: warm, dry, intact, normal color. Absent: rash Course Vital Signs 01/24/20 01/24/20 01/24/20 13:59 14:23 14:31 Temperature 97.6 F Pulse Rate 86 96 90 Respiratory 18 20 20 Rate Blood Pressure 122/78 O2 Sat by Pulse 97 Oximetry - Reevaluation(s) Reevaluation #1: 01/24/20 15:58 Reevaluation after the initial treatment reveals the patient feels much better and I see back to normal. Medical Decision Making - Medical Decision Making Patient is feeling much improved after the treatment rendered. He would like to go home he is aware that his lab work is pending he chooses to go home at this time he is invited back at any time. The presentation is consistent with a COPD exacerbation. - Lab Data Result diagrams: 01/24/20 15:16 Lab Results 01/24/20 01/24/20 01/24/20 Range/Units 15:16 15:16 15:16 WBC 11.4 H (3.8-10.6) k/uL RBC 5.09 (4.30-5.90) m/uL Hgb 15.4 (13.0-17.5) gm/dL Hct 46.7 (39.0-53.0) % MCV 91.8 (80.0-100.0) fL MCH 30.2 (25.0-35.0) pg MCHC 32.9 (31.0-37.0) g/dL RDW 13.5 (11.5-15.5) % Plt Count 241 (150-450) k/uL Neutrophils % 70 % Lymphocytes % 19 % Monocytes % 7 % Eosinophils % 1 % Basophils % 1 % Neutrophils # 8.0 H (1.3-7.7) k/uL Lymphocytes # 2.2 (1.0-4.8) k/uL Monocytes # 0.8 (0-1.0) k/uL Eosinophils # 0.1 (0-0.7) k/uL Basophils # 0.1 (0-0.2) k/uL PT 11.2 (9.0-12.0) sec INR 1.1 (<1.2) APTT 24.5 (22.0-30.0) sec Plasma Lactic Acid Kyle 1.5 (0.7-2.0) mmol/L Troponin I (0.000-0.034) ng/mL 01/24/20 Range/Units 15:16 WBC (3.8-10.6) k/uL RBC (4.30-5.90) m/uL Hgb (13.0-17.5) gm/dL Hct (39.0-53.0) % MCV (80.0-100.0) fL MCH (25.0-35.0) pg MCHC (31.0-37.0) g/dL RDW (11.5-15.5) % Plt Count (150-450) k/uL Neutrophils % % Lymphocytes % % Monocytes % % Eosinophils % % Basophils % % Neutrophils # (1.3-7.7) k/uL Lymphocytes # (1.0-4.8) k/uL Monocytes # (0-1.0) k/uL Eosinophils # (0-0.7) k/uL Basophils # (0-0.2) k/uL PT (9.0-12.0) sec INR (<1.2) APTT (22.0-30.0) sec Plasma Lactic Acid Kyle (0.7-2.0) mmol/L Troponin I <0.012 (0.000-0.034) ng/mL - EKG Data -: EKG Interpreted by Me EKG shows normal: sinus rhythm EKG Comments: Sinus rhythm of 77 appear interval 172 QRS duration 100 QT since QTC 396/[address]-T wave changes noted. Disposition Clinical Impression: COPD exacerbation Disposition: HOME SELF-CARE Condition: Good Instructions (If sedation given, give patient instructions): COPD (Chronic Obstructive Pulmonary Disease) (ED) Additional Instructions: Medication prescription sent to your preferred pharmacy Prescriptions: predniSONE [Deltasone] 20 mg PO BID #10 tab Is patient prescribed a controlled substance at d/c from ED?: No Referrals: Melina Denson MD [Primary Care Provider] - 1-2 days
[2020-01-24 15:37] LABS: Basophils # (A) 0.1 k/uL (0-0.2); Basophils % (A) 1 %; Eosinophils # (A) 0.1 k/uL (0-0.7); Eosinophils % (A) 1 %; HCT 46.7 % (39.0-53.0); HGB 15.4 gm/dL (13.0-17.5); Lymphocytes # (A) 2.2 k/uL (1.0-4.8); Lymphocytes % (A) 19 %; MCH 30.2 pg (25.0-35.0); MCHC 32.9 g/dL (31.0-37.0); MCV 91.8 fL (80.0-100.0); Mean Platelet Volume 7.6; Monocytes # (A) 0.8 k/uL (0-1.0); Monocytes % (A) 7 %; Neutrophils % (A) 70 %; Platelet Count 241 k/uL (150-450); RBC 5.09 m/uL (4.30-5.90); RDW 13.5 % (11.5-15.5); WBC 11.4 k/uL (3.8-10.6)
--- NOTE | 2020-01-24 15:42 | XR ---
EXAMINATION TYPE: XR chest 2V DATE OF EXAM: 01/24/2020 COMPARISON: 04/20/2019 HISTORY: Shortness of breath TECHNIQUE: Frontal and lateral views of the chest are obtained. FINDINGS: Scattered senescent parenchymal changes noted. Hyperinflation compatible with COPD. No evidence for infiltrate. No evidence for atelectasis. Heart size is stable. Mediastinal structures are stable and grossly unremarkable. No evidence for hilar prominence. Degenerative changes dorsal spine. IMPRESSION: 1. No evidence for acute pulmonary disease.
[2020-01-24 15:48] LABS: Albumin 4.5 g/dL (3.5-5.0); Calcium 9.8 mg/dL (8.4-10.2); Magnesium 2.1 mg/dL (1.6-2.3); Total Bilirubin 1.3 mg/dL (0.2-1.3); Total Protein 7.5 g/dL (6.3-8.2)
[2020-01-24 15:54] LABS: INR 1.1 (<1.2); Partial Thromboplastin Time 24.5 sec (22.0-30.0); Prothrombin Time 11.2 sec (9.0-12.0)
[2020-01-24 16:17] LABS: Potassium 4.2 mmol/L (3.5-5.1)
[2020-01-24 16:51] VITALS: BP 136/92; PULSE 83; RESP 16
== END 2020-01-24 16:50 | disposition home or self-care (01) ==
LOC: EC 13:34
DX: J44.1 Chronic obstructive pulmonary disease with (acute) exacerbation (principal); K21.9 Gastro-esophageal reflux disease without esophagitis; M19.90 Unspecified osteoarthritis, unspecified site; F17.200 Nicotine dependence, unspecified, uncomplicated; F41.9 Anxiety disorder, unspecified; F31.9 Bipolar disorder, unspecified; F20.9 Schizophrenia, unspecified; Z79.51 Long term (current) use of inhaled steroids; Z79.899 Other long term (current) drug therapy
CPT/HCPCS: 36415; 93005; 83880; 80053; 82550; 83605; 83735; 84484; 85025; 85610; 85730; 71046; 99285; 96374; 96361 ×2; J2930

== ENCOUNTER 2020-07-01 12:25 | Observation (INO) | payer MEDICARE, OTHER ==
[2020-07-01] MEDS ORDERED: methylPREDNISolone SOD SUCCI 125 MG/2 ML VIAL IV STA (12:49)
[2020-07-01] MEDS ORDERED: IPRATROPIUM-ALBUTEROL 3 ML NEB INHALATION STA (12:49)
--- NOTE | 2020-07-01 12:51 | ED ---
General Adult HPI - General Chief complaint: Shortness of Breath Stated complaint: SOB Time Seen by Provider: 07/01/20 12:36 Source: patient, RN notes reviewed Mode of arrival: ambulatory Limitations: no limitations - History of Present Illness Initial comments: Patient is a pleasant 60-year-old male presenting to the emergency department complaints of difficulty in breathing. Onset of symptoms was a couple of days ago. Patient does have history of similar symptoms previously associated with his COPD. Patient does have cough with some clear sputum which is fairly chronic. No fevers. No leg pain or leg swelling. Dyspnea is somewhat severe at this time. No upper respiratory symptoms. No nausea vomiting or diarrhea. No loss of taste or loss of smell. - Related Data Home Medications Medication Instructions Recorded Confirmed Budesonide-Formot 160-4.5 Mcg 2 puff INHALATION RT-BID 04/27/17 07/01/20 [Symbicort 160-4.5 Mcg Inhaler] Omeprazole [PriLOSEC] 20 mg PO AC-BID 08/05/17 07/01/20 traZODone HCL 300 mg PO HS 08/05/17 07/01/20 ARIPiprazole [Abilify] 5 mg PO DAILY 01/24/20 07/01/20 Albuterol Inhaler [Ventolin Hfa 1 - 2 puff INHALATION RT-Q4H PRN 01/24/20 07/01/20 Inhaler] [place] Carbonate 900 mg PO HS 07/01/20 07/01/20 Allergies Allergy/AdvReac Type Severity Reaction Status Date / Time No Known Allergies Allergy Verified 07/01/20 13:46 Review of Systems ROS Statement: Those systems with pertinent positive or pertinent negative responses have been documented in the HPI. ROS Other: All systems not noted in ROS Statement are negative. Constitutional: Denies: fever, chills Eyes: Denies: eye pain ENT: Denies: ear pain Respiratory: Reports: as per HPI, cough, dyspnea Cardiovascular: Denies: chest pain Endocrine: Denies: fatigue Gastrointestinal: Denies: abdominal pain Genitourinary: Denies: dysuria Musculoskeletal: Denies: back pain Skin: Denies: rash Neurological: Denies: weakness Past Medical History Past Medical History: Asthma, COPD, GERD/Reflux, Osteoarthritis (OA), Pneumonia Additional Past Medical History / Comment(s): pinched nerve in neck, herniated discs,bronchitis, rt arm "bone spurs" History of Any Multi-Drug Resistant Organisms: None Reported Past Surgical History: Bowel Resection, Joint Replacement Additional Past Surgical History / Comment(s): rt shoulder, 04/29/17 sigmoid resection with colostomy with reversal in 08/[address] Pathak Past Anesthesia/Blood Transfusion Reactions: No Reported Reaction Past Psychological History: Anxiety, Bipolar, Depression, Schizophrenia Smoking Status: Current every day smoker Past Alcohol Use History: Occasional Past Drug Use History: Marijuana - Past Family History Father Family Medical History: Cancer Mother Family Medical History: Cancer General Exam Limitations: no limitations General appearance: alert, in no apparent distress Head exam: Present: normocephalic Eye exam: Present: normal appearance Neck exam: Present: normal inspection Respiratory exam: Present: respiratory distress, wheezes, decreased breath sounds Cardiovascular Exam: Present: regular rate, normal rhythm GI/Abdominal exam: Present: soft. Absent: tenderness Extremities exam: Present: normal inspection. Absent: pedal edema, calf tenderness Neurological exam: Present: alert Psychiatric exam: Present: normal affect, normal mood Skin exam: Present: normal color Course Vital Signs 07/01/20 07/01/20 07/01/20 12:28 12:42 13:02 Temperature 98.9 F Pulse Rate 94 76 Respiratory 20 18 Rate Blood Pressure 126/86 O2 Sat by Pulse 96 Oximetry 07/01/20 07/01/20 07/01/20 13:13 14:04 14:13 Temperature Pulse Rate 76 75 75 Respiratory Rate Blood Pressure O2 Sat by Pulse Oximetry Medical Decision Making - Medical Decision Making Patient reevaluated and somewhat improved. Case discussed with Dr. Banks, who will admit For Dr. Denson. - Lab Data Result diagrams: 07/01/20 12:59 07/01/20 12:59 Lab Results 07/01/20 07/01/20 07/01/20 Range/Units 12:59 12:59 12:59 WBC 8.0 (3.8-10.6) k/uL RBC 5.16 (4.30-5.90) m/uL Hgb 15.8 (13.0-17.5) gm/dL Hct 46.0 (39.0-53.0) % MCV 89.1 (80.0-100.0) fL MCH 30.6 (25.0-35.0) pg MCHC 34.4 (31.0-37.0) g/dL RDW 12.8 (11.5-15.5) % Plt Count 281 (150-450) k/uL MPV 7.1 Neutrophils % 72 % Lymphocytes % 15 % Monocytes % 7 % Eosinophils % 4 % Basophils % 1 % Neutrophils # 5.8 (1.3-7.7) k/uL Lymphocytes # 1.2 (1.0-4.8) k/uL Monocytes # 0.6 (0-1.0) k/uL Eosinophils # 0.3 (0-0.7) k/uL Basophils # 0.1 (0-0.2) k/uL Sodium 133 L (137-145) mmol/L Potassium 4.3 (3.5-5.1) mmol/L Chloride 100 (98-107) mmol/L Carbon Dioxide 28 (22-30) mmol/L Anion Gap 5 mmol/L BUN 21 H (9-20) mg/dL Creatinine 0.86 (0.66-1.25) mg/dL Est GFR (CKD-EPI)AfAm >90 (>60 ml/min/1.73 sqM) Est GFR (CKD-EPI)NonAf >90 (>60 ml/min/1.73 sqM) Glucose 147 H (74-99) mg/dL Plasma Lactic Acid Kyle 1.5 (0.7-2.0) mmol/L Calcium 9.2 (8.4-10.2) mg/dL Total Bilirubin 0.2 (0.2-1.3) mg/dL AST 25 (17-59) U/L ALT 22 (4-49) U/L Alkaline Phosphatase 81 (38-126) U/L Total Protein 6.8 (6.3-8.2) g/dL Albumin 3.9 (3.5-5.0) g/dL - Radiology Data Radiology results: image reviewed (Chest x-ray shows no acute) Disposition Clinical Impression: COPD exacerbation Disposition: ADMITTED IP TO THIS HOSP Is patient prescribed a controlled substance at d/c from ED?: No Referrals: Melina Denson MD [Primary Care Provider] - 1-2 days Decision Time: 14:20
[2020-07-01 13:12] LABS: Basophils # (A) 0.1 k/uL (0-0.2); Basophils % (A) 1 %; Eosinophils # (A) 0.3 k/uL (0-0.7); Eosinophils % (A) 4 %; HGB 15.8 gm/dL (13.0-17.5); Lymphocytes # (A) 1.2 k/uL (1.0-4.8); Lymphocytes % (A) 15 %; MCH 30.6 pg (25.0-35.0); MCHC 34.4 g/dL (31.0-37.0); MCV 89.1 fL (80.0-100.0); Mean Platelet Volume 7.1; Monocytes # (A) 0.6 k/uL (0-1.0); Monocytes % (A) 7 %; Neutrophils # (A) 5.8 k/uL (1.3-7.7); Neutrophils % (A) 72 %; Platelet Count 281 k/uL (150-450); RBC 5.16 m/uL (4.30-5.90); RDW 12.8 % (11.5-15.5)
[2020-07-01 13:30] LABS: ALT 22 U/L (4-49); AST 25 U/L (17-59); African American GFR (CKD) >90 (>60 ml/min/1.73 sqM); Albumin 3.9 g/dL (3.5-5.0); Alkaline Phosphatase 81 U/L (38-126); Anion Gap 5 mmol/L; Blood Urea Nitrogen 21 mg/dL (9-20); Calcium 9.2 mg/dL (8.4-10.2); Carbon Dioxide 28 mmol/L (22-30); Chloride 100 mmol/L (98-107); Glucose 147 mg/dL (74-99); Non-African American GFR(CKD) >90 (>60 ml/min/1.73 sqM); Potassium 4.3 mmol/L (3.5-5.1); Sodium 133 mmol/L (137-145); Total Bilirubin 0.2 mg/dL (0.2-1.3); Total Protein 6.8 g/dL (6.3-8.2)
[2020-07-01] MEDS ORDERED: ALBUTEROL NEBULIZED 2.5 MG/3 ML INHALATION STA (13:33)
--- NOTE | 2020-07-01 14:09 | XR ---
EXAMINATION TYPE: XR chest 2V DATE OF EXAM: 07/01/2020 COMPARISON: 01/24/2020 HISTORY: 60-year-old male shortness of breath, difficulty breathing TECHNIQUE: PA and lateral views FINDINGS: Bilateral nipple shadows. Heart normal size. Aorta and pulmonary vasculature within normal limits. Mi ld interstitial prominence is unchanged. No consolidation or pleural effusion. IMPRESSION: Chronic changes without acute cardiopulmonary process.
[2020-07-01] MEDS ORDERED: IPRATROPIUM-ALBUTEROL 3 ML NEB INHALATION PRN (14:20)
[2020-07-01] MEDS: SODIUM CHLORIDE 0.9% 1,000 ML IV SCH (16:00)
[2020-07-01] MEDS: IPRATROPIUM-ALBUTEROL 3 ML NEB INHALATION SCH ×2 (16:44→19:40)
[2020-07-01] MEDS ORDERED: LORazepam 2 MG/ML INJ IV PRN (17:14)
[2020-07-01] MEDS ORDERED: HYDROcodone/APAP 5-325MG 1 EACH TAB PO PRN (17:14)
[2020-07-01] MEDS ORDERED: ALPRAZolam 0.25 MG TAB PO PRN (17:14)
[2020-07-01 17:44] LABS: Glucose,Whole Blood 159 mg/dL (75-99)
[2020-07-01 19:36] LABS: Appearance,Urine Clear (Clear); Bilirubin,Urine Negative (Negative); Blood,Urine Negative (Negative); Color,Urine Colorless; Glucose,Urine (UA) Trace (Negative); Ketones,Urine Negative (Negative); Leukocyte Esterase,Urine Negative (Negative); Nitrite,Urine Negative (Negative); PH, Urine 5.5 (5.0-8.0); Protein,Urine Negative (Negative); Specific Gravity,Urine 1.005 (1.001-1.035); Urobilinogen,Urine <2.0 mg/dL (<2.0)
[2020-07-01 19:37] LABS: Glucose,Whole Blood 195 mg/dL (75-99)
[2020-07-01] MEDS: SYMBICORT 160-4.5 MCG INHALER INHALATION SCH (19:40)
[2020-07-01] MEDS: methylPREDNISolone SOD SUCCI 125 MG/2 ML VIAL IV SCH (19:50)
[2020-07-01] MEDS: INSULIN ASPART (NovoLOG) 100 UNIT/ML VIAL SQ SCH ×2 (19:51→21:24)
--- NOTE | 2020-07-01 20:15 | HP ---
HISTORY AND PHYSICAL DATE OF SERVICE: 07/01/2020 CHIEF COMPLAINT: Shortness of breath. HISTORY OF PRESENT ILLNESS: This 60-year-old gentleman with a past medical history of asthma, COPD, history of GERD, DJD, history of pneumonia, being followed by Dr. Denson in the outpatient setting complaining of shortness of breath for the past several days. Patient had difficulty breathing and the patient also had similar symptoms previously. The patient also has some cough with clear sputum. There is no history of fever, rigors. No history of headache, loss of consciousness or seizures. The patient is currently laid off and is not having any contact with infected individuals according to him. The chest x- ray which was personally reviewed by me showed no evidence of any acute pneumonia. Patient admitted for further evaluation and treatment. There is no history of fever, rigors or chills. PAST MEDICAL HISTORY: History of asthma, COPD, GERD, DJD, history of pneumonia, history of pinched nerve, anxiety and depression. MEDICATIONS: Prior to admission include: Trazodone, lithium carbonate, Symbicort, albuterol and Abilify. ALLERGIES: None. FAMILY HISTORY: History of cancer in the family. SOCIAL HISTORY: History of smoking, history of THC, history of daily alcohol occasionally. REVIEW OF SYSTEMS: ENT: Diminished vision. Diminished hearing. CARDIOVASCULAR: No angina or palpitations. RESPIRATION: As mentioned earlier. GI no nausea or vomiting. no dysuria. NERVOUS SYSTEM: No numbness or weakness. ALLERGY/IMMUNOLOGY: No asthma or hayfever. MUSCULOSKELETAL as mentioned earlier. HEMATOLOGY/ONCOLOGY: No history of anemia. ENDOCRINE: No history of diabetes or hypothyroidism. CONSTITUTIONAL: As mentioned earlier. DERMATOLOGY: Negative. RHEUMATOLOGY: Negative. PSYCHIATRIC: As mentioned earlier. PHYSICAL EXAMINATION: Alert and oriented times three. Pulse is 77. Blood pressure 130/77, respiration 18, temperature 97.7, pulse ox 99% on room air. HEENT: Conjunctivae normal. NECK: No JVD. CARDIOVASCULAR: S1, S2 muffled. RESPIRATORY: Breath sounds diminished in the bases. Scattered rhonchi and crackles. Expiratory wheezing also present. ABDOMEN: Soft. Nontender. LEGS are no edema. No swelling. NERVOUS SYSTEM: No focal deficits. LABORATORY DATA: CBC within normal limits. Sodium 133, glucose 147. ASSESSMENT: 1. Chronic obstructive pulmonary disease acute exacerbation with acute purulent tracheobronchitis. 2. Hyponatremia. 3. History of asthma/chronic obstructive pulmonary disease. 4. Gastroesophageal reflux disease. 5. History of degenerative joint disease. 6. History of pneumonia. 7. History of bowel resection. 8. History of anxiety, bipolar depression, schizophrenia. 9. History of nicotine dependence. 10.Obesity with body mass of 33.5. RECOMMENDATIONS AND DISCUSSION: This 60-year-old gentleman who presented with multiple complex medical issues, we will monitor the patient closely. Continue the current medications, management and symptomatic treatment. Optimize the bronchodilator treatment, IV steroids, empiric antibiotics. Closely follow. The patient will be asked to follow up with Dr. Denson, who is the primary physician. MMODL / IJN: [id number] / ALEX
[2020-07-01] MEDS ORDERED: LITHIUM CARBONATE 300 MG CAP PO SCH (21:00)
[2020-07-01] MEDS ORDERED: traZODone HCL 100 MG TAB PO SCH (21:00)
[2020-07-01 21:21] LABS: Glucose,Whole Blood 188 mg/dL (75-99)
[2020-07-01] MEDS: HEPARIN SODIUM,PORCINE 5,000 UNIT/ML 1 ML VIAL SQ SCH (21:26)
[2020-07-01] MEDS: SULFAMETHOX-TMP 800-160MG 1 EACH TAB PO SCH (21:26)
[2020-07-02] MEDS: SODIUM CHLORIDE 0.9% 1,000 ML IV SCH ×2 (04:49→12:21)
[2020-07-02] MEDS: methylPREDNISolone SOD SUCCI 125 MG/2 ML VIAL IV SCH ×3 (04:49→12:21)
[2020-07-02] MEDS ORDERED: PANTOPRAZOLE 40 MG TABLET PO SCH ×2 (07:30)
[2020-07-02] MEDS: SYMBICORT 160-4.5 MCG INHALER INHALATION SCH (07:47)
[2020-07-02] MEDS: IPRATROPIUM-ALBUTEROL 3 ML NEB INHALATION SCH ×3 (07:47→15:54)
[2020-07-02 08:50] VITALS: RESP 18
[2020-07-02] MEDS: INSULIN ASPART (NovoLOG) 100 UNIT/ML VIAL SQ SCH ×2 (08:57→12:08)
[2020-07-02] MEDS ORDERED: ARIPiprazole 5 MG TAB PO SCH (09:00)
[2020-07-02] MEDS ORDERED: NICOTINE 14MG/24HR PATCH TRANSDERM SCH (09:00)
[2020-07-02] MEDS: HEPARIN SODIUM,PORCINE 5,000 UNIT/ML 1 ML VIAL SQ SCH (09:01)
[2020-07-02 10:14] LABS: Basophils % (A) 0 %; Eosinophils % (A) 0 %; HCT 47.4 % (39.0-53.0); HGB 15.3 gm/dL (13.0-17.5); Lymphocytes # (A) 0.6 k/uL (1.0-4.8); Lymphocytes % (A) 4 %; MCH 29.4 pg (25.0-35.0); MCHC 32.3 g/dL (31.0-37.0); MCV 90.8 fL (80.0-100.0); Monocytes # (A) 0.3 k/uL (0-1.0); Monocytes % (A) 2 %; Neutrophils % (A) 93 %; Platelet Count 302 k/uL (150-450); RBC 5.22 m/uL (4.30-5.90); RDW 13.2 % (11.5-15.5)
[2020-07-02] MEDS: SULFAMETHOX-TMP 800-160MG 1 EACH TAB PO SCH (11:06)
[2020-07-02 11:49] VITALS: BP 109/60; TEMP 98.1
[2020-07-02 11:53] LABS: Glucose,Whole Blood 130 mg/dL (75-99)
[2020-07-02 13:02] VITALS: PULSE 81
[2020-07-02 15:23] LABS: African American GFR (CKD) 95.7 (60.0-200.0); Anion Gap 9.4 mmol/L (4.00-12.00); Calcium 9.6 mg/dL (8.7-10.3); Carbon Dioxide 24.6 mmol/L (21.6-31.8); Non-African American GFR(CKD) 82.6 (60.0-200.0); Potassium 4.4 mmol/L (3.5-5.5)
--- NOTE | 2020-07-02 17:02 | P.CNPUL ---
History of Present Illness Consult date: 07/02/20 Requesting physician: Keke Banks Reason for consult: dyspnea Chief complaint: Shortness of breath History of present illness: 60-year-old white male patient of Dr. Denson, with history of chronic and ongoing smoking, patient smokes 2 packs a day for last 47 years, history of COPD not oxygen dependent at baseline, arthritis, previous episodes of pneumonia, GERD/reflux, history of anxiety, bipolar disorder, depression and schizophrenia. Patient came into the emergency department on 07/01/2020 for evaluation of difficulty breathing, patient had been short of breath for a couple days prior to presentation. He had a cough, and some clear sputum production, was fairly chronic, denied any fever or chills, denied any chest pain, his dyspnea was somewhat severe at this time, no hemoptysis, no nausea vomiting or diarrhea, denies loss of taste or loss of smell. Chest x-ray showed chronic changes without acute cardiopulmonary process. Patient has been afebrile, his sat 93% on room air, is quite dyspneic and bronchospastic, he was started on IV steroids, empiric antibiotics, nebulized bronchodilators. COVID 19 was not detected Review of Systems All systems: negative Constitutional: Denies chills, Denies fever Eyes: denies blurred vision, denies pain Ears, nose, mouth and throat: Denies headache, Denies sore throat Cardiovascular: Denies chest pain, Denies shortness of breath Respiratory: Reports cough with sputum, Reports dyspnea, Denies cough Gastrointestinal: Denies abdominal pain, Denies diarrhea, Denies nausea, Denies vomiting Musculoskeletal: Denies myalgias Integumentary: Denies pruritus, Denies rash Neurological: Denies numbness, Denies weakness Psychiatric: Denies anxiety, Denies depression Endocrine: Denies fatigue, Denies weight change Past Medical History Past Medical History: Asthma, COPD, GERD/Reflux, Osteoarthritis (OA), Pneumonia Additional Past Medical History / Comment(s): pinched nerve in neck, herniated discs,bronchitis, rt arm "bone spurs" History of Any Multi-Drug Resistant Organisms: None Reported Past Surgical History: Bowel Resection, Joint Replacement Additional Past Surgical History / Comment(s): rt shoulder, 04/29/17 sigmoid resection with colostomy with reversal in 08/[address] Pathak Past Anesthesia/Blood Transfusion Reactions: No Reported Reaction Past Psychological History: Anxiety, Bipolar, Depression, Schizophrenia Additional Psychological History / Comment(s): PT stated he has some depression but no thoughts of harming himself or anyone else.pt lives with girlfriend Jena and her daughter and grandson. 1 pet dog. live in 2 story home that has 5 steps. no home care services recieved. no medical equipment. Smoking Status: Current every day smoker Past Alcohol Use History: Occasional Additional Past Alcohol Use History / Comment(s): started smoking at age of 14, smokes 1.5-2 ppd. former drinker Past Drug Use History: Marijuana Additional Drug Use History / Comment(s): daily use - Past Family History Father Family Medical History: Cancer Mother Family Medical History: Cancer Medications and Allergies Home Medications Medication Instructions Recorded Confirmed Type Budesonide-Formot 160-4.5 Mcg 2 puff INHALATION RT-BID 04/27/17 07/01/20 History [Symbicort 160-4.5 Mcg Inhaler] Omeprazole [PriLOSEC] 20 mg PO AC-BID 08/05/17 07/01/20 History traZODone HCL 300 mg PO HS 08/05/17 07/01/20 History ARIPiprazole [Abilify] 5 mg PO DAILY 01/24/20 07/01/20 History Albuterol Inhaler [Ventolin Hfa 1 - 2 puff INHALATION RT-Q4H PRN 01/24/20 07/01/20 History Inhaler] [place] Carbonate 900 mg PO HS 07/01/20 07/01/20 History Cefuroxime Axetil [Ceftin] 500 mg PO BID 5 Days #10 tab 07/02/20 Rx Sulfamethox-Tmp 800-160Mg [Bactrim 1 each PO BID 5 Days #10 tab 07/02/20 Rx DS 800-160 mg] predniSONE 10 mg PO DIRECTED #30 tab 07/02/20 Rx Allergies Allergy/AdvReac Type Severity Reaction Status Date / Time No Known Allergies Allergy Verified 07/01/20 13:46 Physical Exam Vitals: Vital Signs Temp Pulse Pulse Resp BP BP Pulse Ox 07/02/20 13:00 81 07/02/20 12:48 79 93 L 07/02/20 11:27 98.1 F 95 18 109/60 91 L 07/02/20 08:48 97.8 F 95 18 119/73 90 L 07/02/20 06:31 98.9 F 85 16 99/50 95 07/01/20 20:00 77 20 108/63 95 07/01/20 19:53 77 18 07/01/20 19:41 77 18 07/01/20 19:00 97.7 F 90 18 117/78 100 07/01/20 16:57 77 18 GENERAL EXAM: Alert, very pleasant, 52-year-old white male, on room air with a pulse ox of 93% comfortable in no apparent distress. HEAD: Normocephalic/atraumatic. EYES: Normal reaction of pupils, equal size. Conjunctiva pink, sclera white. NOSE: Clear with pink turbinates. THROAT: No erythema or exudates. NECK: No masses, no JVD, no thyroid enlargement, no adenopathy. CHEST: No chest wall deformity. Symmetrical expansion. LUNGS: Equal air entry with no crackles, wheeze, rhonchi or dullness. CVS: Regular rate and rhythm, normal S1 and S2, no gallops, no murmurs, no rubs ABDOMEN: Soft, nontender. No hepatosplenomegaly, normal bowel sounds, no guarding or rigidity. EXTREMITIES: No clubbing, no edema, no cyanosis, 2+ pulses and upper and lower extremities. MUSCULOSKELETAL: Muscle strength and tone normal. SPINE: No scoliosis or deformity SKIN: No rashes CENTRAL NERVOUS SYSTEM: Alert and oriented -3. No focal deficits, tone is normal in all 4 extremities. PSYCHIATRIC: Alert and oriented -3. Appropriate affect. Intact judgment and insight. Results - Laboratory Findings CBC and BMP: 07/02/20 09:54 07/02/20 09:54 Abnormal lab findings: Abnormal Labs 07/01/20 07/01/20 07/01/20 12:59 17:42 19:17 WBC Neutrophils # Lymphocytes # Sodium 133 L BUN 21 H Glucose 147 H POC Glucose (mg/dL) 159 H Urine Glucose (UA) Trace H 07/01/20 07/01/20 07/02/20 19:35 21:19 09:54 WBC 15.0 H Neutrophils # 14.0 H Lymphocytes # 0.6 L Sodium BUN Glucose POC Glucose (mg/dL) 195 H 188 H Urine Glucose (UA) 07/02/20 07/02/20 09:54 11:30 WBC Neutrophils # Lymphocytes # Sodium BUN Glucose 173 H POC Glucose (mg/dL) 130 H Urine Glucose (UA) - Diagnostic Findings Chest x-ray: report reviewed, image reviewed Assessment and Plan Plan: Assessment: #1. Acute exacerbation of COPD, with chest x-ray showing no acute findings, patient ruled out for COVID 19 #2. Chronic and ongoing history of smoking, patient smokes 2 packs a day on a regular basis for 47 years #3. History of COPD not oxygen dependent at baseline #4. Previous history of pneumonia #5. History arthritis #6. Bipolar disorder #7. Anxiety and depression #8. History of osteoarthritis #9. Hx of the sigmoid resection with colostomy and subsequent reversal in 2018 Plan: Patient is doing well, he has been treated with IV steroids, empiric antibiotics, and nebulized bronchodilators, significantly improved since admission, vital signs are stable, he ruled out for [place] 19, his been afebrile, he is on room air, maintaining stable O2 saturations, he is requesting to go home today, from pulmonary perspective he stable for discharge home today on prednisone taper, and inhalers including Symbicort and albuterol I performed a history & physical examination of the patient and discussed their management with my nurse practitioner, Gaby Gonzalez. I reviewed the nurse practitioner's note and agree with the documented findings and plan of care. Lung sounds are positive for diminished breath sounds. The findings and the impression was discussed with the patient. I attest to the documentation by the nurse practitioner. Time with Patient: Greater than 30
--- NOTE | 2020-07-02 23:08 | P.DS ---
Providers Date of admission: 07/01/20 14:20 Expected date of discharge: 07/02/20 Attending physician: Keke Banks Consults: 07/01/20 14:20 Consult Physician Routine Consulting Provider: Praful Bower Reason/Comments: dyspnea Do you want consulting provider notified?: Yes [facility] Course: Final diagnosis Chronic obstructive pulmonary disease acute exacerbation with acute purulent tracheobronchitis Hyponatremia History of asthma/ COPD GERD history of degenerative joint disease History of pneumonia History of bowel resection History of anxiety, bipolar depression, schizophrenia History of nicotine dependence Obesity with a BMI of 33.5 Discharge disposition Patient is being discharged in a stable condition with guarded prognosis to home. Patient will follow-up with Dr. Denson in the outpatient setting upon discharge. Patient will continue on oral antibiotics in the form of Bactrim DS and Ceftin 500mg twice daily for the next 5 days to complete the course. Patient will also continue with a prednisone taper. Total time taken is greater than 35 minutes. History of present illness This is a 60-year-old male who was recently admitted with acute COPD exacerbation and was being closely monitored. Pulmonary evaluated the patient and recommended completing a prednisone taper along with completing the course of antibiotics. Patient has inhalers at home and will continue with those as well. Duonebs to continue although patient has to check coverage of the nebulizer. Patient was also maintained on breathing inhalational treatments along with IV antibiotics in the form of ceftriaxone and IV steroids . Patient Currently has no reports of chest pain, worsening shortness of breath, or palpitations. Patient is afebrile. No reports of nausea or vomiting and patient is tolerating diet. Patient will be discharged home today. Guarded prognosis On exam vital signs are stable. Temp is 98.1F, pulse is 79, respirations are 18, blood pressure is 109/60, oxygen saturation is 93% on room air. Cardio S1, S2 are muffled. Respiratory system shows diminished breath sounds at the bases with no some expiratory wheezing and rhonchi noted. Abdomen is soft and non- tender. Nervous system shows no focal deficits. Please refer to medication reconciliation sheet for a list of medications. Patient Condition at Discharge: Fair Plan - Discharge Summary Discharge Rx Participant: No New Discharge Prescriptions: New Sulfamethox-Tmp 800-160Mg [Bactrim DS 800-160 mg] 1 each PO BID 5 Days #10 tab Cefuroxime Axetil [Ceftin] 500 mg PO BID 5 Days #10 tab predniSONE 10 mg PO DIRECTED #30 tab Continue Budesonide-Formot 160-4.5 Mcg [Symbicort 160-4.5 Mcg Inhaler] 2 puff INHALATION RT-BID Omeprazole [PriLOSEC] 20 mg PO AC-BID traZODone HCL 300 mg PO HS Albuterol Inhaler [Ventolin Hfa Inhaler] 1 - 2 puff INHALATION RT-Q4H PRN PRN Reason: Shortness Of Breath ARIPiprazole [Abilify] 5 mg PO DAILY [place] Carbonate 900 mg PO HS Discharge Medication List Budesonide-Formot 160-4.5 Mcg [Symbicort 160-4.5 Mcg Inhaler] 2 puff INHALATION RT-BID 04/27/17 [History] Omeprazole [PriLOSEC] 20 mg PO AC-BID 08/05/17 [History] traZODone HCL 300 mg PO HS 08/05/17 [History] ARIPiprazole [Abilify] 5 mg PO DAILY 01/24/20 [History] Albuterol Inhaler [Ventolin Hfa Inhaler] 1 - 2 puff INHALATION RT-Q4H PRN 01/24/20 [History] [place] Carbonate 900 mg PO HS 07/01/20 [History] Cefuroxime Axetil [Ceftin] 500 mg PO BID 5 Days #10 tab 07/02/20 [Rx] Sulfamethox-Tmp 800-160Mg [Bactrim DS 800-160 mg] 1 each PO BID 5 Days #10 tab 07/02/20 [Rx] predniSONE 10 mg PO DIRECTED #30 tab 07/02/20 [Rx] Follow up Appointment(s)/Referral(s): Melina Denson MD [Primary Care Provider] - 07/09/20 1:10 pm Patient Instructions/Handouts: Emphysema (DC) Activity/Diet/Wound Care/Special Instructions: Activity Limited until follow-up Follow-up with primary care provider upon discharge Continue current diet Continue with antibiotics until finished Follow-up with pulmonary in the outpatient setting Contact insurance company to verify coverage of nebulizer Discharge Disposition: HOME SELF-CARE
== END 2020-07-02 17:52 | disposition home or self-care (01) ==
LOC: EC 12:25 → 5NMEDONC 14:20 → 4SSUR 07-02 02:59 → 6NMEDSUR 07-02 03:07
PROVIDERS: ADMIT Hospitalist; ATTEND Hospitalist
DX: J44.1 Chronic obstructive pulmonary disease with (acute) exacerbation (principal); J44.0 Chronic obstructive pulmonary disease with (acute) lower respiratory infection; J20.9 Acute bronchitis, unspecified; E87.1 Hypo-osmolality and hyponatremia; K21.9 Gastro-esophageal reflux disease without esophagitis; M19.90 Unspecified osteoarthritis, unspecified site; M77.9 Enthesopathy, unspecified; G58.9 Mononeuropathy, unspecified; F20.9 Schizophrenia, unspecified; F31.30 Bipolar disorder, current episode depressed, mild or moderate severity, unspecified; F41.9 Anxiety disorder, unspecified; F17.200 Nicotine dependence, unspecified, uncomplicated; E66.9 Obesity, unspecified; Z68.33 Body mass index [BMI] 33.0-33.9, adult; Z79.51 Long term (current) use of inhaled steroids; Z79.899 Other long term (current) drug therapy; Z87.01 Personal history of pneumonia (recurrent); Z90.49 Acquired absence of other specified parts of digestive tract; Z96.611 Presence of right artificial shoulder joint; Z80.9 Family history of malignant neoplasm, unspecified
CPT/HCPCS: 96376 ×2; 96365; 96366 ×2; 96372 ×2; 96361; 96375; 99285; 36415; 94640 ×3; 94760; 80053; 80048; 83605; 85025 ×2; 81003; 87040; 87635; 71046; G0378 ×3; S4990; J1644 ×2; J2930 ×2; J0696 ×2

== ENCOUNTER → 2020-09-05 | Outpatient (CLI) | payer MEDICARE, OTHER ==
[2020-09-05 17:31] LABS: Hemoglobin A1C 5.9 % (4.0-6.0)
[2020-09-05 19:56] LABS: African American GFR (CKD) 95.7 (60.0-200.0); Chol/HDL Ratio 4.35; LDL Cholesterol,Calculated 109.6 mg/dL (0.0-131.0); Lithium 0.4 mmol/L (0.5-1.2); Non-African American GFR(CKD) 82.6 (60.0-200.0); T4, Free (Free Thyroxine) 0.9 ng/dL (0.80-1.80); VLDL Calculation 44.4 mg/dL (5.00-40.00)
== END | disposition home or self-care (01) ==
LOC: LABWHC1 10:32
PROVIDERS: ATTEND Psychiatry & Neurology Psychiatry
DX: Z51.81 Encounter for therapeutic drug level monitoring (principal); Z79.899 Other long term (current) drug therapy
CPT/HCPCS: 36415; 80061; 80178; 82565; 82947; 83036; 84439; 84443; 84481; 84520

== ENCOUNTER 2021-02-07 08:02 | Emergency (ER) | payer MEDICARE, OTHER ==
[2021-02-07 08:08] VITALS: RESP 18; TEMP 98
[2021-02-07] MEDS ORDERED: diazePAM 5 MG TAB PO STA (08:26)
[2021-02-07] MEDS ORDERED: KETOROLAC 15 MG/ML 1 ML VIAL IM STA (08:26)
--- NOTE | 2021-02-07 08:30 | ED ---
Back Pain HPI - General Chief Complaint: Back Pain/Injury Stated Complaint: Back pain Time Seen by Provider: 02/07/21 08:09 Source: patient Limitations: no limitations - History of Present Illness Initial Comments: Patient is a 60-year-old male presenting to the emergency Department with complaints of increase in his chronic low back pain. Patient states he woke up and had a lot more pain than he usually does. He states hehas arthritis and degenerative disc disease in his lumbar spine. He denies any falls or trauma. He states he woke up and is having a hard time standing up straight secondary to the pain. He denies any saddle paresthesia, no bowel or bladder incontinence, no numbness and tingling to his lower extremities. He denies any recent fevers or chills, no chest pain or shortness of breath. He has no further complaints. - Related Data Home Medications Medication Instructions Recorded Confirmed ARIPiprazole IM [Abilify Maintena] 400 mg INJ Q28D 02/07/21 02/07/21 Previous Rx's Medication Instructions Recorded Cyclobenzaprine [Flexeril] 5 mg PO BID #15 tablet 02/07/21 HYDROcodone/APAP 5-325MG [Kirby 1 tab PO Q6HR PRN 3 Days #12 tab 02/07/21 5-325] Allergies Allergy/AdvReac Type Severity Reaction Status Date / Time No Known Allergies Allergy Verified 02/07/21 08:04 Review of Systems ROS Statement: Those systems with pertinent positive or pertinent negative responses have been documented in the HPI. ROS Other: All systems not noted in ROS Statement are negative. Past Medical History Past Medical History: Asthma, COPD, GERD/Reflux, Osteoarthritis (OA), Pneumonia Additional Past Medical History / Comment(s): pinched nerve in neck, herniated discs,bronchitis, rt arm "bone spurs" History of Any Multi-Drug Resistant Organisms: None Reported Past Surgical History: Bowel Resection, Joint Replacement Additional Past Surgical History / Comment(s): rt shoulder, 04/29/17 sigmoid resection with colostomy with reversal in 08/[address] Pathak Past Anesthesia/Blood Transfusion Reactions: No Reported Reaction Past Psychological History: Anxiety, Bipolar, Depression, Schizophrenia Smoking Status: Current every day smoker Past Alcohol Use History: Occasional Past Drug Use History: Marijuana - Past Family History Father Family Medical History: Cancer Mother Family Medical History: Cancer General Exam - General Exam Comments Initial Comments: GENERAL: Patient is well-developed and well-nourished. Patient is nontoxic and in mild distress. HEAD: Atraumatic, normocephalic. EYES: Pupils equal round and reactive to light, extraocular movements intact, sclera anicteric, conjunctiva are normal. Eyelids were unremarkable. ENT: Moist mucous membranes. NECK: Normal range of motion, supple without lymphadenopathy or JVD. No midline tenderness. LUNGS: Unlabored respirations. Breath sounds clear to auscultation bilaterally and equal. No wheezes rales or rhonchi. HEART: Regular rate and rhythm without murmurs, rubs or gallops. ABDOMEN: Soft, nontender, normoactive bowel sounds. No guarding, no rebound. No masses appreciated. MUSCULOSKELETAL: Normal extremities with adequate strength and normal range of motion, no pitting or edema. No clubbing or cyanosis. Some tenderness with palpation of the lumbar spine and lumbar paraspinals. NEUROLOGICAL: Patient is alert and oriented x 3. Motor and sensory are also intact. Cranial nerves II through XII grossly intact. Symmetrical smile. Normal speech, normal gait. PSYCH: Normal mood, normal affect. SKIN: Warm, Dry, normal turgor, no rashes or lesions noted. Limitations: no limitations Course Vital Signs 02/07/21 08:04 Temperature 98 F Pulse Rate 77 Respiratory 18 Rate Blood Pressure 118/89 O2 Sat by Pulse 96 Oximetry Medical Decision Making - Medical Decision Making Patient is a 60-year-old male here with lumbar back pain when he woke up this morning. He does have history of chronic low back pain, this is worse than normal. He said no falls or trauma. No alarming symptoms, no acute neuro deficits. Trace today showed degenerative disc disease, similar to previous exam. Patient was given Toradol, Valium, has been resting currently, does report improvement of symptoms. I discussed these findings with the patient. I recommended continuing with Tylenol and/or Motrin for any discomfort, heat to the area, muscle relaxer at nighttime. He can follow up with his primary care physician. He is in agreement with this plan of care is stable for discharge. Case discussed with Dr. Cuenca. Disposition Clinical Impression: Strain of lumbar region, Mechanical back pain Disposition: HOME SELF-CARE Condition: Stable Instructions (If sedation given, give patient instructions): Acute Low Back Pain (ED) Additional Instructions: Please return to the Emergency Department if symptoms worsen or any other concerns. Recommend heat to the area, gentle stretching. May alternate between Tylenol and Motrin for discomfort, may take Kirby for more severe pain. Take muscle relaxer at nighttime. Please follow-up with your primary care physician. Prescriptions: Cyclobenzaprine [Flexeril] 5 mg PO BID #15 tablet HYDROcodone/APAP 5-325MG [[place]irby 5-325] 1 tab PO Q6HR PRN 3 Days #12 tab PRN Reason: Pain Is patient prescribed a controlled substance at d/c from ED?: Yes When asked, does pt state using other controlled substances?: No If prescribed controlled substance>3 days was MAPS reviewed?: Prescribed <3 Days If opioid is for acute pain is fill amount 7 days or less?: Yes If Rx opioid, was Start Talking consent form obtained?: Yes Referrals: Melina Denson MD [Primary Care Provider] - 1-2 days Time of Disposition: 10:01
--- NOTE | 2021-02-07 09:51 | XR ---
Lumbar spine HISTORY: Pain 3 views the lumbar spine, correlation prior exam 03/08/2019 Lumbar vertebral bodies show preserved height and bone mineralization. There is multilevel spondylosi s. Loss of disc height is present at L5-S1, there is associated vacuum phenomenon, retrolisthesis gra de 1 L5-S1. Sclerosis is present in the posterior elements. Retrolisthesis grade 1 L4-5. Loss of disc height also present L1-2 with associated vacuum phenomenon. Atherosclerotic vascular calcifications present within the aorta. IMPRESSION: Degenerative disc disease, facet arthropathy are similar to prior exam, lumbar MRI may be of benefit.
[2021-02-07 10:10] VITALS: BP 125/79; PULSE 84
== END 2021-02-07 10:10 | disposition home or self-care (01) ==
LOC: EC 08:02
DX: S39.012A Strain of muscle, fascia and tendon of lower back, initial encounter (principal); J44.9 Chronic obstructive pulmonary disease, unspecified; K21.9 Gastro-esophageal reflux disease without esophagitis; M19.90 Unspecified osteoarthritis, unspecified site; F41.9 Anxiety disorder, unspecified; F17.200 Nicotine dependence, unspecified, uncomplicated; F12.90 Cannabis use, unspecified, uncomplicated; X58.XXXA Exposure to other specified factors, initial encounter
CPT/HCPCS: 72100; 99283; 96372; J1885

== ENCOUNTER 2021-09-10 16:08 | Inpatient (IN) | payer MEDICARE, MEDICAID ==
--- NOTE | 2021-09-10 18:38 | ED ---
General Adult HPI - General Source: patient Mode of arrival: ambulatory Limitations: no limitations <Cherelle Bojorquez - Last Filed: 09/10/21 23:54> - General Source: RN notes reviewed <Davin Gomez - Last Filed: 09/11/21 01:36> - General Chief complaint: Psychiatric Symptoms Stated complaint: Mental Health Time Seen by Provider: 09/10/21 18:03 - History of Present Illness Initial comments: This 71-year-old male with a past medical history of depression and schizophrenia presents to the emergency room for psychiatric evaluation. Patient states "I lost it and I don't want to live." Patient states his girlfriend left him a week ago and since then he has been having increased sadness and depression. Patient states he does see a therapist, bessie one time a week for the last 2 years for his depression and schizophrenia. Patient states he is on medications for both however he cannot remember which ones he is on. Patient states he does have a history of COPD. Patient denies any suicidal or homicidal ideation. He denies any auditory or visual hallucinations. Patient denies any chest pain, shortness of breath, abdominal pain, nausea, vomiting, change in vision, headache, change in bowel or bladder, dizziness, lightheadedness. (Cherelle Bojorquez) - Related Data Home Medications Medication Instructions Recorded Confirmed ARIPiprazole IM [Abilifnilay Maintena] 400 mg INJ Q28D 02/07/21 09/10/21 Albuterol Inhaler [Ventolin Hfa 2 puff INHALATION RT-Q6H PRN 09/10/21 09/10/21 Inhaler] Budesonide/Formoterol Fumarate 2 puff INHALATION RT-BID 09/10/21 09/10/21 [Symbicort 160-4.5 Mcg Inhaler] [place] Carbonate 1,200 mg PO HS 09/10/21 09/10/21 Omeprazole 20 mg PO BID 09/10/21 09/10/21 Sertraline [Zoloft] 50 mg PO DAILY 09/10/21 09/10/21 traZODone HCL 50 - 100 mg PO HS 09/10/21 09/10/21 Allergies Allergy/AdvReac Type Severity Reaction Status Date / Time No Known Allergies Allergy Verified 09/10/21 19:10 Review of Systems ROS Other: All systems not noted in ROS Statement are negative. <Cherelle Bojorquez - Last Filed: 09/10/21 23:54> ROS Other: All systems not noted in ROS Statement are negative. <Davin Gomez - Last Filed: 09/11/21 01:36> ROS Statement: Those systems with pertinent positive or pertinent negative responses have been documented in the HPI. Past Medical History Past Medical History: Asthma, COPD, GERD/Reflux, Osteoarthritis (OA), Pneumonia Additional Past Medical History / Comment(s): pinched nerve in neck, herniated discs,bronchitis, rt arm "bone spurs" History of Any Multi-Drug Resistant Organisms: None Reported Past Surgical History: Bowel Resection, Joint Replacement Additional Past Surgical History / Comment(s): rt shoulder, 04/29/17 sigmoid resection with colostomy with reversal in 08/[address] Pathak Past Anesthesia/Blood Transfusion Reactions: No Reported Reaction Past Psychological History: Anxiety, Bipolar, Depression, Schizophrenia Smoking Status: Current every day smoker Past Alcohol Use History: Occasional Past Drug Use History: Marijuana - Past Family History Father Family Medical History: Cancer Mother Family Medical History: Cancer <Cherelle Bojorquez - Last Filed: 09/10/21 23:54> General Exam Limitations: no limitations General appearance: alert, in no apparent distress Head exam: Present: atraumatic, normocephalic, normal inspection Eye exam: Present: normal appearance, PERRL, EOMI ENT exam: Present: mucous membranes moist Neck exam: Present: full ROM. Absent: tenderness Respiratory exam: Present: normal lung sounds bilaterally, rhonchi (Bilateral rhonchi during inspiratory and expiratory phase. Patient states this is his baseline and he always sounds congested due to his COPD). Absent: respiratory distress, wheezes, rales, stridor, chest wall tenderness, accessory muscle use, decreased breath sounds, prolonged expiratory Cardiovascular Exam: Present: regular rate, normal rhythm, normal heart sounds. Absent: systolic murmur, diastolic murmur, rubs, gallop, clicks GI/Abdominal exam: Present: soft, normal bowel sounds. Absent: distended, tenderness, guarding, rebound, rigid Extremities exam: Present: full ROM Neurological exam: Present: alert, oriented X3, CN II-XII intact, normal gait Psychiatric exam: Present: normal affect, normal mood Skin exam: Present: warm, dry, intact, normal color. Absent: rash <Cherelle Bojorquez - Last Filed: 09/10/21 23:54> Course <Cherelle Bojorquez - Last Filed: 09/10/21 23:54> <Davin Gomez - Last Filed: 09/11/21 01:36> Vital Signs 09/10/21 09/10/21 17:59 20:04 Temperature 98.1 F Pulse Rate 86 81 Respiratory 20 18 Rate Blood Pressure 134/97 137/85 O2 Sat by Pulse 95 96 Oximetry - Reevaluation(s) Reevaluation #1: 09/10/21 23:54 Check on patient before leaving, he states he does feel sad still but he is feeling better than prior. Patient is no longer crying. Patient has no suicidal or homicidal ideation at this time. I signed the patient over to Sunny Gomez 09/10/21 23:54 (Cherelle Bojorquez) 09/10/21 23:31 I assumed care of this patient at 2331 from the previous APC, currently. Awaiting EPS evaluation (Davin Gomez) Medical Decision Making <Cherelle Bojorquez - Last Filed: 09/10/21 23:54> <Davin Gomez - Last Filed: 09/11/21 01:36> - Medical Decision Making This 61-year-old male presents emergency department with increased sadness over the last week. Chest x-ray did not show any acute abnormalities. Patient was medically cleared and seen by EPS nurse. (Cherelle Bojorquez) Patient was evaluated by EPS. Patient deemed appropriate for admission. Patient signing in voluntarily. I did assess patient myself. Patient hemodynamically stable. [place] level was added. (Davin Gomez) - Lab Data Lab Results 09/10/21 Range/Units 18:43 Coronavirus (PCR) Not Detected (Not Detectd) Disposition <Cherelle Bojorquez - Last Filed: 09/10/21 23:54> Decision to Admit Reason: Admit from EC Decision Time: 01:35 <Davin Gomez - Last Filed: 09/11/21 01:36> Clinical Impression: Depression, Suicidal ideation Disposition: ADMITTED IP TO THIS [facility] Condition: Stable Referrals: Melina Denson MD [Primary Care Provider] - 1-2 days
--- NOTE | 2021-09-10 19:48 | XR ---
EXAMINATION TYPE: XR chest 2V DATE OF EXAM: 09/10/2021 6:45 PM COMPARISON:Chest radiographs from 07/01/2020 TECHNIQUE: Frontal and lateral views of the chest. CLINICAL INDICATION:Male, 61 years old with history of congestion; FINDINGS: Lungs/Pleura: There is no evidence of pleural effusion, focal consolidation, or pneumothorax. Pulmonary vascularity: Unremarkable. Heart/mediastinum: Cardiomediastinal silhouette is unremarkable. Musculoskeletal: No acute osseous pathology. Right rotator cuff repair changes are noted. IMPRESSION: No acute cardiopulmonary disease/process.
[2021-09-11] MEDS ORDERED: HALOPERIDOL LACTATE 5 MG/ML 1 ML VIAL IM PRN (02:52)
[2021-09-11] MEDS ORDERED: MAG HYDROX/AL HYDROX/SIMETH 30 ML CUP PO PRN (02:52)
[2021-09-11] MEDS ORDERED: MAGNESIUM HYDROXIDE 2,400 MG/10 ML CUP PO PRN (02:52)
[2021-09-11] MEDS ORDERED: LORazepam 1 MG TAB PO PRN (02:52)
[2021-09-11] MEDS ORDERED: LORazepam 2 MG/ML INJ IM PRN (02:57)
[2021-09-11] MEDS ORDERED: haloperidoL 5 MG TAB PO PRN (02:58)
[2021-09-11] MEDS: NICOTINE 14MG/24HR PATCH TRANSDERM SCH (09:51)
[2021-09-11] MEDS: SERTRALINE 50 MG TAB PO SCH (09:51)
[2021-09-11] MEDS: PANTOPRAZOLE 40 MG TABLET PO SCH (09:51)
[2021-09-11 10:34] LABS: Basophils % (A) 1 %; Eosinophils # (A) 0.2 k/uL (0-0.7); Eosinophils % (A) 3 %; HCT 53.4 % (39.0-53.0); HGB 17.9 gm/dL (13.0-17.5); Lymphocytes # (A) 1.6 k/uL (1.0-4.8); Lymphocytes % (A) 24 %; MCH 30.2 pg (25.0-35.0); MCHC 33.6 g/dL (31.0-37.0); MCV 89.7 fL (80.0-100.0); Mean Platelet Volume 6.8; Monocytes # (A) 0.5 k/uL (0-1.0); Monocytes % (A) 7 %; Neutrophils # (A) 4.3 k/uL (1.3-7.7); Neutrophils % (A) 65 %; Platelet Count 326 k/uL (150-450); RBC 5.95 m/uL (4.30-5.90); RDW 13.6 % (11.5-15.5); WBC 6.6 k/uL (3.8-10.6)
[2021-09-11 11:23] LABS: ALT 35 U/L (4-49); AST 40 U/L (17-59); African American GFR (CKD) >90 (>60 ml/min/1.73 sqM); Albumin 4.3 g/dL (3.5-5.0); Alkaline Phosphatase 76 U/L (38-126); Anion Gap 9 mmol/L; Blood Urea Nitrogen 20 mg/dL (9-20); Calcium 10.1 mg/dL (8.4-10.2); Carbon Dioxide 27 mmol/L (22-30); Chloride 101 mmol/L (98-107); Glucose 141 mg/dL (74-99); Non-African American GFR(CKD) 80 (>60 ml/min/1.73 sqM); Potassium 4.8 mmol/L (3.5-5.1); Sodium 137 mmol/L (137-145); Total Bilirubin 0.5 mg/dL (0.2-1.3); Total Protein 7.8 g/dL (6.3-8.2)
[2021-09-11] MEDS ORDERED: SYMBICORT 160-4.5 MCG INHALER INHALATION SCH (13:58)
--- NOTE | 2021-09-11 14:08 | P.HP ---
Psychiatric H&P - . H&P Date: 09/11/21 History & Physical: Allergies Allergy/AdvReac Type Severity Reaction Status Date / Time No Known Allergies Allergy Verified 09/11/21 02:45 Vital Signs Temp 98.0 F 09/11/21 03:05 Pulse 87 09/11/21 03:09 Resp 18 09/11/21 03:09 BP 135/89 09/11/21 03:09 Pulse Ox 95 09/11/21 03:09 Intake & Output 09/10/21 09/11/21 09/11/21 18:59 06:59 18:59 Weight 102.965 kg 98.458 kg Laboratory Last Values WBC 6.6 k/uL (3.8-10.6) 09/11/21 10:00 RBC 5.95 m/uL (4.30-5.90) H 09/11/21 10:00 Hgb 17.9 gm/dL (13.0-17.5) H 09/11/21 10:00 Hct 53.4 % (39.0-53.0) H 09/11/21 10:00 MCV 89.7 fL (80.0-100.0) 09/11/21 10:00 MCH 30.2 pg (25.0-35.0) 09/11/21 10:00 MCHC 33.6 g/dL (31.0-37.0) 09/11/21 10:00 RDW 13.6 % (11.5-15.5) 09/11/21 10:00 Plt Count 326 k/uL (150-450) 09/11/21 10:00 MPV 6.8 09/11/21 10:00 Neutrophils % 65 % 09/11/21 10:00 Lymphocytes % 24 % 09/11/21 10:00 Monocytes % 7 % 09/11/21 10:00 Eosinophils % 3 % 09/11/21 10:00 Basophils % 1 % 09/11/21 10:00 Neutrophils # 4.3 k/uL (1.3-7.7) 09/11/21 10:00 Lymphocytes # 1.6 k/uL (1.0-4.8) 09/11/21 10:00 Monocytes # 0.5 k/uL (0-1.0) 09/11/21 10:00 Eosinophils # 0.2 k/uL (0-0.7) 09/11/21 10:00 Basophils # 0.0 k/uL (0-0.2) 09/11/21 10:00 Sodium 137 mmol/L (137-145) 09/11/21 10:00 Potassium 4.8 mmol/L (3.5-5.1) 09/11/21 10:00 Chloride 101 mmol/L (98-107) 09/11/21 10:00 Carbon Dioxide 27 mmol/L (22-30) 09/11/21 10:00 Anion Gap 9 mmol/L 09/11/21 10:00 BUN 20 mg/dL (9-20) 09/11/21 10:00 Creatinine 1.03 mg/dL (0.66-1.25) 09/11/21 10:00 Est GFR (CKD-EPI)AfAm >90 (>60 ml/min/1.73 sqM) 09/11/21 10:00 Est GFR (CKD-EPI)NonAf 80 (>60 ml/min/1.73 sqM) 09/11/21 10:00 Glucose 141 mg/dL (74-99) H 09/11/21 10:00 Calcium 10.1 mg/dL (8.4-10.2) 09/11/21 10:00 Total Bilirubin 0.5 mg/dL (0.2-1.3) 09/11/21 10:00 AST 40 U/L (17-59) 09/11/21 10:00 ALT 35 U/L (4-49) 09/11/21 10:00 Alkaline Phosphatase 76 U/L (38-126) 09/11/21 10:00 Total Protein 7.8 g/dL (6.3-8.2) 09/11/21 10:00 Albumin 4.3 g/dL (3.5-5.0) 09/11/21 10:00 TSH 6.940 mIU/L (0.465-4.680) H 09/11/21 10:00 [place] <0.2 mmol/L 09/11/21 01:55 Coronavirus (PCR) Not Detected (Not Detectd) 09/10/21 18:43 09/11/21 14:01 IDENTIFYING DATA: Patient is a 61-year-old male who currently lives with his niece and nephew, has no kids and is unmarried. 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 HPI: Patient presented to the hospital yesterday complaining of suicidal thoughts and depression. Apparently patient had mentioned in the ER that his girlfriend left him 1 week ago. Patient's lithium level was subtherapeutic and TSH was mildly elevated at 6.94. Patient was admitted voluntarily to the mental health unit. Patient was agreeable to speak with conventional underwriter in the office today. He appeared to have poor hygiene and grooming. He states that he's been off his psychiatric medications for about 2 months now. He states that he usually follows up at [facility] for his Abilify Maintenna injection in his meds however has not gotten injection for her "over a month I think". He states that he was arguing with his girlfriend's daughter and started arguing with his girlfriend as well "because she sold a Z". He states that he has been more irritable lately. He claims that after they got into a fight that "she left me". He claims that he is feeling suicidal and depressed. He states that he did not have a plan for suicide however. He claims that he is not having any anxiety at this time. He states his sleep and appetite are fair. He claims that currently he is not having any suicidal thoughts. Patient denies any suicidal or homicidal ideations intent or plan. At this time patient denies any auditory or visual hallucinations. Patient denies any flight of ideas racing thoughts and increased in goal directed behavior. Patient admits to using marijuana daily. He claims that he smokes cigarettes daily as well. Occasional alcohol use. PAST PSYCHIATRIC HISTORY: Patient states that has a history of schizoaffective disorder. He was previously on Abilify Maintenna long-acting injection however has not got it in at least 2 months. His previous on lithium, Zoloft and trazodone. Patient denies any previous psychiatric hospitalizations. He claims that he follows up at [facility] however has not gone quite some time. Patient denies any history of suicide attempts in the past. PMH: As per medicine H&P. ALLERGIES: as per EMR CHEMICAL DEPENDENCY HISTORY: as per HPI FAMILY PSYCHIATRIC/SUBSTANCE USE HISTORY: denies SOCIAL HISTORY: Patient was born and raised in [place]. He also states that he was raised in [place]. He states that he pleaded up to seventh grade at school. He states that he has been to [facility] in the past in the for criminal sexual conduct charges. He states that he currently lives with his niece and nephew. He does not have any kids and is unmarried. 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 MENTAL STATUS EXAM: General Appearance: Patient appears to be overweight, kolb and longer hair, stated age is alert, directable, and constricted. Patient appears to have poor hygiene and grooming. Behavior: Patient is seated without any agitated behavior. Mild distressed, depressive affect Speech: Patient's speech is fluent and nonpressured. [place] Mood/Affect: Patient reports their mood is depressed, affect is congruent and constricted. Suicidality/Homicidality: Patient denies having any homicidal ideation intent or plan. Denies any suicidal ideations intent or plan Perceptions: Patient denies any visual hallucinations and denies any auditory hallucinations Though content/process: [place], poverty of content. not Endorse any delusions. Memory and concentration: AOX3, grossly intact for the purposes of this session. Can spell "WORLD" backwards Judgment and insight: poor STRENGTHS/WEAKNESSES: strength is that patient is resilient. Weakness is that patient has poor judgment and is impulsive INTELLECT: average IMPRESSIONS: Schizoaffective disorder, depressive type Cannabis use disorder Nicotine dependence PLAN: -Patient is admitted under voluntary status to MHU for stabilization of psychiatric symptoms and safety. Patient has signed adult voluntary form and medication consent and is placed in patient's chart. -Medications : Will start patient on lithium 600 mg daily at bedtime for mood stabilization/suicidal thoughts, trazodone 50 mg daily at bedtime for insomnia/mood, Zoloft 50 mg daily for mood/anxiety. We'll look into [facility] records as to when patient last received his Abilify Maintenna IM injection. -Ativan and Haldol PRN for agitation/aggression -Patient was counselled on substance abuse and desired to cut back on use -Patient was informed of the risks, benefits and side effects of the medication and patient verbally consented to taking the medications. Patient signed med consent form and was placed in chart. -Internal Medicine consult to perform medical evaluation and physical. -NRT - nicotine patch -SW on board for discharge planning. Encourage patient to participate in groups to work on coping skills.
[2021-09-11] MEDS: SYMBICORT 160-4.5 MCG INHALER (MHU) INHALATION SCH ×2 (16:39→22:19)
--- NOTE | 2021-09-11 17:21 | XR ---
EXAMINATION: XR chest 1V portable DATE AND TIME: 09/11/2021 5:10 PM CLINICAL INDICATION: wheezing TECHNIQUE: Departmental protocol COMPARISON: 09/10/2021 FINDINGS: The lungs are clear. The pleural spaces are negative. The cardiac silhouette is not enlarged. The remainder of the mediastinal silhouette is unremarkable. The skeletal structures and soft tissues are negative for acute findings. IMPRESSION: No definite acute radiographic process.
[2021-09-11] MEDS: metFORMIN 500 MG TAB PO SCH (18:30)
[2021-09-11] MEDS ORDERED: LITHIUM CARBONATE 300 MG CAP PO SCH (21:00)
[2021-09-11] MEDS ORDERED: traZODone HCL 50 MG TAB PO SCH (21:00)
--- NOTE | 2021-09-11 22:13 | P.CONS ---
History of Present Illness - Reason for Consult Consult date: 09/11/21 Medical Requesting physician: Chinedu Babcock - History of Present Illness This is a pleasant 61-year-old male who presents to the for psychiatric evaluation. Patient recently had a breakup with his girlfriend and has been having increased sadness and depression and states that he lost his will and doesn't want to live anymore. Patient states that they both moved out of the home, he did not offer any other information. Patient sees a therapist outpatient. He currently denies any suicidal or homicidal ideations. with past medical history significant for asthma, COPD, GERD, osteoarthritis, pneumonia, herniated disks with pinched nerve in neck, bronchitis history, right shoulder joint replacement, sigmoid resection in 2016 with colostomy with reversal in August 2017, anxiety/depression/bipolar/schizoaffective disorder and does follow with [facility] for his medications. Currently has been off his medications for about 1 month, and also has not been to [facility] for some time. Patient is a current every day smoker, smokes 1 pack per day for the last 50 years. Patient is a former drinker, does admit to using marijuana daily. Chest x-ray in the shows no acute cardiopulmonary disease. Labs on admission mostly unremarkable, hemoglobin elevated at 17.9 which can be seen in chronic smoker's, glucose 141, TSH 6.940, T4 1.08. Hemoglobin A1c 6.5 which is consistent with diabetes. Home medications include trazodone, sertraline, omeprazole, lithium, Symbicort, albuterol, Abilify. All medications are appropriate to continue at this time. Repeat chest xray redemonstrates no definite acute radiographic progress. Vital signs: afebrile, heart rate 87, respirations 18, blood pressure 135/89, 95% room air. REVIEW OF SYSTEMS: CONSTITUTIONAL: No fever, no malaise, no fatigue. HEENT: No recent visual problems or hearing problems. Denied any sore throat. CARDIOVASCULAR: No chest pain, orthopnea, PND, no palpitations, no syncope. PULMONARY: No shortness of breath, no cough, no hemoptysis. GASTROINTESTINAL: No diarrhea, no nausea, no vomiting, no abdominal pain. NEUROLOGICAL: No headaches, no weakness, no numbness. HEMATOLOGICAL: Denies any bleeding or petechiae. GENITOURINARY: Denies any burning micturition, frequency, or urgency. MUSCULOSKELETAL/RHEUMATOLOGICAL: Denies any joint pain, swelling, or any muscle pain. ENDOCRINE: Denies any polyuria or polydipsia. The rest of the 14-point review of systems is negative. PHYSICAL EXAMINATION: GENERAL: The patient is alert and oriented x3, not in any acute distress. Well developed, well nourished. HEENT: Pupils are round and equally reacting to light. EOMI. Injected sclera. No conjunctival pallor. Normocephalic, atraumatic. No pharyngeal erythema. No thyromegaly. CARDIOVASCULAR: S1 and S2 present. No murmurs, rubs, or gallops. PULMONARY: Scattered expiratory and audible wheezing on examination. ABDOMEN: Soft, nontender, nondistended, normoactive bowel sounds. No palpable organomegaly. MUSCULOSKELETAL: No joint swelling or deformity. EXTREMITIES: No cyanosis, clubbing, or pedal edema. NEUROLOGICAL: Gross neurological examination did not reveal any focal deficits. SKIN: No rashes. Assessment and plan Assessment Schizoaffective disorder with depression Diabetes Mellitus, new onset with hemoglobin 6.5 this admission, random blood gluocse 141 COPD/Asthma with mild acute exacerbation, on room air, chest xray stable, resume inhalers Chronic Nicotine dependence, counseling provided Chronic THC use GERD Osteoarthritis History bowel resection with colostomy s/p reversal Obesity Sick euthyroid syndrome vs. subclinical hypothyroidism with elevated TSH, T4 within normal limits not an indication to start patient on synthroid, recommend to follow up in 1 month for a repeat TSH. Elevated hemoglobin Elevated random blood glucose GI Prophylaxis: Protonix Full Code Plan Initiate Metformin, counseling provided Monitor blood glucose Resume symbicort, albuterol Patient on nicotine patch Continue all other supportive care Resume home medications Thank you for this consultation we will continue to follow along with patient on an as needed basis. Past Medical History Past Medical History: Asthma, COPD, GERD/Reflux, Osteoarthritis (OA), Pneumonia Additional Past Medical History / Comment(s): pinched nerve in neck, herniated discs,bronchitis, rt arm "bone spurs" History of Any Multi-Drug Resistant Organisms: None Reported Past Surgical History: Bowel Resection, Joint Replacement Additional Past Surgical History / Comment(s): rt shoulder, 04/29/17 sigmoid resection with colostomy with reversal in 08/[address] Pathak Past Anesthesia/Blood Transfusion Reactions: No Reported Reaction Smoking Status: Current every day smoker - Past Family History Father Family Medical History: Cancer Mother Family Medical History: Cancer Medications and Allergies Home Medications Medication Instructions Recorded Confirmed Type ARIPiprazole IM [Abilify Maintena] 400 mg INJ Q28D 02/07/21 09/11/21 History Albuterol Inhaler [Ventolin Hfa 2 puff INHALATION RT-Q6H PRN 09/10/21 09/11/21 History Inhaler] Budesonide/Formoterol Fumarate 2 puff INHALATION RT-BID 09/10/21 09/11/21 History [Symbicort 160-4.5 Mcg Inhaler] Ivalee Carbonate 1,200 mg PO HS 09/10/21 09/11/21 History Omeprazole 20 mg PO BID 09/10/21 09/11/21 History Sertraline [Zoloft] 50 mg PO DAILY 09/10/21 09/11/21 History traZODone HCL 50 - 100 mg PO HS 09/10/21 09/11/21 History Allergies Allergy/AdvReac Type Severity Reaction Status Date / Time No Known Allergies Allergy Verified 09/11/21 02:45 Physical Exam Vitals: Vital Signs Temp Pulse Pulse Resp BP BP Pulse Ox 09/11/21 03:09 87 18 135/89 95 09/11/21 03:05 98.0 F 93 20 117/87 94 L 09/10/21 20:04 81 18 137/85 96 09/10/21 17:59 98.1 F 86 20 134/97 95 Intake and Output 09/11/21 09/11/21 09/11/21 06:59 14:59 22:59 Other: Weight 98.458 kg Results CBC & Chem 7: 09/11/21 10:00 09/11/21 10:00 Labs: Abnormal Lab Results - Last 24 Hours (Table) 09/11/21 09/11/21 Range/Units 10:00 10:00 RBC 5.95 H (4.30-5.90) m/uL Hgb 17.9 H (13.0-17.5) gm/dL Hct 53.4 H (39.0-53.0) % Glucose 141 H (74-99) mg/dL TSH 6.940 H (0.465-4.680) mIU/L Assessment and Plan Time with Patient: Greater than 30
[2021-09-12] MEDS: metFORMIN 500 MG TAB PO SCH ×2 (09:48→17:17)
[2021-09-12] MEDS: SYMBICORT 160-4.5 MCG INHALER (MHU) INHALATION SCH ×2 (09:48→21:12)
[2021-09-12] MEDS: PANTOPRAZOLE 40 MG TABLET PO SCH (09:48)
[2021-09-12] MEDS: NICOTINE 14MG/24HR PATCH TRANSDERM SCH (09:48)
[2021-09-12] MEDS: SERTRALINE 50 MG TAB PO SCH (09:48)
[2021-09-12] MEDS: ALBUTEROL INHALER 60 PUFF/8 GM INHALER (MHU) INHALATION PRN ×2 (09:49→21:12)
--- NOTE | 2021-09-12 12:11 | P.PN ---
Progress Note - Text Progress Note Date: 09/12/21 Interval History: Patient was seen laying in his bed today and was initially hesitant and resist ant in speaking with promotion writer. He did not want to leave his room today. He states that "I'm doing fine" and minimized his need for being in the hospital. He states that he did not feel like going to groups and has mainly been in his room and not interacting with others. He continues to be fairly superficial and concrete. He has a poor insight and judgment. He requested to "go home as soon as I can". He even threatened to sign AMA today. He states that his mood is "fine" and is denying any anxiety today. He states that he slept poorly last night however did not know how long. He claims that his appetite is fair. At this time patient denies any suicidal or homical ideations, intent or plan. Patient denies any auditory, visual hallucinations and denies any paranoia or delusions. Patient denies any side effects from the medications and has been compliant with meds. Mental Status Exam: General Appearance: Patient appears to be overweight, kolb and longer hair, stated age is alert, directable, and constricted. Patient appears to have poor hygiene and grooming. Behavior: Patient is seated without any agitated behavior. Resistant Speech: Patient's speech is fluent and nonpressured. [place]. Somewhat demanding today Mood/Affect: Patient reports their mood is improving mildly, affect is congruent and constricted. Suicidality/Homicidality: Patient denies having any homicidal ideation intent or plan. Denies any suicidal ideations intent or plan Perceptions: Patient denies any visual hallucinations and denies any auditory hallucinations Though content/process: [place], poverty of content. not Endorse any delusions. Demanding to go home. Memory and concentration: AOX3, grossly intact for the purposes of this session. Judgment and insight: poor IMPRESSIONS: Schizoaffective disorder, depressive type Cannabis use disorder Nicotine dependence Plan: -Patient continues to meet criteria for inpatient psychiatric admission for symptom stabilization and safety. Patient has signed adult voluntary form and medication consent and was placed in patient's chart. -Medications: Increase lithium to 900 mg daily at bedtime for mood stabilization/suicidal thoughts, increase trazodone to 100 mg daily at bedtime for insomnia/mood, Zoloft to be increased to 100 mg daily for mood/anxiety starting on Wednesday. We'll look into [facility] records as to when patient last received his Abilify Maintenna IM injection and the patient still requires this. -When necessary Ativan and Haldol for agitation/aggression. -NRT - nicotine patch -SW on board for discharge planning. Encouraged the patient to participate in milieu. Likely discharge early next week.
[2021-09-12] MEDS: traZODone HCL 100 MG TAB PO SCH (21:13)
[2021-09-13] MEDS: metFORMIN 500 MG TAB PO SCH ×2 (08:32→17:23)
[2021-09-13] MEDS: PANTOPRAZOLE 40 MG TABLET PO SCH (08:32)
[2021-09-13] MEDS ORDERED: SERTRALINE 50 MG TAB PO ONE (09:00)
[2021-09-13] MEDS: LITHIUM CARBONATE 300 MG CAP PO SCH (09:10)
[2021-09-13] MEDS: NICOTINE 14MG/24HR PATCH TRANSDERM SCH (09:11)
[2021-09-13] MEDS: ALBUTEROL INHALER 60 PUFF/8 GM INHALER (MHU) INHALATION PRN (09:13)
[2021-09-13] MEDS: SYMBICORT 160-4.5 MCG INHALER (MHU) INHALATION SCH ×2 (09:14→21:48)
--- NOTE | 2021-09-13 12:41 | P.PN ---
Subjective Progress Note Date: 09/13/21 Principal diagnosis: Diagnostic impression: Schizoaffective disorder mixed type Cannabis use disorder unspecified Nicotine use disorder unspecified Subjective data: I have a plan to see my girlfriend I already called her and told her that they were going on a date I'm out to sign out today and I was hoping to leave today Patient reports that he was here because he and his girlfriend broke up recently He states that she left after 14 years of relationship or arguments over her 32-year-old daughter whom she continues to support financially She admits to using cannabis daily but denies any alcohol use He says that he has a place to go where he may go to one of his cousins to live Objective data: The conization seems to be very similar to the previous days assessment with Dr. posadas where patient continues to be in denial and focused only on wanting to leave Patient's insight into his problem is poor General hygiene remains poor with disheveled appearance Patient was seen in his room and does not seem to be interested in any counseling treatment already individual group therapy Formal and operational judgment are poor Problem-solving skills are impaired Plan: Plan: Patient continues to meet the criteria for inpatient psychiatric hospitalization for symptom stabilization and safety 2 patient has been started on lithium carbonate which has been increased to 900 mg at bedtime Patient has Ativan and Haldol for when necessary Other medications include trazodone and Zoloft which will be continued as prescribed Continue supportive care and redirection Continue participation on the [facility]nandez activities Jerry Akshat Matias 09/13/21/ Objective - Vital Signs Vital signs: Vital Signs Temp 99.1 F 09/13/21 07:15 Pulse 100 09/13/21 07:15 Resp 22 09/12/21 21:15 BP 127/88 09/13/21 07:15 Pulse Ox 96 09/13/21 07:15 - Labs CBC & Chem 7: 09/11/21 10:00 09/11/21 10:00
[2021-09-13 17:13] LABS: Glucose,Whole Blood 103 mg/dL (75-99)
[2021-09-13] MEDS: ACETAMINOPHEN TAB 325 MG TAB PO PRN (21:49)
[2021-09-13] MEDS: traZODone HCL 100 MG TAB PO SCH (21:50)
[2021-09-14] MEDS: metFORMIN 500 MG TAB PO SCH ×2 (08:32→18:38)
[2021-09-14] MEDS: SYMBICORT 160-4.5 MCG INHALER (MHU) INHALATION SCH ×2 (08:33→20:52)
[2021-09-14] MEDS: LITHIUM CARBONATE 300 MG CAP PO SCH (08:33)
[2021-09-14] MEDS: PANTOPRAZOLE 40 MG TABLET PO SCH (08:33)
[2021-09-14] MEDS: SERTRALINE 100 MG TAB PO SCH (08:33)
[2021-09-14] MEDS: NICOTINE 14MG/24HR PATCH TRANSDERM SCH (09:14)
--- NOTE | 2021-09-14 11:28 | P.PN ---
Subjective Progress Note Date: 09/14/21 Principal diagnosis: Diagnostic impression: Schizoaffective disorder mixed type Cannabis use disorder unspecified Nicotine use disorder unspecified Subjective data: I am already to leave and is going to see my girlfriend of the day I'm feeling a lot better I'm not having any issues or problems at this time Objective data: The conization seems to be very similar to the previous days assessment Patient's insight into his problem is poor General hygiene remains poor with disheveled appearance Patient was seen in his room and does not seem to be interested in any counseling treatment already individual group therapy Formal and operational judgment are poor Problem-solving skills are impaired Plan: Plan: Patient continues to meet the criteria for inpatient psychiatric h ospitalization for symptom stabilization and safety 2 patient has been started on lithium carbonate which has been increased to 900 mg at bedtime Patient has Ativan and Haldol for when necessary Other medications include trazodone and Zoloft which will be continued as prescribed Continue supportive care and redirection Continue participation on the [facility] activities Jerry Oden M.D. 09/14/21/ Objective - Vital Signs Vital signs: Vital Signs Temp 99.1 F 09/13/21 07:15 Pulse 100 09/13/21 07:15 Resp 22 09/12/21 21:15 BP 127/88 09/13/21 07:15 Pulse Ox 96 09/13/21 07:15 Intake & Output 09/13/21 09/14/21 09/14/21 18:59 06:59 18:59 Weight 98.2 kg - Labs CBC & Chem 7: 09/11/21 10:00 09/11/21 10:00 Labs: Abnormal Lab Results - Last 24 Hours (Table) 09/13/21 Range/Units 17:11 POC Glucose (mg/dL) 103 H (75-99) mg/dL
[2021-09-14] MEDS: ACETAMINOPHEN TAB 325 MG TAB PO PRN (20:52)
[2021-09-14] MEDS: traZODone HCL 100 MG TAB PO SCH (20:52)
[2021-09-15 06:29] VITALS: BP 118/80; PULSE 74; RESP 16; TEMP 97.6
[2021-09-15] MEDS: LITHIUM CARBONATE 300 MG CAP PO SCH (08:27)
[2021-09-15] MEDS: SERTRALINE 100 MG TAB PO SCH (08:27)
[2021-09-15] MEDS: PANTOPRAZOLE 40 MG TABLET PO SCH (08:27)
[2021-09-15] MEDS: SYMBICORT 160-4.5 MCG INHALER (MHU) INHALATION SCH (08:27)
[2021-09-15] MEDS: metFORMIN 500 MG TAB PO SCH (08:27)
[2021-09-15] MEDS: NICOTINE 14MG/24HR PATCH TRANSDERM SCH (08:27)
--- NOTE | 2021-09-15 10:16 | P.DS ---
Providers Date of admission: 09/11/21 02:36 Expected date of discharge: 09/15/21 Attending physician: Chinedu Babcock MD Consults: 09/11/21 02:52 Consult Physician Routine Consulting Provider: Keke Banks Consult Reason/Comments: For H& P for Medical Follow Up Do you want consulting provider notified?: Yes, Notify in am Primary care physician: Jarett Summers - Discharge Diagnosis(es) (1) Schizoaffective disorder, depressive type Current Visit: Yes Status: Acute Priority: High (2) Cannabis abuse Current Visit: Yes Status: Acute Priority: Medium (3) Nicotine dependence Current Visit: Yes Status: Acute Priority: Low Hospital Course: Admission HPI: Admission note was completed by newspaper writer "Patient is a 61-year-old male who currently lives with his niece and nephew, has no kids and is unmarried. 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 Patient presented to the hospital yesterday complaining of suicidal thoughts and depression. Apparently patient had mentioned in the ER that his girlfriend left him 1 week ago. Patient's lithium level was subtherapeutic and TSH was mildly elevated at 6.94. Patient was admitted voluntarily to the mental health unit. Patient was agreeable to speak with newspaper writer in the office today. He appeared to have poor hygiene and grooming. He states that he's been off his psychiatric medications for about 2 months now. He states that he usually follows up at [facility] for his Abilify Maintenna injection in his meds however has not gotten injection for her "over a month I think". He states that he was arguing with his girlfriend's daughter and started arguing with his girlfriend as well "because she sold a Z". He states that he has been more irritable lately. He claims that after they got into a fight that "she left me". He claims that he is feeling suicidal and depressed. He states that he did not have a plan for suicide however. He claims that he is not having any anxiety at this time. He states his sleep and appetite are fair. He claims that currently he is not having any suicidal thoughts. Patient denies any suicidal or homicidal ideations intent or plan. At this time patient denies any auditory or visual hallucinations. Patient denies any flight of ideas racing thoughts and increased in goal directed behavior. Patient admits to using marijuana daily. He claims that he smokes cigarettes daily as well. Occasional alcohol use." Hospital course: Upon admission to the unit patient was directable and agreeable to commence treatment and signed adult voluntary form. Patient was taking medications however ended up signing AMA on 08/12 and requesting to be discharged early. Patient got along well with other patients on the unit and followed unit protocol. Patient mainly isolated in his room. Patient was compliant with the medications and denied any side effects throughout hospital course. Patient was started on Zoloft and increased to a dose of 100 mg daily for mood/anxiety. Patient was also started on trazodone 100 mg daily at bedtime for insomnia/mood and also lithium was increased to 900 mg daily at bedtime for mood stabilization/suicidal thoughts. Patient is on a monthly dose of Abilify Maintenna 400 mg IM given by [facility] and did not receive a dose while on the unit. Patient spoke of his stressors. Patient was also seen by medical team for history and physical exam. Patient had 2 chest x-rays completed during his hospitalization which did not show any acute findings. Throughout the course of the hospitalization patient gradually improved with regards to mood, anxiety, sleep and returned back to their baseline level of functioning. On the day of discharge patient denied any suicidal or homicidal ideations intent or plan denied any auditory or visual hallucinations. Patient endorsed wanting to live for his health and future. The patient denied any access to guns or weapons. Patient denied any paranoia and did not endorse any delusions. Patient does not have a significant history of substance abuse and was counseled on abstaining from all substances including alcohol and marijuana. Patient was also counseled on the medications and need for regular compliance and was encouraged to follow- up with their outpatient appointment for mental health and also for primary care. Prior to discharge a family meeting will be arranged by social media editor to answer any questions and ensure safety upon discharge. Mental status exam: General Appearance: Patient appears to be overweight, long hair and kolb, stated age is alert, pleasant, and cooperative. Patient is in no acute distress and has improved hygiene and grooming Behavior: Patient is calmly seated without any agitated behavior. Speech: Patient's speech is fluent and nonpressured. Mood/Affect: Patient reports their mood is "better", affect is congruent and euthymic. Suicidality/Homicidality: Patient denies having any suicidal or homicidal ideation intent or plan. Perceptions: Patient denies any auditory or visual hallucinations. Though content/process: There is no evidence of any delusional thought content and thought process is linear and goal-directed. more future oriented Memory and concentration: AOX3, grossly intact for the purposes of this session. Can spell "WORLD" backwards correctly. Judgment and insight: chronically poor, however has improved with guarded prognosis Impression: Schizoaffective disorder depressive type Cannabis use disorder Nicotine dependence Plan: -Continue with discharge today as patient has improved and stabilized psychiatrically and is not currently an imminent threat to himself and/or others. -Continue medications: Zoloft 100 mg daily for mood/anxiety, trazodone 100 mg daily at bedtime for insomnia/mood, lithium 900 mg daily at bedtime for mood stabilization/suicidal thoughts. Patient to be continued on his regular dose of Abilify Maintenna 400 mg IM given by [facility], he did not receive a dose while on the unit. -Patient was counseled on the need for medication compliance and appropriate follow-up at mental health and also primary care for medical issues. Patient verbalized understanding and agreed. -Social work to arrange for and conduct family meeting to ensure safety upon discharge and answer any questions/concerns. Social work also to arrange for patients follow up appointments with [facility] for psychiatric care along with follow up with primary care provider. -Patient counseled on abstaining from recreational drugs and marijuana and alcohol. Was informed/educated on the adverse effects on their physical and mental health. Patient verbally agreed and understood. -Patient was instructed to return to the hospital or seek immediate medical care if their psychiatric or medical symptoms do worsen or reoccur. Allergies Allergy/AdvReac Type Severity Reaction Status Date / Time No Known Allergies Allergy Verified 09/11/21 02:45 Laboratory Results WBC 6.6 k/uL (3.8-10.6) 09/11/21 10:00 RBC 5.95 m/uL (4.30-5.90) H 09/11/21 10:00 Hgb 17.9 gm/dL (13.0-17.5) H 09/11/21 10:00 Hct 53.4 % (39.0-53.0) H 09/11/21 10:00 MCV 89.7 fL (80.0-100.0) 09/11/21 10:00 MCH 30.2 pg (25.0-35.0) 09/11/21 10:00 MCHC 33.6 g/dL (31.0-37.0) 09/11/21 10:00 RDW 13.6 % (11.5-15.5) 09/11/21 10:00 Plt Count 326 k/uL (150-450) 09/11/21 10:00 MPV 6.8 09/11/21 10:00 Neutrophils % 65 % 09/11/21 10:00 Lymphocytes % 24 % 09/11/21 10:00 Monocytes % 7 % 09/11/21 10:00 Eosinophils % 3 % 09/11/21 10:00 Basophils % 1 % 09/11/21 10:00 Neutrophils # 4.3 k/uL (1.3-7.7) 09/11/21 10:00 Lymphocytes # 1.6 k/uL (1.0-4.8) 09/11/21 10:00 Monocytes # 0.5 k/uL (0-1.0) 09/11/21 10:00 Eosinophils # 0.2 k/uL (0-0.7) 09/11/21 10:00 Basophils # 0.0 k/uL (0-0.2) 09/11/21 10:00 Sodium 137 mmol/L (137-145) 09/11/21 10:00 Potassium 4.8 mmol/L (3.5-5.1) 09/11/21 10:00 Chloride 101 mmol/L (98-107) 09/11/21 10:00 Carbon Dioxide 27 mmol/L (22-30) 09/11/21 10:00 Anion Gap 9 mmol/L 09/11/21 10:00 BUN 20 mg/dL (9-20) 09/11/21 10:00 Creatinine 1.03 mg/dL (0.66-1.25) 09/11/21 10:00 Est GFR (CKD-EPI)AfAm >90 (>60 ml/min/1.73 sqM) 09/11/21 10:00 Est GFR (CKD-EPI)NonAf 80 (>60 ml/min/1.73 sqM) 09/11/21 10:00 Glucose 141 mg/dL (74-99) H 09/11/21 10:00 POC Glucose (mg/dL) 103 mg/dL (75-99) H 09/13/21 17:11 POC Glu Excavating [employer]or ID Mica Ventura 09/13/21 17:[address] Glu mg/dL 141 09/11/21 10:00 Hemoglobin A1c 6.5 % (0.0-6.0) H 09/11/21 10:00 Calcium 10.1 mg/dL (8.4-10.2) 09/11/21 10:00 Total Bilirubin 0.5 mg/dL (0.2-1.3) 09/11/21 10:00 AST 40 U/L (17-59) 09/11/21 10:00 ALT 35 U/L (4-49) 09/11/21 10:00 Alkaline Phosphatase 76 U/L (38-126) 09/11/21 10:00 Total Protein 7.8 g/dL (6.3-8.2) 09/11/21 10:00 Albumin 4.3 g/dL (3.5-5.0) 09/11/21 10:00 TSH 6.940 mIU/L (0.465-4.680) H 09/11/21 10:00 Free T4 1.08 ng/dL (0.78-2.19) 09/11/21 10:00 [place] <0.2 mmol/L 09/11/21 01:55 Coronavirus (PCR) Not Detected (Not Detectd) 09/10/21 18:43 Vital Signs Temp 97.6 F 09/15/21 06:28 Pulse 74 09/15/21 06:28 Resp 16 09/15/21 06:28 BP 118/80 09/15/21 06:28 Pulse Ox 96 09/13/21 07:15 Intake & Output 09/14/21 09/15/21 09/15/21 18:59 06:59 18:59 Weight 98.2 kg Patient Condition at Discharge: Stable Plan - Discharge Summary New Discharge Prescriptions: New [place] Carbonate 900 mg PO DAILY 30 Days cap Pantoprazole [Protonix] 40 mg PO AC-BRKFST 30 Days tab Sertraline [Zoloft] 100 mg PO DAILY 30 Days tab traZODone HCL [Desyrel] 100 mg PO HS PRN 30 Days tab PRN Reason: Insomnia metFORMIN HCL [Glucophage] 500 mg PO BID-W/MEALS 30 Days tab Nicotine 14Mg/24Hr Patch [Habitrol] 1 patch TRANSDERM DAILY 14 Days patch Continue Budesonide/Formoterol Fumarate [Symbicort 160-4.5 Mcg Inhaler] 2 puff INHALATION RT-BID ARIPiprazole IM [Abilify Maintena] 400 mg INJ Q28D Albuterol Inhaler [Ventolin Hfa Inhaler] 2 puff INHALATION RT-Q6H PRN PRN Reason: Shortness Of Breath Discontinued Sertraline [Zoloft] 50 mg PO DAILY Omeprazole 20 mg PO BID [place] Carbonate 1,200 mg PO HS traZODone HCL 50 - 100 mg PO HS Discharge Medication List ARIPiprazole IM [Abilify Maintena] 400 mg INJ Q28D 02/07/21 [History] Albuterol Inhaler [Ventolin Hfa Inhaler] 2 puff INHALATION RT-Q6H PRN 09/10/21 [History] Budesonide/Formoterol Fumarate [Symbicort 160-4.5 Mcg Inhaler] 2 puff INHALATION RT-BID 09/10/21 [History] [place] Carbonate 900 mg PO DAILY 30 Days cap 09/15/21 [Rx] Nicotine 14Mg/24Hr Patch [Habitrol] 1 patch TRANSDERM DAILY 14 Days patch 09/15/21 [Rx] Pantoprazole [Protonix] 40 mg PO AC-BRKFST 30 Days tab 09/15/21 [Rx] Sertraline [Zoloft] 100 mg PO DAILY 30 Days tab 09/15/21 [Rx] metFORMIN HCL [Glucophage] 500 mg PO BID-W/MEALS 30 Days tab 09/15/21 [Rx] traZODone HCL [Desyrel] 100 mg PO HS PRN 30 Days tab 09/15/21 [Rx] Follow up Appointment(s)/Referral(s): Melina Denson MD [Primary Care Provider] - 1-2 days Activity/Diet/Wound Care/Special Instructions: Activity and diet as tolerated. Avoid the use of street drugs and alcohol. Take all medications as prescribed. When you are in need of refills on your medications please contact your medical provider and/or outpatient psychiatrist to have this done. Please go to scheduled outpatient appointment for aftercare treatment. If symptoms return or become worse, call the crisis line at and/or go to the nearest emergency room for evaluation Discharge Disposition: HOME SELF-CARE
== END 2021-09-15 13:35 | disposition home or self-care (01) | DRG 885 ==
LOC: EC 16:08 → 3MHU 09-11 02:36
PROVIDERS: ADMIT Psychiatry & Neurology Psychiatry; ATTEND Psychiatry & Neurology Psychiatry
DX: F25.1 Schizoaffective disorder, depressive type (principal); R45.851 Suicidal ideations; M50.20 Other cervical disc displacement, unspecified cervical region; E11.9 Type 2 diabetes mellitus without complications; J44.9 Chronic obstructive pulmonary disease, unspecified; Z20.822 Contact with and (suspected) exposure to COVID-19; F41.9 Anxiety disorder, unspecified; G47.00 Insomnia, unspecified; K21.9 Gastro-esophageal reflux disease without esophagitis; M19.90 Unspecified osteoarthritis, unspecified site; M77.9 Enthesopathy, unspecified; E07.9 Disorder of thyroid, unspecified; E66.9 Obesity, unspecified; Z68.33 Body mass index [BMI] 33.0-33.9, adult; F12.90 Cannabis use, unspecified, uncomplicated; F17.210 Nicotine dependence, cigarettes, uncomplicated; Z71.6 Tobacco abuse counseling; Z79.51 Long term (current) use of inhaled steroids; Z79.899 Other long term (current) drug therapy; Z87.01 Personal history of pneumonia (recurrent); Z90.49 Acquired absence of other specified parts of digestive tract; Z87.19 Personal history of other diseases of the digestive system; Z96.611 Presence of right artificial shoulder joint; Z98.890 Other specified postprocedural states; Z71.41 Alcohol abuse counseling and surveillance of alcoholic; Z71.51 Drug abuse counseling and surveillance of drug abuser; Z80.9 Family history of malignant neoplasm, unspecified
CPT/HCPCS: 36415; 71045; 71046; 80053; 80178; 82075; 83036; 84439; 84443; 85025; 87635; 99285

== ENCOUNTER 2022-01-16 15:02 | Emergency (ER) | payer MEDICARE, OTHER ==
[2022-01-16 15:15] VITALS: RESP 22; TEMP 98.3
[2022-01-16 16:08] LABS: Basophils # (A) 0.1 k/uL (0-0.2); Basophils % (A) 1 %; Eosinophils # (A) 0.3 k/uL (0-0.7); Eosinophils % (A) 3 %; HCT 48.6 % (39.0-53.0); HGB 16.5 gm/dL (13.0-17.5); Lymphocytes # (A) 1.8 k/uL (1.0-4.8); Lymphocytes % (A) 15 %; MCH 30.2 pg (25.0-35.0); Mean Platelet Volume 6.8; Monocytes # (A) 0.7 k/uL (0-1.0); Monocytes % (A) 6 %; Neutrophils # (A) 8.8 k/uL (1.3-7.7); Neutrophils % (A) 74 %; Platelet Count 369 k/uL (150-450); RBC 5.46 m/uL (4.30-5.90); RDW 14.2 % (11.5-15.5); WBC 11.9 k/uL (3.8-10.6)
[2022-01-16 16:17] LABS: Albumin 4.5 g/dL (3.5-5.0); Calcium 9.6 mg/dL (8.4-10.2); Potassium 4.1 mmol/L (3.5-5.1); Total Bilirubin 0.8 mg/dL (0.2-1.3); Total Protein 7.7 g/dL (6.3-8.2)
[2022-01-16 16:18] LABS: Partial Thromboplastin Time 25.6 sec (22.0-30.0); Prothrombin Time 10.8 sec (9.0-12.0)
--- NOTE | 2022-01-16 16:38 | ED ---
SOB HPI - General Chief Complaint: Shortness of Breath Stated Complaint: SOB Time Seen by Provider: 01/16/22 15:16 Source: police, EMS Mode of arrival: EMS Limitations: no limitations - History of Present Illness Initial Comments: Patient is a 61-year-old male with history of asthma and COPD presenting with chief complaint of shortness of breath. Per EMS he was being arrested when he developed shortness of breath. EMS noted wheezing and gave him a DuoNeb. He is brought here for assisted clearance. At presentation patient is hyperventilating on the stretcher, though his oxygen saturation is 99% on room air. He admits to cough productive of sputum. He denies any chest pain, fever, chills, nausea, vomiting, abdominal pain. - Related Data Home Medications Medication Instructions Recorded Confirmed ARIPiprazole IM [Abilify Maintena] 400 mg INJ Q28D 02/07/21 01/16/22 Albuterol Inhaler [Ventolin Hfa 2 puff INHALATION RT-Q6H PRN 09/10/21 01/16/22 Inhaler] Budesonide/Formoterol Fumarate 2 puff INHALATION RT-BID 09/10/21 01/16/22 [Symbicort 160-4.5 Mcg Inhaler] [place] Carbonate 900 mg PO HS 01/16/22 01/16/22 Nicotine 14Mg/24Hr Patch [Habitrol] 1 patch TRANSDERM DAILY PRN 01/16/22 01/16/22 Omeprazole [PriLOSEC] 20 mg PO BID 01/16/22 01/16/22 Previous Rx's Medication Instructions Recorded Pantoprazole [Protonix] 40 mg PO AC-BRKFST 30 Days tab 09/15/21 Sertraline [Zoloft] 100 mg PO DAILY 30 Days tab 09/15/21 metFORMIN HCL [Glucophage] 500 mg PO BID-W/MEALS 30 Days tab 09/15/21 traZODone HCL [Desyrel] 100 mg PO HS PRN 30 Days tab 09/15/21 Allergies Allergy/AdvReac Type Severity Reaction Status Date / Time No Known Allergies Allergy Verified 01/16/22 17:12 Review of Systems ROS Statement: Those systems with pertinent positive or pertinent negative responses have been documented in the HPI. ROS Other: All systems not noted in ROS Statement are negative. Past Medical History Past Medical History: Asthma, COPD, GERD/Reflux, Osteoarthritis (OA), Pneumonia Additional Past Medical History / Comment(s): pinched nerve in neck, herniated discs,bronchitis, rt arm "bone spurs" History of Any Multi-Drug Resistant Organisms: None Reported Past Surgical History: Bowel Resection, Joint Replacement Additional Past Surgical History / Comment(s): rt shoulder, 04/29/17 sigmoid resection with colostomy with reversal in 08/[address] Pathak Past Anesthesia/Blood Transfusion Reactions: No Reported Reaction Past Psychological History: Anxiety, Bipolar, Depression, Schizophrenia Smoking Status: Current every day smoker - Past Family History Father Family Medical History: Cancer Mother Family Medical History: Cancer General Exam Limitations: no limitations General appearance: alert, in no apparent distress Head exam: Present: atraumatic, normocephalic, normal inspection Eye exam: Present: normal appearance. Absent: scleral icterus Neck exam: Present: normal inspection Respiratory exam: Present: rales. Absent: respiratory distress, wheezes, rhonchi, stridor, accessory muscle use Cardiovascular Exam: Present: regular rate, normal rhythm, normal heart sounds. Absent: systolic murmur, diastolic murmur, rubs, gallop, clicks Extremities exam: Present: normal inspection Back exam: Present: normal inspection Neurological exam: Present: alert, oriented X3, CN II-XII intact Psychiatric exam: Present: normal affect, normal mood Skin exam: Present: warm, dry, intact, normal color. Absent: rash Course Vital Signs 01/16/22 01/16/22 01/16/22 15:04 15:25 17:14 Temperature 98.3 F Pulse Rate 86 75 Respiratory 22 Rate Blood Pressure 183/85 101/80 O2 Sat by Pulse 99 99 Oximetry 01/16/22 17:52 Temperature Pulse Rate 72 Respiratory Rate Blood Pressure 104/61 O2 Sat by Pulse Oximetry Medical Decision Making - Medical Decision Making Patient is a 61-year-old male presenting with chief complaint of shortness of breath. Shortness of breath was brought on shortly after being arrested, he was brought here for assisted clearance. He has history of asthma and COPD. He admits to productive cough. On auscultation there are diffuse rales. Patient is hyperventilating. Oxygen saturation and heart rate are WNL. There is mild leukocytosis, chest x-ray is negative for any acute process. On reassessment patient is no longer hyperventilating and appears to be resting comfortably. He is stable for discharge. He'll be discharged into the custody of law enforcement is medically cleared for assisted. Follow-up with PCP. Report back to ER if any new or worsening symptoms. Answered all questions. Patient conveyed verbal understanding. I discussed this case with my attending Dr. Winkler - Lab Data Result diagrams: 01/16/22 15:47 01/16/22 15:47 Lab Results 01/16/22 01/16/22 01/16/22 Range/Units 15:47 15:47 15:47 WBC 11.9 H (3.8-10.6) k/uL RBC 5.46 (4.30-5.90) m/uL Hgb 16.5 (13.0-17.5) gm/dL Hct 48.6 (39.0-53.0) % MCV 89.0 (80.0-100.0) fL MCH 30.2 (25.0-35.0) pg MCHC 34.0 (31.0-37.0) g/dL RDW 14.2 (11.5-15.5) % Plt Count 369 (150-450) k/uL MPV 6.8 Neutrophils % 74 % Lymphocytes % 15 % Monocytes % 6 % Eosinophils % 3 % Basophils % 1 % Neutrophils # 8.8 H (1.3-7.7) k/uL Lymphocytes # 1.8 (1.0-4.8) k/uL Monocytes # 0.7 (0-1.0) k/uL Eosinophils # 0.3 (0-0.7) k/uL Basophils # 0.1 (0-0.2) k/uL PT 10.8 (9.0-12.0) sec INR 1.0 (<1.2) APTT 25.6 (22.0-30.0) sec Sodium 135 L (137-145) mmol/L Potassium 4.1 (3.5-5.1) mmol/L Chloride 106 (98-107) mmol/L Carbon Dioxide 22 (22-30) mmol/L Anion Gap 7 mmol/L BUN 16 (9-20) mg/dL Creatinine 1.11 (0.66-1.25) mg/dL Est GFR (CKD-EPI)AfAm 84 (>60 ml/min/1.73 sqM) Est GFR (CKD-EPI)NonAf 73 (>60 ml/min/1.73 sqM) Glucose 120 H (74-99) mg/dL Plasma Lactic Acid Kyle (0.7-2.0) mmol/L Calcium 9.6 (8.4-10.2) mg/dL Total Bilirubin 0.8 (0.2-1.3) mg/dL AST 29 (17-59) U/L ALT 26 (4-49) U/L Alkaline Phosphatase 94 (38-126) U/L Troponin I (0.000-0.034) ng/mL Total Protein 7.7 (6.3-8.2) g/dL Albumin 4.5 (3.5-5.0) g/dL 01/16/22 01/16/22 Range/Units 15:47 15:47 WBC (3.8-10.6) k/uL RBC (4.30-5.90) m/uL Hgb (13.0-17.5) gm/dL Hct (39.0-53.0) % MCV (80.0-100.0) fL MCH (25.0-35.0) pg MCHC (31.0-37.0) g/dL RDW (11.5-15.5) % Plt Count (150-450) k/uL MPV Neutrophils % % Lymphocytes % % Monocytes % % Eosinophils % % Basophils % % Neutrophils # (1.3-7.7) k/uL Lymphocytes # (1.0-4.8) k/uL Monocytes # (0-1.0) k/uL Eosinophils # (0-0.7) k/uL Basophils # (0-0.2) k/uL PT (9.0-12.0) sec INR (<1.2) APTT (22.0-30.0) sec Sodium (137-145) mmol/L Potassium (3.5-5.1) mmol/L Chloride (98-107) mmol/L Carbon Dioxide (22-30) mmol/L Anion Gap mmol/L BUN (9-20) mg/dL Creatinine (0.66-1.25) mg/dL Est GFR (CKD-EPI)AfAm (>60 ml/min/1.73 sqM) Est GFR (CKD-EPI)NonAf (>60 ml/min/1.73 sqM) Glucose (74-99) mg/dL Plasma Lactic Acid Kyle 1.7 (0.7-2.0) mmol/L Calcium (8.4-10.2) mg/dL Total Bilirubin (0.2-1.3) mg/dL AST (17-59) U/L ALT (4-49) U/L Alkaline Phosphatase (38-126) U/L Troponin I <0.012 (0.000-0.034) ng/mL Total Protein (6.3-8.2) g/dL Albumin (3.5-5.0) g/dL Disposition Clinical Impression: Shortness of breath, Cough Narrative: Patient is released into the custody of law enforcement Disposition: OTHER INSTITUTION NOT DEFINED Condition: Good Instructions (If sedation given, give patient instructions): Chronic Cough (ED) Additional Instructions: Follow-up with PCP. Report back to ER if any new or worsening symptoms. Is patient prescribed a controlled substance at d/c from ED?: No Referrals: Melina Denson MD [Primary Care Provider] - 1-2 days Time of Disposition: 17:27 - Out of Hospital Transfer - Req. Specs Out of Hospital Transfer - Requested Specifics: Other Non-Acute (Patient is medically cleared for assisted and discharged into the custody of law enforcement)
--- NOTE | 2022-01-16 17:09 | XR ---
EXAMINATION TYPE: XR chest 2V DATE OF EXAM: 01/16/2022 5:00 PM COMPARISON: Chest radiographs from 04/28/2017 TECHNIQUE: XR chest 2V Frontal and lateral views of the chest. CLINICAL INDICATION:Male, 61 years old with history of difficulty breathing; FINDINGS: Lungs/Pleura: There is no evidence of pleural effusion, focal consolidation, or pneumothorax. Pulmonary vascularity: Unremarkable. Heart/mediastinum: Cardiomediastinal silhouette is unremarkable. Musculoskeletal: No acute osseous pathology. IMPRESSION: No acute cardiopulmonary disease/process.
[2022-01-16 17:53] VITALS: BP 104/61; PULSE 72
== END 2022-01-16 17:53 | disposition other institution (70) ==
LOC: EC 15:02
DX: R06.02 Shortness of breath (principal); R05.9 Cough, unspecified; J44.9 Chronic obstructive pulmonary disease, unspecified; M19.90 Unspecified osteoarthritis, unspecified site; K21.9 Gastro-esophageal reflux disease without esophagitis; F41.9 Anxiety disorder, unspecified; F31.9 Bipolar disorder, unspecified; Z79.51 Long term (current) use of inhaled steroids; F20.9 Schizophrenia, unspecified; F17.200 Nicotine dependence, unspecified, uncomplicated; Z79.899 Other long term (current) drug therapy
CPT/HCPCS: 36415; 71046; 80053; 83605; 84484; 85025; 85610; 85730; 99285

== ENCOUNTER → 2023-12-31 | Day surgery (SDC) | payer MEDICARE, OTHER ==
[~2023-12-31] MED LIST changes: -DEXAMETHASONE SOD PHOSPHATE 10 MG/ML 1 ML VIAL IV ONE; -HEPARIN SODIUM,PORCINE 5,000 UNIT/ML 1 ML VIAL SQ ONE; -HYDROmorphone 0.5 MG/0.5 ML SYRINGE IVP PRN; -LIDOCAINE 1% 20 ML VIAL (10MG/ML) FOR IV START INTRADERMA PRN; -ONDANSETRON 4 MG/2 ML VIAL IVP ONE; -SCOPOLAMINE 1.5MG/72HR PATCH TRANSDERM ONE; -ceFAZolin IN SWFI 2 GM/20 ML SYRINGE IVP ONE; -metroNIDAZOLE-NS PMX 500 MG in SALINE 1 100ML.BAG IVPB ONE
== END ==
LOC: ORWHC2ENDO 14:27
PROVIDERS: ATTEND Internal Medicine Gastroenterology
DX: Z53.8 Procedure and treatment not carried out for other reasons (principal); R13.10 Dysphagia, unspecified

== ENCOUNTER → 2024-06-26 | Outpatient (CLI) | payer MEDICARE, OTHER ==
--- NOTE | 2024-06-26 13:20 | CTL ---
EXAMINATION TYPE: CT Low Dose Lung DATE OF EXAM ORDERED: 06/26/2024 COMPARISON: Multiple chest radiographs with most recent 05/26/2023 CLINICAL INDICATION: Male, 64 years old with history of Z72.0 tobacco use; PHH, smoker, Lung cancer s creening, History of Smoking/tobacco use. TECHNIQUE: Low dose computed tomography scan was performed through the chest at 1 mm thick sections a nd reconstructed images in multiple planes at 1 mm and [address] DLP: 107.[address] CTDI: 2.6 mGy Automated exposure control for dose reduction was used. CT DIAGNOSTIC QUALITY: Satisfactory FINDINGS: Nodules: Scattered calcified granulomas. No clinically significant pulmonary nodules. LUNGS: COPD: Severity: Mild Fibrosis: Severity: None Lymph nodes: No enlarged lymph nodes. Calcified mediastinal and left hilar lymph nodes. Other findings: None RIGHT PLEURAL SPACE: Effusion: None Calcification: None Thickening: None Pneumothorax: None LEFT PLEURAL SPACE: Effusion: None Calcification: None Thickening: None Pneumothorax: None HEART: Heart Size: Normal Coronary Calcification: None Pericardial Effusion: None OTHER FINDINGS: Upper abdomen: None Bony thorax: None Supraclavicular region: None Other: Bilateral gynecomastia. IMPRESSION: 1. No clinically significant pulmonary nodules. 2. Sequelae of prior granulomatous disease. 3. Mild COPD changes. CT LUNG RAD AND CT CHEST RECOMMENDATION: Lung-Rad 2 Benign Appearance or Behavior: Continue annual sc reening with LDCT in 12 months. S Modifier (other clinically significant findings): None [facility], , 06/26/2024 1:17 PM
== END | disposition home or self-care (01) ==
LOC: RADCTMAIN 12:51
PROVIDERS: ATTEND Family Medicine
DX: Z12.2 Encounter for screening for malignant neoplasm of respiratory organs (principal); J44.9 Chronic obstructive pulmonary disease, unspecified; F17.210 Nicotine dependence, cigarettes, uncomplicated; N62 Hypertrophy of breast
CPT/HCPCS: 71271